=== PATIENT | male | born 1940 | race Caucasian/White ===

== ENCOUNTER 2017-04-08 15:10 | Inpatient (IN) ==
--- NOTE | 2017-04-08 15:51 | Emergency Department Note ---
Disposition Clinical Impression: Pneumonia, Sepsis, Renal failure, Atrial fibrillation, History of treatment for malignancy, Diabetes, Frail elderly, Abdominal hernia, Abdominal aortic aneurysm, Iliac aneurysm, Renal mass, Anemia, Abnormal EKG, Hypoxemia Disposition: Admitted As Inpatient Referrals: Avery Woods DO [Primary Care Provider] - Forms: ED Satisfaction Letter General Adult HPI - General Chief complaint: ED Shortness of Breath/Dyspnea Stated complaint: ADELINE,"pneumonia" Time Seen by Provider: 04/08/17 15:41 Source: patient, family Limitations: no limitations - History of Present Illness HPI Narrative: 76-year-old male reports emergency department complaining of cough and shortness of breath. He has been ill for a few days. He has a history of malignancy as well as previous PE, cardiac bypass, COPD/non-oxygen dependent. He went to his primary care physician's office and they sent him here for further evaluation. The patient has been generally weak. There is no history of fall. No history of slurred speech or difficulty moving the arms or legs independently. There is no history of coughing up blood or bleeding of any sort. The patient reportedly takes Coumadin. The patient denies any chest pain. There is no history of back pain or urinary problems. He lives with his who came in with him. Pain Scale: 8 - Related Data Home Medications Medication Instructions Recorded Confirmed Aspirin 325 mg PO DAILY 07/07/15 04/08/17 Furosemide [Lasix] 40 mg PO DAILY 07/07/15 04/08/17 Omeprazole [PriLOSEC] 20 mg PO DAILY 07/07/15 04/08/17 Potassium Chloride [Kdur] 10 meq PO BID 07/07/15 04/08/17 Sennosides/Docusate Sodium 2 tab PO BID 07/07/15 04/08/17 [Latonya-Colace Tablet] Tiotropium [place] [Spiriva] 18 mcg IH DAILY 07/07/15 04/08/17 Warfarin [Coumadin] 5 mg PO Q48H 07/07/15 04/08/17 Levothyroxine [Synthroid] 150 mcg PO DAILY 07/10/15 04/08/17 Metoprolol [Lopressor] 25 mg PO BID 07/10/15 04/08/17 Insulin Glargine,Hum.rec.anlog 30 unit SQ QAM 12/06/16 04/08/17 [Lantus Solostar] Megestrol Acetate [Megace] 200 mg PO BID 04/08/17 04/08/17 Morphine Sulfate SR (12 HR) [MS 30 mg PO Q8H 04/08/17 04/08/17 Contin] Warfarin [Coumadin] 2.5 mg PO Q48H 04/08/17 04/08/17 Previous Rx's Medication Instructions Recorded Citalopram [CeleXA] 20 mg PO DAILY #30 tablet 12/13/15 Lubiprostone [Amitiza] 24 mcg PO BID #60 capsule 12/13/15 Metoclopramide [Reglan] 10 mg PO QIDAC #120 tablet 12/06/16 Fluticasone/Salmeterol [Advair 1 each IH BID #1 blst.w.dev 03/10/17 250-50 Diskus] Oxycodone HCl/Acetaminophen 1 - 2 each PO Q4H PRN #360 tablet 03/10/17 [Percocet 10-325 mg Tablet] Allergies Allergy/AdvReac Type Severity Reaction Status Date / Time cephalexin [From Keflex] Allergy Mild unknown Verified 07/10/15 09:08 levofloxacin [From Levaquin] Allergy Mild unknown Verified 07/10/15 09:08 All systems ED: reviewed and negative except as stated. Past Medical History - Past Medical History Medical history: Reports: atrial fibrillation, cancer, COPD, coronary artery disease, diabetes, malignancy, other Surgical history: Reports: cancer surgery (Total thyroidectomy), coronary bypass (CABG) (With the mobile sternum secondary to complications postoperatively) Psychiatric history: Reports: anxiety, depression - Social History Smoking Status: Current every day smoker Smokeless Tobacco Status: No Alcohol use: Reports: none Drug use: Reports: none Physical Exam - General Limitations: no limitations General appearance: alert, in no apparent distress - Head Head exam: atraumatic, normocephalic, normal inspection - Eye Eye exam: Present: normal appearance, PERRL, EOMI - ENT ENT exam: normal exam, normal oropharynx, mucous membranes moist, TM's normal bilaterally, normal external ear exam - Neck Neck exam: Present: normal inspection, full ROM, trachea midline. Absent: tenderness - Chest Chest inspection: Present: symmetric chest wall rise. Absent: tenderness - Respiratory Respiratory exam: Present: prolonged expiratory phase, other (Course breath sounds bilaterally). Absent: normal lung sounds bilaterally, respiratory distress, accessory muscle use - Cardiovascular Cardiovascular exam: Present: regular rate, tachycardia - Abdominal Exam Abdominal exam: Present: soft, normal bowel sounds, hernia (Hernia noted and there are the umbilical area tender to palpation not completely reducible.). Absent: distention, guarding, rebound, rigidity Abdominal tenderness: Present: epigastrium, moderate - Extremities Exam Extremities exam: Present: normal inspection, full ROM, normal capillary refill. Absent: tenderness, pedal edema, joint swelling, calf tenderness - Expanded Lower Extremity Exam Lower leg exam: Absent: Homans' sign Neurovascular/Tendon exam: Present: normal capillary refill. Absent: motor deficit, sensory deficit, tendon deficit, extremity cold to touch, pallor - Back Exam Back exam: Present: normal inspection, full ROM. Absent: tenderness, CVA tenderness (R), CVA tenderness (L), vertebral tenderness - Neurological Exam Neurological exam: Present: alert, oriented X3, CN II-XII intact. Absent: motor sensory deficit - Psychiatric Psychiatric exam: Present: normal affect, normal mood - Skin Skin exam: Present: warm, dry, intact, normal color. Absent: rash, cyanosis, diaphoresis, erythema, pallor, mottled Course Vital Signs Temperature 97.6 F 04/08/17 15:29 Pulse Rate 110 04/08/17 15:29 Respiratory Rate 22 04/08/17 15:29 Blood Pressure 106/63 04/08/17 15:29 O2 Sat by Pulse Oximetry 88 04/08/17 15:29 Temperature 97.6 F 04/08/17 15:29 Pulse Rate 110 04/08/17 15:29 Respiratory Rate 16 04/08/17 16:39 Blood Pressure 106/63 04/08/17 15:29 O2 Sat by Pulse Oximetry 91 04/08/17 16:39 Oxygen Delivery Oxygen Delivery Room Air Medical Decision Making - [facility] Narrative Medical decision making narrative: The patient is elderly, he has pneumonitis, as well as significant hypoxemia, his oxygen saturations were 86% on room air. He does not usually require oxygen. IV access was established antibiotics were ordered. Blood cultures were sent. Based on his age, multiple comorbidities including malignancy and COPD, tachycardia and pneumonitis, he likely meets sepsis criteria. The patient is currently stable pending admission. I discussed the case with the hospitalist on-call who has accepted the patient to their care. *A discussion was had regarding the patient's allergies to medications, cephalexin and Levaquin have reportedly a yeast infection the penile area. He has no true allergy to Levaquin or cephalexin. An initial dose of Levaquin was ordered. Solu-Medrol and fluids were also given. Oxygen was supplied. - Lab Data Lab results reviewed: Yes I reviewed the patient's lab results. Result diagrams: 04/08/17 15:57 04/08/17 15:57 Lab Results 04/08/17 04/08/17 04/08/17 Range/Units 15:57 15:57 15:57 WBC 11.0 (4.3-11.1) K/mcL RBC 3.95 L (4.19-5.50) M/mcL Hgb 12.5 L (12.9-16.9) g/dL Hct 37.8 (37.5-50.1) % MCV 95.7 (83.0-100.0) fL MCH 31.6 (28.0-33.3) pg MCHC 33.1 (31.6-35.5) g/dL RDW 14.6 H (11.5-14.5) % Plt Count 408 H (140-400) K/mcL MPV 8.8 L (9.4-12.4) fL Seg Neutrophils % 68.0 % Band Neutrophils % 20.0 H (0-4) % Lymphocytes % 6.0 % Monocytes % 6.0 % Neutrophils # 9.7 H (1.6-8.9) K/mcL Lymphocytes # 0.7 (0.6-4.6) K/mcL Monocytes # 0.7 (0.0-1.3) K/mcL Toxic Granulation Present A (Not Present) Platelet Estimate Slight increase H (Normal) Immature Plt Fraction 2.1 (1.1-6.1) % APTT 64.9 H (26.0-36.0) Seconds Sodium 138 (136-145) mEq/L Potassium 3.7 (3.5-4.5) mEq/L Chloride 106 (98-109) mEq/L Carbon Dioxide 22 (19-29) mEq/L BUN 34 H (8-26) mg/dL Creatinine 1.50 H (0.72-1.25) mg/dL Est GFR ( Amer) 55 L (> 60) Est GFR (Non-Af Amer) 45 L (> 60) BUN/Creatinine Ratio 23 (6-26) Glucose 182 H (70-99) mg/dL Calculated Osmolality 298 (280-300) Lactic Acid (0.5-2.2) mmol/L Calcium 9.3 (8.6-10.8) mg/dL Total Bilirubin 0.7 (0.2-1.2) mg/dL Direct Bilirubin 0.5 (0.0-0.5) mg/dL Indirect Bilirubin 0.2 (0.0-1.2) mg/dL AST 9 (5-34) Units/L ALT 6 (0-55) Units/L Alkaline Phosphatase 47 (38-126) Units/L Troponin I (0-0.03) ng/mL C-Reactive Protein (Less than 5) mg/L B-Natriuretic Peptide (0-100) pg/mL Serum Total Protein 6.8 (6.0-8.3) g/dL Albumin 2.7 L (3.5-5.0) g/dL Globulin 4.1 H (2.4-3.5) g/dL Albumin/Globulin Ratio 0.7 L (1.1-2.2) Lipase 8 (8-78) Units/L 04/08/17 04/08/17 04/08/17 Range/Units 15:57 15:57 15:57 WBC (4.3-11.1) K/mcL RBC (4.19-5.50) M/mcL Hgb (12.9-16.9) g/dL Hct (37.5-50.1) % MCV (83.0-100.0) fL MCH (28.0-33.3) pg MCHC (31.6-35.5) g/dL RDW (11.5-14.5) % Plt Count (140-400) K/mcL MPV (9.4-12.4) fL Seg Neutrophils % % Band Neutrophils % (0-4) % Lymphocytes % % Monocytes % % Neutrophils # (1.6-8.9) K/mcL Lymphocytes # (0.6-4.6) K/mcL Monocytes # (0.0-1.3) K/mcL Toxic Granulation (Not Present) Platelet Estimate (Normal) Immature Plt Fraction (1.1-6.1) % APTT (26.0-36.0) Seconds Sodium (136-145) mEq/L Potassium (3.5-4.5) mEq/L Chloride (98-109) mEq/L Carbon Dioxide (19-29) mEq/L BUN (8-26) mg/dL Creatinine (0.72-1.25) mg/dL Est GFR ( Amer) (> 60) Est GFR (Non-Af Amer) (> 60) BUN/Creatinine Ratio (6-26) Glucose (70-99) mg/dL Calculated Osmolality (280-300) Lactic Acid 1.8 (0.5-2.2) mmol/L Calcium (8.6-10.8) mg/dL Total Bilirubin (0.2-1.2) mg/dL Direct Bilirubin (0.0-0.5) mg/dL Indirect Bilirubin (0.0-1.2) mg/dL AST (5-34) Units/L ALT (0-55) Units/L Alkaline Phosphatase (38-126) Units/L Troponin I 0.01 (0-0.03) ng/mL C-Reactive Protein (Less than 5) mg/L B-Natriuretic Peptide 111 H (0-100) pg/mL Serum Total Protein (6.0-8.3) g/dL Albumin (3.5-5.0) g/dL Globulin (2.4-3.5) g/dL Albumin/Globulin Ratio (1.1-2.2) Lipase (8-78) Units/L 04/08/17 Range/Units 15:57 WBC (4.3-11.1) K/mcL RBC (4.19-5.50) M/mcL Hgb (12.9-16.9) g/dL Hct (37.5-50.1) % MCV (83.0-100.0) fL MCH (28.0-33.3) pg MCHC (31.6-35.5) g/dL RDW (11.5-14.5) % Plt Count (140-400) K/mcL MPV (9.4-12.4) fL Seg Neutrophils % % Band Neutrophils % (0-4) % Lymphocytes % % Monocytes % % Neutrophils # (1.6-8.9) K/mcL Lymphocytes # (0.6-4.6) K/mcL Monocytes # (0.0-1.3) K/mcL Toxic Granulation (Not Present) Platelet Estimate (Normal) Immature Plt Fraction (1.1-6.1) % APTT (26.0-36.0) Seconds Sodium (136-145) mEq/L Potassium (3.5-4.5) mEq/L Chloride (98-109) mEq/L Carbon Dioxide (19-29) mEq/L BUN (8-26) mg/dL Creatinine (0.72-1.25) mg/dL Est GFR ( Amer) (> 60) Est GFR (Non-Af Amer) (> 60) BUN/Creatinine Ratio (6-26) Glucose (70-99) mg/dL Calculated Osmolality (280-300) Lactic Acid (0.5-2.2) mmol/L Calcium (8.6-10.8) mg/dL Total Bilirubin (0.2-1.2) mg/dL Direct Bilirubin (0.0-0.5) mg/dL Indirect Bilirubin (0.0-1.2) mg/dL AST (5-34) Units/L ALT (0-55) Units/L Alkaline Phosphatase (38-126) Units/L Troponin I (0-0.03) ng/mL C-Reactive Protein 174 H (Less than 5) mg/L B-Natriuretic Peptide (0-100) pg/mL Serum Total Protein (6.0-8.3) g/dL Albumin (3.5-5.0) g/dL Globulin (2.4-3.5) g/dL Albumin/Globulin Ratio (1.1-2.2) Lipase (8-78) Units/L - Radiology Data Radiology results reviewed: Yes I reviewed the patient's radiology results.
[2017-04-08] MEDS ORDERED: 0.9 % Sodium Chloride 1,000 ML IVC ONE ×3 (15:53→17:05)
[2017-04-08] MEDS ORDERED: Ipratropium/Albuterol Neb 3 ML IH ONE (16:13)
[2017-04-08] MEDS ORDERED: methylPREDNISolone 125 MG/2 ML VIAL IVP ONE (16:13)
[2017-04-08 16:15] LABS: Hematocrit 37.8 % (37.5-50.1); Hemoglobin 12.5 g/dL (12.9-16.9); Immature Platelets 2.1 % (1.1-6.1); Mean Corpuscular HGB Conc 33.1 g/dL (31.6-35.5); Mean Corpuscular Hemoglobin 31.6 pg (28.0-33.3); Mean Corpuscular Volume 95.7 fL (83.0-100.0); Mean Platelet Volume 8.8 fL (9.4-12.4); Platelet Count 408 K/mcL (140-400); Red Blood Count 3.95 M/mcL (4.19-5.50); Red Cell Distribution Width 14.6 % (11.5-14.5)
[2017-04-08 16:25] LABS: Activated Partial Thrombo Time 64.9 Seconds (26.0-36.0)
[2017-04-08 16:30] LABS: Albumin 2.7 g/dL (3.5-5.0); Albumin/Globulin Ratio 0.7 (1.1-2.2); Bilirubin,Direct 0.5 mg/dL (0.0-0.5); Bilirubin,Indirect 0.2 mg/dL (0.0-1.2); Bilirubin,Total 0.7 mg/dL (0.2-1.2); Calcium 9.3 mg/dL (8.6-10.8); Globulin 4.1 g/dL (2.4-3.5); Potassium 3.7 mEq/L (3.5-4.5); Total Protein 6.8 g/dL (6.0-8.3)
[2017-04-08 16:43] LABS: Lymphocytes # 0.7 K/mcL (0.6-4.6); Monocytes # 0.7 K/mcL (0.0-1.3); Neutrophils # 9.7 K/mcL (1.6-8.9); Toxic Granulation Present (Not Present)
[2017-04-08] MEDS ORDERED: Levofloxacin 750 MG/150 ML 750 MG/150 ML BAG IVPB ONE (19:01)
[2017-04-08 19:15] LABS: INR 18.5
[2017-04-08] MEDS ORDERED: *HR* Phytonadione 5 MG TABLET PO ONE (19:44)
[2017-04-08] MEDS ORDERED: Ondansetron 4 MG/2 ML VIAL IVP PRN (20:17)
[2017-04-08] MEDS ORDERED: Naloxone 0.4 MG/ML INJ IVP PRN (20:17)
[2017-04-08] MEDS ORDERED: *HR* Dextrose 50 % in Water (Syg) 50 ML SYRINGE IVP PRN (20:23)
[2017-04-08] MEDS ORDERED: D5% in Water 1,000 ML IVC PRN (20:23)
[2017-04-08] MEDS ORDERED: Dextrose Gel 15 GM PO PRN ×2 (20:23)
[2017-04-08] MEDS ORDERED: Fluconazole 100 MG TABLET PO ONE (20:26)
--- NOTE | 2017-04-08 20:30 | Internal Med History&Physical ---
<Koffi Parry - Last Filed: 04/08/17 20:59> Date of Encounter: 04/08/17 Time of Encounter: 20:28 Assessment and Plan (1) Acute respiratory failure Current visit: Yes Status: Acute Patient does not require oxygen at home however his oxygen saturation was 86% on presentation. Patient came up to 91% on 2 L. Likely related to his underlying pneumonia. We will continue with oxygen therapy. We will hold off on an ABG at this time given the patient's supratherapeutic INR. Patient expresses wishes to remain a full code. Qualifiers: Respiratory failure complication: hypoxia Qualified Code(s): J96.01 - Acute respiratory failure with hypoxia (2) Pneumonia Current visit: Yes Status: Acute Concern for aspiration. Patient and significant other states that he does have episodes of choking when eating and drinking. Patient also has significant healthcare exposure with history of cancer and radiation therapy. We will treat with Bactrim antibiotics including vancomycin, Levaquin, Zosyn. Zosyn will cover for possible aspiration. Blood cultures are been obtained, sputum cultures pending. Of note patient has a stated Levaquin allergy however he states that his reaction is that we will get a yeast infection in his genital area when taking Levaquin and he has no other significant reaction. Patient was given Levaquin in the emergency department without adverse reaction. Discussed patient that Levaquin was indicated for his treatment and he understands that he is taking it. Qualifiers: Pneumonia type: due to unspecified organism Laterality: right Lung location: lower lobe of lung Qualified Code(s): J18.1 - Lobar pneumonia, unspecified organism (3) Supratherapeutic INR Current visit: Yes Status: Acute Patient's INR on presentation his 18.5. Repeat pending. Patient does not have any active bleeding at this time. He did state that he noticed flecks of blood in his sputum this morning and had a nosebleed that resolved spontaneously. At the time I examined him do not have any blood in the sputum and had no further active bleeding. We will give 5 mg of by mouth vitamin K, place the patient on strict bed rest and continue to monitor his INR. Coumadin will be held. If the patient has any signs of bleeding we will initiate FFP. (4) Acute renal failure Current visit: Yes Status: Acute Creatinine 1.5 on presentation, patient has normal kidney function otherwise. Likely due to dehydration in the setting of infection. Patient has been given adequate fluid hydration. Patient continues to have good urine output. We will monitor creatinine and urine output. Qualifiers: Acute renal failure type: unspecified Qualified Code(s): N17.9 - Acute kidney failure, unspecified (5) Atrial fibrillation Current visit: Yes Status: Acute Rate is under good control this time. Patient is on anticoagulation with supratherapeutic INR as discussed above. We will hold Coumadin. Continue rate controlling medications. Qualifiers: Atrial fibrillation type: unspecified Qualified Code(s): I48.91 - Unspecified atrial fibrillation (6) COPD (chronic obstructive pulmonary disease) Current visit: Yes Status: Acute Non-oxygen dependent at home. Patient is requiring oxygen as discussed above. Patient does not appear to be in acute exacerbation. There is no wheezing on exam or by history. Patient did receive Solu-Medrol 125 mg one time in the emergency department, we will hold off on any further steroids at this time. We will continue with breathing treatments. Patient continues to smoke 1 pack per day. Qualifiers: COPD type: unspecified COPD Qualified Code(s): J44.9 - Chronic obstructive pulmonary disease, unspecified (7) Diabetes Current visit: Yes Status: Acute Blood sugar slightly elevated on presentation. Wants to low-dose sliding scale and adjust as necessary. Patient is nothing by mouth until evaluated by speech. 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 Patient and significant other states that he does have issues with aspiration. This could be the cause of his pneumonia. We will make the patient nothing by mouth until he can be evaluated by speech therapy in the morning. (9) Thyroid carcinoma Current visit: No Status: Resolved History of. Patient had a total thyroidectomy approximately 3 years ago and received postsurgical radiation. It is not undergoing treatment currently. We will continue Synthroid. (10) DVT prophylaxis Current visit: Yes Status: Acute Not indicated at this time due to supratheraputic INR Internal Medicine - H&P: HPI Chief complaint: Cough Admitted From: Home Plans for Post Hospital Care: Home History of present illness: Mr. Nicholson is a 76 year old male with history of thyroid and laryngeal cancer who presents with cough and chest congestion. Patient states that he has had these symptoms for approximately 10 days he has been gradually getting worse. He complains of shortness of breath, increased cough with thick yellow-green sputum production. He states as well as his significant other states that over the last couple days he seems to be more lethargic and confused. He normally handles his medications well however has had difficulty managing his own medications in the last several days. He also reports nausea and vomiting and loose stools. He complains of epigastric abdominal pain. He states he has had fevers and chills for more than a year but recently he has had episodes where his felt extremely warm. He reports today he noticed flecks of blood in his sputum and this morning he had a short nosebleed that resolved spontaneously. Otherwise he denies any other active bleeding including emily hemoptysis, hematemesis, hematochezia, melena. Past Med Surg Social Fam HX - Past Medical History Medical history: atrial fibrillation, cancer, COPD, coronary artery disease, diabetes, malignancy, other Psychiatric history: anxiety, depression - Past Surgical History Surgical History: cancer surgery (Total thyroidectomy), coronary bypass (CABG) ( With the mobile sternum secondary to complications postoperatively) - Social History Smoking Status: Current every day smoker Smokeless Tobacco Status: No Alcohol use: none Drug use: none - Family History Mother Living Status: Hx Family Cardiac Disorders: Yes Internal Medicine - H&P: Meds Aspirin 325 mg PO DAILY 07/07/15 [History] Furosemide [Lasix] 40 mg PO DAILY 07/07/15 [History] Omeprazole [PriLOSEC] 20 mg PO DAILY 07/07/15 [History] Potassium Chloride [Kdur] 10 meq PO BID 07/07/15 [History] Sennosides/Docusate Sodium [Latonya-Colace Tablet] 2 tab PO BID 07/07/15 [History] Tiotropium [place] [Spiriva] 18 mcg IH DAILY 07/07/15 [History] Warfarin [Coumadin] 5 mg PO Q48H 07/07/15 [History] Levothyroxine [Synthroid] 150 mcg PO DAILY 07/10/15 [History] Metoprolol [Lopressor] 25 mg PO BID 07/10/15 [History] Citalopram [CeleXA] 20 mg PO DAILY #30 tablet 12/13/15 [Rx] Lubiprostone [Amitiza] 24 mcg PO BID #60 capsule 12/13/15 [Rx] Insulin Glargine,Hum.rec.anlog [Lantus Solostar] 30 unit SQ QAM 12/06/16 [ History] Metoclopramide [Reglan] 10 mg PO QIDAC #120 tablet 12/06/16 [Rx] Fluticasone/Salmeterol [Advair 250-50 Diskus] 1 each IH BID #1 blst.w.dev [Rx] Oxycodone HCl/Acetaminophen [Percocet 10-325 mg Tablet] 1 - 2 each PO Q4H PRN # 360 tablet 03/10/17 [Rx] Megestrol Acetate [Megace] 200 mg PO BID 04/08/17 [History] Morphine Sulfate SR (12 HR) [MS Contin] 30 mg PO Q8H 04/08/17 [History] Warfarin [Coumadin] 2.5 mg PO Q48H 04/08/17 [History] Allergies cephalexin [From Keflex] Allergy (Mild, Verified 07/10/15 09:08) unknown SWELLING OF GENITAL AREA WITH BLEEDING levofloxacin [From Levaquin] Allergy (Mild, Verified 07/10/15 09:08) unknown SWELLING OF GENITAL AREA WITH BLEEDING All Systems PM: A 10-system review of systems was performed and is negative for pertinent findings except as documented above in the HPI. - Constitutional Constitutional: fever(s), lethargy, no chills - EENT Eyes: no change in vision Nose, mouth and throat: nasal congestion, sinus pressure, no epistaxis, no sore throat, no throat swelling, no tongue swelling - Cardiovascular Cardiovascular ROS IM: dyspnea, dyspnea on exertion, no chest pain, no edema, no irregular heart rhythm, no lightheadedness, no palpitations, no syncope - Respiratory Respiratory: cough, dyspnea, hemoptysis (flecks of blood), chest congestion, excessive phlegm production, change in phlegm color, no wheezing - Gastrointestinal Gastrointestinal: abdominal pain, loose stools, nausea, vomiting, no hematemesis , no hematochezia, no melena - Genitourinary Genitourinary ROS male: no dysuria, no hematuria - Musculoskeletal Musculoskeletal ROS IM: no numbness, no tingling - Neurological Neurological ROS: confusion, disequilibrium, dizziness, no frequent falls, no headache(s), no numbness, no weakness - Psychiatric Psychiatric: confusion, memory loss (recent) - Endocrine Endocrine IM: no polyuria - Allergic/Immunologic Allergic/Immunologic: no tongue swelling, no throat swelling - Constitutional Vitals: Temp Pulse Resp BP Pulse Ox 97.6 F 110 18 132/73 91 04/08/17 15:29 04/08/17 15:29 04/08/17 19:49 04/08/17 19:49 04/08/17 16:39 General appearance: Present: A&O X 3, no acute distress - Head Head exam: Present: atraumatic, normal inspection, normocephalic - Eye Eye exam: Present: EOMI, PERRL. Absent: scleral icterus - ENT ENT exam: Present: mucous membranes dry, normal oropharynx - Neck Neck exam general surgery: Present: full ROM - Respiratory Respiratory exam: Present: rhonchi (RLL). Absent: respiratory distress, wheezes , tachypnea - Cardiovascular Cardiovascular exam: Present: RRR, tachycardia. Absent: gallop, rubs, systolic murmur - GI/Abdominal GI/Abdominal exam: Present: normal bowel sounds, soft, tenderness (epigastric), no peritoneal signs. Absent: distended, firm - Extremities Exam Extremities exam: Present: warm. Absent: pedal edema, tenderness - Neurological Exam Neurological exam: Present: alert, oriented X3 (but somewhat lethargic), no focal deficits - Psychiatric Psychiatric exam: Present: normal affect, normal mood Internal Med - H&P Results - Labs CBC & Chem 7: 04/08/17 15:57 04/08/17 15:57 <Babar Talavera - Last Filed: 04/08/17 22:22> Date of Encounter: 04/08/17 - EENT Nose, mouth and throat: dysphagia, nasal congestion, sinus pressure - Cardiovascular Cardiovascular ROS IM: dyspnea, dyspnea on exertion - Respiratory Respiratory: cough, dyspnea, chest congestion, excessive phlegm production, change in phlegm color, no pain on inspiration - Gastrointestinal Gastrointestinal: nausea, vomiting, no diarrhea - Musculoskeletal Musculoskeletal ROS IM: no arthralgias, no back pain - Integumentary Integumentary IM: no rash, no jaundice - Hematologic/Lymphatic Hematologic/Lymphatic: easy bleeding, easy bruising - Constitutional Vitals: Temp Pulse Resp BP Pulse Ox 98.3 F 94 17 122/78 94 04/08/17 21:01 04/08/17 21:01 04/08/17 21:01 04/08/17 21:01 04/08/17 21:01 General appearance: Present: cooperative, A&O X 3, pleasant, answers questions appropriately Exam: Pt looks a little dry and coughing; otherwise NAD; A&Ox3; no confusion presently -- confirms - ENT Additional comments: no stridor - Neck Neck exam general surgery: Present: full ROM. Absent: lymphadenopathy, tenderness - Respiratory Respiratory exam: Present: decreased breath sounds (right base with crackles), rales (right base), rhonchi. Absent: accessory muscle use, chest wall tenderness - Cardiovascular Cardiovascular exam: Present: RRR. Absent: diastolic murmur, systolic murmur - GI/Abdominal GI/Abdominal exam: Present: soft. Absent: tenderness - Extremities Exam Extremities exam: Present: full ROM, warm. Absent: calf tenderness - Skin Skin exam: Present: dry, warm. Absent: rash Internal Med - H&P Results - Labs CBC & Chem 7: 04/08/17 15:57 04/08/17 15:57 - Diagnostic Studies Chest x-ray Status: image reviewed by me (RLL pneumonia) - Attending Attestation I discussed the SOBOBA, PMH, ROS, lab data, and exam findings with Dr. Parry. I then saw and examined patient independently as well. Pt is ill with pneumonia , but he is alert, appropriate, pleasant, cooperative, and in no distress presently. He confirms increased coughing with thick sputum production -- mostly during meals and with eating/swallowing. He states he's had difficulty eating and swallowing since his ENT surgery roughly 3 years ago. He's never had aspiration pneumonia before. I informed him and his that we will make him npo for now, consult speech for swallow evaluation, and modify diet per speech recommendations thereafter. I entertained the possibility of G-tube, and he is adamantly against any feeding tube. He agrees with our plan otherwise. I agree with holding his Coumadin, giving him Vitamin K, and following PT/INR levels. I also agree with antibiotic choices. I suspect his pneumonia is likely due to aspiration as noted in the history and ROS. Other than my comments noted above and noted exam findings, I agree with Dr. Parry' s assessment and plan.
[2017-04-08] MEDS ORDERED: Budesonide/Formoterol 80/4.5 MDI IH SCH (21:00)
[2017-04-08] MEDS ORDERED: Vancomycin (wt based) 1,000 MG VIAL IVPB SCH (21:00)
[2017-04-08] MEDS: *HR* Morphine Sulfate SR (12 HR) 30 MG TABLET.ER PO SCH (21:19)
[2017-04-08] MEDS: Sennosides/Docusate Sodium TABLET PO SCH (21:20)
[2017-04-08] MEDS: Megestrol Acetate 400 MG/10 ML UDC PO SCH (21:21)
[2017-04-08] MEDS: (Lubiprostone [Amitiza] 24 MCG) PO SCH (21:30)
[2017-04-08] MEDS ORDERED: Vancomycin 1,250 MG in D5% in Water 250 ML IVPB ONE (21:30)
[2017-04-08 21:31] LABS: INR 18.9; Prothrombin Time 223.8 Seconds (9.4-12.1)
[2017-04-08] MEDS: Insulin LISPRO 300 UNITS/3 ML VIAL SQ SCH (21:47)
[2017-04-08] MEDS: Ipratropium/Albuterol Neb 3 ML IH SCH (22:34)
[2017-04-08] MEDS: *HR* OxyCODONE/APAP 10/325 TABLET PO PRN (23:41)
[2017-04-08] MEDS: Piperacillin/Tazobactam 3.375 GM in D5% in Water (Mini-Bag+) 100 ML IVPB SCH (23:41)
[2017-04-09 00:18] LABS: Bilirubin,Urine Small (Negative); Blood,Urine Negative (Negative); Clarity,Urine Clear (Clear); Color,Urine Yellow (Yellow); Glucose,Urine (UA) Normal (Normal); Ketones,Urine Trace mg/dL (Negative); Leukocyte Esterase,Urine Negative (Negative); Nitrite,Urine Negative (Negative); PH,Urine 5.5 pH Units (5.0-8.0); Protein,Urine Trace mg/dL (Neg-Trace); Specific Gravity,Urine > 1.030 (1.010-1.025); Urobilinogen,Urine Normal (Normal)
[2017-04-09 00:22] LABS: Bacteria,Urine None Seen per hpf (None-Few); Hyaline Casts,Urine None Seen per lpf (None-Few); Squamous Epithelial Cell,Urine Moderate per lpf (None-Few); WBC,Urine 0-3 per hpf (0-3)
[2017-04-09] MEDS: *HR* Morphine Sulfate SR (12 HR) 30 MG TABLET.ER PO SCH ×3 (04:04→21:17)
[2017-04-09] MEDS: Ipratropium/Albuterol Neb 3 ML IH SCH ×6 (04:20→23:14)
[2017-04-09 04:45] LABS: Hematocrit 33.1 % (37.5-50.1); Mean Corpuscular HGB Conc 33.2 g/dL (31.6-35.5); Mean Corpuscular Hemoglobin 31.6 pg (28.0-33.3); Mean Corpuscular Volume 95.1 fL (83.0-100.0); Mean Platelet Volume 9.1 fL (9.4-12.4); Platelet Count 300 K/mcL (140-400); Red Blood Count 3.48 M/mcL (4.19-5.50); Red Cell Distribution Width 14.6 % (11.5-14.5)
[2017-04-09 05:26] LABS: BUN/Creatinine Ratio 30 (6-26); Blood Urea Nitrogen 26 mg/dL (8-26); Calcium 8.4 mg/dL (8.6-10.8); Carbon Dioxide 19 mEq/L (19-29); Chloride 110 mEq/L (98-109); Glucose 163 mg/dL (70-99); Magnesium 1.2 mg/dL (1.6-2.6); Osmolality,Calculated 296 (280-300); Potassium 4.1 mEq/L (3.5-4.5); Sodium 139 mEq/L (136-145); eGFR For African Americans > 60 (> 60); eGFR For Non-African Americans > 60 (> 60)
[2017-04-09 05:36] LABS: Lymphocytes # 0.3 K/mcL (0.6-4.6); Neutrophils # 6.4 K/mcL (1.6-8.9); Platelet Estimate Normal (Normal); Reactive Lymphocytes Present (Not Present)
[2017-04-09 05:37] LABS: Toxic Granulation Present (Not Present)
[2017-04-09 05:49] LABS: INR 13.2
[2017-04-09] MEDS ORDERED: Magnesium Sulfate 2 GM in D5% in Water 100 ML IVPB ONE ×2 (06:20→08:07)
[2017-04-09] MEDS ORDERED: Tiotropium 18 MCG inhalation IH SCH (09:00)
[2017-04-09] MEDS: Insulin LISPRO 300 UNITS/3 ML VIAL SQ SCH ×4 (09:13→21:17)
[2017-04-09] MEDS: Piperacillin/Tazobactam 3.375 GM in D5% in Water (Mini-Bag+) 100 ML IVPB SCH ×3 (09:13→23:38)
[2017-04-09] MEDS: Sennosides/Docusate Sodium TABLET PO SCH ×2 (09:23→21:17)
[2017-04-09] MEDS: Megestrol Acetate 400 MG/10 ML UDC PO SCH ×2 (09:23→21:16)
[2017-04-09] MEDS: Magnesium Oxide 400 MG TABLET PO SCH (09:23)
[2017-04-09] MEDS: (Lubiprostone [Amitiza] 24 MCG) PO SCH (09:24)
[2017-04-09] MEDS: Budesonide/Formoterol 80/4.5 MDI IH SCH ×2 (11:05→19:46)
--- NOTE | 2017-04-09 16:21 | Internal Med Progress Note ---
Date of Encounter: 04/09/17 Time of Encounter: 12:30 - Assessment and plan (1) Pneumonia Current Visit: Yes Status: Acute Assessment and plan: right basilar pneumonia, on broad spectrum antibiotics, will continue and follow cultures. PT evaluation. Qualifiers: Pneumonia type: due to unspecified organism Laterality: right Lung location: lower lobe of lung Qualified Code(s): J18.1 - Lobar pneumonia, unspecified organism (2) Supratherapeutic INR Current Visit: Yes Status: Acute Assessment and plan: no active bleeding, inr down trending, no criteria for FFP, will monitor inr tomorrow in am and give another dose of vitamin K if needed. - Subjective Interval history: 1st encounter with the patient, feels weak. complainig of cough and not feeling himself for a few weeks. lives with his . - Constitutional Vitals: Temp Pulse Resp BP Pulse Ox 98.2 F 76 18 104/67 99 04/09/17 15:48 04/09/17 15:48 04/09/17 15:48 04/09/17 15:48 04/09/17 15:48 General appearance: Present: cooperative, disheveled, A&O X 3, pleasant, answers questions appropriately - Head Head exam: Present: atraumatic, normocephalic - Eye Eye exam: Present: PERRL, conjuntiva pink, sclera anicteric Pupils: Present: PERRL - Neck Neck exam general surgery: Present: supple, trachea midline. Absent: lymphadenopathy - Respiratory Respiratory exam: Present: rhonchi. Absent: accessory muscle use, rales, wheezes - Cardiovascular Cardiovascular exam: Present: RRR, +S1, +S2. Absent: diastolic murmur, gallop, rubs, systolic murmur - GI/Abdominal GI/Abdominal exam: Present: normal bowel sounds, soft, no peritoneal signs. Absent: distended, tenderness - Extremities Exam Extremities exam: Present: warm, radial pulses palpable and symetrical. Absent : calf tenderness, cyanotic, pedal edema - Neurological Exam Neurological exam: Present: CN II-XII intact, oriented X3, no focal deficits. Absent: pronater drift, facial droop, speech deficit - Skin Skin exam: Present: dry, intact Internal Medicine: Result - Labs CBC & Chem 7: 04/09/17 04:19 04/09/17 04:19 Labs: Short CBC 04/09/17 Range/Units 04:19 WBC 6.7 (4.3-11.1) K/mcL Hgb 11.0 L D (12.9-16.9) g/dL Hct 33.1 L (37.5-50.1) % Plt Count 300 (140-400) K/mcL Neutrophils # 6.4 (1.6-8.9) K/mcL BMP 04/09/17 04:19 Sodium 139 Potassium 4.1 Chloride 110 H Carbon Dioxide 19 BUN 26 Creatinine 0.86 Glucose 163 H Calcium 8.4 L Urine 04/09/17 Range/Units 00:00 Urine Color Yellow (Yellow) Urine Clarity Clear (Clear) Urine pH 5.5 (5.0-8.0) pH Units Ur Specific [place] > 1.030 H (1.010-1.025) Urine Protein Trace (Neg-Trace) mg/dL Urine Glucose (UA) Normal (Normal) mg/dL - ABG Interpretation ABG results: PT/INR, D-dimer PT 154.0 Seconds (9.4-12.1) H* 04/09/17 04:19 - Impressions Impressions Videofluoroscopic Swallow 04/09/17 09:13 IMPRESSION: Deep penetration with thin liquids. The patient is at high risk for aspiration. Flash penetration with nectar thick and honey thick consistencies. Please see separate speech pathology report for full discussion of findings and recommendations. D/ / Spike Robbins MD / Spike Robbins MD Interpreting Provider: Spike Robbins MD - VTE Reasons for not Prescribing Prophylaxis: Not indicated-Anticoagulated or INR therapeutic Consult Discharge Plan - Plan Referrals: Avery Woods, [Primary Care Provider] -
[2017-04-09] MEDS ORDERED: Vancomycin 1,250 MG in D5% in Water 250 ML IVPB SCH (21:00)
[2017-04-09] MEDS: *HR* OxyCODONE/APAP 10/325 TABLET PO PRN (23:35)
[2017-04-10] MEDS: Ipratropium/Albuterol Neb 3 ML IH SCH ×6 (03:40→23:50)
[2017-04-10] MEDS: *HR* Morphine Sulfate SR (12 HR) 30 MG TABLET.ER PO SCH ×3 (04:38→21:42)
[2017-04-10] MEDS: *HR* OxyCODONE/APAP 10/325 TABLET PO PRN (04:39)
[2017-04-10 05:43] LABS: Basophils % 0.2 %; Eosinophils % 0.1 %; Hematocrit 32.3 % (37.5-50.1); Hemoglobin 10.7 g/dL (12.9-16.9); Immature Granulocytes % 1.9 % (0-4); Lymphocytes # 0.6 K/mcL (0.6-4.6); Lymphocytes % 6.2 %; Mean Corpuscular HGB Conc 33.1 g/dL (31.6-35.5); Mean Corpuscular Hemoglobin 31.5 pg (28.0-33.3); Mean Platelet Volume 9.1 fL (9.4-12.4); Monocytes # 0.7 K/mcL (0.0-1.3); Monocytes % 7.2 %; Neutrophils # 8.2 K/mcL (1.6-8.9); Platelet Count 334 K/mcL (140-400); Red Cell Distribution Width 14.6 % (11.5-14.5); Segmented Neutrophils % 84.4 %
[2017-04-10 05:44] LABS: INR 3.9
[2017-04-10 05:47] LABS: Prothrombin Time 43.5 Seconds (9.4-12.1)
[2017-04-10 05:58] LABS: BUN/Creatinine Ratio 28 (6-26); Blood Urea Nitrogen 24 mg/dL (8-26); Calcium 8.9 mg/dL (8.6-10.8); Carbon Dioxide 23 mEq/L (19-29); Chloride 107 mEq/L (98-109); Glucose 143 mg/dL (70-99); Magnesium 2.1 mg/dL (1.6-2.6); Osmolality,Calculated 293 (280-300); Potassium 3.9 mEq/L (3.5-4.5); Sodium 138 mEq/L (136-145); eGFR For African Americans > 60 (> 60); eGFR For Non-African Americans > 60 (> 60)
[2017-04-10 06:14] LABS: Platelet Estimate Normal (Normal)
[2017-04-10 06:15] LABS: Reactive Lymphocytes Present (Not Present); Toxic Granulation Present (Not Present)
[2017-04-10] MEDS: Budesonide/Formoterol 80/4.5 MDI IH SCH ×2 (07:47→20:09)
[2017-04-10] MEDS: Insulin LISPRO 300 UNITS/3 ML VIAL SQ SCH ×4 (08:05→21:52)
[2017-04-10] MEDS: Megestrol Acetate 400 MG/10 ML UDC PO SCH ×2 (08:41→21:41)
[2017-04-10] MEDS: Sennosides/Docusate Sodium TABLET PO SCH ×2 (08:42→21:42)
[2017-04-10] MEDS: Magnesium Oxide 400 MG TABLET PO SCH (08:42)
[2017-04-10] MEDS: Piperacillin/Tazobactam 3.375 GM in D5% in Water (Mini-Bag+) 100 ML IVPB SCH ×2 (08:43→16:24)
[2017-04-10] MEDS ORDERED: AMITIZA 24 MCG PO SCH (09:00)
[2017-04-10] MEDS ORDERED: Vancomycin 1,250 MG in D5% in Water 250 ML IVPB SCH (11:30)
--- NOTE | 2017-04-10 15:08 | Internal Med Progress Note ---
Date of Encounter: 04/10/17 Time of Encounter: 15:07 - Assessment and plan (1) Pneumonia Current Visit: Yes Status: Acute Assessment and plan: right basilar pneumonia, on broad spectrum antibiotics, will continue and follow cultures. PT evaluation noed. discussed with patient possible d/c tomorrow if stable. will need home o2. Qualifiers: Pneumonia type: due to unspecified organism Laterality: right Lung location: lower lobe of lung Qualified Code(s): J18.1 - Lobar pneumonia, unspecified organism (2) Supratherapeutic INR Current Visit: Yes Status: Acute - Subjective Interval history: feels weak but beter than yesterday, his at bedside. complainig of cough and not feeling himself for a few weeks. lives with his . - Constitutional Vitals: Temp Pulse Resp BP Pulse Ox 98.4 F 84 16 102/61 93 04/10/17 12:17 04/10/17 12:17 04/10/17 12:17 04/10/17 12:17 04/10/17 14:02 General appearance: Present: disheveled, A&O X 3, pleasant, answers questions appropriately - Head Head exam: Present: atraumatic, normocephalic - Eye Eye exam: Present: PERRL, conjuntiva pink, sclera anicteric Pupils: Present: PERRL - Neck Neck exam general surgery: Present: supple, trachea midline. Absent: lymphadenopathy - Respiratory Respiratory exam: Present: decreased breath sounds. Absent: accessory muscle use, rales, rhonchi, wheezes - Cardiovascular Cardiovascular exam: Present: RRR, +S1, +S2. Absent: diastolic murmur, gallop, rubs, systolic murmur - GI/Abdominal GI/Abdominal exam: Present: normal bowel sounds, soft, no peritoneal signs. Absent: distended, tenderness - Extremities Exam Extremities exam: Present: warm, radial pulses palpable and symetrical. Absent : calf tenderness, cyanotic, pedal edema - Neurological Exam Neurological exam: Present: CN II-XII intact, oriented X3, no focal deficits. Absent: pronater drift, facial droop, speech deficit - Skin Skin exam: Present: dry, intact Internal Medicine: Result - Labs CBC & Chem 7: 04/10/17 04:30 04/10/17 04:30 Labs: Short CBC 04/10/17 Range/Units 04:30 WBC 9.7 (4.3-11.1) K/mcL Hgb 10.7 L (12.9-16.9) g/dL Hct 32.3 L (37.5-50.1) % Plt Count 334 (140-400) K/mcL Neutrophils # 8.2 (1.6-8.9) K/mcL BMP 04/10/17 04:30 Sodium 138 Potassium 3.9 Chloride 107 Carbon Dioxide 23 BUN 24 Creatinine 0.85 Glucose 143 H Calcium 8.9 - ABG Interpretation ABG results: PT/INR, D-dimer PT 43.5 Seconds (9.4-12.1) H* D 04/10/17 04:30 - Impressions Impressions Videofluoroscopic Swallow 04/09/17 09:13 IMPRESSION: Deep penetration with thin liquids. The patient is at high risk for aspiration. Flash penetration with nectar thick and honey thick consistencies. Please see separate speech pathology report for full discussion of findings and recommendations. D/ / Spike Robbins MD / Spike Robbins MD Interpreting Provider: Spike Robbins MD - VTE Reasons for not Prescribing Prophylaxis: Not indicated-Anticoagulated or INR therapeutic Consult Discharge Plan - Plan Referrals: Avery Woods DO [Primary Care Provider] - 04/18/17 1:25 pm (Web requested 04/09/17)
--- NOTE | 2017-04-10 15:21 | Electrocardiograph Report ---
[address] [address] Test Date: 2017-04-08 Pat Name: Weston Nicholson Department: 103 Room: 2A37 Gender: M Correction Officer: : 1940 Requested By: Reji Heart Order Number: [id number] Reading MD: Magnus Alvarez Measurements Intervals [place] Rate: 110 P: 33 [place]: 234 QRS: 24 QRSD: 82 T: 123 QT: 337 QTc: 402 Interpretive Statements SINUS TACHYCARDIA WITH FIRST DEGREE AV BLOCK WITH OCCASIONAL VENTRICULAR PREMATURE COMPLEXES ST DEVIATION AND MODERATE T-WAVE ABNORMALITY, CONSIDER ANTEROLATERAL ISCHEMIA Electronically Signed On 04-10-2017 15:19:34 EDT by Magnus Alvarez
[2017-04-10] MEDS ORDERED: Vancomycin 1,500 MG in D5% in Water 250 ML IVPB SCH (21:00)
[2017-04-10] MEDS: AMITIZA 24 MCG PO SCH (21:50)
[2017-04-11] MEDS: Piperacillin/Tazobactam 3.375 GM in D5% in Water (Mini-Bag+) 100 ML IVPB SCH ×2 (00:27→08:35)
[2017-04-11] MEDS: Ipratropium/Albuterol Neb 3 ML IH SCH ×3 (04:41→11:40)
[2017-04-11 04:52] LABS: Hematocrit 34.6 % (37.5-50.1); Hemoglobin 11.2 g/dL (12.9-16.9); Mean Corpuscular HGB Conc 32.4 g/dL (31.6-35.5); Mean Corpuscular Hemoglobin 30.9 pg (28.0-33.3); Mean Corpuscular Volume 95.6 fL (83.0-100.0); Mean Platelet Volume 8.4 fL (9.4-12.4); Platelet Count 349 K/mcL (140-400); Red Blood Count 3.62 M/mcL (4.19-5.50); Red Cell Distribution Width 14.7 % (11.5-14.5)
[2017-04-11 05:01] LABS: INR 3.8; Prothrombin Time 42.6 Seconds (9.4-12.1)
[2017-04-11 05:13] LABS: BUN/Creatinine Ratio 22 (6-26); Blood Urea Nitrogen 17 mg/dL (8-26); Calcium 8.6 mg/dL (8.6-10.8); Carbon Dioxide 25 mEq/L (19-29); Chloride 108 mEq/L (98-109); Glucose 88 mg/dL (70-99); Osmolality,Calculated 291 (280-300); Potassium 4.1 mEq/L (3.5-4.5); Sodium 140 mEq/L (136-145); eGFR For African Americans > 60 (> 60); eGFR For Non-African Americans > 60 (> 60)
[2017-04-11] MEDS: *HR* Morphine Sulfate SR (12 HR) 30 MG TABLET.ER PO SCH (05:30)
[2017-04-11 05:38] LABS: Eosinophils # 0.4 K/mcL (0.0-0.6); Neutrophils # 7.5 K/mcL (1.6-8.9); Platelet Estimate Normal (Normal); Reactive Lymphocytes Present (Not Present)
[2017-04-11 07:33] VITALS: BP 122/71
[2017-04-11] MEDS: Insulin LISPRO 300 UNITS/3 ML VIAL SQ SCH ×2 (08:30→12:12)
[2017-04-11] MEDS: Budesonide/Formoterol 80/4.5 MDI IH SCH (08:35)
[2017-04-11] MEDS: Sennosides/Docusate Sodium TABLET PO SCH (08:38)
[2017-04-11] MEDS: Magnesium Oxide 400 MG TABLET PO SCH (08:38)
[2017-04-11] MEDS: Megestrol Acetate 400 MG/10 ML UDC PO SCH (08:39)
[2017-04-11] MEDS: AMITIZA 24 MCG PO SCH (08:39)
[2017-04-11] MEDS: *HR* OxyCODONE/APAP 10/325 TABLET PO PRN (10:09)
--- NOTE | 2017-04-11 11:32 | Discharge Summary ---
Date of Encounter: 04/11/17 Time of Encounter: 11:30 - Discharge Diagnosis (1) Pneumonia Priority: Primary Status: Acute Qualifiers: Pneumonia type: due to unspecified organism Laterality: right Lung location: lower lobe of lung Qualified Code(s): J18.1 - Lobar pneumonia, unspecified organism (2) Supratherapeutic INR Priority: Secondary Status: Acute - Discharge Medications Prescriptions: Amoxicillin/Clavulanate [Augmentin] 875 mg PO BIDWM 5 Days Doxycycline 100 mg PO BID 5 Days Home Medications: Aspirin 325 mg PO DAILY 07/07/15 [History] Furosemide [Lasix] 40 mg PO DAILY 07/07/15 [History] Omeprazole [PriLOSEC] 20 mg PO DAILY 07/07/15 [History] Potassium Chloride 10 meq PO BID 07/07/15 [History] Sennosides/Docusate Sodium [Latonya-Colace Tablet] 2 tab PO BID 07/07/15 [History] Tiotropium [place] [Spiriva] 18 mcg IH DAILY 07/07/15 [History] Levothyroxine [Synthroid] 150 mcg PO DAILY 07/10/15 [History] Metoprolol [Lopressor] 25 mg PO BID 07/10/15 [History] Citalopram [CeleXA] 20 mg PO DAILY #30 tablet 12/13/15 [Rx] Lubiprostone [Amitiza] 24 mcg PO BID #60 capsule 12/13/15 [Rx] Insulin Glargine,Hum.rec.anlog [Lantus Solostar] 30 unit SQ QAM 12/06/16 [ History] Metoclopramide [Reglan] 10 mg PO QIDAC #120 tablet 12/06/16 [Rx] Fluticasone/Salmeterol [Advair 250-50 Diskus] 1 each IH BID #1 blst.w.dev [Rx] Oxycodone HCl/Acetaminophen [Percocet 10-325 mg Tablet] 1 - 2 each PO Q4H PRN # 360 tablet 03/10/17 [Rx] Megestrol Acetate [Megace] 200 mg PO BID 04/08/17 [History] Morphine Sulfate SR (12 HR) [MS Contin] 30 mg PO Q8H 04/08/17 [History] Amoxicillin/Clavulanate [Augmentin] 875 mg PO BIDWM 5 Days 04/11/17 [Rx] Doxycycline 100 mg PO BID 5 Days 04/11/17 [Rx] Allergies/Adverse Reactions: Allergies cephalexin [From Keflex] Allergy (Mild, Verified 07/10/15 09:08) unknown SWELLING OF GENITAL AREA WITH BLEEDING levofloxacin [From Levaquin] Adverse Reaction (Mild, Verified 04/09/17 08:12) unknown Yeast Infection Date of admission: 04/08/17 22:23 Primary care physician: Avery Garcia Consults: 04/08/17 23:13 Consult to Nutrition [CONS] Routine Comment: Consulting Provider: NUTRITION Reason for Dietary Consult: MST Score 04/09/17 00:26 Consult to Shot Hole Shooter [CONS] Routine Reason for SW Consult: POSSIBLE NEEDS ON DISCHARGE 04/09/17 02:19 Consult to Wound Care [CONS] Routine Reason for Consult: VERY DRY AND FLAKY SKIN BLE Call Completed: No 04/09/17 10:39 Consult to Physical Therapy [CONS] Routine Comment: Evaluate, develop and implement POC Reason for Consult: Physical deconditioning. Discharging clinician: Kaleb Ruvalcaba Anticipated date of discharge: 04/11/17 - Patient Status Disposition: Home Health Service Condition: Fair Functional capacity at discharge: independent ambulation Overall status at discharge: patient is progressing back to baseline - Discharge Instructions Follow Up With: Avery Garcia DO [Primary Care Provider] - 04/18/17 1:25 pm (Web requested 04/09/17) - Diet and Activity Activity: as per physical therapy Diet: advance to your usual diet Interval History: Mr. Nicholson is a 76 year old male with history of thyroid and laryngeal cancer who presents with cough and chest congestion. Patient states that he has had these symptoms for approximately 10 days he has been gradually getting worse. He complains of shortness of breath, increased cough with thick yellow-green sputum production. He states as well as his significant other states that over the last couple days he seems to be more lethargic and confused. He normally handles his medications well however has had difficulty managing his own medications in the last several days. He also reports nausea and vomiting and loose stools. He complains of epigastric abdominal pain. He states he has had fevers and chills for more than a year but recently he has had episodes where his felt extremely warm. He reports today he noticed flecks of blood in his sputum and this morning he had a short nosebleed that resolved spontaneously. Otherwise he denies any other active bleeding including emily hemoptysis, hematemesis, hematochezia, melena. Hospital course: Mr. Nicholson is a 76 year old male feels better, walking, on oxygen via nasal cannula, no fever no leukocytosis since amdission. right basilar pneumonia, on broad spectrum antibiotics, since admission on vanc and zosyn, no allergic reaction noted, negative cultures so far. PT evaluation noed, needs home health. in light of ct findings i nathalia recommended a follow up imaging in - to check for resolution of pna, d/w patient and his . patient candelaria follow up with his pcp dr garcia. Elevated inr upon admission , above 18, esponded well to vitamin k, no active bleeding noted, so no ffp given, today inr 3.8, hold coumadin for now and recheck inr on friday, management of AC as per pcp. discussed with patient d/c today with po augmentin and doxy, will need home o2. - Time Spent with Patient Total time spent providing and/or coordinating discharge services: - Constitutional Vitals: Temp Pulse Resp BP Pulse Ox 97.8 F 73 16 122/71 95 04/11/17 07:31 04/11/17 07:31 04/11/17 08:36 04/11/17 07:31 04/11/17 08:41 General appearance: Present: disheveled, A&O X 3, pleasant, answers questions appropriately - Head Head exam: Present: atraumatic, normocephalic - Eye Eye exam: Present: PERRL, conjuntiva pink, sclera anicteric Pupils: Present: PERRL - Neck Neck exam general surgery: Present: supple, trachea midline. Absent: lymphadenopathy - Respiratory Respiratory exam: Present: CTAB. Absent: accessory muscle use, rales, rhonchi, wheezes - Cardiovascular Cardiovascular exam: Present: RRR, +S1, +S2. Absent: diastolic murmur, gallop, rubs, systolic murmur - GI/Abdominal GI/Abdominal exam: Present: normal bowel sounds, soft, no peritoneal signs. Absent: distended, tenderness - Extremities Exam Extremities exam: Present: warm, radial pulses palpable and symetrical. Absent : calf tenderness, cyanotic, pedal edema - Neurological Exam Neurological exam: Present: CN II-XII intact, oriented X3, no focal deficits. Absent: pronater drift, facial droop, speech deficit - Skin Skin exam: Present: dry, intact - VTE Reasons for not Prescribing Prophylaxis: Not indicated-Anticoagulated or INR therapeutic
--- NOTE | 2017-04-11 11:38 | Physician Discharge Referral ---
Home Health/Hosp Referral Info Transfer to: Home Health - Diagnosis (1) Pneumonia Priority: Primary Status: Acute (2) Supratherapeutic INR Priority: Secondary Status: Acute - Respiratory Orders Oxygen / L per min (3) Smoking Cessation: Smoking cessation has been advised. For more information, call the [place] Tobacco Quit Line at 4-999-CBEP-NOW. - Diet/Nutrition Diet/Nutrition Orders: Regular - Activity Activity Orders: Ambulate - Services Needed Following services are medically necessary services: Nursing, Home Health Aide, Physical Therapy - Transfer Medications Prescriptions: Amoxicillin/Clavulanate [Augmentin] 875 mg PO BIDWM 5 Days Doxycycline 100 mg PO BID 5 Days Home Medications: Aspirin 325 mg PO DAILY 07/07/15 [History] Furosemide [Lasix] 40 mg PO DAILY 07/07/15 [History] Omeprazole [PriLOSEC] 20 mg PO DAILY 07/07/15 [History] Potassium Chloride 10 meq PO BID 07/07/15 [History] Sennosides/Docusate Sodium [Latonya-Colace Tablet] 2 tab PO BID 07/07/15 [History] Tiotropium [place] [Spiriva] 18 mcg IH DAILY 07/07/15 [History] Levothyroxine [Synthroid] 150 mcg PO DAILY 07/10/15 [History] Metoprolol [Lopressor] 25 mg PO BID 07/10/15 [History] Citalopram [CeleXA] 20 mg PO DAILY #30 tablet 12/13/15 [Rx] Lubiprostone [Amitiza] 24 mcg PO BID #60 capsule 12/13/15 [Rx] Insulin Glargine,Hum.rec.anlog [Lantus Solostar] 30 unit SQ QAM 12/06/16 [ History] Metoclopramide [Reglan] 10 mg PO QIDAC #120 tablet 12/06/16 [Rx] Fluticasone/Salmeterol [Advair 250-50 Diskus] 1 each IH BID #1 blst.w.dev [Rx] Oxycodone HCl/Acetaminophen [Percocet 10-325 mg Tablet] 1 - 2 each PO Q4H PRN # 360 tablet 03/10/17 [Rx] Megestrol Acetate [Megace] 200 mg PO BID 04/08/17 [History] Morphine Sulfate SR (12 HR) [MS Contin] 30 mg PO Q8H 04/08/17 [History] Amoxicillin/Clavulanate [Augmentin] 875 mg PO BIDWM 5 Days 04/11/17 [Rx] Doxycycline 100 mg PO BID 5 Days 04/11/17 [Rx] Allergies/Adverse Reactions: Allergies cephalexin [From Keflex] Allergy (Mild, Verified 07/10/15 09:08) unknown SWELLING OF GENITAL AREA WITH BLEEDING levofloxacin [From Levaquin] Adverse Reaction (Mild, Verified 04/09/17 08:12) unknown Yeast Infection Certification: Further, I certify that my clinical findings support that this patient is homebound (i.e. absences from home require considerable and taxing effort and are for medical reasons or latter-day services or infrequently or short duration when for other reasons) because: Homebound Reason: Leaving home requires considerable and taxing effort due to condition, Severity of cardiac or pulmonary status limits activity tolerance Attestation: My signature below is to certify that this patient is under my care and that I, or nurse practitioner, or a physician's business support assistant working with me, has a face-to -face encounter with this patient.
[2017-04-11] MEDS ORDERED: Aminoglycoside Consult 1 EACH MC ONE (13:24)
[2017-04-11] MEDS ORDERED: Doxycycline 100 MG CAPSULE PO SCH (21:00)
== END 2017-04-11 13:25 | disposition home health service (06) | DRG 190 ==
LOC: EMEROO 15:10 → 2ANU 15:10
PROVIDERS: ADMIT Pediatrics; ATTEND Internal Medicine

== ENCOUNTER 2017-05-09 10:42 | Observation (INO) ==
[2017-05-09 11:45] LABS: Basophils # 0.1 K/mcL (0.0-0.2); Basophils % 0.8 %; Eosinophils # 0.3 K/mcL (0.0-0.6); Hematocrit 38.2 % (37.5-50.1); Hemoglobin 12.3 g/dL (12.9-16.9); Immature Granulocytes % 0.8 % (0-4); Lymphocytes % 12.8 %; Mean Corpuscular HGB Conc 32.2 g/dL (31.6-35.5); Mean Corpuscular Hemoglobin 30.8 pg (28.0-33.3); Mean Corpuscular Volume 95.7 fL (83.0-100.0); Mean Platelet Volume 8.4 fL (9.4-12.4); Monocytes # 0.6 K/mcL (0.0-1.3); Monocytes % 7.6 %; Neutrophils # 5.6 K/mcL (1.6-8.9); Platelet Count 308 K/mcL (140-400); Red Blood Count 3.99 M/mcL (4.19-5.50); Red Cell Distribution Width 14.9 % (11.5-14.5)
[2017-05-09 11:56] LABS: Albumin 2.7 g/dL (3.5-5.0); Albumin/Globulin Ratio 0.7 (1.1-2.2); Alkaline Phosphatase 58 Units/L (38-126); Aspartate Amino Transferase 10 Units/L (5-34); BUN/Creatinine Ratio 14 (6-26); Bilirubin,Total 0.3 mg/dL (0.2-1.2); Blood Urea Nitrogen 14 mg/dL (8-26); Calcium 8.9 mg/dL (8.6-10.8); Carbon Dioxide 22 mEq/L (19-29); Chloride 105 mEq/L (98-109); Globulin 3.9 g/dL (2.4-3.5); Glucose 67 mg/dL (70-99); Osmolality,Calculated 283 (280-300); Sodium 137 mEq/L (136-145); Total Protein 6.6 g/dL (6.0-8.3); eGFR For African Americans > 60 (> 60); eGFR For Non-African Americans > 60 (> 60)
--- NOTE | 2017-05-09 11:57 | Emergency Department Note ---
Disposition Clinical Impression: Supratherapeutic INR, Generalized weakness Disposition: Admitted As Inpatient Condition: Fair Time of Disposition: 13:00 General Adult HPI - General Chief complaint: ED Recheck/Abnormal Lab/Rx Stated complaint: Elevated INR Time Seen by Provider: 05/09/17 10:49 Source: patient, family Limitations: age Nursing Notes Reviewed: Yes Vital Signs Reviewed: Yes - History of Present Illness HPI Narrative: Patient is a 76-year-old male who presents to [facility] ED with a chief complaint of elevated INR. States he was called by his primary care's office and told to come to the emergency department for vitamin K. He was told his INR was over 10. Patient has had a history of having supratherapeutic INRs. He was admitted last month from April 08 to April 11 for pneumonia and also super therapeutic INR at that time. Patient states he saw his doctor a week ago and was told his INR was high. He then states that they told him to double his Coumadin dose to 2 pills one day and half a pill the next day (10mg, then 2.5mg). He then had his INR checked yesterday which was greater than 10. Patient denies any active bleeding. No recent vomiting or coughing up blood, no dark tarry or bright red blood stools. Patient does state he has continued to feel very weak after his pneumonia. He continues to cough up thick yellow sputum. Also states he has no appetite. He has had significant weight loss over the last 2 years of greater than 100 pounds. 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 Patient denies any recent fevers, chills, nausea or vomiting. He does feel some left-sided lower chest pain. Onset (ago): Just MATERIAL MOVERS Pain Scale: 0 Improves with: nothing Worsens with: nothing Associated symptoms: Reports: chest pain, cough, loss of appetite, weakness Treatments Prior to Arrival: none - Related Data Home Medications Medication Instructions Recorded Confirmed Aspirin 325 mg PO DAILY 07/07/15 05/09/17 Furosemide [Lasix] 40 mg PO DAILY 07/07/15 05/09/17 Omeprazole [PriLOSEC] 20 mg PO DAILY 07/07/15 05/09/17 Potassium Chloride 10 meq PO BID 07/07/15 05/09/17 Sennosides/Docusate Sodium 2 tab PO BID 07/07/15 05/09/17 [Latonya-Colace Tablet] Tiotropium [place] [Spiriva] 18 mcg IH DAILY 07/07/15 05/09/17 Levothyroxine [Synthroid] 150 mcg PO DAILY 07/10/15 05/09/17 Metoprolol [Lopressor] 25 mg PO BID 07/10/15 05/09/17 Insulin Glargine,Hum.rec.anlog 10 unit SQ QAM 12/06/16 05/09/17 [Lantus Solostar] Megestrol Acetate [Megace] 200 mg PO BID 04/08/17 05/09/17 Morphine Sulfate SR (12 HR) [MS 30 mg PO Q8H 04/08/17 05/09/17 Contin] Warfarin [Coumadin] 2.5 - 5 mg PO AD 05/09/17 05/09/17 Previous Rx's Medication Instructions Recorded Citalopram [CeleXA] 20 mg PO DAILY #30 tablet 12/13/15 Lubiprostone [Amitiza] 24 mcg PO BID #60 capsule 12/13/15 Metoclopramide [Reglan] 10 mg PO QIDAC #120 tablet 12/06/16 Fluticasone/Salmeterol [Advair 1 each IH BID #1 blst.w.dev 03/10/17 250-50 Diskus] Oxycodone HCl/Acetaminophen 1 - 2 each PO Q4H PRN #360 tablet 04/11/17 [Percocet 10-325 mg Tablet] Allergies Allergy/AdvReac Type Severity Reaction Status Date / Time cephalexin [From Keflex] Allergy Mild unknown Verified 07/10/15 09:08 levofloxacin [From Levaquin] AdvReac Mild unknown Verified 04/09/17 08:12 All systems ED: reviewed and negative except as stated. Past Medical History - Past Medical History Attestation: Yes The following information was validated with the patient. Source: patient Medical history: Reports: atrial fibrillation, cancer, COPD, coronary artery disease, diabetes, malignancy, thyroid disease, other Surgical history: Reports: cancer surgery, coronary bypass (CABG) Psychiatric history: Reports: anxiety, depression - Social History Smoking Status: Current every day smoker Smokeless Tobacco Status: No Alcohol use: Reports: none Drug use: Reports: none Physical Exam - General Limitations: age General appearance: alert, in no apparent distress - Head Head exam: atraumatic, normocephalic, normal inspection - Eye Eye exam: Present: normal appearance, PERRL, EOMI - ENT ENT exam: normal exam, normal oropharynx, mucous membranes moist - Neck Neck exam: Present: normal inspection, full ROM, trachea midline - Chest Chest inspection: Present: normal inspection, symmetric chest wall rise - Respiratory Respiratory exam: Present: normal lung sounds bilaterally - Cardiovascular Cardiovascular exam: Present: regular rate, normal rhythm, normal heart sounds - Abdominal Exam Abdominal exam: Present: soft, Non-Tender. Absent: tenderness, distention, guarding, rebound, rigidity - Extremities Exam Extremities exam: Present: normal inspection, full ROM. Absent: tenderness, pedal edema - Back Exam Back exam: Present: normal inspection, full ROM. Absent: tenderness - Neurological Exam Neurological exam: Present: alert - Psychiatric Psychiatric exam: Present: normal affect, normal mood - Skin Skin exam: Present: warm, dry, intact, normal color Course Course Narrative: Patient seen and examined. Patient called in for elevated INR of greater than 10. We will repeat labs. When looking into the outpatient record, it looks like patient's INR had been 4.0 last week and he had been told to make his Coumadin regimen 2.5/2.5/5 g. Patient seemed to miss understand this and ended up doing 10 mg/2.5mg. He has also had increasing weakness and persistent cough ever since he was diagnosed with pneumonia last month. We will do a cardiopulmonary workup. - Reevaluation(s) Reevaluation #1: Lab work shows critical elevated INR of 18. 5 mg of oral vitamin K given. Will admit patient for further monitoring of his INR levels as well as his generalized weakness and failure to thrive. Chest x-ray shows atelectasis versus persistent pneumonia. Lab work otherwise unremarkable without signs of acute infection. We will hold off on antibiotics at this time. The patient is a smoker with chronic COPD, this cough may be more chronic. Time: 13:00 Vital Signs Temperature 98.5 F 05/09/17 10:43 Pulse Rate 79 05/09/17 10:43 Respiratory Rate 20 05/09/17 10:43 Blood Pressure 90/60 05/09/17 10:43 O2 Sat by Pulse Oximetry 91 05/09/17 10:43 Temperature 98.2 F 05/10/17 19:36 Pulse Rate 86 05/10/17 19:36 Respiratory Rate 18 05/10/17 19:36 Blood Pressure 98/62 05/10/17 19:36 O2 Sat by Pulse Oximetry 91 05/10/17 19:36 Oxygen Delivery Oxygen Delivery Room Air Medical Decision Making - Medical Records Medical records reviewed: Yes I reviewed the patient's medical records. - Lab Data Lab results reviewed: Yes I reviewed the patient's lab results. Result diagrams: 05/10/17 03:19 05/10/17 03:19 Lab Results 05/09/17 05/09/17 05/09/17 Range/Units 11:36 11:36 11:36 WBC 7.5 (4.3-11.1) K/mcL RBC 3.99 L (4.19-5.50) M/mcL Hgb 12.3 L (12.9-16.9) g/dL Hct 38.2 (37.5-50.1) % MCV 95.7 (83.0-100.0) fL MCH 30.8 (28.0-33.3) pg MCHC 32.2 (31.6-35.5) g/dL RDW 14.9 H (11.5-14.5) % Plt Count 308 (140-400) K/mcL MPV 8.4 L (9.4-12.4) fL Immature Gran % 0.8 (0-4) % Seg Neutrophils % 74.0 % Lymphocytes % 12.8 % Monocytes % 7.6 % Eosinophils % 4.0 % Basophils % 0.8 % Neutrophils # 5.6 (1.6-8.9) K/mcL Lymphocytes # 1.0 (0.6-4.6) K/mcL Monocytes # 0.6 (0.0-1.3) K/mcL Eosinophils # 0.3 (0.0-0.6) K/mcL Basophils # 0.1 (0.0-0.2) K/mcL PT 215.8 H* (9.4-12.1) Seconds INR 18.3 H* Sodium 137 (136-145) mEq/L Potassium 4.0 (3.5-4.5) mEq/L Chloride 105 (98-109) mEq/L Carbon Dioxide 22 (19-29) mEq/L BUN 14 (8-26) mg/dL Creatinine 1.02 (0.72-1.25) mg/dL Est GFR ( Amer) > 60 (> 60) Est GFR (Non-Af Amer) > 60 (> 60) BUN/Creatinine Ratio 14 (6-26) Glucose 67 L (70-99) mg/dL Est Mean Plasma Glucose mg/dl Hemoglobin A1c ( - 5.6) % Calculated Osmolality 283 (280-300) Calcium 8.9 (8.6-10.8) mg/dL Total Bilirubin 0.3 (0.2-1.2) mg/dL AST 10 (5-34) Units/L ALT < 6 (0-55) Units/L Alkaline Phosphatase 58 (38-126) Units/L Troponin I (0-0.03) ng/mL Serum Total Protein 6.6 (6.0-8.3) g/dL Albumin 2.7 L (3.5-5.0) g/dL Globulin 3.9 H (2.4-3.5) g/dL Albumin/Globulin Ratio 0.7 L (1.1-2.2) 05/09/17 05/09/17 Range/Units 11:36 11:36 WBC (4.3-11.1) K/mcL RBC (4.19-5.50) M/mcL Hgb (12.9-16.9) g/dL Hct (37.5-50.1) % MCV (83.0-100.0) fL MCH (28.0-33.3) pg MCHC (31.6-35.5) g/dL RDW (11.5-14.5) % Plt Count (140-400) K/mcL MPV (9.4-12.4) fL Immature Gran % (0-4) % Seg Neutrophils % % Lymphocytes % % Monocytes % % Eosinophils % % Basophils % % Neutrophils # (1.6-8.9) K/mcL Lymphocytes # (0.6-4.6) K/mcL Monocytes # (0.0-1.3) K/mcL Eosinophils # (0.0-0.6) K/mcL Basophils # (0.0-0.2) K/mcL PT (9.4-12.1) Seconds INR Sodium (136-145) mEq/L Potassium (3.5-4.5) mEq/L Chloride (98-109) mEq/L Carbon Dioxide (19-29) mEq/L BUN (8-26) mg/dL Creatinine (0.72-1.25) mg/dL Est GFR ( Amer) (> 60) Est GFR (Non-Af Amer) (> 60) BUN/Creatinine Ratio (6-26) Glucose (70-99) mg/dL Est Mean Plasma Glucose 100 mg/dl Hemoglobin A1c 5.1 ( - 5.6) % Calculated Osmolality (280-300) Calcium (8.6-10.8) mg/dL Total Bilirubin (0.2-1.2) mg/dL AST (5-34) Units/L ALT (0-55) Units/L Alkaline Phosphatase (38-126) Units/L Troponin I 0.00 (0-0.03) ng/mL Serum Total Protein (6.0-8.3) g/dL Albumin (3.5-5.0) g/dL Globulin (2.4-3.5) g/dL Albumin/Globulin Ratio (1.1-2.2) - Radiology Data Radiology results reviewed: Yes I reviewed the patient's radiology results. Chest X-Ray 05/09/17 11:20 IMPRESSION: 1. Bibasilar airspace opacities, right greater than left. Given the appearance, this is favored to represent atelectasis ; however, pneumonia can have a similar appearance in the appropriate clinical setting. D/ / Jamal Ryan MD / Jamal Ryan MD Interpreting Provider: Jamal Ryan MD - EKG Data EKG #1 EKG attestation: Yes I reviewed and interpreted this EKG. EKG results narrative: EKG done at 1246 shows atrial pacemaker paced rhythm. Rate [address] elevation or depression. Normal axis. Attestation Statement - Attestation Attestation: I, Magnus Franks, examined this patient and my medical decision-making was reviewed with the MANAGER SAL[employer] TRAINING/PA/Advanced Practice Nurse/Resident Physician. I agree with the documented findings, disposition and treatment plan as described except to the extent set forth below. 76-year-old male presents for concerns of elevated INR. Patient apparently did not understand his primary care physician when he called regarding the INR level. He ended up taking extra Coumadin. Patient denies recent trauma, denies chest pain, shortness of breath, nausea, vomiting, hematochezia, melena, hematemesis. Patient's INR was significantly elevated on reevaluation emergency department he was given vitamin K will be admitted to hospital for further care and evaluation.
[2017-05-09 11:58] LABS: Alanine Aminotransferase < 6 Units/L (0-55)
[2017-05-09 12:05] LABS: INR 18.3; Prothrombin Time 215.8 Seconds (9.4-12.1)
[2017-05-09] MEDS ORDERED: *HR* Phytonadione 5 MG TABLET PO ONE (12:06)
[2017-05-09] MEDS ORDERED: Naloxone 0.4 MG/ML INJ IVP PRN (13:08)
[2017-05-09] MEDS ORDERED: Acetaminophen 325 MG TABLET PO PRN (13:13)
[2017-05-09] MEDS ORDERED: D5% in Water 1,000 ML IVC PRN (13:21)
[2017-05-09] MEDS ORDERED: *HR* Dextrose 50 % in Water (Syg) 50 ML SYRINGE IVP PRN (13:21)
[2017-05-09] MEDS ORDERED: Dextrose Gel 15 GM PO PRN ×2 (13:21)
--- NOTE | 2017-05-09 13:47 | Internal Med History&Physical ---
<JamesKeenanCynthia J - Last Filed: 05/09/17 14:24> Date of Encounter: 05/09/17 Time of Encounter: 13:44 Assessment and Plan (1) Supratherapeutic INR Current visit: Yes Status: Acute On Coumadin for A. fib; regimen increased 1 week prior to presentation. INR 18. No obvious bleeding no recent falls, neurologically intact. Had recent admission with similar elevation in INR. Discussed alternative anticoagulation with patient and he reports adverse reaction with premaxilla (developed lower extremity wounds from Paxil per patient). He declines Xarelto. Vitamin K given in the ED. Continue holding Coumadin. Monitor repeat INR, neuro checks, and up with assistance only. (2) Atrial fibrillation Current visit: No Status: Acute Per history. Rate controlled. Continue home beta bijal, holding Coumadin with supratherapeutic INR. EKG pending Qualifiers: Atrial fibrillation type: unspecified Qualified Code(s): I48.91 - Unspecified atrial fibrillation (3) CAD (coronary artery disease) of artery bypass graft Current visit: Yes Status: Acute History of CABG. Asymptomatic, denies chest pain. Continue home BP, hold ASA ( resume when INR between 2-3). EKG pending Qualifiers: [place] vs. transplanted heart: [place] heart Associated angina: without angina Qualified Code(s): I25.810 - Atherosclerosis of coronary artery bypass graft(s) without angina pectoris (4) Essential hypertension Current visit: Yes Status: Acute per hx. BP controlled. Cont home BP medications. Monitor BP and titrate PRN (5) COPD (chronic obstructive pulmonary disease) Current visit: No Status: Acute per hx. Current smoker; cessation advised but not likely. No evidence of exacerbation. Cont home inhalers Qualifiers: COPD type: unspecified COPD Qualified Code(s): J44.9 - Chronic obstructive pulmonary disease, unspecified (6) Diabetes Current visit: No Status: Acute per hx. control unknown. Blood glucose 67 on arrival alert and oriented and taking by mouth in the ED. Continue home long-acting, monitor blood sugars and titrate when necessary. 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 Follows with Dr. Hackett. Can follow up outpatient as previously planned. (8) DVT prophylaxis Current visit: Yes Status: Acute Supratherapeutic INR Internal Medicine - H&P: HPI Chief complaint: Told to come to hospital because of high INR Admitted From: Home History of present illness: Mr. Nicholson is a 76 year old male with past medical history thyroid/laryngeal cancer, A. fib on Coumadin hypertension diabetes and CAD who presented to [facility] on 05/09/2017 after labs drawn with PCP showed an INR of 18. He was placed in observation status for continued monitoring. Information obtained from chart review and patient report. Per patient he was called by his primary care doctor last week and was advised to increase his dose of Coumadin. He has been taking the increased dose for the past week, had INR drawn yesterday and was called this morning and told to go to the emergency room because it was 18. No active bleeding on exam he does have some spontaneous bruising on hands. Denies following. No melena or bright red blood per rectum no hemoptysis no hematuria. No chest pain shortness breath no abdominal pain and nausea vomiting or diarrhea Past Med Surg Social Fam HX - Past Medical History Medical history: atrial fibrillation, cancer, COPD, coronary artery disease, diabetes, malignancy, thyroid disease, other Psychiatric history: anxiety, depression - Past Surgical History Surgical History: cancer surgery, coronary bypass (CABG) - Social History Smoking Status: Current every day smoker Smokeless Tobacco Status: No Alcohol use: none Drug use: none - Family History Mother Living Status: Hx Family Cardiac Disorders: Yes Internal Medicine - H&P: Meds Aspirin 325 mg PO DAILY 07/07/15 [History] Furosemide [Lasix] 40 mg PO DAILY 07/07/15 [History] Omeprazole [PriLOSEC] 20 mg PO DAILY 07/07/15 [History] Potassium Chloride 10 meq PO BID 07/07/15 [History] Sennosides/Docusate Sodium [Latonya-Colace Tablet] 2 tab PO BID 07/07/15 [History] Tiotropium [place] [Spiriva] 18 mcg IH DAILY 07/07/15 [History] Levothyroxine [Synthroid] 150 mcg PO DAILY 07/10/15 [History] Metoprolol [Lopressor] 25 mg PO BID 07/10/15 [History] Citalopram [CeleXA] 20 mg PO DAILY #30 tablet 12/13/15 [Rx] Lubiprostone [Amitiza] 24 mcg PO BID #60 capsule 12/13/15 [Rx] Insulin Glargine,Hum.rec.anlog [Lantus Solostar] 10 unit SQ QAM 12/06/16 [ History] Metoclopramide [Reglan] 10 mg PO QIDAC #120 tablet 12/06/16 [Rx] Fluticasone/Salmeterol [Advair 250-50 Diskus] 1 each IH BID #1 blst.w.dev [Rx] Megestrol Acetate [Megace] 200 mg PO BID 04/08/17 [History] Morphine Sulfate SR (12 HR) [MS Contin] 30 mg PO Q8H 04/08/17 [History] Oxycodone HCl/Acetaminophen [Percocet 10-325 mg Tablet] 1 - 2 each PO Q4H PRN # 360 tablet 04/11/17 [Rx] Warfarin [Coumadin] 2.5 - 5 mg PO AD 05/09/17 [History] Allergies cephalexin [From Keflex] Allergy (Mild, Verified 07/10/15 09:08) unknown SWELLING OF GENITAL AREA WITH BLEEDING levofloxacin [From Levaquin] Adverse Reaction (Mild, Verified 04/09/17 08:12) unknown Yeast Infection All Systems PM: A 10-system review of systems was performed and is negative for pertinent findings except as documented above in the HPI. - Constitutional Constitutional: no chills, no fever(s), no night sweats - EENT Eyes: no change in vision, no discharge, no pain, no photophobia Ears: no ear discharge, no ear pain, no tinnitus Nose, mouth and throat: no dysphagia, no nasal discharge, no neck pain, no sore throat - Cardiovascular Cardiovascular ROS IM: no chest pain, no diaphoresis, no dyspnea, no lightheadedness, no palpitations, no syncope - Respiratory Respiratory: no cough, no dyspnea, no wheezing, no excessive phlegm production - Gastrointestinal Gastrointestinal: no abdominal pain, no diarrhea, no hematemesis, no hematochezia, no melena, no nausea, no vomiting - Musculoskeletal Musculoskeletal ROS IM: no numbness, no tingling - Integumentary Integumentary IM: no rash, no unusual bruising - Neurological Neurological ROS: no confusion, no convulsions, no focal weakness, no numbness, no tingling, no tremor(s) - Hematologic/Lymphatic Hematologic/Lymphatic: easy bleeding, no easy bruising - Constitutional Vitals: Temp Pulse Resp BP Pulse Ox 98.5 F 62 17 116/69 96 05/09/17 10:43 05/09/17 13:18 05/09/17 13:27 05/09/17 13:27 05/09/17 13:18 General appearance: Present: A&O X 3, no acute distress - Head Head exam: Present: atraumatic, normocephalic - Eye Eye exam: Present: PERRL, conjuntiva pink, sclera anicteric Pupils: Present: PERRL - Neck Neck exam general surgery: Present: supple, trachea midline. Absent: lymphadenopathy - Respiratory Respiratory exam: Present: CTAB. Absent: accessory muscle use, rales, rhonchi, wheezes - Cardiovascular Cardiovascular exam: Present: RRR, +S1, +S2. Absent: diastolic murmur, gallop, rubs, systolic murmur - GI/Abdominal GI/Abdominal exam: Present: normal bowel sounds, soft, no peritoneal signs. Absent: distended, tenderness - Extremities Exam Extremities exam: Present: warm, radial pulses palpable and symetrical. Absent : calf tenderness, cyanotic, pedal edema - Neurological Exam Neurological exam: Present: CN II-XII intact, oriented X3, no focal deficits. Absent: pronater drift, facial droop, speech deficit - Skin Skin exam: Present: dry, intact, petechiae (hands ) Internal Med - H&P Results - Labs CBC & Chem 7: 05/09/17 11:36 05/09/17 11:36 Labs: Short CBC 05/09/17 Range/Units 11:36 WBC 7.5 (4.3-11.1) K/mcL Hgb 12.3 L (12.9-16.9) g/dL Hct 38.2 (37.5-50.1) % Plt Count 308 (140-400) K/mcL Neutrophils # 5.6 (1.6-8.9) K/mcL BMP 05/09/17 11:36 Sodium 137 Potassium 4.0 Chloride 105 Carbon Dioxide 22 BUN 14 Creatinine 1.02 Glucose 67 L Calcium 8.9 Cardiac Enzymes 05/09/17 Range/Units 11:36 Troponin I 0.00 (0-0.03) ng/mL Liver Function 05/09/17 Range/Units 11:36 Total Bilirubin 0.3 (0.2-1.2) mg/dL AST 10 (5-34) Units/L ALT < 6 (0-55) Units/L Alkaline Phosphatase 58 (38-126) Units/L Albumin 2.7 L (3.5-5.0) g/dL - Impressions ITS Impressions Chest X-Ray 05/09/17 11:20 IMPRESSION: 1. Bibasilar airspace opacities, right greater than left. Given the appearance, this is favored to represent atelectasis ; however, pneumonia can have a similar appearance in the appropriate clinical setting. D/ / Jamal Ryan MD / Jamal Ryan MD Interpreting Provider: Jamal Ryan MD <Darby Salazar E - Last Filed: 05/10/17 08:55> Date of Encounter: 05/10/17 Internal Medicine - H&P: HPI History of present illness: Mr. Nicholson is a 76 year old male All Systems PM: A 10-system review of systems was performed and is negative for pertinent findings except as documented above in the HPI. - Constitutional Vitals: Temp Pulse Resp BP Pulse Ox 98.8 F 67 19 125/77 95 05/10/17 07:48 05/10/17 07:48 05/10/17 07:48 05/10/17 07:48 05/10/17 07:48 Internal Med - H&P Results - Labs CBC & Chem 7: 05/10/17 03:19 05/10/17 03:19 Labs: Short CBC 05/10/17 Range/Units 03:19 WBC 6.2 (4.3-11.1) K/mcL Hgb 12.1 L (12.9-16.9) g/dL Hct 37.1 L (37.5-50.1) % Plt Count 321 (140-400) K/mcL Neutrophils # 4.5 (1.6-8.9) K/mcL BMP 05/10/17 03:19 Sodium 138 Potassium 4.0 Chloride 106 Carbon Dioxide 23 BUN 15 Creatinine 1.05 Glucose 79 Calcium 8.6 Urine 05/10/17 Range/Units 02:45 Urine Color Yellow (Yellow) Urine Clarity Clear (Clear) Urine pH 5.0 (5.0-8.0) pH Units Ur Specific [place] 1.016 (1.010-1.025) Urine Protein Negative (Neg-Trace) mg/dL Urine Glucose (UA) Normal (Normal) mg/dL - Attending Attestation This is a late entry for a patient I examined and reviewed laboratory, imaging and all diagnostic data on 05/09/17. My medical decision-making was reviewed with Cynthia Ramirez - ELIZA. I agree with the documented findings, disposition and treatment plan as described above. History and exam by me shows: pt on coumadin for a fib. elevated INR at 18. no bleeding. neuro exam is unremarkable. no recent injury. received vitamin K 5 mg PO. neuro-checks. close monitor of INR.
[2017-05-09] MEDS ORDERED: *HR* OxyCODONE/APAP 10/325 TABLET PO PRN (14:12)
[2017-05-09] MEDS ORDERED: *HR* Morphine Sulfate SR (12 HR) 30 MG TABLET.ER PO SCH (14:15)
[2017-05-09 15:17] LABS: Hemoglobin A1C 5.1 %
[2017-05-09] MEDS: Ipratropium/Albuterol Neb 3 ML IH SCH ×2 (16:01→16:56)
[2017-05-09] MEDS ORDERED: *HR* OxyCODONE/APAP 10/325 TABLET PO ONE (16:14)
[2017-05-09] MEDS: Pantoprazole 40 MG VIAL IVP SCH (16:49)
[2017-05-09] MEDS: Insulin LISPRO 300 UNITS/3 ML VIAL SQ SCH ×2 (16:50→21:07)
[2017-05-09 16:56] LABS: INR 17.3; Prothrombin Time 204.5 Seconds (9.4-12.1)
[2017-05-09] MEDS: *HR* Morphine Sulfate SR (12 HR) 30 MG TABLET.ER PO SCH (18:17)
[2017-05-09] MEDS: Megestrol Acetate 400 MG/10 ML UDC PO SCH (19:20)
[2017-05-09] MEDS: Sennosides/Docusate Sodium TABLET PO SCH (19:21)
[2017-05-09] MEDS ORDERED: (Lubiprostone [Amitiza] 24 MCG) PO SCH (21:00)
[2017-05-10 03:23] LABS: Bilirubin,Urine Negative (Negative); Blood,Urine Negative (Negative); Clarity,Urine Clear (Clear); Color,Urine Yellow (Yellow); Glucose,Urine (UA) Normal (Normal); Ketones,Urine Negative (Negative); Leukocyte Esterase,Urine Trace (Negative); Nitrite,Urine Negative (Negative); Protein,Urine Negative (Neg-Trace); Specific Gravity,Urine 1.016 (1.010-1.025); Urobilinogen,Urine Normal (Normal)
[2017-05-10] MEDS: *HR* OxyCODONE/APAP 10/325 TABLET PO PRN ×5 (03:23→21:07)
[2017-05-10 03:42] LABS: Calcium Oxalate Crystals,Urine Present; Hyaline Casts,Urine Few per lpf (None-Few); RBC,Urine 0-3 per hpf (0-3)
[2017-05-10 03:43] LABS: Bacteria,Urine Few per hpf (None-Few); Mucus,Urine Few (Few); Squamous Epithelial Cell,Urine Few per lpf (None-Few)
[2017-05-10 04:01] LABS: Basophils % 0.6 %; Eosinophils # 0.3 K/mcL (0.0-0.6); Eosinophils % 4.6 %; Hematocrit 37.1 % (37.5-50.1); Hemoglobin 12.1 g/dL (12.9-16.9); Lymphocytes # 0.9 K/mcL (0.6-4.6); Lymphocytes % 14.7 %; Mean Corpuscular HGB Conc 32.6 g/dL (31.6-35.5); Mean Corpuscular Hemoglobin 30.6 pg (28.0-33.3); Mean Corpuscular Volume 93.7 fL (83.0-100.0); Mean Platelet Volume 8.6 fL (9.4-12.4); Monocytes # 0.5 K/mcL (0.0-1.3); Monocytes % 7.4 %; Neutrophils # 4.5 K/mcL (1.6-8.9); Platelet Count 321 K/mcL (140-400); Red Blood Count 3.96 M/mcL (4.19-5.50); Red Cell Distribution Width 14.8 % (11.5-14.5); Segmented Neutrophils % 71.7 %
[2017-05-10] MEDS: Ipratropium/Albuterol Neb 3 ML IH SCH ×3 (04:08→18:09)
[2017-05-10 04:12] LABS: Prothrombin Time 122.9 Seconds (9.4-12.1)
[2017-05-10 04:13] LABS: BUN/Creatinine Ratio 14 (6-26); Blood Urea Nitrogen 15 mg/dL (8-26); Calcium 8.6 mg/dL (8.6-10.8); Carbon Dioxide 23 mEq/L (19-29); Chloride 106 mEq/L (98-109); Glucose 79 mg/dL (70-99); INR 10.6; Magnesium 1.6 mg/dL (1.6-2.6); Osmolality,Calculated 286 (280-300); Phosphorous 3.4 mg/dL (2.3-4.7); Sodium 138 mEq/L (136-145); eGFR For African Americans > 60 (> 60); eGFR For Non-African Americans > 60 (> 60)
[2017-05-10] MEDS ORDERED: *HR* Phytonadione 5 MG TABLET PO ONE (04:21)
[2017-05-10] MEDS: *HR* Morphine Sulfate SR (12 HR) 30 MG TABLET.ER PO SCH ×2 (05:43→17:49)
[2017-05-10] MEDS: Budesonide/Formoterol 80/4.5 MDI IH SCH ×2 (06:30→18:47)
[2017-05-10] MEDS: Furosemide 40 MG TABLET PO SCH (08:04)
[2017-05-10] MEDS: Insulin LISPRO 300 UNITS/3 ML VIAL SQ SCH ×4 (08:04→21:24)
[2017-05-10] MEDS: Sennosides/Docusate Sodium TABLET PO SCH ×2 (08:05→21:06)
[2017-05-10] MEDS: Megestrol Acetate 400 MG/10 ML UDC PO SCH ×2 (08:05→21:07)
[2017-05-10] MEDS: Pantoprazole 40 MG VIAL IVP SCH (08:06)
[2017-05-10] MEDS ORDERED: Tiotropium 18 MCG inhalation IH SCH (09:00)
[2017-05-10] MEDS ORDERED: Insulin DETEMIR 100 UNIT/ML X5UNITS SQ SCH (09:00)
--- NOTE | 2017-05-10 12:10 | Internal Med Progress Note ---
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 coumadin was held and he was dc to f/u with PCP. he was later called and asked to take 2.5/2.5/5 mg which he might have misunderstood and took high dose. Discussed alternative anticoagulation with patient and he reports adverse reaction with pradaxa(developed lower extremity wounds ). He declines Xarelto. Vitamin K given in the ED. Continue holding Coumadin. Monitor repeat INR, neuro checks, and up with assistance only. (5) CAD (coronary artery disease) of artery bypass graft Current Visit: Yes Status: Acute Qualifiers: [place] vs. transplanted heart: [place] heart Associated angina: without angina Qualified Code(s): I25.810 - Atherosclerosis of coronary artery bypass graft(s) without angina pectoris (6) Essential hypertension Current Visit: Yes Status: Acute - Subjective Interval history: patientseen at the bedside,admitted for supratherapeutic INR, status post1 dose of vitamin K yesterday. Denies any signs of bleeding,has mild cough which the says is chronic. - Constitutional Vitals: Temp Pulse Resp BP Pulse Ox 98.5 F 75 19 119/75 94 05/10/17 11:33 05/10/17 11:33 05/10/17 11:33 05/10/17 11:33 05/10/17 11:33 General appearance: Present: A&O X 3, no acute distress Exam: - Head Head exam: Present: atraumatic, normocephalic - Eye Eye exam: Present: PERRL, conjuntiva pink, sclera anicteric Pupils: Present: PERRL - Neck Neck exam general surgery: Present: supple, trachea midline. Absent: lymphadenopathy - Respiratory Respiratory exam: Present: CTAB. Absent: accessory muscle use, rales, rhonchi, wheezes - Cardiovascular Cardiovascular exam: Present: RRR, +S1, +S2. Absent: diastolic murmur, gallop, rubs, systolic murmur - GI/Abdominal GI/Abdominal exam: Present: normal bowel sounds, soft, no peritoneal signs. Absent: distended, tenderness - Extremities Exam Extremities exam: Present: warm, radial pulses palpable and symetrical. Absent : calf tenderness, cyanotic, pedal edema - Neurological Exam Neurological exam: Present: CN II-XII intact, oriented X3, no focal deficits. Absent: pronater drift, facial droop, speech deficit - Skin Skin exam: Present: dry, intact, petechiae (hands ) Internal Medicine: Result - Labs CBC & Chem 7: 05/10/17 03:19 05/10/17 03:19 Labs: Short CBC 05/10/17 Range/Units 03:19 WBC 6.2 (4.3-11.1) K/mcL Hgb 12.1 L (12.9-16.9) g/dL Hct 37.1 L (37.5-50.1) % Plt Count 321 (140-400) K/mcL Neutrophils # 4.5 (1.6-8.9) K/mcL BMP 05/10/17 03:19 Sodium 138 Potassium 4.0 Chloride 106 Carbon Dioxide 23 BUN 15 Creatinine 1.05 Glucose 79 Calcium 8.6 Urine 05/10/17 Range/Units 02:45 Urine Color Yellow (Yellow) Urine Clarity Clear (Clear) Urine pH 5.0 (5.0-8.0) pH Units Ur Specific [place] 1.016 (1.010-1.025) Urine Protein Negative (Neg-Trace) mg/dL Urine Glucose (UA) Normal (Normal) mg/dL - ABG Interpretation ABG results: PT/INR, D-dimer PT 122.9 Seconds (9.4-12.1) H* 05/10/17 03:19 Consult Discharge Plan - Plan Referrals: Avery Woods DO [Primary Care Provider] -
[2017-05-10 13:18] LABS: INR 8.5; Prothrombin Time 98.1 Seconds (9.4-12.1)
[2017-05-10] MEDS ORDERED: Budesonide/Formoterol 80/4.5 MDI IH SCH (22:00)
[2017-05-11] MEDS: Ipratropium/Albuterol Neb 3 ML IH SCH (04:22)
[2017-05-11] MEDS: *HR* OxyCODONE/APAP 10/325 TABLET PO PRN ×2 (04:35→08:29)
[2017-05-11] MEDS: *HR* Morphine Sulfate SR (12 HR) 30 MG TABLET.ER PO SCH (05:32)
[2017-05-11 07:17] VITALS: BP 119/81
[2017-05-11] MEDS: Insulin LISPRO 300 UNITS/3 ML VIAL SQ SCH (07:33)
[2017-05-11] MEDS: Sennosides/Docusate Sodium TABLET PO SCH (08:30)
[2017-05-11] MEDS: Furosemide 40 MG TABLET PO SCH (08:30)
[2017-05-11] MEDS: Megestrol Acetate 400 MG/10 ML UDC PO SCH (08:33)
[2017-05-11] MEDS: Pantoprazole 40 MG VIAL IVP SCH (08:33)
[2017-05-11 09:17] LABS: INR 4.7; Prothrombin Time 52.9 Seconds (9.4-12.1)
--- NOTE | 2017-05-11 09:36 | Electrocardiograph Report ---
[place] [id number] Test Date: 2017-05-09 Pat Name: Weston Nicholson Department: 105 Room: 3A21 Gender: M Mailing Clerk: : 1940 Requested By: Magnus Franks Order Number: [id number] Reading MD: Koffi Ruiz MD Measurements Intervals Leslie Rate: 60 P: -5 SC: 225 QRS: 12 QRSD: 91 T: 46 QT: 399 QTc: 400 Interpretive Statements SINUS RHYTHM WITH FIRST DEGREE AV BLOCK Electronically Signed On 05-11-2017 9:34:15 EDT by Koffi Ruiz MD
--- NOTE | 2017-05-11 09:51 | Discharge Summary ---
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 transplanted heart: [place] heart Associated angina: without angina Qualified Code(s): I25.810 - Atherosclerosis of coronary artery bypass graft(s) without angina pectoris (6) Essential hypertension Priority: Secondary Status: Acute - Discharge Medications Home Medications: Aspirin 325 mg PO DAILY 07/07/15 [History] Furosemide [Lasix] 40 mg PO DAILY 07/07/15 [History] Omeprazole [PriLOSEC] 20 mg PO DAILY 07/07/15 [History] Potassium Chloride 10 meq PO BID 07/07/15 [History] Sennosides/Docusate Sodium [Latonya-Colace Tablet] 2 tab PO BID 07/07/15 [History] Tiotropium [place] [Spiriva] 18 mcg IH DAILY 07/07/15 [History] Levothyroxine [Synthroid] 150 mcg PO DAILY 07/10/15 [History] Metoprolol [Lopressor] 25 mg PO BID 07/10/15 [History] Citalopram [CeleXA] 20 mg PO DAILY #30 tablet 12/13/15 [Rx] Lubiprostone [Amitiza] 24 mcg PO BID #60 capsule 12/13/15 [Rx] Insulin Glargine,Hum.rec.anlog [Lantus Solostar] 10 unit SQ QAM 12/06/16 [ History] Metoclopramide [Reglan] 10 mg PO QIDAC #120 tablet 12/06/16 [Rx] Fluticasone/Salmeterol [Advair 250-50 Diskus] 1 each IH BID #1 blst.w.dev [Rx] Megestrol Acetate [Megace] 200 mg PO BID 04/08/17 [History] Morphine Sulfate SR (12 HR) [MS Contin] 30 mg PO Q8H 04/08/17 [History] Oxycodone HCl/Acetaminophen [Percocet 10-325 mg Tablet] 1 - 2 each PO Q4H PRN # 360 tablet 04/11/17 [Rx] Allergies/Adverse Reactions: Allergies cephalexin [From Keflex] Allergy (Mild, Verified 07/10/15 09:08) unknown SWELLING OF GENITAL AREA WITH BLEEDING levofloxacin [From Levaquin] Adverse Reaction (Mild, Verified 04/09/17 08:12) unknown Yeast Infection Procedures/tests Complete & Pending: Procedures Performed prior 72 hours Category Date Time Status ECG 12 lead ECG [ECG] Stat Y 05/09/17 14:28 Stop Req Date of admission: 05/09/17 13:14 Primary care physician: Avery Woods Discharging clinician: Gabriel Sousa Anticipated date of discharge: 05/11/17 - Patient Status Disposition: Home, Self-Care Condition: Fair Overall status at discharge: patient is back to baseline - Discharge Instructions Follow Up With: Avery Woods DO [Primary Care Provider] - (Web request sent on 05/11/17.) - Diet and Activity Activity: resume usual activities as tolerated Diet: advance to your usual diet Interval History: Mr. Nicholson is a 76 year old male with past medical history thyroid/laryngeal cancer, A. fib on Coumadin hypertension diabetes and CAD who presented to [place] on 05/09/2017 after labs drawn with PCP showed an INR of 18. He was placed in observation status for continued monitoring. Information obtained from chart review and patient report. Per patient he was called by his primary care doctor last week and was advised to increase his dose of Coumadin. He has been taking the increased dose for the past week, had INR drawn yesterday and was called this morning and told to go to the emergency room because it was 18. No active bleeding on exam he does have some spontaneous bruising on hands. No melena or bright red blood per rectum no hemoptysis no hematuria. No chest pain shortness breath no abdominal pain and nausea vomiting or diarrhea. There might be some misunderstanidng with the dose of the coumadin that he was asked to take. HE got a dose of vitamin K we got his INR lowered to around 4, it was advised to the patient that he stay in the hospital to be restarted on coumadin as this is the second time he is coming back with supratherapeutic INR. hwever. he insists on being dc and reports that he will f/u at Dr. Woods office where his INR is monitored. he was asked to hold coumaidn fo r now adn get a repeat INR in 2 days . he understands and agrees with the plan patinet is being dc in stable condition Hospital course: Mr. Nicholson is a 76 year old male Time spent discussing smoking cessation with patient: more than 10 minutes - Time Spent with Patient Total time spent providing and/or coordinating discharge services: Greater than 30 minutes - Constitutional Vitals: Temp Pulse Resp BP Pulse Ox 98.2 F 79 19 119/81 94 05/11/17 07:16 05/11/17 07:16 05/11/17 07:16 05/11/17 07:16 05/11/17 07:16 General appearance: Present: A&O X 3, no acute distress Exam: - Head Head exam: Present: atraumatic, normocephalic - Eye Eye exam: Present: PERRL, conjuntiva pink, sclera anicteric Pupils: Present: PERRL - Neck Neck exam general surgery: Present: supple, trachea midline. Absent: lymphadenopathy - Respiratory Respiratory exam: Present: CTAB. Absent: accessory muscle use, rales, rhonchi, wheezes - Cardiovascular Cardiovascular exam: Present: RRR, +S1, +S2. Absent: diastolic murmur, gallop, rubs, systolic murmur - GI/Abdominal GI/Abdominal exam: Present: normal bowel sounds, soft, no peritoneal signs. Absent: distended, tenderness - Extremities Exam Extremities exam: Present: warm, radial pulses palpable and symetrical. Absent : calf tenderness, cyanotic, pedal edema - Neurological Exam Neurological exam: Present: CN II-XII intact, oriented X3, no focal deficits. Absent: pronater drift, facial droop, speech deficit - Skin Skin exam: Present: dry, intact, petechiae (hands )
== END 2017-05-11 10:40 | disposition home or self-care (01) ==
LOC: EMEROO 10:42 → 3ANU 10:42
PROVIDERS: ADMIT Internal Medicine; ATTEND Internal Medicine

== ENCOUNTER 2018-04-27 20:18 | Inpatient (IN) ==
[2018-04-27] MEDS ORDERED: 0.9 % Sodium Chloride 500 ML IVC ONE ×2 (20:36→23:08)
[2018-04-27] MEDS ORDERED: Ipratropium/Albuterol Neb 3 ML IH ONE (20:36)
[2018-04-27] MEDS ORDERED: methylPREDNISolone 125 MG/2 ML VIAL IVP ONE (20:36)
--- NOTE | 2018-04-27 20:39 | Emergency Department Note ---
Disposition Clinical Impression: COPD exacerbation, Acute kidney injury Dyspnea Qualifiers: Dyspnea type: unspecified Qualified Code(s): R06.00 - Dyspnea, unspecified Altered mental status Qualifiers: Altered mental status type: disorientation Qualified Code(s): R41.0 - Disorientation, unspecified Chest pain Qualifiers: Chest pain type: unspecified Qualified Code(s): R07.9 - Chest pain, unspecified Disposition: Admitted As Inpatient Condition: Good General Adult HPI - General Stated complaint: Jerrica Time Seen by Provider: 04/27/18 20:19 Source: patient, family Limitations: altered mental status Nursing Notes Reviewed: Yes Vital Signs Reviewed: Yes - History of Present Illness HPI Narrative: 77-year-old male with a past medical history of 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 He was recently found to have an enlarging pulmonary nodule and has not undergone biopsy or PET scan yet. He presents to the emergency department due to intermittent left-sided chest pain and shortness of breath. He states he felt like this before when he had his CABG in 2008. Family also reports he is intermittently confused. They report that he occasionally says things that do not make sense. He has been coughing and feels short of breath with exertion. No fever. Radiation: non-radiation Pain Severity: moderate Pain Scale: 7 Consistency: intermittent Improves with: nothing Worsens with: nothing Associated symptoms: Reports: denies other symptoms Treatments Prior to Arrival: none - Related Data Home Medications Medication Instructions Recorded Confirmed Aspirin 325 mg PO DAILY 07/07/15 04/27/18 Furosemide [Lasix] 40 mg PO DAILY 07/07/15 04/27/18 Omeprazole [PriLOSEC] 20 mg PO DAILY 07/07/15 04/27/18 Potassium Chloride 10 meq PO BID 07/07/15 04/27/18 Sennosides/Docusate Sodium 2 tab PO BID 07/07/15 04/27/18 [Latonya-Colace Tablet] Tiotropium Kenneth [Spiriva] 18 mcg IH DAILY 07/07/15 04/27/18 Levothyroxine [Synthroid] 150 mcg PO DAILY 07/10/15 04/27/18 Metoprolol [Lopressor] 25 mg PO BID 07/10/15 04/27/18 Insulin Glargine,Hum.rec.anlog 10 unit SQ QAM 12/06/16 04/27/18 [Lantus Solostar] Megestrol Acetate [Megace] 200 mg PO BID 04/08/17 04/27/18 Warfarin [Coumadin] 4 mg PO 1800 10/01/17 04/27/18 Albuterol Sulfate [Ventolin Hfa] 2 puff IH Q6H PRN 04/01/18 04/27/18 Previous Rx's Medication Instructions Recorded Citalopram [CeleXA] 20 mg PO DAILY #30 tablet 12/13/15 Lubiprostone [Amitiza] 24 mcg PO BID #60 capsule 12/13/15 Oxycodone HCl/Acetaminophen 1 - 2 each PO Q4H PRN #360 tablet 04/11/17 [Percocet 10-325 mg Tablet] Fluticasone/Salmeterol [Advair 1 each IH BID #1 blst.w.dev 04/17/18 250-50 Diskus] Allergies Allergy/AdvReac Type Severity Reaction Status Date / Time cephalexin [From Keflex] Allergy Mild unknown Verified 04/01/18 14:19 levofloxacin [From Levaquin] AdvReac Mild unknown Verified 04/01/18 14:19 All systems ED: reviewed and negative except as stated. Constitutional: Denies: fever ENT ED: Denies: throat pain Cardiovascular: Reports: chest pain Respiratory: Reports: cough, dyspnea Gastrointestinal: Denies: abdominal pain Musculoskeletal: Denies: back pain Integumentary: Reports: other (chronic stasis of LE bilaterally) Past Medical History - Past Medical History Medical history: Reports: atrial fibrillation, cancer, COPD, coronary artery disease, diabetes, malignancy, thyroid disease, other Surgical history: Reports: cancer surgery, coronary bypass (CABG) Psychiatric history: Reports: anxiety, depression - Social History Smoking Status: Current every day smoker Smokeless Tobacco Status: No Alcohol use: Reports: none Drug use: Reports: none Physical Exam - General Limitations: altered mental status General appearance: alert - Head Head exam: atraumatic - Eye Eye exam: Present: normal appearance, PERRL - ENT ENT exam: normal exam - Neck Neck exam: Present: normal inspection - Chest Chest inspection: Present: normal inspection - Respiratory Respiratory exam: Present: prolonged expiratory phase, other (wheezes bilaterally) - Cardiovascular Cardiovascular exam: Present: regular rate, irregular rhythm - Abdominal Exam Abdominal exam: Present: soft, Non-Tender - Extremities Exam Extremities exam: Present: other (venous stasis of LE bilaterally) - Neurological Exam Neurological exam: Present: alert, other (confusion to current events) - Skin Skin exam: Present: warm, dry Course Course Narrative: He did have an improvement in his aeration after the breathing treatments although he still does have some intermittent wheezing. He does have an oxygen requirement. He is supposed be on oxygen at home. EKG does not show any acute changes. Troponin is negative. He is mildly dehydrated with an elevated BUN and creatinine. His AMS may be due to polypharmacy. CT head negative for acute disease. ASA given due to chest pain. Will admit due to AMS, chest pain, COPD exacerbation, and SCOTT. Fluids given. Vital Signs Temperature 99.0 F 04/27/18 20:22 Pulse Rate 86 04/27/18 20:22 Respiratory Rate 15 04/27/18 20:22 Blood Pressure 109/67 04/27/18 20:22 O2 Sat by Pulse Oximetry 96 04/27/18 20:22 Temperature 98.2 F 04/28/18 03:53 Pulse Rate 96 04/28/18 03:53 Respiratory Rate 16 04/28/18 03:53 Blood Pressure 111/61 04/28/18 00:14 O2 Sat by Pulse Oximetry 91 04/28/18 03:53 Oxygen Delivery Oxygen Delivery Nasal Cannula Medical Decision Making - Medical Records Medical records reviewed: Yes I reviewed the patient's medical records. - Lab Data Lab results reviewed: Yes I reviewed the patient's lab results. Result diagrams: 04/27/18 21:06 04/27/18 21:06 Lab Results 04/27/18 04/27/18 04/27/18 Range/Units 21:06 21:06 21:06 WBC 4.6 (4.3-11.1) K/mcL RBC 3.73 L (4.19-5.50) M/mcL Hgb 11.1 L (12.9-16.9) g/dL Hct 35.0 L (37.5-50.1) % MCV 93.8 (83.0-100.0) fL MCH 29.8 (28.0-33.3) pg MCHC 31.7 (31.6-35.5) g/dL RDW 15.9 H (11.5-14.5) % Plt Count 231 (140-400) K/mcL MPV 8.9 L (9.4-12.4) fL Immature Gran % 0.9 (0-4) % Seg Neutrophils % 76.4 % Lymphocytes % 9.7 % Monocytes % 12.6 % Eosinophils % 0.0 % Basophils % 0.4 % Neutrophils # 3.5 (1.6-8.9) K/mcL Lymphocytes # 0.5 L (0.6-4.6) K/mcL Monocytes # 0.6 (0.0-1.3) K/mcL Eosinophils # 0.0 (0.0-0.6) K/mcL Basophils # 0.0 (0.0-0.2) K/mcL Reactive Lymphocytes Present A (Not Present) Platelet Estimate Normal (Normal) PT 41.6 H (9.4-12.1) Seconds INR 3.8 Sodium (136-145) mEq/L Potassium (3.5-5.1) mEq/L Chloride (98-107) mEq/L Carbon Dioxide (23-29) mEq/L BUN (8-23) mg/dL Creatinine (0.70-1.30) mg/dL Est GFR ( Amer) (> 60) Est GFR (Non-Af Amer) (> 60) BUN/Creatinine Ratio (6-26) Glucose (70-105) mg/dL Calculated Osmolality (280-300) Calcium (8.6-10.3) mg/dL Total Bilirubin (0.3-1.0) mg/dL Direct Bilirubin (0.0-0.2) mg/dL Indirect Bilirubin (0.0-1.2) mg/dL AST (13-39) Units/L ALT (7-52) Units/L Alkaline Phosphatase (34-104) Units/L Ammonia 28 (16-53) mcmol/L Troponin I (< 0.04) ng/mL Serum Total Protein (6.4-8.9) g/dL Albumin (3.5-5.7) g/dL Globulin (2.4-3.5) g/dL Albumin/Globulin Ratio (1.1-2.2) TSH (0.340-5.600) mcIU/mL Urine Color (Yellow) Urine Clarity (Clear) Urine pH (5.0-8.0) pH Units Ur Specific [place] (1.010-1.025) Urine Protein (Neg-Trace) mg/dL Urine Glucose (UA) (Normal) mg/dL Urine Ketones (Negative) mg/dL Urine Blood (Negative) Urine Nitrite (Negative) Urine Bilirubin (Negative) Urine Urobilinogen (Normal) mg/dL Ur Leukocyte Esterase (Negative) Urine Microscopic RBC (0-3) per hpf Urine Microscopic WBC (0-3) per hpf Ur Squamous Epith Cells (None-Few) per lpf Urine Bacteria (None-Few) per hpf Hyaline Casts (None-Few) per lpf Ur Culture Indicated? (NO) Urine Opiates Screen (Gsygnh=336) ng/mL Ur Barbiturates Screen (Gkwgax=894) ng/mL Ur Phencyclidine Scrn (Cutoff=25) ng/mL Ur Amphetamines Screen (Jnabzh=6931) ng/mL U Benzodiazepines Scrn (Vuxtzq=048) ng/mL Urine Cocaine Screen (Cutoff= 300) ng/mL U Marijuana (THC) Screen (Cutoff = 50) ng/mL Ethyl Alcohol (Less than 10) mg/dL 04/27/18 04/27/18 04/27/18 Range/Units 21:06 21:06 21:48 WBC (4.3-11.1) K/mcL RBC (4.19-5.50) M/mcL Hgb (12.9-16.9) g/dL Hct (37.5-50.1) % MCV (83.0-100.0) fL MCH (28.0-33.3) pg MCHC (31.6-35.5) g/dL RDW (11.5-14.5) % Plt Count (140-400) K/mcL MPV (9.4-12.4) fL Immature Gran % (0-4) % Seg Neutrophils % % Lymphocytes % % Monocytes % % Eosinophils % % Basophils % % Neutrophils # (1.6-8.9) K/mcL Lymphocytes # (0.6-4.6) K/mcL Monocytes # (0.0-1.3) K/mcL Eosinophils # (0.0-0.6) K/mcL Basophils # (0.0-0.2) K/mcL Reactive Lymphocytes (Not Present) Platelet Estimate (Normal) PT (9.4-12.1) Seconds INR Sodium 137 (136-145) mEq/L Potassium 4.8 (3.5-5.1) mEq/L Chloride 105 (98-107) mEq/L Carbon Dioxide 22 L (23-29) mEq/L BUN 46 H (8-23) mg/dL Creatinine 1.63 H (0.70-1.30) mg/dL Est GFR ( Amer) 50 L (> 60) Est GFR (Non-Af Amer) 41 L (> 60) BUN/Creatinine Ratio 28 H (6-26) Glucose 84 (70-105) mg/dL Calculated Osmolality 295 (280-300) Calcium 9.1 (8.6-10.3) mg/dL Total Bilirubin 0.6 (0.3-1.0) mg/dL Direct Bilirubin 0.3 H (0.0-0.2) mg/dL Indirect Bilirubin 0.3 (0.0-1.2) mg/dL AST 13 (13-39) Units/L ALT 5 L (7-52) Units/L Alkaline Phosphatase 43 (34-104) Units/L Ammonia (16-53) mcmol/L Troponin I 0.03 (< 0.04) ng/mL Serum Total Protein 6.5 (6.4-8.9) g/dL Albumin 3.1 L (3.5-5.7) g/dL Globulin 3.4 (2.4-3.5) g/dL Albumin/Globulin Ratio 0.9 L (1.1-2.2) TSH 0.761 (0.340-5.600) mcIU/mL Urine Color Dark Yellow (Yellow) Urine Clarity Clear (Clear) Urine pH 5.5 (5.0-8.0) pH Units Ur Specific [place] 1.030 H (1.010-1.025) Urine Protein Trace (Neg-Trace) mg/dL Urine Glucose (UA) Normal (Normal) mg/dL Urine Ketones Trace H (Negative) mg/dL Urine Blood Negative (Negative) Urine Nitrite Negative (Negative) Urine Bilirubin Small H (Negative) Urine Urobilinogen Normal (Normal) mg/dL Ur Leukocyte Esterase Negative (Negative) Urine Microscopic RBC 0-3 (0-3) per hpf Urine Microscopic WBC 3-5 H (0-3) per hpf Ur Squamous Epith Cells Many H (None-Few) per lpf Urine Bacteria None Seen (None-Few) per hpf Hyaline Casts Many H (None-Few) per lpf Ur Culture Indicated? NO (NO) Urine Opiates Screen (Lzqssp=095) ng/mL Ur Barbiturates Screen (Cqeivr=250) ng/mL Ur Phencyclidine Scrn (Cutoff=25) ng/mL Ur Amphetamines Screen (Khxlrs=8582) ng/mL U Benzodiazepines Scrn (Rmblde=668) ng/mL Urine Cocaine Screen (Cutoff= 300) ng/mL U Marijuana (THC) Screen (Cutoff = 50) ng/mL Ethyl Alcohol < 10 (Less than 10) mg/dL 04/27/18 Range/Units 21:48 WBC (4.3-11.1) K/mcL RBC (4.19-5.50) M/mcL Hgb (12.9-16.9) g/dL Hct (37.5-50.1) % MCV (83.0-100.0) fL MCH (28.0-33.3) pg MCHC (31.6-35.5) g/dL RDW (11.5-14.5) % Plt Count (140-400) K/mcL MPV (9.4-12.4) fL Immature Gran % (0-4) % Seg Neutrophils % % Lymphocytes % % Monocytes % % Eosinophils % % Basophils % % Neutrophils # (1.6-8.9) K/mcL Lymphocytes # (0.6-4.6) K/mcL Monocytes # (0.0-1.3) K/mcL Eosinophils # (0.0-0.6) K/mcL Basophils # (0.0-0.2) K/mcL Reactive Lymphocytes (Not Present) Platelet Estimate (Normal) PT (9.4-12.1) Seconds INR Sodium (136-145) mEq/L Potassium (3.5-5.1) mEq/L Chloride (98-107) mEq/L Carbon Dioxide (23-29) mEq/L BUN (8-23) mg/dL Creatinine (0.70-1.30) mg/dL Est GFR ( Amer) (> 60) Est GFR (Non-Af Amer) (> 60) BUN/Creatinine Ratio (6-26) Glucose (70-105) mg/dL Calculated Osmolality (280-300) Calcium (8.6-10.3) mg/dL Total Bilirubin (0.3-1.0) mg/dL Direct Bilirubin (0.0-0.2) mg/dL Indirect Bilirubin (0.0-1.2) mg/dL AST (13-39) Units/L ALT (7-52) Units/L Alkaline Phosphatase (34-104) Units/L Ammonia (16-53) mcmol/L Troponin I (< 0.04) ng/mL Serum Total Protein (6.4-8.9) g/dL Albumin (3.5-5.7) g/dL Globulin (2.4-3.5) g/dL Albumin/Globulin Ratio (1.1-2.2) TSH (0.340-5.600) mcIU/mL Urine Color (Yellow) Urine Clarity (Clear) Urine pH (5.0-8.0) pH Units Ur Specific [place] (1.010-1.025) Urine Protein (Neg-Trace) mg/dL Urine Glucose (UA) (Normal) mg/dL Urine Ketones (Negative) mg/dL Urine Blood (Negative) Urine Nitrite (Negative) Urine Bilirubin (Negative) Urine Urobilinogen (Normal) mg/dL Ur Leukocyte Esterase (Negative) Urine Microscopic RBC (0-3) per hpf Urine Microscopic WBC (0-3) per hpf Ur Squamous Epith Cells (None-Few) per lpf Urine Bacteria (None-Few) per hpf Hyaline Casts (None-Few) per lpf Ur Culture Indicated? (NO) Urine Opiates Screen Positive H (Azlgob=277) ng/mL Ur Barbiturates Screen Negative (Kwjqoh=797) ng/mL Ur Phencyclidine Scrn Negative (Cutoff=25) ng/mL Ur Amphetamines Screen Negative (Xaftvj=6546) ng/mL U Benzodiazepines Scrn Negative (Nwruvg=926) ng/mL Urine Cocaine Screen Negative (Cutoff= 300) ng/mL U Marijuana (THC) Screen Negative (Cutoff = 50) ng/mL Ethyl Alcohol (Less than 10) mg/dL - Radiology Data Radiology results reviewed: Yes I reviewed the patient's radiology results. - EKG Data EKG #1 EKG attestation: Yes I reviewed and interpreted this EKG. EKG shows normal: sinus rhythm Interpretation: other (NSR w/ frequent PVC. No ST deviation. Normal rate.) Attestation Statement - Attestation Attestation: I examined this patient and my medical decision-making was reviewed with the Resident Physician. I agree with the documented findings, disposition and treatment plan as described except to the extent set forth below. Altered mental status, chest pain. We will give aspirin, admitted to the hospital for further management of chest pain in the setting of mild altered mental status.
[2018-04-27 21:17] LABS: Basophils % 0.4 %; Hemoglobin 11.1 g/dL (12.9-16.9); Immature Granulocytes % 0.9 % (0-4); Lymphocytes # 0.5 K/mcL (0.6-4.6); Lymphocytes % 9.7 %; Mean Corpuscular HGB Conc 31.7 g/dL (31.6-35.5); Mean Corpuscular Hemoglobin 29.8 pg (28.0-33.3); Mean Corpuscular Volume 93.8 fL (83.0-100.0); Mean Platelet Volume 8.9 fL (9.4-12.4); Monocytes # 0.6 K/mcL (0.0-1.3); Monocytes % 12.6 %; Neutrophils # 3.5 K/mcL (1.6-8.9); Platelet Count 231 K/mcL (140-400); Red Blood Count 3.73 M/mcL (4.19-5.50); Red Cell Distribution Width 15.9 % (11.5-14.5); Segmented Neutrophils % 76.4 %
[2018-04-27 21:22] LABS: INR 3.8; Prothrombin Time 41.6 Seconds (9.4-12.1)
[2018-04-27 21:36] LABS: Platelet Estimate Normal (Normal); Reactive Lymphocytes Present (Not Present)
[2018-04-27 21:39] LABS: Troponin I 0.03 ng/mL (< 0.04)
[2018-04-27 21:40] LABS: Alanine Aminotransferase 5 Units/L (7-52); Albumin 3.1 g/dL (3.5-5.7); Albumin/Globulin Ratio 0.9 (1.1-2.2); Alkaline Phosphatase 43 Units/L (34-104); Aspartate Amino Transferase 13 Units/L (13-39); BUN/Creatinine Ratio 28 (6-26); Bilirubin,Direct 0.3 mg/dL (0.0-0.2); Bilirubin,Indirect 0.3 mg/dL (0.0-1.2); Bilirubin,Total 0.6 mg/dL (0.3-1.0); Blood Urea Nitrogen 46 mg/dL (8-23); Calcium 9.1 mg/dL (8.6-10.3); Carbon Dioxide 22 mEq/L (23-29); Chloride 105 mEq/L (98-107); Ethanol < 10 mg/dL (Less than 10); Globulin 3.4 g/dL (2.4-3.5); Glucose 84 mg/dL (70-105); Osmolality,Calculated 295 (280-300); Potassium 4.8 mEq/L (3.5-5.1); Sodium 137 mEq/L (136-145); Total Protein 6.5 g/dL (6.4-8.9); eGFR For African Americans 50 (> 60); eGFR For Non-African Americans 41 (> 60)
[2018-04-27 21:57] LABS: Bilirubin,Urine Small (Negative); Blood,Urine Negative (Negative); Clarity,Urine Clear (Clear); Color,Urine Dark Yellow (Yellow); Glucose,Urine (UA) Normal (Normal); Ketones,Urine Trace mg/dL (Negative); Leukocyte Esterase,Urine Negative (Negative); Nitrite,Urine Negative (Negative); PH,Urine 5.5 pH Units (5.0-8.0); Protein,Urine Trace mg/dL (Neg-Trace); Urobilinogen,Urine Normal (Normal)
[2018-04-27 21:58] LABS: Bacteria,Urine None Seen per hpf (None-Few); Squamous Epithelial Cell,Urine Many per lpf (None-Few)
[2018-04-27 22:10] LABS: Hyaline Casts,Urine Many per lpf (None-Few)
[2018-04-27 22:12] LABS: RBC,Urine 0-3 per hpf (0-3)
[2018-04-27 22:17] LABS: Amphetamine Screen,Urine Negative ng/mL (Cutoff=1000); Barbiturate Screen,Urine Negative ng/mL (Cutoff=200); Benzodiazepines Screen,Urine Negative ng/mL (Cutoff=200); Cannabinoid Screen,Urine Negative ng/mL (Cutoff = 50); Cocaine Screen,Urine Negative ng/mL (Cutoff= 300); Opiate Screen,Urine Positive ng/mL (Cutoff=300); Phencyclidine Screen,Urine Negative ng/mL (Cutoff=25)
[2018-04-27] MEDS ORDERED: Aspirin 325 MG TABLET PO ONE (23:15)
[2018-04-27] MEDS ORDERED: *HR* OxyCODONE/APAP 5/325 TABLET PO ONE (23:41)
[2018-04-28] MEDS ORDERED: Acetaminophen 325 MG TABLET PO PRN (00:53)
[2018-04-28] MEDS ORDERED: Naloxone 0.4 MG/ML INJ IVP PRN (00:53)
[2018-04-28] MEDS ORDERED: Ipratropium/Albuterol Neb 3 ML IH PRN (01:04)
[2018-04-28] MEDS ORDERED: *HR* Dextrose 50 % in Water (Syg) 50 ML SYRINGE IVP PRN (01:05)
[2018-04-28] MEDS ORDERED: D5% in Water 1,000 ML IVC PRN (01:05)
[2018-04-28] MEDS ORDERED: Dextrose Gel 15 GM/37.5 ML TUBE PO PRN ×2 (01:05)
--- NOTE | 2018-04-28 01:20 | Internal Med History&Physical ---
Date of Encounter: 04/28/18 Time of Encounter: 00:30 Internal Medicine - H&P: HPI Chief complaint: Confusion Admitted From: Home Plans for Post Hospital Care: Home History of present illness: Mr. Nicholson is a 77 year old male presented to ER for confusion gradually getting worse. Past medical history is significant for COPD, diabetes, CHF, CAD S/P CABG, thyroid cancer S/P thyroidectomy, supraglottis carcinoma S/P radiation, lung nodule suspected lung cancer, A. fib on Coumadin and S/P PPM. Patient is mild confused, history is partially from family member patient's and son. Patient complaint intermittent chest pain and increased confusion in last 3 weeks, gradually getting worse. Patient has shortness of breath. Patient previously cannot walk with walker or cane but cannot walk now. Patient has chronic cough with yellowish and greenish sputum. Patient described the chest pain as pain in the whole chest everywhere. Patient has chronic pain and on high-dose opioid pain medication. Patient and family denies fever, diarrhea, or nausea vomiting. In the emergency room, patient was given Solu-Medrol and DuoNeb treatment, his shortness of breath has improved. Patient was admitted as COPD exacerbation, SCOTT, chest pain, and altered mental status. I have discussed CODE STATUS with the patient's POA, i.e. his , she clearly told me she wants everything to be done to save pt's life, full code is placed. Past Med Surg Social Fam HX - Past Medical History Medical history: atrial fibrillation, cancer, COPD, coronary artery disease, diabetes, malignancy, thyroid disease, other Psychiatric history: anxiety, depression - Past Surgical History Surgical History: cancer surgery, coronary bypass (CABG) - Social History Smoking Status: Current every day smoker Packs per day: 1 Smokeless Tobacco Status: No Alcohol use: none Drug use: none - Family History Mother Living Status: Hx Family Cardiac Disorders: Yes Internal Medicine - H&P: Meds Aspirin 325 mg PO DAILY 07/07/15 [History] Furosemide [Lasix] 40 mg PO DAILY 07/07/15 [History] Omeprazole [PriLOSEC] 20 mg PO DAILY 07/07/15 [History] Potassium Chloride 10 meq PO BID 07/07/15 [History] Sennosides/Docusate Sodium [Latonya-Colace Tablet] 2 tab PO BID 07/07/15 [History] Tiotropium [place] [Spiriva] 18 mcg IH DAILY 07/07/15 [History] Levothyroxine [Synthroid] 150 mcg PO DAILY 07/10/15 [History] Metoprolol [Lopressor] 25 mg PO BID 07/10/15 [History] Citalopram [CeleXA] 20 mg PO DAILY #30 tablet 12/13/15 [Rx] Lubiprostone [Amitiza] 24 mcg PO BID #60 capsule 12/13/15 [Rx] Insulin Glargine,Hum.rec.anlog [Lantus Solostar] 10 unit SQ QAM 12/06/16 [ History] Megestrol Acetate [Megace] 200 mg PO BID 04/08/17 [History] Oxycodone HCl/Acetaminophen [Percocet 10-325 mg Tablet] 1 - 2 each PO Q4H PRN # 360 tablet 04/11/17 [Rx] Warfarin [Coumadin] 4 mg PO 1800 10/01/17 [History] Albuterol Sulfate [Ventolin Hfa] 2 puff IH Q6H PRN 04/01/18 [History] Fluticasone/Salmeterol [Advair 250-50 Diskus] 1 each IH BID #1 blst.w.dev [Rx] 3 Allergy/AdvReac Type Severity Reaction Status Date / Time cephalexin [From Keflex] Allergy Mild unknown Verified 04/01/18 14:19 levofloxacin [From Levaquin] AdvReac Mild unknown Verified 04/01/18 14:19 All Systems PM: A 10-system review of systems was performed and is negative for pertinent findings except as documented above in the HPI. - Constitutional Vitals: Temp Pulse Resp BP Pulse Ox 99 F 94 16 111/61 96 04/28/18 00:14 04/28/18 00:14 04/28/18 00:14 04/28/18 00:14 04/28/18 00:53 General appearance: Present: mild distress, answers questions appropriately - Head Head exam: Present: atraumatic, normocephalic - Eye Eye exam: Present: PERRL, conjuntiva pink, sclera anicteric Pupils: Present: PERRL - Neck Neck exam general surgery: Present: supple, trachea midline. Absent: lymphadenopathy - Respiratory Respiratory exam: Present: CTAB, wheezes (Scattered wheezes bilaterally). Absent: accessory muscle use, rales, rhonchi - Cardiovascular Cardiovascular exam: Present: irregular rhythm, +S1, +S2. Absent: diastolic murmur, gallop, rubs, systolic murmur - GI/Abdominal GI/Abdominal exam: Present: normal bowel sounds, soft, no peritoneal signs. Absent: distended, tenderness - Extremities Exam Extremities exam: Present: warm, radial pulses palpable and symmetrical. Absent : calf tenderness, cyanotic, pedal edema Additional comments: Chronic wound on both feet - Neurological Exam Neurological exam: Present: altered, CN II-XII intact, no focal deficits. Absent: pronater drift, facial droop, speech deficit - Skin Skin exam: Present: dry, intact Internal Med - H&P Results - Labs CBC & Chem 7: 04/27/18 21:06 04/27/18 21:06 - Assessment and plan (1) Altered mental status Current Visit: Yes Status: Acute Assessment and plan: CT head negative. Most likely metabolic or due to opioid use or general deconditioning. Closely monitor patient, treat his COPD exacerbation and continue the supportive treatment. Qualifiers: Altered mental status type: disorientation Qualified Code(s): R41.0 - Disorientation, unspecified (2) COPD exacerbation Current Visit: Yes Status: Acute Assessment and plan: Patient has increased shortness of breath with wheezing. History of COPD. Consider COPD exacerbation. - Place patient on antibiotic, steroid, and bronchodilator. - Continue oxygen supportive treatment (3) Chest pain Current Visit: Yes Status: Acute Assessment and plan: Patient complaint generalized the chest pain, on and off in last 3 weeks. Etiology is undetermined. Suspect caused by COPD or possible lung cancer. However, patient has a history of CAD, need to rule out ACS. - Continue cardiac monitoring - Track 3 sets of troponin - Echocardiogram in a.m. Qualifiers: Chest pain type: unspecified Qualified Code(s): R07.9 - Chest pain, unspecified (4) Acute renal failure Current Visit: No Status: Acute Assessment and plan: Patient has mild elevated creatinine from baseline, 1.63 today. 2 L IV fluid has been given in ER. Will keep a low rate IV fluid (concern for CHF) and the follow-up renal function. Avoid nephrotoxic medications. Qualifiers: Acute renal failure type: unspecified Qualified Code(s): N17.9 - Acute kidney failure, unspecified (5) Carcinoma of supraglottis Current Visit: No Status: Resolved Assessment and plan: S/P radiation therapy. Continue outpatient follow-up. (6) Thyroid carcinoma Current Visit: No Status: Resolved Assessment and plan: S/P thyroidectomy. Continue home medication Synthroid (7) Venous ulcer of left leg Current Visit: No Status: Resolved Assessment and plan: We will consult wound care for management (8) Stage II pressure ulcer of left heel Current Visit: No Status: Acute Assessment and plan: We will consult wound care (9) Atrial fibrillation Current Visit: No Status: Acute Assessment and plan: Heart rate is well controlled. Continue home medication for rate control. Continue Coumadin for anticoagulation. INR is supratherapeutic now, we will hold Coumadin now, pharmacy to dose per INR level. 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 Will decrease aspirin dose to 81 mg daily considering patient is using Coumadin. Qualifiers: [place] vs. transplanted heart: [place] heart Associated angina: without angina Qualified Code(s): I25.810 - Atherosclerosis of coronary artery bypass graft(s) without angina pectoris (13) Essential hypertension Current Visit: No Status: Acute Assessment and plan: Continue home medications, closely follow-up BP - Time Spent With Patient Total time spent is greater than 50% in coordination of care (as documented) at patient's floor/unit and/or counseling patient:
[2018-04-28] MEDS: 0.9 % Sodium Chloride 1,000 ML IVC SCH ×2 (01:42→21:01)
[2018-04-28] MEDS: Ipratropium/Albuterol Neb 3 ML IH SCH ×4 (03:44→22:50)
[2018-04-28] MEDS: Doxycycline 100 MG in 0.9 % Sodium Chloride Mini Bag 100 ML IVPB SCH ×2 (06:35→16:40)
[2018-04-28] MEDS: Insulin LISPRO 300 UNITS/3 ML VIAL SQ SCH ×4 (08:25→21:01)
[2018-04-28] MEDS: Sennosides/Docusate Sodium TABLET PO SCH ×2 (09:08→21:03)
[2018-04-28] MEDS: Aspirin Enteric Coated 81 MG Tablet PO SCH (09:08)
[2018-04-28] MEDS: predniSONE 20 MG TABLET PO SCH (09:08)
[2018-04-28] MEDS: Furosemide 40 MG TABLET PO SCH (09:08)
[2018-04-28] MEDS: Megestrol Acetate 400 MG/10 ML UDC PO SCH ×2 (09:08→21:04)
[2018-04-28] MEDS: (Lubiprostone [Amitiza] 24 MCG) PO SCH ×2 (09:09→21:03)
[2018-04-28] MEDS: Budesonide/Formoterol 80/4.5 MDI IH SCH ×2 (09:37→22:50)
[2018-04-28 12:51] LABS: Hematocrit 32.2 % (37.5-50.1); Hemoglobin 10.3 g/dL (12.9-16.9); Mean Corpuscular Hemoglobin 29.9 pg (28.0-33.3); Mean Corpuscular Volume 93.6 fL (83.0-100.0); Mean Platelet Volume 9.1 fL (9.4-12.4); Platelet Count 204 K/mcL (140-400); Red Blood Count 3.44 M/mcL (4.19-5.50); Red Cell Distribution Width 15.9 % (11.5-14.5)
[2018-04-28 12:56] LABS: INR 4.2
[2018-04-28 13:00] LABS: Prothrombin Time 46.2 Seconds (9.4-12.1)
[2018-04-28 13:12] LABS: BUN/Creatinine Ratio 33 (6-26); Blood Urea Nitrogen 38 mg/dL (8-23); Calcium 8.6 mg/dL (8.6-10.3); Carbon Dioxide 22 mEq/L (23-29); Chloride 108 mEq/L (98-107); Glucose 140 mg/dL (70-105); Magnesium 2.1 mg/dL (1.6-2.6); Osmolality,Calculated 299 (280-300); Potassium 4.7 mEq/L (3.5-5.1); Sodium 139 mEq/L (136-145); eGFR For African Americans > 60 (> 60); eGFR For Non-African Americans > 60 (> 60)
[2018-04-28 13:36] LABS: Lymphocytes # 0.1 K/mcL (0.6-4.6); Monocytes # 0.2 K/mcL (0.0-1.3); Neutrophils # 3.8 K/mcL (1.6-8.9)
[2018-04-28 13:37] LABS: Platelet Estimate Normal (Normal)
--- NOTE | 2018-04-28 15:49 | Internal Med Progress Note ---
Date of Encounter: 04/28/18 Time of Encounter: 16:19 - Assessment and plan (1) Chest pain Current Visit: Yes Status: Acute Assessment and plan: reportedly with generalized chest pain on and off in last 3 weeks. Etiology is undetermined. Suspect caused by COPD or possible lung cancer. However, patient has a history of CAD, need to rule out ACS. Troponin 2 negative. EKG without acute ST changes. TTE pending Qualifiers: Chest pain type: unspecified Qualified Code(s): R07.9 - Chest pain, unspecified (2) Altered mental status Current Visit: Yes Status: Acute Assessment and plan: with increasing per chart review. Suspect he has a component of underlying dementia; no patient at bedside for collateral. Head CT nonacute. Hold on further diagnostic testing at this time. Neurologically intact. Supportive care. 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 Continue outpatient follow-up. (4) Thyroid carcinoma Current Visit: No Status: Resolved Assessment and plan: S/P thyroidectomy. Continue home medication Synthroid (5) Venous ulcer of left leg Current Visit: No Status: Resolved Assessment and plan: wound care consulted (6) Stage II pressure ulcer of left heel Current Visit: No Status: Acute Assessment and plan: present on admission. Consult wound care (7) Atrial fibrillation Current Visit: No Status: Acute Assessment and plan: per hx. Rate controlled. Holding Coumadin with supratherapeutic INR. No active bleeding. Pharmacy managing Coumadin. Qualifiers: Atrial fibrillation type: unspecified Qualified Code(s): I48.91 - Unspecified atrial fibrillation (8) Diabetes Current Visit: No Status: Acute Assessment and plan: Place patient on sliding scale insulin coverage Qualifiers: Diabetes mellitus type: type 2 Diabetes mellitus [facility] insulin use: with [facility] use Diabetes mellitus complication status: with unspecified complications Qualified Code(s): E11.8 - Type 2 diabetes mellitus with unspecified complications; Z79.4 - [facility] (current) use of insulin (9) Acute renal failure Current Visit: No Status: Acute Assessment and plan: Cr 1.63; mildly elevated. Received IV fluids in the ER. Repeat renal function normalized. Avoid nephrotoxic medications. Qualifiers: Acute renal failure type: unspecified Qualified Code(s): N17.9 - Acute kidney failure, unspecified (10) CAD (coronary artery disease) of artery bypass graft Current Visit: No Status: Acute Assessment and plan: Continue home medication aspirin and beta bijal. Will decrease aspirin dose to 81 mg daily considering patient is using Coumadin. Qualifiers: [place] vs. transplanted heart: [place] heart Associated angina: without angina Qualified Code(s): I25.810 - Atherosclerosis of coronary artery bypass graft(s) without angina pectoris (11) Essential hypertension Current Visit: No Status: Acute Assessment and plan: per hx. BP controlled. Cont home BP medications. Monitor BP and titrate PRN (12) COPD exacerbation Current Visit: Yes Status: Acute Assessment and plan: increased shortness of breath with wheezing. History of COPD. Consider COPD exacerbation. Cont doxycycline, steroid, and bronchodilator. Continue oxygen supportive treatment (13) DVT prophylaxis Current Visit: No Status: Acute Assessment and plan: Coumadin - Time Spent With Patient Total time spent is greater than 50% in coordination of care (as documented) at patient's floor/unit and/or counseling patient: - Constitutional Vitals: Temp Pulse Resp BP Pulse Ox 98.9 F 85 17 120/79 96 04/28/18 11:58 04/28/18 11:58 04/28/18 15:09 04/28/18 11:58 04/28/18 15:09 General appearance: Present: A&O X 2, no acute distress, answers questions appropriately - Head Head exam: Present: atraumatic, normocephalic - Eye Eye exam: Present: PERRL, conjuntiva pink, sclera anicteric Pupils: Present: PERRL - Neck Neck exam general surgery: Present: supple, trachea midline. Absent: lymphadenopathy - Respiratory Respiratory exam: Present: CTAB. Absent: accessory muscle use, rales, rhonchi, wheezes - Cardiovascular Cardiovascular exam: Present: RRR, +S1, +S2. Absent: diastolic murmur, gallop, rubs, systolic murmur - GI/Abdominal GI/Abdominal exam: Present: normal bowel sounds, soft, no peritoneal signs. Absent: distended, tenderness - Extremities Exam Extremities exam: Present: pedal edema, warm, radial pulses palpable and symmetrical. Absent: calf tenderness, cyanotic Additional comments: Lower extremity edema and chronic stasis ulcers with dressings clean dry and intact. - Neurological Exam Neurological exam: Present: CN II-XII intact, oriented X3, no focal deficits. Absent: pronater drift, facial droop, speech deficit - Skin Skin exam: Present: dry, intact Internal Medicine: Result - Labs CBC & Chem 7: 04/28/18 12:25 04/28/18 12:25 Labs: Short CBC 04/28/18 Range/Units 12:25 WBC 4.0 L (4.3-11.1) K/mcL Hgb 10.3 L (12.9-16.9) g/dL Hct 32.2 L (37.5-50.1) % Plt Count 204 (140-400) K/mcL Neutrophils # 3.8 (1.6-8.9) K/mcL BMP 04/28/18 12:25 Sodium 139 Potassium 4.7 Chloride 108 H Carbon Dioxide 22 L BUN 38 H Creatinine 1.15 Glucose 140 H Calcium 8.6 Cardiac Enzymes 04/28/18 Range/Units 12:25 Troponin I < 0.03 (< 0.04) ng/mL - ABG Interpretation ABG results: PT/INR, D-dimer PT 46.2 Seconds (9.4-12.1) H* 04/28/18 12:25 Consult Discharge Plan - Plan Referrals: Avery Woods DO [Primary Care Provider] -
[2018-04-28] MEDS: *HR* OxyCODONE/APAP 10/325 TABLET PO PRN ×2 (16:40→21:09)
[2018-04-28] MEDS ORDERED: Warfarin perPT PO PRN (18:00)
[2018-04-29] MEDS ORDERED: *HR* OxyCODONE ER (12 HR) 20 MG TABLET PO ONE (02:07)
[2018-04-29] MEDS: *HR* OxyCODONE/APAP 10/325 TABLET PO PRN ×4 (02:26→23:45)
[2018-04-29] MEDS: Ipratropium/Albuterol Neb 3 ML IH SCH ×4 (04:23→22:04)
[2018-04-29] MEDS: Doxycycline 100 MG in 0.9 % Sodium Chloride Mini Bag 100 ML IVPB SCH ×2 (06:14→19:09)
[2018-04-29 07:20] LABS: Hematocrit 33.3 % (37.5-50.1); Hemoglobin 10.4 g/dL (12.9-16.9); Mean Corpuscular HGB Conc 31.2 g/dL (31.6-35.5); Mean Corpuscular Hemoglobin 28.8 pg (28.0-33.3); Mean Corpuscular Volume 92.2 fL (83.0-100.0); Mean Platelet Volume 9.3 fL (9.4-12.4); Platelet Count 226 K/mcL (140-400); Red Blood Count 3.61 M/mcL (4.19-5.50); Red Cell Distribution Width 15.9 % (11.5-14.5)
[2018-04-29 07:23] LABS: INR 3.4; Prothrombin Time 37.7 Seconds (9.4-12.1)
[2018-04-29 07:42] LABS: BUN/Creatinine Ratio 31 (6-26); Blood Urea Nitrogen 27 mg/dL (8-23); Calcium 8.8 mg/dL (8.6-10.3); Carbon Dioxide 24 mEq/L (23-29); Chloride 110 mEq/L (98-107); Glucose 118 mg/dL (70-105); Osmolality,Calculated 298 (280-300); Potassium 4.3 mEq/L (3.5-5.1); Sodium 141 mEq/L (136-145); eGFR For African Americans > 60 (> 60); eGFR For Non-African Americans > 60 (> 60)
[2018-04-29] MEDS: Insulin LISPRO 300 UNITS/3 ML VIAL SQ SCH ×4 (07:49→21:00)
--- NOTE | 2018-04-29 08:15 | Electrocardiograph Report ---
[address] [address] Test Date: 2018-04-27 Pat Name: Weston Nicholson Department: 103 Room: 3B Gender: M Resin Coater: LRS : 1940 Requested By: Mathieu Choudhury Order Number: [id number] Reading MD: Mateo Hough Measurements Intervals [place] Rate: 82 P: 56 WI: 189 QRS: 4 QRSD: 87 T: 22 QT: 376 QTc: 414 Interpretive Statements SINUS RHYTHM WITH VENTRICULAR PREMATURE COMPLEXES BASELINE ARTIFACT Electronically Signed On 04-29-2018 8:14:16 EDT by Mateo Hough
[2018-04-29] MEDS: (Lubiprostone [Amitiza] 24 MCG) PO SCH ×2 (08:52→21:00)
[2018-04-29] MEDS: Sennosides/Docusate Sodium TABLET PO SCH ×3 (08:52→21:01)
[2018-04-29] MEDS: Megestrol Acetate 400 MG/10 ML UDC PO SCH ×2 (08:52→21:02)
[2018-04-29] MEDS: Aspirin Enteric Coated 81 MG Tablet PO SCH ×2 (08:52→09:22)
[2018-04-29] MEDS: Furosemide 40 MG TABLET PO SCH ×2 (08:52→09:22)
[2018-04-29] MEDS: predniSONE 20 MG TABLET PO SCH ×2 (08:52→09:22)
[2018-04-29] MEDS: Budesonide/Formoterol 80/4.5 MDI IH SCH ×2 (10:35→22:04)
[2018-04-29] MEDS: Miconazole 2% ointment 114 GM TUBE TP SCH (12:01)
--- NOTE | 2018-04-29 15:54 | Internal Med Progress Note ---
Date of Encounter: 04/29/18 Time of Encounter: 15:49 - Assessment and plan (1) COPD exacerbation Current Visit: Yes Status: Acute Assessment and plan: increased shortness of breath with wheezing. History of COPD. Cont doxycycline , steroid, and bronchodilator. Continue oxygen supportive treatment (2) Chest pain Current Visit: Yes Status: Acute Assessment and plan: reportedly with generalized chest pain on and off in last 3 weeks. Troponin 2 negative. EKG without acute ST changes. TTE with EF 60%, wall motion abnormality difficult to assess as this was a technically challenging study. Patient now denies chest pain. ACS rule out. Suspect chest pain secondary to COPD exacerbation. Continue treating COPD has noted above. Qualifiers: Chest pain type: unspecified Qualified Code(s): R07.9 - Chest pain, unspecified (3) Altered mental status Current Visit: Yes Status: Acute Assessment and plan: with increasing per chart review. Suspect he has a component of underlying dementia. Head CT nonacute. 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 Ammonia level, ABG pending. Mentation appears to have returned to baseline on 04/29 exam. Qualifiers: Altered mental status type: disorientation Qualified Code(s): R41.0 - Disorientation, unspecified (4) Carcinoma of supraglottis Current Visit: No Status: Resolved Assessment and plan: S/P radiation therapy. Continue outpatient follow-up. (5) Thyroid carcinoma Current Visit: No Status: Resolved Assessment and plan: S/P thyroidectomy. Continue home medication Synthroid (6) Venous ulcer of left leg Current Visit: No Status: Resolved Assessment and plan: per hx with chronic wounds. Continue local wound care. (7) Stage II pressure ulcer of left heel Current Visit: No Status: Acute Assessment and plan: present on admission. Consult wound care (8) Atrial fibrillation Current Visit: No Status: Acute Assessment and plan: per hx. Rate controlled. Holding Coumadin with supratherapeutic INR. No active bleeding. Pharmacy managing Coumadin. Qualifiers: Atrial fibrillation type: unspecified Qualified Code(s): I48.91 - Unspecified atrial fibrillation (9) Diabetes Current Visit: No Status: Acute Assessment and plan: Place patient on sliding scale insulin coverage Qualifiers: Diabetes mellitus type: type 2 Diabetes mellitus [facility] use: with [facility] use Diabetes mellitus complication status: with unspecified complications Qualified Code(s): E11.8 - Type 2 diabetes mellitus with unspecified complications; Z79.4 - [facility] (current[facility] use of insulin (10) Acute renal failure Current Visit: No Status: Acute Assessment and plan: Cr 1.63; mildly elevated. Received IV fluids in the ER. Repeat renal function normalized. Avoid nephrotoxic medications. Qualifiers: Acute renal failure type: unspecified Qualified Code(s): N17.9 - Acute kidney failure, unspecified (11) CAD (coronary artery disease) of artery bypass graft Current Visit: No Status: Acute Assessment and plan: Continue home medication aspirin and beta bijal. Will decrease aspirin dose to 81 mg daily considering patient is using Coumadin. Qualifiers: [place] vs. transplanted heart: [place] heart Associated angina: without angina Qualified Code(s): I25.810 - Atherosclerosis of coronary artery bypass graft(s) without angina pectoris (12) Essential hypertension Current Visit: No Status: Acute Assessment and plan: per hx. BP controlled. Cont home BP medications. Monitor BP and titrate PRN (13) DVT prophylaxis Current Visit: No Status: Acute Assessment and plan: Coumadin - Time Spent With Patient Total time spent is greater than 50% in coordination of care (as documented) at patient's floor/unit and/or counseling patient: - Subjective Interval history: Seen and examined at bedside; he is upset and angry and wants to go home. States that he is leaving when his is getting here. Seen patient again later in afternoon with at bedside and patient is agreeable to go to SNF per PT/OT recommendations. He is complaining of chronic lower leg pain and requesting increase in pain medication. No chest pain or shortness of breath. - Constitutional Vitals: Temp Pulse Resp BP Pulse Ox 98.4 F 99 19 123/73 92 04/29/18 11:55 04/29/18 11:55 04/29/18 11:55 04/29/18 11:55 04/29/18 11:55 General appearance: Present: A&O X 3, no acute distress, answers questions appropriately - Head Head exam: Present: atraumatic, normocephalic - Eye Eye exam: Present: PERRL, conjuntiva pink, sclera anicteric Pupils: Present: PERRL - Neck Neck exam general surgery: Present: supple, trachea midline. Absent: lymphadenopathy - Respiratory Respiratory exam: Present: rhonchi, wheezes. Absent: accessory muscle use, rales - Cardiovascular Cardiovascular exam: Present: RRR, +S1, +S2. Absent: diastolic murmur, gallop, rubs, systolic murmur - GI/Abdominal GI/Abdominal exam: Present: normal bowel sounds, soft, no peritoneal signs. Absent: distended, tenderness - Extremities Exam Extremities exam: Present: pedal edema, warm, radial pulses palpable and symmetrical. Absent: calf tenderness, cyanotic Additional comments: bilateral lower extremity legs vdry and scaly. Skin is wrinkled with hemosiderin staining D/T chronic venous stasis. Mild edema. - Neurological Exam Neurological exam: Present: CN II-XII intact, oriented X3, no focal deficits. Absent: pronater drift, facial droop, speech deficit - Skin Skin exam: Present: dry, intact Internal Medicine: Result - Labs CBC & Chem 7: 04/29/18 06:30 04/29/18 06:30 Labs: Short CBC 04/29/18 Range/Units 06:30 WBC 5.0 (4.3-11.1) K/mcL Hgb 10.4 L (12.9-16.9) g/dL Hct 33.3 L (37.5-50.1) % Plt Count 226 (140-400) K/mcL BMP 04/29/18 06:30 Sodium 141 Potassium 4.3 Chloride 110 H Carbon Dioxide 24 BUN 27 H Creatinine 0.86 Glucose 118 H Calcium 8.8 - ABG Interpretation ABG results: PT/INR, D-dimer PT 37.7 Seconds (9.4-12.1) H 04/29/18 06:30 - Impressions Impressions Echocardiogram 04/28/18 01:03 Impressions: Technically challenging due to suboptimal echocardiographic windows. LVEF 60%. Indeterminate diastolic function. RV is not well visualized. Not all valves were well visualized or evaluated with Doppler. Unable to estimate RVSP. Findings: Study Quality * Technically challenging due to suboptimal echocardiographic windows. ECG Findings * Normal sinus rhythm. Left Ventricle * LVEF 60%. * Indeterminate diastolic function. * Normal LV chamber size and wall thickness. Right Ventricle * RV is not well visualized. Left Atrium * Left atrium is not well visualized. Right Atrium * Moderately dilated right atrium. Aortic Valve * No aortic regurgitation. * Aortic valve not well visualized. * Doppler not optimally obtained. Mitral Valve * Normal mitral valve structure. * No mitral stenosis. * Mild mitral regurgitation. Pulmonic Valve * Pulmonic valve is not well visualized. * Suboptimal Doppler interrogation. Pulmonary Artery * Pulmonary artery not well visualized. Aorta * Not well visualized. Tricuspid Valve * Tricuspid valve not well visualized. * Estimated RA pressure is 8 mmHg. * TR signal not well obtained. Pericardium * There is no pericardial effusion present. Interatrial Septum * No evidence of PFO by color Doppler. IVC * The IVC is not dilated. * < 50% respiratory change. Consult Discharge Plan - Plan Referrals: Avery Woods DO [Primary Care Provider] -
[2018-04-29] MEDS: 0.9 % Sodium Chloride 1,000 ML IVC SCH (16:17)
[2018-04-29 16:38] LABS: ABG Base Excess 1 mEq/L (-2 to 3); ABG HCO3 25 mEq/L (21-27); ABG Oxygen Saturation 92 % (95-98); ABG PCO2 36 mmHg (35-45); ABG PH 7.44 pH Units (7.32-7.45); ABG PO2 60 mmHg (85-104); ABG TCO2 26 mEq/L (20-26)
[2018-04-30] MEDS: Ipratropium/Albuterol Neb 3 ML IH SCH ×4 (04:07→21:37)
[2018-04-30] MEDS: Doxycycline 100 MG in 0.9 % Sodium Chloride Mini Bag 100 ML IVPB SCH ×2 (05:38→17:14)
[2018-04-30] MEDS: *HR* OxyCODONE/APAP 10/325 TABLET PO PRN ×3 (05:50→22:23)
[2018-04-30 06:29] LABS: Prothrombin Time 32.6 Seconds (9.4-12.1)
[2018-04-30 06:37] LABS: Hematocrit 33.3 % (37.5-50.1); Hemoglobin 10.7 g/dL (12.9-16.9); Mean Corpuscular HGB Conc 32.1 g/dL (31.6-35.5); Mean Corpuscular Hemoglobin 29.5 pg (28.0-33.3); Mean Corpuscular Volume 91.7 fL (83.0-100.0); Platelet Count 239 K/mcL (140-400); Red Blood Count 3.63 M/mcL (4.19-5.50); Red Cell Distribution Width 15.9 % (11.5-14.5)
[2018-04-30 06:45] LABS: BUN/Creatinine Ratio 24 (6-26); Blood Urea Nitrogen 16 mg/dL (8-23); Calcium 8.4 mg/dL (8.6-10.3); Carbon Dioxide 24 mEq/L (23-29); Chloride 109 mEq/L (98-107); Glucose 84 mg/dL (70-105); Osmolality,Calculated 286 (280-300); Potassium 3.9 mEq/L (3.5-5.1); Sodium 138 mEq/L (136-145); eGFR For African Americans > 60 (> 60); eGFR For Non-African Americans > 60 (> 60)
[2018-04-30] MEDS: 0.9 % Sodium Chloride 1,000 ML IVC SCH (07:49)
[2018-04-30] MEDS: Insulin LISPRO 300 UNITS/3 ML VIAL SQ SCH ×4 (09:52→20:58)
[2018-04-30] MEDS: predniSONE 20 MG TABLET PO SCH (09:56)
[2018-04-30] MEDS: Sennosides/Docusate Sodium TABLET PO SCH ×2 (09:56→21:03)
[2018-04-30] MEDS: Megestrol Acetate 400 MG/10 ML UDC PO SCH ×2 (09:56→21:03)
[2018-04-30] MEDS: Furosemide 40 MG TABLET PO SCH (09:57)
[2018-04-30] MEDS: Aspirin Enteric Coated 81 MG Tablet PO SCH (09:57)
[2018-04-30] MEDS: (Lubiprostone [Amitiza] 24 MCG) PO SCH ×2 (09:57→20:58)
[2018-04-30] MEDS: Tiotropium 18 MCG inhalation IH SCH (11:36)
[2018-04-30] MEDS: Budesonide/Formoterol 80/4.5 MDI IH SCH ×2 (11:37→21:36)
--- NOTE | 2018-04-30 13:15 | Internal Med Progress Note ---
Date of Encounter: 04/30/18 Time of Encounter: 13:13 - Assessment and plan (1) COPD exacerbation Current Visit: Yes Status: Acute Assessment and plan: increased shortness of breath with wheezing. History of COPD. Cont doxycycline , steroid, and bronchodilator. Continue oxygen supportive treatment (2) Chest pain Current Visit: Yes Status: Acute Assessment and plan: reportedly with generalized chest pain on and off in last 3 weeks. Troponin 2 negative. EKG without acute ST changes. TTE with EF 60%, wall motion abnormality difficult to assess as this was a technically challenging study. Patient now denies chest pain. ACS rule out. Suspect chest pain secondary to COPD exacerbation. Continue treating COPD has noted above. Qualifiers: Chest pain type: unspecified Qualified Code(s): R07.9 - Chest pain, unspecified (3) Altered mental status Current Visit: Yes Status: Acute Assessment and plan: with increasing per chart review. Suspect he has a component of underlying dementia. Head CT nonacute. 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 Ammonia level, ABG pending. Mentation appears to have returned to baseline on 04/29 exam. Qualifiers: Altered mental status type: disorientation Qualified Code(s): R41.0 - Disorientation, unspecified (4) Carcinoma of supraglottis Current Visit: No Status: Resolved Assessment and plan: S/P radiation therapy. Continue outpatient follow-up. (5) Thyroid carcinoma Current Visit: No Status: Resolved Assessment and plan: S/P thyroidectomy. Continue home medication Synthroid (6) Venous ulcer of left leg Current Visit: No Status: Resolved Assessment and plan: per hx with chronic wounds. Continue local wound care. (7) Stage II pressure ulcer of left heel Current Visit: No Status: Acute Assessment and plan: present on admission. Consult wound care (8) Atrial fibrillation Current Visit: No Status: Acute Assessment and plan: per hx. Rate controlled. Holding Coumadin with supratherapeutic INR. No active bleeding. Pharmacy managing Coumadin. INR 3.0 on 04/30 Qualifiers: Atrial fibrillation type: unspecified Qualified Code(s): I48.91 - Unspecified atrial fibrillation (9) Diabetes Current Visit: No Status: Acute Assessment and plan: Place patient on sliding scale insulin coverage Qualifiers: Diabetes mellitus type: type 2 Diabetes mellitus [facility] insulin use: with [facility] use Diabetes mellitus complication status: with unspecified complications Qualified Code(s): E11.8 - Type 2 diabetes mellitus with unspecified complications; Z79.4 - [facility] (current) use of insulin (10) Acute renal failure Current Visit: No Status: Acute Assessment and plan: Cr 1.63; mildly elevated. Received IV fluids in the ER. Repeat renal function normalized. Avoid nephrotoxic medications. Qualifiers: Acute renal failure type: unspecified Qualified Code(s): N17.9 - Acute kidney failure, unspecified (11) CAD (coronary artery disease) of artery bypass graft Current Visit: No Status: Acute Assessment and plan: Continue home medication aspirin and beta bijal. Will decrease aspirin dose to 81 mg daily considering patient is using Coumadin. Qualifiers: [place] vs. transplanted heart: [place] heart Associated angina: without angina Qualified Code(s): I25.810 - Atherosclerosis of coronary artery bypass graft(s) without angina pectoris (12) Essential hypertension Current Visit: No Status: Acute Assessment and plan: per hx. BP controlled. Cont home BP medications. Monitor BP and titrate PRN (13) DVT prophylaxis Current Visit: No Status: Acute Assessment and plan: Coumadin - Time Spent With Patient Total time spent is greater than 50% in coordination of care (as documented) at patient's floor/unit and/or counseling patient: - Subjective Interval history: Seen and examined at bedside; lying in bed, appears comfortable. Says he slept better last night. Pain is better controlled. at bedside and updated as well. Awaiting precertification for SNF placement - Constitutional Vitals: Temp Pulse Resp BP Pulse Ox 98.7 F 74 19 119/79 97 04/30/18 11:43 04/30/18 11:43 04/30/18 11:43 04/30/18 11:43 04/30/18 11:43 General appearance: Present: A&O X 3, no acute distress, answers questions appropriately - Head Head exam: Present: atraumatic, normocephalic - Eye Eye exam: Present: PERRL, conjuntiva pink, sclera anicteric Pupils: Present: PERRL - Neck Neck exam general surgery: Present: supple, trachea midline. Absent: lymphadenopathy - Respiratory Respiratory exam: Present: CTAB, rhonchi, wheezes. Absent: accessory muscle use , rales - Cardiovascular Cardiovascular exam: Present: RRR, +S1, +S2. Absent: diastolic murmur, gallop, rubs, systolic murmur - GI/Abdominal GI/Abdominal exam: Present: normal bowel sounds, soft, no peritoneal signs. Absent: distended, tenderness - Extremities Exam Extremities exam: Present: pedal edema (Mild, nonpitting bilateral lower extremity edema. Bilateral legs wrapped from feet to knees.), warm, radial pulses palpable and symmetrical. Absent: calf tenderness, cyanotic - Neurological Exam Neurological exam: Present: CN II-XII intact, oriented X3, no focal deficits. Absent: pronater drift, facial droop, speech deficit - Skin Skin exam: Present: dry, intact Internal Medicine: Result - Labs CBC & Chem 7: 04/30/18 06:08 04/30/18 06:08 Labs: Short CBC 04/30/18 Range/Units 06:08 WBC 5.2 (4.3-11.1) K/mcL Hgb 10.7 L (12.9-16.9) g/dL Hct 33.3 L (37.5-50.1) % Plt Count 239 (140-400) K/mcL BMP 04/30/18 06:08 Sodium 138 Potassium 3.9 Chloride 109 H Carbon Dioxide 24 BUN 16 Creatinine 0.66 L Glucose 84 Calcium 8.4 L - ABG Interpretation ABG results: ABG ABG pH 7.44 pH Units (7.32-7.45) 04/29/18 16:28 ABG pCO2 36 mmHg (35-45) 04/29/18 16:28 ABG pO2 60 mmHg (85-104) L 04/29/18 16:28 ABG O2 Saturation 92 % (95-98) L 04/29/18 16:28 PT/INR, D-dimer PT 32.6 Seconds (9.4-12.1) H 04/30/18 06:08 Consult Discharge Plan - Plan Referrals: Avery Woods DO [Primary Care Provider] -
[2018-04-30] MEDS: Miconazole 2% ointment 114 GM TUBE TP SCH (16:32)
[2018-04-30] MEDS ORDERED: *HR* Warfarin 2 MG TABLET PO ONE (18:00)
[2018-05-01] MEDS: Ipratropium/Albuterol Neb 3 ML IH SCH ×3 (04:00→15:46)
[2018-05-01] MEDS: *HR* OxyCODONE/APAP 10/325 TABLET PO PRN ×2 (05:51→11:52)
[2018-05-01] MEDS: Doxycycline 100 MG in 0.9 % Sodium Chloride Mini Bag 100 ML IVPB SCH (05:51)
[2018-05-01 06:32] LABS: Hematocrit 32.6 % (37.5-50.1); Hemoglobin 10.5 g/dL (12.9-16.9); Mean Corpuscular HGB Conc 32.2 g/dL (31.6-35.5); Mean Corpuscular Hemoglobin 29.5 pg (28.0-33.3); Mean Corpuscular Volume 91.6 fL (83.0-100.0); Mean Platelet Volume 9.3 fL (9.4-12.4); Platelet Count 236 K/mcL (140-400); Red Blood Count 3.56 M/mcL (4.19-5.50); Red Cell Distribution Width 15.6 % (11.5-14.5)
[2018-05-01 06:40] LABS: INR 2.8; Prothrombin Time 30.6 Seconds (9.4-12.1)
[2018-05-01 06:48] LABS: BUN/Creatinine Ratio 20 (6-26); Blood Urea Nitrogen 16 mg/dL (8-23); Carbon Dioxide 25 mEq/L (23-29); Chloride 107 mEq/L (98-107); Glucose 89 mg/dL (70-105); Osmolality,Calculated 289 (280-300); Potassium 3.8 mEq/L (3.5-5.1); Sodium 139 mEq/L (136-145); eGFR For African Americans > 60 (> 60); eGFR For Non-African Americans > 60 (> 60)
[2018-05-01] MEDS: Insulin LISPRO 300 UNITS/3 ML VIAL SQ SCH ×2 (09:12→11:55)
[2018-05-01] MEDS: predniSONE 20 MG TABLET PO SCH (09:26)
[2018-05-01] MEDS: Megestrol Acetate 400 MG/10 ML UDC PO SCH (09:26)
[2018-05-01] MEDS: Aspirin Enteric Coated 81 MG Tablet PO SCH (09:26)
[2018-05-01] MEDS: Sennosides/Docusate Sodium TABLET PO SCH (09:26)
[2018-05-01] MEDS: Furosemide 40 MG TABLET PO SCH (09:26)
[2018-05-01] MEDS: Miconazole 2% ointment 114 GM TUBE TP SCH (09:27)
[2018-05-01] MEDS: (Lubiprostone [Amitiza] 24 MCG) PO SCH (09:29)
[2018-05-01] MEDS: Budesonide/Formoterol 80/4.5 MDI IH SCH (10:26)
[2018-05-01] MEDS: Tiotropium 18 MCG inhalation IH SCH (10:26)
[2018-05-01 15:58] VITALS: BP 116/71
--- NOTE | 2018-05-01 16:14 | Discharge Summary ---
Orders not resulted at time of discharge: Pending orders 04/30/18 13:24 Occult Blood,Stool [BF] Routine 05/02/18 04:00 BMP [Basic Metabolic Panel] AM 0400 Complete Blood Count w/o Diff [HEME] AM 0400 PT/INR [Prothrombin Time INR] [COAG] AM 0400 05/03/18 04:00 BMP [Basic Metabolic Panel] AM 0400 Complete Blood Count w/o Diff [HEME] AM 0400 PT/INR [Prothrombin Time INR] [COAG] AM 0400 05/04/18 04:00 PT/INR [Prothrombin Time INR] [COAG] AM 0400 05/05/18 04:00 PT/INR [Prothrombin Time INR] [COAG] AM 0400 Date of Encounter: 05/01/18 Time of Encounter: 16:06 - Discharge Diagnosis (1) COPD exacerbation Priority: Primary Status: Acute Assessment and Plan: increased shortness of breath with wheezing. History of COPD. Cont doxycycline , steroid, and bronchodilator. (2) Chest pain Priority: Primary Status: Acute Assessment and Plan: reportedly with generalized chest pain on and off in last 3 weeks. Troponin 2 negative. EKG without acute ST changes. TTE with EF 60%, wall motion abnormality difficult to assess as this was a technically challenging study. Patient now denies chest pain. ACS rule out. Suspect chest pain secondary to COPD exacerbation. Continue treating COPD has noted above. Qualifiers: Chest pain type: unspecified Qualified Code(s): R07.9 - Chest pain, unspecified (3) Altered mental status Priority: Primary Status: Acute Assessment and Plan: with increasing per chart review. Suspect he has a component of underlying dementia. Head CT nonacute. 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 Ammonia level, ABG pending. Mentation appears to have returned to baseline as of 04/29/18 Qualifiers: Altered mental status type: disorientation Qualified Code(s): R41.0 - Disorientation, unspecified (4) Carcinoma of supraglottis Priority: Secondary Status: Resolved Assessment and Plan: S/P radiation therapy. Continue outpatient follow-up. (5) Thyroid carcinoma Priority: Secondary Status: Resolved Assessment and Plan: S/P thyroidectomy. Continue home medication Synthroid (6) Venous ulcer of left leg Priority: Secondary Status: Chronic Assessment and Plan: per hx with chronic wounds. Continue local wound care. (7) Stage II pressure ulcer of left heel Priority: Secondary Status: Chronic Assessment and Plan: present on admission. Cont local wound care (8) Atrial fibrillation Priority: Secondary Status: Chronic Assessment and Plan: per hx. Rate controlled. Cont BB, coumadin Qualifiers: Atrial fibrillation type: unspecified Qualified Code(s): I48.91 - Unspecified atrial fibrillation (9) Diabetes Priority: Secondary Status: Chronic Assessment and Plan: per hx. 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 Received IV fluids in the ER. Repeat renal function normalized. Avoid nephrotoxic medications. Qualifiers: Acute renal failure type: unspecified Qualified Code(s): N17.9 - Acute kidney failure, unspecified (11) CAD (coronary artery disease) of artery bypass graft Priority: Secondary Status: Acute Assessment and Plan: Continue home medication aspirin and beta bijal. Will decrease aspirin dose to 81 mg daily considering patient is using Coumadin. Qualifiers: [place] vs. transplanted heart: [place] heart Associated angina: without angina Qualified Code(s): I25.810 - Atherosclerosis of coronary artery bypass graft(s) without angina pectoris (12) Essential hypertension Priority: Secondary Status: Acute Assessment and Plan: per hx. BP controlled. Cont home BP medications. Hospital course: Please see assessment and plan for Hospital course Discharge discussed with: patient (Seen and cemented at bedside. Sitting up in chair. Says he feels better overall and would like to discharge when ready. at bedside and says she sees a significant improvement in patient's mentation and physical condition.) - Time Spent with Patient Total time spent providing and/or coordinating discharge services: - Discharge Medications Prescriptions: Doxycycline 100 mg PO ONCE 4 Days #8 capsule Oxycodone HCl/Acetaminophen [Percocet 10-325 mg Tablet] 1 - 2 each PO Q4H PRN 2 Days #28 tablet PRN Reason: Pain Home Medications: Omeprazole [PriLOSEC] 20 mg PO DAILY 07/07/15 [History] Potassium Chloride 10 meq PO BID 07/07/15 [History] Metoprolol [Lopressor] 25 mg PO BID 07/10/15 [History] Citalopram [CeleXA] 20 mg PO DAILY #30 tablet 12/13/15 [Rx] Lubiprostone [Amitiza] 24 mcg PO BID #60 capsule 12/13/15 [Rx] Insulin Glargine,Hum.rec.anlog [Lantus Solostar] 10 unit SQ QAM 12/06/16 [ History] Megestrol Acetate [Megace] 200 mg PO BID 04/08/17 [History] Warfarin [Coumadin] 4 mg PO DAILY 10/01/17 [History] Albuterol Sulfate [Ventolin Hfa] 2 puff IH Q6H PRN 04/01/18 [History] Fluticasone/Salmeterol [Advair 250-50 Diskus] 1 each IH BID #1 blst.w.dev [Rx] Furosemide [Lasix] 40 mg PO DAILY 04/28/18 [History] Levothyroxine [Synthroid] 150 mcg PO DAILY 04/28/18 [History] Tiotropium [Spiriva] 1 puff IH DAILY 04/28/18 [History] Aspirin Enteric Coated [Aspirin EC] 81 mg PO DAILY tablet. 05/01/18 [Rx] Doxycycline 100 mg PO ONCE 4 Days #8 capsule 05/01/18 [Rx] Oxycodone HCl/Acetaminophen [Percocet 10-325 mg Tablet] 1 - 2 each PO Q4H PRN 2 Days #28 tablet 05/01/18 [Rx] predniSONE [PredniSONE] 40 mg PO DAILY 3 Days tablet 05/01/18 [Rx] Allergies/Adverse Reactions: 3 Allergy/AdvReac Type Severity Reaction Status Date / Time cephalexin [From Keflex] Allergy Mild unknown Verified 04/28/18 11:24 levofloxacin [From Levaquin] AdvReac Mild unknown Verified 04/28/18 11:24 Date of admission: 04/28/18 00:54 Primary care physician: Avery Woods Consults: 04/28/18 01:24 Consult to Wound Care [CONS] Routine Reason for Consult: Chronic wound on feet Call Completed: No 04/28/18 08:35 Consult to Occupational Therapy [CONS] Routine Comment: Evaluate, develop and implement POC Reason for Consult: patient has esophageal cancer. Patient is a little confused. Unsure if he has home services. Patient is very week and requires two people for assisstance to bedside commode. Does patient have active BEDREST order?: No Is patient medically & hemodynamically stable?: Yes Consult to Physical Therapy [CONS] Routine Comment: Evaluate, develop and implement POC Reason for Consult: patient has esophageal cancer. Patient is a little confused. Unsure if he has home services. Patient is very week and requires two people for assisstance to bedside commode. Does patient have active BEDREST order?: No Is patient medically & hemodynamically stable?: Yes Consult to Skein Yarn Drier [CONS] Routine Reason for SW Consult: patient has esophageal cancer. unsure if he has home services at this time. May need help with assisstance. Discharging clinician: Cynthia Ramirez Anticipated date of discharge: 05/01/18 - Constitutional Vitals: Temp Pulse Resp BP Pulse Ox 96.8 F L 79 18 116/71 98 05/01/18 15:57 05/01/18 15:57 05/01/18 15:57 05/01/18 15:57 05/01/18 15:57 General appearance: Present: A&O X 3, no acute distress, answers questions appropriately - Head Head exam: Present: atraumatic, normocephalic - Eye Eye exam: Present: PERRL, conjuntiva pink, sclera anicteric Pupils: Present: PERRL - Neck Neck exam general surgery: Present: supple, trachea midline. Absent: lymphadenopathy - Respiratory Respiratory exam: Present: CTAB, rhonchi, wheezes (Scattered rhonchi and wheezes improved from yesterday's exam). Absent: accessory muscle use, rales - Cardiovascular Cardiovascular exam: Present: RRR, +S1, +S2. Absent: diastolic murmur, gallop, rubs, systolic murmur - GI/Abdominal GI/Abdominal exam: Present: normal bowel sounds, soft, no peritoneal signs. Absent: distended, tenderness - Extremities Exam Extremities exam: Present: pedal edema (Bilateral lower extremities with dressings in place. Clean dry and intact.), warm, radial pulses palpable and symmetrical. Absent: calf tenderness, cyanotic - Neurological Exam Neurological exam: Present: CN II-XII intact, oriented X3, no focal deficits. Absent: pronater drift, facial droop, speech deficit - Skin Skin exam: Present: dry, intact - Patient Status Disposition: Transfer SNF Condition: Fair Functional capacity at discharge: wheelchair bound Overall status at discharge: patient is progressing back to baseline - Discharge Instructions Follow Up With: Avery Woods DO [Primary Care Provider] - Forms: ED Satisfaction Letter - Diet and Activity Activity: as per physical therapy Diet: diabetic diet, low fat, low cholesterol
--- NOTE | 2018-05-01 16:23 | Physician Discharge Referral ---
ExtendedCare Referral Info Transfer To: SNF Provider in Charge: Cynthia Ramirez CNP Provider in Charge after Transfer: PCP Institutional Level of Care: Skilled - Diagnosis (1) COPD exacerbation Status: Acute (2) Chest pain Status: Acute (3) Altered mental status Status: Acute (4) Carcinoma of supraglottis Status: Resolved (5) Thyroid carcinoma Status: Resolved (6) Venous ulcer of left leg Status: Chronic (7) Stage II pressure ulcer of left heel Status: Chronic (8) Atrial fibrillation Status: Chronic (9) Diabetes Status: Chronic (10) Acute renal failure Status: Resolved (11) CAD (coronary artery disease) of artery bypass graft Status: Acute (12) Essential hypertension Status: Acute - Transfer Medications Prescriptions: Doxycycline 100 mg PO ONCE 4 Days #8 capsule Oxycodone HCl/Acetaminophen [Percocet 10-325 mg Tablet] 1 - 2 each PO Q4H PRN 2 Days #28 tablet PRN Reason: Pain Home Medications: Omeprazole [PriLOSEC] 20 mg PO DAILY 07/07/15 [History] Potassium Chloride 10 meq PO BID 07/07/15 [History] Metoprolol [Lopressor] 25 mg PO BID 07/10/15 [History] Citalopram [CeleXA] 20 mg PO DAILY #30 tablet 12/13/15 [Rx] Lubiprostone [Amitiza] 24 mcg PO BID #60 capsule 12/13/15 [Rx] Insulin Glargine,Hum.rec.anlog [Lantus Solostar] 10 unit SQ QAM 12/06/16 [ History] Megestrol Acetate [Megace] 200 mg PO BID 04/08/17 [History] Warfarin [Coumadin] 4 mg PO DAILY 10/01/17 [History] Albuterol Sulfate [Ventolin Hfa] 2 puff IH Q6H PRN 04/01/18 [History] Fluticasone/Salmeterol [Advair 250-50 Diskus] 1 each IH BID #1 blst.w.dev [Rx] Furosemide [Lasix] 40 mg PO DAILY 04/28/18 [History] Levothyroxine [Synthroid] 150 mcg PO DAILY 04/28/18 [History] Tiotropium [Spiriva] 1 puff IH DAILY 04/28/18 [History] Aspirin Enteric Coated [Aspirin EC] 81 mg PO DAILY tablet. 05/01/18 [Rx] Doxycycline 100 mg PO ONCE 4 Days #8 capsule 05/01/18 [Rx] Oxycodone HCl/Acetaminophen [Percocet 10-325 mg Tablet] 1 - 2 each PO Q4H PRN 2 Days #28 tablet 05/01/18 [Rx] predniSONE [PredniSONE] 40 mg PO DAILY 3 Days tablet 05/01/18 [Rx] Allergies/Adverse Reactions: 3 Allergy/AdvReac Type Severity Reaction Status Date / Time cephalexin [From Keflex] Allergy Mild unknown Verified 04/28/18 11:24 levofloxacin [From Levaquin] AdvReac Mild unknown Verified 04/28/18 11:24 - Respiratory Orders Oxygen / L per min (2 liters per minute to maintain oxygen saturation 90% or greater) Smoking Cessation: Smoking cessation has been advised. For more information, call the [place] Tobacco Quit Line at 3-741-CCFU-NOW. - Advance Directives Code Status: Full Code - Mobility Orders Chair, Ambulate - Rehabiliation Orders Rehab Potential: Fair Rehab Orders: Evaluation for Physical Therapy, Evaluation for Occupational Therapy - Treatments List/Other: Wound care consult per policy for eval and treatment of bilateral lower extremity wounds and coccyx wound - Diet Orders No Concentrated Sweets, Cardiac CERTIFICATION: I certify that the transfer of the above named patient to an Extended Care Facility is necessary for the continuing treatment of the diagnosis listed. The above information is true and accurate reflection of patient's current condition. Confidential - Redisclosure prohibited without a patient's written consent.
[2018-05-01] MEDS ORDERED: *HR* Warfarin 2 MG TABLET PO ONE (18:00)
== END 2018-05-01 16:20 | DRG 191 ==
LOC: 3BNU 20:18 → EMEROO 20:18 → 3BNU 04-28 00:05
PROVIDERS: ADMIT Internal Medicine; ATTEND Internal Medicine

== ENCOUNTER 2018-05-27 19:25 | Observation (INO) ==
--- NOTE | 2018-05-27 19:39 | Emergency Department Note ---
Disposition Clinical Impression: COPD exacerbation Leg ulcer Qualifiers: Laterality: left Non-pressure ulcer stage: unspecified non-pressure ulcer stage Qualified Code(s): L97.929 - Non-pressure chronic ulcer of unspecified part of left lower leg with unspecified severity Disposition: Admitted As Inpatient Referrals: Avery Woods DO [Primary Care Provider] - Time of Disposition: 21:35 General Adult HPI - General Stated complaint: Leg swelling Time Seen by Provider: 05/27/18 19:28 Source: patient, family, EMS Mode of arrival: EMS Limitations: no limitations Nursing Notes Reviewed: Yes Vital Signs Reviewed: Yes - History of Present Illness HPI Narrative: 77-year-old with history of lung cancer who was diagnosed with pneumonia earlier this month. Family states he has been having difficulty with ambulation and is gotten progressively worse since. Patient family member states that he was told he has about 6 months to live due to the cancer. Pt Subjective Complaint: Dyspnea leg swelling Associated symptoms: Reports: shortness of breath, other (Peripheral edema) - Related Data Home Medications Medication Instructions Recorded Confirmed Omeprazole [PriLOSEC] 20 mg PO DAILY 07/07/15 05/27/18 Potassium Chloride 10 meq PO BID 07/07/15 05/27/18 Metoprolol [Lopressor] 25 mg PO BID 07/10/15 05/27/18 Insulin Glargine,Hum.rec.anlog 10 unit SQ QAM 12/06/16 05/27/18 [Lantus Solostar] Megestrol Acetate [Megace] 200 mg PO BID 04/08/17 05/27/18 Warfarin [Coumadin] 4 mg PO DAILY 10/01/17 05/27/18 Albuterol Sulfate [Ventolin Hfa] 2 puff IH Q6H PRN 04/01/18 05/27/18 Furosemide [Lasix] 40 mg PO DAILY 04/28/18 05/27/18 Levothyroxine [Synthroid] 150 mcg PO DAILY 04/28/18 05/27/18 Tiotropium [Spiriva] 1 puff IH DAILY 04/28/18 05/27/18 Fluticasone/Salmeterol [Advair 1 puff IH BID 05/27/18 05/27/18 250-50 Diskus] Previous Rx's Medication Instructions Recorded Citalopram [CeleXA] 20 mg PO DAILY #30 tablet 12/13/15 Lubiprostone [Amitiza] 24 mcg PO BID #60 capsule 12/13/15 Aspirin Enteric Coated [Aspirin EC] 81 mg PO DAILY tablet. 05/01/18 Oxycodone HCl/Acetaminophen 1 - 2 each PO Q4H PRN 2 Days #28 05/01/18 [Percocet 10-325 mg Tablet] tablet Silver Sulfadiazine [Silvadene] 1 appl TP DAILY #1 tub 05/11/18 Allergies Allergy/AdvReac Type Severity Reaction Status Date / Time cephalexin [From Keflex] Allergy Mild unknown Verified 05/27/18 21:38 levofloxacin [From Levaquin] AdvReac Mild unknown Verified 05/27/18 21:38 clindamycin [From Cleocin] AdvReac See Verified 05/27/18 21:38 Comments All systems ED: reviewed and negative except as stated. Constitutional: Denies: fever, chills, weakness, weight change Eyes: Denies: eye pain, eye discharge, vision change ENT ED: Denies: ear pain, throat pain, dental pain, hearing loss, epistaxis, congestion, dysphagia Cardiovascular: Reports: edema. Denies: chest pain, palpitations, dyspnea on exertion, syncope Respiratory: Reports: dyspnea. Denies: cough, wheezes, hemoptysis, stridor Gastrointestinal: Denies: abdominal pain, nausea, vomiting, diarrhea, constipation, hematemesis, melena, hematochezia Genitourinary: Denies: urgency, dysuria, frequency, hematuria Musculoskeletal: Denies: back pain, neck pain, arthralgia, myalgia Integumentary: Denies: rash, abrasion, lesions Neurological: Denies: headache, weakness, numbness, paresthesias, confusion, abnormal gait, vertigo Psychiatric: Denies: anxiety, depression, suicidal thoughts, homicidal thoughts , auditory hallucinations, visual hallucinations Endocrine: Denies: fatigue Hematological/Lymphatic: Denies: easy bleeding, easy bruising Allergic/Immunologic: Denies: facial swelling, urticaria Past Medical History - Past Medical History Medical history: Reports: atrial fibrillation, cancer, COPD, coronary artery disease, diabetes, malignancy, thyroid disease, other Surgical history: Reports: cancer surgery, coronary bypass (CABG) Psychiatric history: Reports: anxiety, depression - Social History Smoking Status: Current every day smoker Smokeless Tobacco Status: No Alcohol use: Reports: none Drug use: Reports: none Physical Exam - General Limitations: no limitations General appearance: alert, in no apparent distress - Head Head exam: atraumatic, normocephalic, normal inspection - Eye Eye exam: Present: normal appearance, PERRL, EOMI - ENT ENT exam: normal exam, normal oropharynx, mucous membranes moist - Neck Neck exam: Present: normal inspection, full ROM, trachea midline - Chest Chest inspection: Present: normal inspection, symmetric chest wall rise - Respiratory Respiratory exam: Present: prolonged expiratory phase, other (Diminished breath sounds) - Abdominal Exam Abdominal exam: Present: soft, Non-Tender. Absent: tenderness, distention, guarding, rebound, rigidity - Expanded Lower Extremity Exam Lower leg exam: Present: swelling Gait: not tested/not observed - Back Exam Back exam: Present: normal inspection, full ROM. Absent: tenderness - Neurological Exam Neurological exam: Present: alert, oriented X3 - Psychiatric Psychiatric exam: Present: normal affect, normal mood - Skin Skin exam: Present: warm, dry, intact, normal color Course - Reevaluation(s) Reevaluation #1: 77-year-old with increasing shortness of breath. Also has a large ulceration on his leg. There is drainage from the leg. Warm to touch. We will go ahead and treat him with Zosyn he cannot take penicillin although he is allergic to Keflex. Also has exacerbation of COPD. Time: 21:34 - Consultations Consultation #1: Discussed with , admit. Time: 21:48 Vital Signs Temperature 99.6 F 05/27/18 19:33 Pulse Rate 77 05/27/18 19:33 Respiratory Rate 24 05/27/18 19:33 Blood Pressure 125/81 05/27/18 19:33 O2 Sat by Pulse Oximetry 94 05/27/18 19:33 Temperature 99.6 F 05/27/18 19:33 Pulse Rate 77 05/27/18 19:33 Respiratory Rate 16 05/27/18 21:38 Blood Pressure 125/81 05/27/18 19:33 O2 Sat by Pulse Oximetry 97 05/27/18 21:38 Oxygen Delivery Oxygen Delivery Nasal Cannula Medical Decision Making - Lab Data Result diagrams: 05/27/18 20:14 05/27/18 20:14 Lab Results 05/27/18 05/27/18 05/27/18 Range/Units 20:14 20:14 20:14 WBC 8.9 (4.3-11.1) K/mcL RBC 4.08 L (4.19-5.50) M/mcL Hgb 11.9 L (12.9-16.9) g/dL Hct 38.4 (37.5-50.1) % MCV 94.1 (83.0-100.0) fL MCH 29.2 (28.0-33.3) pg MCHC 31.0 L (31.6-35.5) g/dL RDW 18.3 H (11.5-14.5) % Plt Count 343 (140-400) K/mcL MPV 8.3 L (9.4-12.4) fL Immature Gran % 0.7 (0-4) % Seg Neutrophils % 72.2 % Lymphocytes % 12.7 % Monocytes % 9.1 % Eosinophils % 4.6 % Basophils % 0.7 % Neutrophils # 6.4 (1.6-8.9) K/mcL Lymphocytes # 1.1 (0.6-4.6) K/mcL Monocytes # 0.8 (0.0-1.3) K/mcL Eosinophils # 0.4 (0.0-0.6) K/mcL Basophils # 0.1 (0.0-0.2) K/mcL ESR 71 H (0-10) mm/hr Sodium (136-145) mEq/L Potassium (3.5-5.1) mEq/L Chloride (98-107) mEq/L Carbon Dioxide (23-29) mEq/L BUN (8-23) mg/dL Creatinine (0.70-1.30) mg/dL Est GFR ( Amer) (> 60) Est GFR (Non-Af Amer) (> 60) BUN/Creatinine Ratio (6-26) Glucose (70-105) mg/dL Calculated Osmolality (280-300) Lactic Acid (0.5-2.2) mmol/L Calcium (8.6-10.3) mg/dL Total Bilirubin (0.3-1.0) mg/dL Direct Bilirubin (0.0-0.2) mg/dL Indirect Bilirubin (0.0-1.2) mg/dL AST (13-39) Units/L ALT (7-52) Units/L Alkaline Phosphatase (34-104) Units/L Troponin I (< 0.04) ng/mL B-Natriuretic Peptide (Less than 100) pg/mL Serum Total Protein (6.4-8.9) g/dL Albumin (3.5-5.7) g/dL Globulin (2.4-3.5) g/dL Albumin/Globulin Ratio (1.1-2.2) Urine Color Yellow (Yellow) Urine Clarity Clear (Clear) Urine pH 6.0 (5.0-8.0) pH Units Ur Specific [place] 1.021 (1.010-1.025) Urine Protein Negative (Neg-Trace) mg/dL Urine Glucose (UA) Normal (Normal) mg/dL Urine Ketones Negative (Negative) mg/dL Urine Blood Moderate H (Negative) Urine Nitrite Negative (Negative) Urine Bilirubin Negative (Negative) Urine Urobilinogen Normal (Normal) mg/dL Ur Leukocyte Esterase Negative (Negative) Urine Microscopic RBC 30-50 H (0-3) per hpf Urine Microscopic WBC 0-3 (0-3) per hpf Ur Squamous Epith Cells Many H (None-Few) per lpf Urine Bacteria None Seen (None-Few) per hpf Hyaline Casts None Seen (None-Few) per lpf Ur Culture Indicated? NO (NO) 05/27/18 05/27/18 05/27/18 Range/Units 20:14 20:14 20:14 WBC (4.3-11.1) K/mcL RBC (4.19-5.50) M/mcL Hgb (12.9-16.9) g/dL Hct (37.5-50.1) % MCV (83.0-100.0) fL MCH (28.0-33.3) pg MCHC (31.6-35.5) g/dL RDW (11.5-14.5) % Plt Count (140-400) K/mcL MPV (9.4-12.4) fL Immature Gran % (0-4) % Seg Neutrophils % % Lymphocytes % % Monocytes % % Eosinophils % % Basophils % % Neutrophils # (1.6-8.9) K/mcL Lymphocytes # (0.6-4.6) K/mcL Monocytes # (0.0-1.3) K/mcL Eosinophils # (0.0-0.6) K/mcL Basophils # (0.0-0.2) K/mcL ESR (0-10) mm/hr Sodium 138 (136-145) mEq/L Potassium 4.1 (3.5-5.1) mEq/L Chloride 108 H (98-107) mEq/L Carbon Dioxide 26 (23-29) mEq/L BUN 15 (8-23) mg/dL Creatinine 1.02 (0.70-1.30) mg/dL Est GFR ( Amer) > 60 (> 60) Est GFR (Non-Af Amer) > 60 (> 60) BUN/Creatinine Ratio 15 (6-26) Glucose 93 (70-105) mg/dL Calculated Osmolality 287 (280-300) Lactic Acid 0.8 (0.5-2.2) mmol/L Calcium 8.9 (8.6-10.3) mg/dL Total Bilirubin 0.4 (0.3-1.0) mg/dL Direct Bilirubin 0.2 (0.0-0.2) mg/dL Indirect Bilirubin 0.2 (0.0-1.2) mg/dL AST 9 L (13-39) Units/L ALT 5 L (7-52) Units/L Alkaline Phosphatase 63 (34-104) Units/L Troponin I < 0.03 (< 0.04) ng/mL B-Natriuretic Peptide 195 H (Less than 100) pg/mL Serum Total Protein 6.5 (6.4-8.9) g/dL Albumin 3.3 L (3.5-5.7) g/dL Globulin 3.2 (2.4-3.5) g/dL Albumin/Globulin Ratio 1.0 L (1.1-2.2) Urine Color (Yellow) Urine Clarity (Clear) Urine pH (5.0-8.0) pH Units Ur Specific [place] (1.010-1.025) Urine Protein (Neg-Trace) mg/dL Urine Glucose (UA) (Normal) mg/dL Urine Ketones (Negative) mg/dL Urine Blood (Negative) Urine Nitrite (Negative) Urine Bilirubin (Negative) Urine Urobilinogen (Normal) mg/dL Ur Leukocyte Esterase (Negative) Urine Microscopic RBC (0-3) per hpf Urine Microscopic WBC (0-3) per hpf Ur Squamous Epith Cells (None-Few) per lpf Urine Bacteria (None-Few) per hpf Hyaline Casts (None-Few) per lpf Ur Culture Indicated? (NO) - EKG Data EKG #1 EKG attestation: Yes I reviewed and interpreted this EKG. EKG shows normal: sinus rhythm Rate: normal Rhythm: NSR Heart block present: 1st Degree Interpretation: no acute changes
[2018-05-27 20:28] LABS: Basophils # 0.1 K/mcL (0.0-0.2); Basophils % 0.7 %; Eosinophils # 0.4 K/mcL (0.0-0.6); Eosinophils % 4.6 %; Hematocrit 38.4 % (37.5-50.1); Hemoglobin 11.9 g/dL (12.9-16.9); Immature Granulocytes % 0.7 % (0-4); Lymphocytes # 1.1 K/mcL (0.6-4.6); Lymphocytes % 12.7 %; Mean Corpuscular Hemoglobin 29.2 pg (28.0-33.3); Mean Corpuscular Volume 94.1 fL (83.0-100.0); Mean Platelet Volume 8.3 fL (9.4-12.4); Monocytes # 0.8 K/mcL (0.0-1.3); Monocytes % 9.1 %; Neutrophils # 6.4 K/mcL (1.6-8.9); Platelet Count 343 K/mcL (140-400); Red Blood Count 4.08 M/mcL (4.19-5.50); Red Cell Distribution Width 18.3 % (11.5-14.5); Segmented Neutrophils % 72.2 %
[2018-05-27 20:30] LABS: Bilirubin,Urine Negative (Negative); Blood,Urine Moderate (Negative); Clarity,Urine Clear (Clear); Color,Urine Yellow (Yellow); Glucose,Urine (UA) Normal (Normal); Ketones,Urine Negative (Negative); Leukocyte Esterase,Urine Negative (Negative); Nitrite,Urine Negative (Negative); Protein,Urine Negative (Neg-Trace); Specific Gravity,Urine 1.021 (1.010-1.025); Urobilinogen,Urine Normal (Normal)
[2018-05-27 20:31] LABS: Bacteria,Urine None Seen per hpf (None-Few); Hyaline Casts,Urine None Seen per lpf (None-Few); RBC,Urine 30-50 per hpf (0-3); Squamous Epithelial Cell,Urine Many per lpf (None-Few); WBC,Urine 0-3 per hpf (0-3)
[2018-05-27 20:49] LABS: Alanine Aminotransferase 5 Units/L (7-52); Albumin 3.3 g/dL (3.5-5.7); Alkaline Phosphatase 63 Units/L (34-104); Aspartate Amino Transferase 9 Units/L (13-39); BUN/Creatinine Ratio 15 (6-26); Bilirubin,Direct 0.2 mg/dL (0.0-0.2); Bilirubin,Indirect 0.2 mg/dL (0.0-1.2); Bilirubin,Total 0.4 mg/dL (0.3-1.0); Blood Urea Nitrogen 15 mg/dL (8-23); Calcium 8.9 mg/dL (8.6-10.3); Carbon Dioxide 26 mEq/L (23-29); Chloride 108 mEq/L (98-107); Globulin 3.2 g/dL (2.4-3.5); Glucose 93 mg/dL (70-105); Osmolality,Calculated 287 (280-300); Potassium 4.1 mEq/L (3.5-5.1); Sodium 138 mEq/L (136-145); Total Protein 6.5 g/dL (6.4-8.9); Troponin I < 0.03 ng/mL (< 0.04); eGFR For African Americans > 60 (> 60); eGFR For Non-African Americans > 60 (> 60)
[2018-05-27] MEDS ORDERED: methylPREDNISolone 125 MG/2 ML VIAL IVP ONE (21:31)
[2018-05-27] MEDS ORDERED: Ipratropium/Albuterol Neb 3 ML IH ONE (21:31)
[2018-05-27] MEDS ORDERED: Piperacillin/Tazobactam 3.375 GM in 0.9 % Sodium Chloride Mini Bag 100 ML IVPB ONE (21:34)
[2018-05-28] MEDS: *HR* OxyCODONE/APAP 10/325 TABLET PO PRN ×3 (01:39→20:43)
[2018-05-28] MEDS ORDERED: Naloxone 0.4 MG/ML INJ IVP PRN (02:24)
[2018-05-28] MEDS ORDERED: D5% in Water 1,000 ML IVC PRN (02:28)
[2018-05-28] MEDS ORDERED: Dextrose Gel 15 GM/37.5 ML TUBE PO PRN ×2 (02:28)
[2018-05-28] MEDS ORDERED: *HR* Dextrose 50 % in Water (Syg) 50 ML SYRINGE IVP PRN (02:28)
--- NOTE | 2018-05-28 03:28 | Internal Med History&Physical ---
Date of Encounter: 05/28/18 Time of Encounter: 00:20 Internal Medicine - H&P: HPI Admitted From: Home Plans for Post Hospital Care: Home History of present illness: Mr. Nicholson is a 77 year old male Patient presented to the ER after failing outpatient treatment of a wound on his left leg. He had been refusing wound care, and his oncologist was treating it with clindamycin antibiotics and silvadene cream. The wound has continued to worsen, his has been managing it at home with dressing changes. He states that it all started last March, initially as a blister then one day it ruptured and since that time an ulcer has been present. It has been seeping clear fluid. Patient is not particularly physically active, his states that he usually just sits at his table, which contributes to the poor circulation in his legs. He is also more short of breath lately, and has had a hard time clearing mucus form his lungs. He denies fever, nausea, vomiting, chest pain, abdominal pain, but has diarrhea or constipation on and off. He has also had occasional nose bleeds which don't last long but occur from time to time. 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 In the ER his ESR was elevated to 71, vital signs were within normal limits on his home 2L of oxygen via nasal cannula. Troponins are negative x1. He is to be admitted for treatment of his worsening leg ulceration and management of his COPD exacerbation. Past Med Surg Social Fam HX - Past Medical History Medical history: atrial fibrillation, cancer, COPD, coronary artery disease, diabetes, malignancy, thyroid disease, other Additional medical history: lung cancer Psychiatric history: anxiety, depression - Past Surgical History Surgical History: cancer surgery, coronary bypass (CABG) Additional surgical history: Sternal revision, exploratory laparotomy and herniorrhaphy, thyroidectomy - Social History Smoking Status: Current every day smoker Smokeless Tobacco Status: No Alcohol use: none Drug use: none - Family History Mother Living Status: Hx Family Cardiac Disorders: Yes Internal Medicine - H&P: Meds Omeprazole [PriLOSEC] 20 mg PO DAILY 07/07/15 [History] Potassium Chloride 10 meq PO BID 07/07/15 [History] Metoprolol [Lopressor] 25 mg PO BID 07/10/15 [History] Citalopram [CeleXA] 20 mg PO DAILY #30 tablet 12/13/15 [Rx] Lubiprostone [Amitiza] 24 mcg PO BID #60 capsule 12/13/15 [Rx] Insulin Glargine,Hum.rec.anlog [Lantus Solostar] 10 unit SQ QAM 12/06/16 [ History] Megestrol Acetate [Megace] 200 mg PO BID 04/08/17 [History] Warfarin [Coumadin] 4 mg PO DAILY 10/01/17 [History] Albuterol Sulfate [Ventolin Hfa] 2 puff IH Q6H PRN 04/01/18 [History] Furosemide [Lasix] 40 mg PO DAILY 04/28/18 [History] Levothyroxine [Synthroid] 150 mcg PO DAILY 04/28/18 [History] Tiotropium [Spiriva] 1 puff IH DAILY 04/28/18 [History] Aspirin Enteric Coated [Aspirin EC] 81 mg PO DAILY tablet. 05/01/18 [Rx] Oxycodone HCl/Acetaminophen [Percocet 10-325 mg Tablet] 1 - 2 each PO Q4H PRN 2 Days #28 tablet 05/01/18 [Rx] Silver Sulfadiazine [Silvadene] 1 appl TP DAILY #1 tub 05/11/18 [Rx] Fluticasone/Salmeterol [Advair 250-50 Diskus] 1 puff IH BID 05/27/18 [History] 3 Allergy/AdvReac Type Severity Reaction Status Date / Time cephalexin [From Keflex] Allergy Mild unknown Verified 05/27/18 21:38 levofloxacin [From Levaquin] AdvReac Mild unknown Verified 05/27/18 21:38 clindamycin [From Cleocin] AdvReac See Verified 05/27/18 21:38 Comments All Systems PM: A 10-system review of systems was performed and is negative for pertinent findings except as documented above in the HPI. - Constitutional Vitals: Temp Pulse Resp BP Pulse Ox 98.3 F 93 16 98/59 93 05/28/18 02:46 05/28/18 02:46 05/28/18 02:46 05/28/18 02:46 05/28/18 02:46 General appearance: Present: mild distress, A&O X 3, pleasant - Eye Eye exam: Present: EOMI, normal appearance - Respiratory Respiratory exam: Present: decreased breath sounds, wheezes. Absent: chest wall tenderness, respiratory distress - Cardiovascular Cardiovascular exam: Present: RRR. Absent: diastolic murmur, systolic murmur - GI/Abdominal GI/Abdominal exam: Absent: guarding, mass, tenderness - Extremities Exam Extremities exam: Present: radial pulses palpable and symmetrical Additional comments: large left leg ulceration of the lee, 8x10cm in size. Green purulence on wound. Surrounding erythema. Multiple bruises and legs and arms. - Neurological Exam Neurological exam: Present: no focal deficits. Absent: motor sensory deficit, facial droop, speech deficit - Skin Skin exam: Present: dry Additional comments: As above, large 8x10cm ulcer on the left lee. Multiple bruises and abrasions to arms and legs Internal Med - H&P Results - Labs CBC & Chem 7: 05/28/18 04:50 05/28/18 04:50 - Assessment and plan (1) Leg ulcer Current Visit: Yes Status: Acute Assessment and plan: Large ulcer of the left lee, has had for the last few weeks. Failed outpatient treatment with clindamycin and silvadene cream. Patient is very anti-wound care , stating that his does good enough and does not want to see anyone. I discussed this with him, and he stated that he may work with them while in the hospital. Started zosyn in ER, continue. Follow up blood cultures. Wound care to see patient, patient may or may not cooperate with their evaluation. Appreciate them trying to see the patient. Qualifiers: Laterality: left Non-pressure ulcer stage: unspecified non-pressure ulcer stage Qualified Code(s): L97.929 - Non-pressure chronic ulcer of unspecified part of left lower leg with unspecified severity (2) Cellulitis and abscess of left leg Current Visit: Yes Status: Acute Assessment and plan: As above, treating with zosyn Blood cultures pending. (3) COPD exacerbation Current Visit: Yes Status: Acute Assessment and plan: Patient is on 2L at home nearly all the time. he has multiple breathing treatments that he uses including spiriva, advair and albuterol. Start duonebs now, give albuterol in between treatments while patient is awake. Due to infection in his left leg, we will hold prednisone for now. Mucinex to help clear secretions Start azithromycin (4) History of treatment for malignancy Current Visit: No Status: Acute Assessment and plan: Patient has been treated for papillary carcinoma of the thyroid with thyroidectomy, supraglottic cancer status post radiotherapy. He is currently seeing an oncologist for Right lung cancer. Continue current management. (5) Atrial fibrillation Current Visit: No Status: Chronic Assessment and plan: Patient on coumadin, and metoprolol well controlled. Continue current management. Qualifiers: Atrial fibrillation type: chronic Qualified Code(s): I48.2 - Chronic atrial fibrillation (6) Diabetes Current Visit: No Status: Chronic Assessment and plan: Patient on insulin lantus at home, 12 units at night. Continue basal insulin with low dose insulin with meals. Check sugars ACHS. Qualifiers: Diabetes mellitus type: type 2 Diabetes mellitus custodial insulin use: with custodial use Diabetes mellitus complication status: with unspecified complications Qualified Code(s): E11.8 - Type 2 diabetes mellitus with unspecified complications; Z79.4 - assisted (current) use of insulin (7) Elevated erythrocyte sedimentation rate Current Visit: Yes Status: Acute Assessment and plan: Likely related to patient's current ulceration and infection, as well as his lung cancer. Continue to monitor Treat ulcer infection as above. (8) DVT prophylaxis Current Visit: No Status: Acute Assessment and plan: Continue warfarin Pharmacy to dose. - Time Spent With Patient Total time spent is greater than 50% in coordination of care (as documented) at patient's floor/unit and/or counseling patient: Greater than 35 minutes
[2018-05-28] MEDS: Ipratropium/Albuterol Neb 3 ML IH SCH ×6 (04:15→23:13)
[2018-05-28 05:08] LABS: Hematocrit 33.5 % (37.5-50.1); Hemoglobin 10.8 g/dL (12.9-16.9); Mean Corpuscular HGB Conc 32.2 g/dL (31.6-35.5); Mean Corpuscular Hemoglobin 29.9 pg (28.0-33.3); Mean Corpuscular Volume 92.8 fL (83.0-100.0); Mean Platelet Volume 8.6 fL (9.4-12.4); Platelet Count 307 K/mcL (140-400); Red Blood Count 3.61 M/mcL (4.19-5.50); Red Cell Distribution Width 17.8 % (11.5-14.5)
[2018-05-28 05:28] LABS: BUN/Creatinine Ratio 14 (6-26); Blood Urea Nitrogen 13 mg/dL (8-23); Calcium 8.3 mg/dL (8.6-10.3); Carbon Dioxide 24 mEq/L (23-29); Chloride 108 mEq/L (98-107); Glucose 148 mg/dL (70-105); Osmolality,Calculated 287 (280-300); Potassium 4.2 mEq/L (3.5-5.1); Sodium 137 mEq/L (136-145); eGFR For African Americans > 60 (> 60); eGFR For Non-African Americans > 60 (> 60)
[2018-05-28] MEDS ORDERED: Azithromycin 500 MG in D5% in Water 250 ML IVPB SCH (06:00)
[2018-05-28] MEDS ORDERED: Albuterol 2.5 MG/3 ML NEBULIZER IH SCH ×2 (06:00→10:00)
[2018-05-28] MEDS ORDERED: Albuterol 2.5 MG/3 ML NEBULIZER IH PRN (07:50)
[2018-05-28] MEDS ORDERED: Piperacillin/Tazobactam 3.375 GM in 0.9 % Sodium Chloride Mini Bag 100 ML IVPB SCH (08:00)
[2018-05-28] MEDS: Insulin LISPRO 300 UNITS/3 ML VIAL SQ SCH ×3 (08:09→16:49)
--- NOTE | 2018-05-28 08:43 | Internal Med Progress Note ---
Date of Encounter: 05/28/18 Time of Encounter: 08:41 - Assessment and plan (1) Leg ulcer Current Visit: Yes Status: Acute Assessment and plan: Hx chronic leg wounds d/t PVD and chronic cellulitis. does not follow with wound clinic. Failed outpatient treatment with Clindamycin, and Silvadene treatment. IV Zosyn, and Azithromycin. bilateral lower extremity warm , tenderness, has MRSA risk factiors with recent hospitalizations. Broadened ATB coverage to Vancomycin IV for now, wound consult, ID consult for ATB recommendations. Qualifiers: Laterality: left Non-pressure ulcer stage: unspecified non-pressure ulcer stage Qualified Code(s): L97.929 - Non-pressure chronic ulcer of unspecified part of left lower leg with unspecified severity (2) Cellulitis and abscess of left leg Current Visit: Yes Status: Acute Assessment and plan: plan as noted above (3) Altered mental status Current Visit: Yes Status: Acute Assessment and plan: Has know history of chronic dementia, confusion waxing and waning Head CT non- acute, Known for medications and medical non-compliance . Suspect possible delirium d/t unfamiliar surroundings . Nursing staff discussed with . states patient becomes confused with unfamiliar surroundings. Will consult for palliative care and establishment of goals. Supportive care for now Qualifiers: Altered mental status type: disorientation Qualified Code(s): R41.0 - Disorientation, unspecified (4) Atrial fibrillation Current Visit: No Status: Chronic Assessment and plan: Per hx. rate controlled. Continue home BB, holding Coumadin with super therapeutic INR Qualifiers: Atrial fibrillation type: chronic Qualified Code(s): I48.2 - Chronic atrial fibrillation (5) COPD (chronic obstructive pulmonary disease) Current Visit: No Status: Acute Assessment and plan: Per hx COPD with chronic respiratory failured, and right lung mass . Suspect mild exabation with wheezes, cough, and rales. CXR, evidence of COPD with chronic interstitial changes. No acute pulmonary findings. On Vacomycin as noted above, Continue steroids Qualifiers: COPD type: unspecified COPD Qualified Code(s): J44.9 - Chronic obstructive pulmonary disease, unspecified (6) History of treatment for malignancy Current Visit: Yes Status: Acute Assessment and plan: Patient has been treated for papillary carcinoma of the thyroid with thyroidectomy, supraglottic cancer status post radiotherapy. Was seen by oncology 04/19/18, and CT of neck shows no evidence of neck concurrance However PET Scan showed new right lung cancer. Hospice and pallative care was recommended at that time, however, patient and declined. Appears to be overall decompensation, declining. With multiple comorbidity will consult palliative care. (7) Diabetes Current Visit: No Status: Chronic Assessment and plan: Per hx.Blood sugars controlled. Continue home long acting insulin. SSI. Monitor blood sugars and titrate prn Qualifiers: Diabetes mellitus type: type 2 Diabetes mellitus termite helper insulin use: with half-way use Diabetes mellitus complication status: with unspecified complications Qualified Code(s): E11.8 - Type 2 diabetes mellitus with unspecified complications; Z79.4 - intermediate project manager (current) use of insulin (8) Elevated erythrocyte sedimentation rate Current Visit: Yes Status: Acute Assessment and plan: Sed rate 71. In setting of acute COPD exacerbation, and cellulitis, (9) Bleeding of penis Current Visit: Yes Status: Acute Assessment and plan: Secondary to Supra therapeutic INR, HGB stable, (10) DVT prophylaxis Current Visit: No Status: Acute Assessment and plan: Supra therapeutic INR, Coumadin on hold, pharmacy dosing. - Time Spent With Patient Total time spent is greater than 50% in coordination of care (as documented) at patient's floor/unit and/or counseling patient: - Subjective Interval history: On encounter with this patient today this is a new patient to this provider he is mildly confused with s/s of delirium and history of chronic dementia. States that he wants to go home today nursing staff has reported that has refused his medications, and lab draw this morning. Patient is noted and does not appear to be in any acute distress he denies any pain at this time. Continue with observation. - Constitutional Vitals: Temp Pulse Resp BP Pulse Ox 98.6 F 97 18 120/79 93 05/28/18 07:18 05/28/18 07:18 05/28/18 07:46 05/28/18 07:18 05/28/18 07:59 General appearance: Present: mild distress, A&O X 3, pleasant - Head Head exam: Present: normocephalic - Respiratory Respiratory exam: Present: accessory muscle use, decreased breath sounds, rales , wheezes - Expanded Respiratory Exam Location: rales: Left, Right, Lower (bases, remains on oxygen @2LPM), wheezes: Left, Right, Upper, Lower - Cardiovascular Cardiovascular exam: Present: RRR - GI/Abdominal GI/Abdominal exam: Present: hernia (large umbilical hernia non-reducable ) - exam: Present: urethral discharge (phimosis of the foreskin of penis small amount of blood noted coming from the urethra unable to retract the foreskin) - Extremities Exam Extremities exam: Present: pedal edema, tenderness - Expanded Lower Extremities Exam Lower Leg exam: Present: erythema (5 cm x 3 cm wide stasis ulceration with yellow drainage, surrounding erythema, and statis dermatitis lower 2/3rds of left lower extremity, tibia plane, with smaller ulceration 2 cm x 2cm lateral lower left extremity, with drainage, tenderness with palp and weight of covers ) , tenderness (Diminished pedal pulses with 2+ swelling of the lower extremities , skin is scaly with brown discoloration and dermatitis of the lower two thirds , there is a large superficial decubitus ulcer of the left lower lateral extremity with drainage of a yellow discharge tenderness is noted lower extremity shows the stasis dermatitis with decreased pedal pulses 2+ pitting edema, there is a 1 cm open lesion on the dorsum of the right foot that is actively bleeding at this time dressings are in place covered with the vaseline gauze and kerlex on all open wounds ) - Neurological Exam Neurological exam: Present: altered (Presents with signs and symptoms of dementia and possible delirium due to new environmental status is requesting to go home and threatens to "walk out") - Expanded Neurological Exam Neurological exam expanded: Present: memory loss-recent event Sensory exam: lower extremity light touch: Normal - Psychiatric Psychiatric exam: Present: agitated, anxious - Skin Skin exam: Present: dry Internal Medicine: Result - Labs CBC & Chem 7: 05/28/18 04:50 05/28/18 04:50 Labs: Short CBC 05/28/18 Range/Units 04:50 WBC 7.8 (4.3-11.1) K/mcL Hgb 10.8 L (12.9-16.9) g/dL Hct 33.5 L (37.5-50.1) % Plt Count 307 (140-400) K/mcL BMP 05/28/18 04:50 Sodium 137 Potassium 4.2 Chloride 108 H Carbon Dioxide 24 BUN 13 Creatinine 0.95 Glucose 148 H Calcium 8.3 L Consult Discharge Plan - Plan Referrals: Avery Woods, [Primary Care Provider] -
[2018-05-28] MEDS: Megestrol Acetate 400 MG/10 ML UDC PO SCH ×2 (10:25→20:39)
[2018-05-28] MEDS: Furosemide 40 MG TABLET PO SCH (10:26)
[2018-05-28] MEDS: Aspirin Enteric Coated 81 MG Tablet PO SCH (10:26)
[2018-05-28] MEDS: Lubiprostone [Amitiza] 24 MCG PO SCH ×2 (10:27→20:40)
[2018-05-28 10:46] LABS: Prothrombin Time 50.6 Seconds (9.4-12.1)
[2018-05-28 10:47] LABS: INR 4.5
[2018-05-28] MEDS: predniSONE 20 MG TABLET PO SCH (12:12)
--- NOTE | 2018-05-28 13:22 | Palliative - Consult Note ---
Date of Encounter: 05/28/18 Time of Encounter: 13:05 - Assessment and Plan (1) Cellulitis and abscess of left leg Current Visit: Yes Status: Acute Assessment and plan: Patient not oriented, denies any problems with his legs WHEN he came in for. Family is present. White count is not elevated, and there is no fever however per the admitting history and physical there is erythema in the area around these ulcers. These are chronic in nature however they are probably now acute on chronic. Treatment is ongoing per the hospitalist team. (2) Goals of care, counseling/discussion Current Visit: Yes Status: Acute Assessment and plan: patient is unable to real, there is no family present in the there have been long discussions with patient and his (who is his medical power of estate attorney and paperwork is on the chart) patient wishes to be a full code at this time with regard to goals of care the patient is to return home, I am I am unable to reach his to discuss things further however this has been the stated goal in the past I presume it to still be the case until I can get a hold of her. I have tried to reach Jostin at [phone] each time I have gotten a answering machine but I will continue to attempt. Came with the nurse practitioner taking care of the patient is sounds like Mrs. Nicholson may very well be still at work and may not come in until late in the afternoon. We will attempt to continue to have a discussion if possible. (3) COPD (chronic obstructive pulmonary disease) Current Visit: No Status: Acute Assessment and plan: Patient is stable at this time not having any trouble breathing Qualifiers: COPD type: unspecified COPD Qualified Code(s): J44.9 - Chronic obstructive pulmonary disease, unspecified (4) Generalized weakness Current Visit: No Status: Acute Assessment and plan: Patient's generalized weakness is probably combination of factors including cancer that he has as well as previous history of cancer as well as his diabetes and the chronic infections. He did note the patient has recently been at [facility] I am not clear on if he completed his treatment or signed out of there. An open to [facility] care in the past but it does not appear that he is actually been with them. I checked with [facility] and they have not been involved in his care up to this time. If and when I am able to get hold of family I will offer. Also discussed further with social work. Palliative-CN HPI - Data of Consult Patient: new to practice Requesting Physician: Alli Lopez Primary Care Provider: Avery Woods - Consult Narrative Palliative Care/Comfort Measures: Palliative care History of present illness: Mr. Nicholson is a 77 year old male With a history of diabetic ulcerations particularly on his left leg but actually on both legs, as well as a history of lung cancer and thyroid cancer. Patient has had hospice recommended to him by the radiation oncologist. As also been recommended to the patient multiple times that he have additional care for his legs particularly through the wound clinic which she has adamantly refused in the past. He does now presented with worsening leg ulceration well as daily exacerbation of COPD. Patient is unable to really give me any history due to her delirium that is superimposed upon chronic dementia. He normally uses 2 on 2 L of oxygen at home I am unable to really get from him how well he is able to get around the house. Although he came in for swelling and pain in his legs he denies any of that at this time. No family is available. I tried to contact them via phone and again on no family was available to discuss with me. The patient was easily awakened from sleep does not appear to be in any serious distress at this time. CC: Alli Lopez Leg swelling and ulcers. Past Med Surg Social Fam HX - Past Medical History Medical history: atrial fibrillation, cancer, COPD, coronary artery disease, diabetes, malignancy, thyroid disease, other Additional medical history: lung cancer Psychiatric history: anxiety, depression - Past Surgical History Surgical History: cancer surgery, coronary bypass (CABG) Additional surgical history: Sternal revision, exploratory laparotomy and herniorrhaphy, thyroidectomy - Social History Smoking Status: Current every day smoker Smokeless Tobacco Status: No Alcohol use: none Drug use: none - Family History Mother Living Status: Hx Family Cardiac Disorders: Yes Medications and Allergies Omeprazole [PriLOSEC] 20 mg PO DAILY 07/07/15 [History] Potassium Chloride 10 meq PO BID 07/07/15 [History] Metoprolol [Lopressor] 25 mg PO BID 07/10/15 [History] Citalopram [CeleXA] 20 mg PO DAILY #30 tablet 12/13/15 [Rx] Lubiprostone [Amitiza] 24 mcg PO BID #60 capsule 12/13/15 [Rx] Insulin Glargine,Hum.rec.anlog [Lantus Solostar] 10 unit SQ QAM 12/06/16 [ History] Megestrol Acetate [Megace] 200 mg PO BID 04/08/17 [History] Warfarin [Coumadin] 4 mg PO DAILY 10/01/17 [History] Albuterol Sulfate [Ventolin Hfa] 2 puff IH Q6H PRN 04/01/18 [History] Furosemide [Lasix] 40 mg PO DAILY 04/28/18 [History] Levothyroxine [Synthroid] 150 mcg PO DAILY 04/28/18 [History] Tiotropium [Spiriva] 1 puff IH DAILY 04/28/18 [History] Aspirin Enteric Coated [Aspirin EC] 81 mg PO DAILY tablet. 05/01/18 [Rx] Oxycodone HCl/Acetaminophen [Percocet 10-325 mg Tablet] 1 - 2 each PO Q4H PRN 2 Days #28 tablet 05/01/18 [Rx] Silver Sulfadiazine [Silvadene] 1 appl TP DAILY #1 tub 05/11/18 [Rx] Fluticasone/Salmeterol [Advair 250-50 Diskus] 1 puff IH BID 05/27/18 [History] 3 Allergy/AdvReac Type Severity Reaction Status Date / Time cephalexin [From Keflex] Allergy Mild unknown Verified 05/27/18 21:38 levofloxacin [From Levaquin] AdvReac Mild unknown Verified 05/27/18 21:38 clindamycin [From Cleocin] AdvReac See Verified 05/27/18 21:38 Comments ROS unobtainable: due to mental status Palliative Care-Exam - Constitutional Vitals: Temp Pulse Resp BP Pulse Ox 98 F 105 17 98/62 97 05/28/18 11:13 05/28/18 11:13 05/28/18 11:13 05/28/18 11:13 05/28/18 11:13 General appearance: Present: no acute distress - Head Head Exam: Present: atraumatic, normal inspection - Eye Eye exam: Present: normal appearance - Respiratory Respiratory exam: Present: decreased breath sounds - Cardiovascular Cardiovascular exam: Present: RRR (at this time) - GI/Abdominal Exam GI/Abdominal exam: Present: normal bowel sounds, soft. Absent: tenderness - Extremities Exam Extremities exam: Present: pedal edema, tenderness. Absent: normal inspection ( Patient's legs are dressed, there is a report of large left leg ulceration 8 x 10 cm with multiple bruises and surrounding erythema. Did not personally witness this.) - Neurological Exam Neurological exam: Present: alert. Absent: oriented X3 (To self only at this time) - Psychiatric Psychiatric exam: Absent: agitated, anxious - Skin Skin exam: Present: dry, warm Internal Medicine - CN: Reslt - Labs CBC & Chem 7: 05/28/18 04:50 05/28/18 04:50 Labs: Short CBC 05/28/18 Range/Units 04:50 WBC 7.8 (4.3-11.1) K/mcL Hgb 10.8 L (12.9-16.9) g/dL Hct 33.5 L (37.5-50.1) % Plt Count 307 (140-400) K/mcL BMP 05/28/18 04:50 Sodium 137 Potassium 4.2 Chloride 108 H Carbon Dioxide 24 BUN 13 Creatinine 0.95 Glucose 148 H Calcium 8.3 L - ABG Interpretation ABG results: PT/INR, D-dimer PT 50.6 Seconds (9.4-12.1) H* 05/28/18 09:55 Consult Discharge Plan - Plan Referrals: Avery Woods DO [Primary Care Provider] - Palliative Quality Palliative Quality: Screen for Code Status: Yes, Screen for Goals of Care: Yes, Screen for Pain: Yes, If Pain Regimen Started, Initiate Bowel Regimen: NA, Screen for Nausea/Vomitting: Yes Code Status: 05/28/18 02:24 Resuscitation Status: Active [RES] Routine Comment: Resuscitation Status: Full Code
[2018-05-28] MEDS: Silver Sulfadiazine 50 GM TUBE TP SCH (16:15)
--- NOTE | 2018-05-28 16:39 | Electrocardiograph Report ---
[place] [id number] Test Date: 2018-05-27 Pat Name: Weston Nicholson Department: 104 Room: 3B32 Gender: M Community Representative: MATA : 1940 Requested By: Austin Amado Order Number: [id number] Reading MD: Heather Good Measurements Intervals [place] Rate: 78 P: 48 ND: 240 QRS: 14 QRSD: 90 T: 64 QT: 381 QTc: 414 Interpretive Statements SINUS RHYTHM WITH FIRST DEGREE AV BLOCK Electronically Signed On 05-28-2018 16:37:25 EDT by Heather Good
[2018-05-28] MEDS ORDERED: Warfarin perPT PO PRN (18:00)
[2018-05-28 20:46] LABS: Magnesium 1.8 mg/dL (1.6-2.6)
[2018-05-28] MEDS ORDERED: Insulin DETEMIR 100 UNIT/ML X5UNITS SQ SCH (21:00)
[2018-05-29] MEDS: *HR* OxyCODONE/APAP 10/325 TABLET PO PRN ×3 (00:48→17:16)
[2018-05-29] MEDS: Ipratropium/Albuterol Neb 3 ML IH SCH ×4 (04:41→15:18)
[2018-05-29 05:43] LABS: Basophils % 0.1 %; Hemoglobin 10.5 g/dL (12.9-16.9); Immature Granulocytes % 0.8 % (0-4); Lymphocytes # 0.8 K/mcL (0.6-4.6); Lymphocytes % 7.3 %; Mean Corpuscular HGB Conc 31.8 g/dL (31.6-35.5); Mean Corpuscular Volume 94.3 fL (83.0-100.0); Mean Platelet Volume 8.8 fL (9.4-12.4); Monocytes # 0.7 K/mcL (0.0-1.3); Monocytes % 6.6 %; Neutrophils # 8.7 K/mcL (1.6-8.9); Platelet Count 343 K/mcL (140-400); Red Cell Distribution Width 18.3 % (11.5-14.5); Segmented Neutrophils % 85.2 %
[2018-05-29 05:46] LABS: INR 2.9; Prothrombin Time 33.1 Seconds (9.4-12.1)
[2018-05-29 05:58] LABS: Alanine Aminotransferase 4 Units/L (7-52); Albumin 2.9 g/dL (3.5-5.7); Alkaline Phosphatase 45 Units/L (34-104); Aspartate Amino Transferase 7 Units/L (13-39); BUN/Creatinine Ratio 16 (6-26); Bilirubin,Total 0.5 mg/dL (0.3-1.0); Blood Urea Nitrogen 16 mg/dL (8-23); Calcium 8.6 mg/dL (8.6-10.3); Carbon Dioxide 25 mEq/L (23-29); Chloride 105 mEq/L (98-107); Glucose 100 mg/dL (70-105); Osmolality,Calculated 285 (280-300); Potassium 4.3 mEq/L (3.5-5.1); Sodium 137 mEq/L (136-145); Total Protein 5.9 g/dL (6.4-8.9); eGFR For African Americans > 60 (> 60); eGFR For Non-African Americans > 60 (> 60)
--- NOTE | 2018-05-29 07:30 | Palliative Progress Note ---
Date of Encounter: 05/29/18 Time of Encounter: 07:05 - Assessment and plan (1) Cellulitis and abscess of left leg Current Visit: Yes Status: Acute Assessment and plan: No fever, patient reports improved discomfort, ultrasound for DVT and SVT negative no white count yet this morning, blood cultures are still pending but negative thus far. (2) Goals of care, counseling/discussion Current Visit: Yes Status: Acute Assessment and plan: The patient is awake and alert this morning able to participate in a discussion with me wishes to remain full code, goals of care are to return home he is okay with home healthcare he does not wish anything further than that at this time. Is not present I will attempt to reach his later this morning. Of note these are the same goals that have been in place previous. There will be no palliative coverage this weekend palliative we will follow up on Friday if the patient is still here. (3) COPD (chronic obstructive pulmonary disease) Current Visit: No Status: Acute Assessment and plan: Patient is breathing per the patient at baseline plan per hospitalist team Qualifiers: COPD type: unspecified COPD Qualified Code(s): J44.9 - Chronic obstructive pulmonary disease, unspecified (4) Generalized weakness Current Visit: No Status: Acute Assessment and plan: He is feeling better and wishes to go home - Time Spent With Patient Total time spent is greater than 50% in coordination of care (as documented) at patient's floor/unit and/or counseling patient: - Subjective Interval history: The patient is awake and alert oriented, and asking about his tests from last night. Ultrasound results were negative for both SVT DVT. The patient is quite anxious to be discharged sometime today. He wishes to be home for the weekend with his grandchildren. He does not have any complaints of at this time and states he does feel much better feels he would do better at home. Please see the assessment and plan but overall the patient wishes to continue with the aggressive care in the weights being done currently he is ok with the idea of home health care, there is no family available at this time. - Constitutional Vitals: Abnormal lab results RBC 3.50 M/mcL (4.19-5.50) L 05/29/18 05:15 Hgb 10.5 g/dL (12.9-16.9) L 05/29/18 05:15 Hct 33.0 % (37.5-50.1) L 05/29/18 05:15 RDW 18.3 % (11.5-14.5) H 05/29/18 05:15 MPV 8.8 fL (9.4-12.4) L 05/29/18 05:15 ESR 71 mm/hr (0-10) H 05/27/18 20:14 PT 33.1 Seconds (9.4-12.1) H 05/29/18 05:15 POC Glucose 167 mg/dL (70-99) H 05/28/18 19:55 AST 7 Units/L (13-39) L 05/29/18 05:15 ALT 4 Units/L (7-52) L 05/29/18 05:15 B-Natriuretic Peptide 195 pg/mL (Less than 100) H 05/27/18 20:14 Serum Total Protein 5.9 g/dL (6.4-8.9) L 05/29/18 05:15 Albumin 2.9 g/dL (3.5-5.7) L 05/29/18 05:15 Albumin/Globulin Ratio 1.0 (1.1-2.2) L 05/29/18 05:15 Urine Blood Moderate (Negative) H 05/27/18 20:14 Urine Microscopic RBC 30-50 per hpf (0-3) H 05/27/18 20:14 Ur Squamous Epith Cells Many per lpf (None-Few) H 05/27/18 20:14 General appearance: Present: no acute distress - Respiratory Respiratory exam: Present: decreased breath sounds, rales (At bases) - Cardiovascular Cardiovascular exam: Present: RRR - GI/Abdominal GI/Abdominal exam: Present: normal bowel sounds, soft. Absent: tenderness - Extremities Exam Extremities exam: Present: pedal edema. Absent: normal inspection (Patient's legs are wrapped) - Neurological Exam Neurological exam: Present: oriented X3 (At this time, however this clearly waxes and wanes) - Psychiatric Psychiatric exam: Absent: agitated, anxious - Skin Skin exam: Present: dry, warm Palliative Quality Palliative Quality: Screen for Code Status: Yes, Screen for Goals of Care: Yes, Screen for Pain: Yes, If Pain Regimen Started, Initiate Bowel Regimen: NA, Screen for Nausea/Vomitting: Yes Code Status: 05/28/18 02:24 Resuscitation Status: Active [RES] Routine Comment: Resuscitation Status: Full Code - Labs CBC & Chem 7: 05/29/18 05:15 05/29/18 05:15 Labs: Laboratory Results - last 24 hr 05/28/18 05/28/18 05/28/18 07:25 09:55 11:22 WBC RBC Hgb Hct MCV MCH MCHC RDW Plt Count MPV Immature Gran % Seg Neutrophils % Lymphocytes % Monocytes % Eosinophils % Basophils % Neutrophils # Lymphocytes # Monocytes # Eosinophils # Basophils # PT 50.6 H* INR 4.5 H* Sodium Potassium Chloride Carbon Dioxide BUN Creatinine Est GFR ( Amer) Est GFR (Non-Af Amer) BUN/Creatinine Ratio Glucose POC Glucose 176 H 190 H Calculated Osmolality Calcium Magnesium Total Bilirubin AST ALT Alkaline Phosphatase Serum Total Protein Albumin Globulin Albumin/Globulin Ratio 05/28/18 05/28/18 05/28/18 16:36 19:55 20:16 WBC RBC Hgb Hct MCV MCH MCHC RDW Plt Count MPV Immature Gran % Seg Neutrophils % Lymphocytes % Monocytes % Eosinophils % Basophils % Neutrophils # Lymphocytes # Monocytes # Eosinophils # Basophils # PT INR Sodium Potassium 4.0 Chloride Carbon Dioxide BUN Creatinine Est GFR ( Amer) Est GFR (Non-Af Amer) BUN/Creatinine Ratio Glucose POC Glucose 139 H 167 H Calculated Osmolality Calcium Magnesium 1.8 Total Bilirubin AST ALT Alkaline Phosphatase Serum Total Protein Albumin Globulin Albumin/Globulin Ratio 05/29/18 05/29/18 05/29/18 05:15 05:15 05:15 WBC 10.2 RBC 3.50 L Hgb 10.5 L Hct 33.0 L MCV 94.3 MCH 30.0 MCHC 31.8 RDW 18.3 H Plt Count 343 MPV 8.8 L Immature Gran % 0.8 Seg Neutrophils % 85.2 Lymphocytes % 7.3 Monocytes % 6.6 Eosinophils % 0.0 Basophils % 0.1 Neutrophils # 8.7 Lymphocytes # 0.8 Monocytes # 0.7 Eosinophils # 0.0 Basophils # 0.0 PT 33.1 H INR 2.9 Sodium 137 Potassium 4.3 Chloride 105 Carbon Dioxide 25 BUN 16 Creatinine 0.98 Est GFR ( Amer) > 60 Est GFR (Non-Af Amer) > 60 BUN/Creatinine Ratio 16 Glucose 100 POC Glucose Calculated Osmolality 285 Calcium 8.6 Magnesium Total Bilirubin 0.5 AST 7 L ALT 4 L Alkaline Phosphatase 45 Serum Total Protein 5.9 L Albumin 2.9 L Globulin 3.0 Albumin/Globulin Ratio 1.0 L - ABG Interpretation ABG results: PT/INR, D-dimer PT 33.1 Seconds (9.4-12.1) H 05/29/18 05:15 Consult Discharge Plan - Plan Referrals: Avery Woods DO [Primary Care Provider] -
[2018-05-29 09:31] VITALS: BP 130/86
[2018-05-29] MEDS: Insulin LISPRO 300 UNITS/3 ML VIAL SQ SCH ×3 (09:43→17:12)
[2018-05-29] MEDS: Megestrol Acetate 400 MG/10 ML UDC PO SCH (10:39)
[2018-05-29] MEDS: Silver Sulfadiazine 50 GM TUBE TP SCH (10:40)
[2018-05-29] MEDS: Lubiprostone [Amitiza] 24 MCG PO SCH (10:40)
[2018-05-29] MEDS: Furosemide 40 MG TABLET PO SCH (10:40)
[2018-05-29] MEDS: predniSONE 20 MG TABLET PO SCH (10:40)
[2018-05-29] MEDS: Aspirin Enteric Coated 81 MG Tablet PO SCH (10:40)
--- NOTE | 2018-05-29 12:49 | Physician Discharge Referral ---
Home Health/Hosp Referral Info Transfer to: Home Health Provider in Charge Post Discharge: PCP - Diagnosis (1) Thyroid carcinoma Priority: Secondary Status: Chronic (2) Diabetic foot ulcer Priority: Primary Status: Acute (3) Venous ulcer of left leg Priority: Primary Status: Acute (4) Abdominal aortic aneurysm Priority: Secondary Status: Chronic (5) Supratherapeutic INR Priority: Primary Status: Acute (6) Essential hypertension Priority: Secondary Status: Chronic - Respiratory Orders Smoking Cessation: Smoking cessation has been advised. For more information, call the [place] Tobacco Quit Line at 0-297-RPFV-NOW. - Diet/Nutrition Diet/Nutrition Orders: Cardiac - Activity Activity Orders: Up ad claudio - Services Needed Following services are medically necessary services: Home Health Aide - Transfer Medications Home Medications: Omeprazole [PriLOSEC] 20 mg PO DAILY 07/07/15 [History] Potassium Chloride 10 meq PO BID 07/07/15 [History] Metoprolol [Lopressor] 25 mg PO BID 07/10/15 [History] Citalopram [CeleXA] 20 mg PO DAILY #30 tablet 12/13/15 [Rx] Lubiprostone [Amitiza] 24 mcg PO BID #60 capsule 12/13/15 [Rx] Insulin Glargine,Hum.rec.anlog [Lantus Solostar] 10 unit SQ QAM 12/06/16 [ History] Megestrol Acetate [Megace] 200 mg PO BID 04/08/17 [History] Warfarin [Coumadin] 4 mg PO DAILY 10/01/17 [History] Albuterol Sulfate [Ventolin Hfa] 2 puff IH Q6H PRN 04/01/18 [History] Furosemide [Lasix] 40 mg PO DAILY 04/28/18 [History] Levothyroxine [Synthroid] 150 mcg PO DAILY 04/28/18 [History] Tiotropium [Spiriva] 1 puff IH DAILY 04/28/18 [History] Aspirin Enteric Coated [Aspirin EC] 81 mg PO DAILY tablet. 05/01/18 [Rx] Oxycodone HCl/Acetaminophen [Percocet 10-325 mg Tablet] 1 - 2 each PO Q4H PRN 2 Days #28 tablet 05/01/18 [Rx] Silver Sulfadiazine [Silvadene] 1 appl TP DAILY #1 tub 05/11/18 [Rx] Fluticasone/Salmeterol [Advair 250-50 Diskus] 1 puff IH BID 05/27/18 [History] Allergies/Adverse Reactions: 3 Allergy/AdvReac Type Severity Reaction Status Date / Time cephalexin [From Keflex] Allergy Mild unknown Verified 05/27/18 21:38 levofloxacin [From Levaquin] AdvReac Mild unknown Verified 05/27/18 21:38 clindamycin [From Cleocin] AdvReac See Verified 05/27/18 21:38 Comments Certification: Further, I certify that my clinical findings support that this patient is homebound (i.e. absences from home require considerable and taxing effort and are for medical reasons or caodaism services or infrequently or short duration when for other reasons) because: Homebound Reason: Patient requires assistance of a person or device to safely leave home, Leaving home requires considerable and taxing effort due to condition Attestation: My signature below is to certify that this patient is under my care and that I, or nurse practitioner, or a physician's logging assistant working with me, has a face-to -face encounter with this patient.
--- NOTE | 2018-05-29 12:55 | Discharge Summary ---
- NOTES TO OUTPATIENT PROVIDER Notes to Outpatient Provider: f/u with PCP within a week,. f/u with wound care center as instructed. f/u with coumadin clinic as instructed. f/u with oncology within a month. Orders not resulted at time of discharge: Pending orders 05/30/18 04:00 INR/PT [Prothrombin Time INR] [COAG] AM 0400 05/31/18 04:00 INR/PT [Prothrombin Time INR] [COAG] AM 0400 Date of Encounter: 05/29/18 Time of Encounter: 12:53 - Discharge Diagnosis (1) Thyroid carcinoma Priority: Secondary Status: Chronic (2) Diabetic foot ulcer Priority: Secondary Status: Chronic Qualifiers: Diabetic foot ulcer location: unspecified part of foot Diabetes mellitus type: type 2 Non-pressure ulcer stage: unspecified non-pressure ulcer stage Qualified Code(s): E11.621 - Type 2 diabetes mellitus with foot ulcer; L97.509 - Non-pressure chronic ulcer of other part of unspecified foot with unspecified severity (3) Venous ulcer of left leg Priority: Primary Status: Acute Assessment and Plan: Patient was instructed to follow up with wound care center, he may also need to follow up with vascular surgery to further evaluate the severity of PVD. He was instructed to continue oral antibiotics for a total course of 7 days. (4) Abdominal aortic aneurysm Priority: Secondary Status: Chronic Qualifiers: Presence of rupture: without rupture Qualified Code(s): I71.4 - Abdominal aortic aneurysm, without rupture (5) Supratherapeutic INR Priority: Primary Status: Acute Assessment and Plan: Patient INR was above 4 upon arrival, because the patient can be take antibiotics, his home Coumadin dose will be adjusted, patient also was instructed to follow-up with Coumadin clinic to check INR. (6) Essential hypertension Priority: Secondary Status: Chronic Hospital course: Mr. Nicholson is a 77 year old male with history of diabetes, thyroid cancer status post the surgery, chronic leg ulcers and diabetic ulcers presented to the ER after failing outpatient treatment of a wound on his left leg. He had been refusing wound care, and his oncologist was treating it with clindamycin antibiotics and silvadene cream. The wound has continued to worsen, his has been managing it at home with dressing changes. His wound looks red and warm, patient was started on IV vancomycin. Wound care was consulted. His respiratory status was improved after breathing treatment. On the second day of hospitalization, patient insisted going home, he stated his and daughter will take care of the wound had he said he will follow up with the wound care center. After discussed with the family, we will discharge patient home with home health care. He was instructed to follow-up with PCP, Wound Care Ctr., Coumadin clinic, and oncology as scheduled. Time spent discussing smoking cessation with patient: more than 10 minutes - Time Spent with Patient Total time spent providing and/or coordinating discharge services: Greater than 30 minutes - Discharge Medications Prescriptions: Amoxicillin/Clavulanate [Augmentin] 875 mg PO BIDWM #14 tablet Warfarin [Coumadin] 2.5 mg PO 1800 #30 tablet Home Medications: Omeprazole [PriLOSEC] 20 mg PO DAILY 07/07/15 [History] Potassium Chloride 10 meq PO BID 07/07/15 [History] Metoprolol [Lopressor] 25 mg PO BID 07/10/15 [History] Citalopram [CeleXA] 20 mg PO DAILY #30 tablet 12/13/15 [Rx] Lubiprostone [Amitiza] 24 mcg PO BID #60 capsule 12/13/15 [Rx] Insulin Glargine,Hum.rec.anlog [Lantus Solostar] 10 unit SQ QAM 12/06/16 [ History] Megestrol Acetate [Megace] 200 mg PO BID 04/08/17 [History] Albuterol Sulfate [Ventolin Hfa] 2 puff IH Q6H PRN 04/01/18 [History] Furosemide [Lasix] 40 mg PO DAILY 04/28/18 [History] Levothyroxine [Synthroid] 150 mcg PO DAILY 04/28/18 [History] Tiotropium [Spiriva] 1 puff IH DAILY 04/28/18 [History] Aspirin Enteric Coated [Aspirin EC] 81 mg PO DAILY tablet. 05/01/18 [Rx] Oxycodone HCl/Acetaminophen [Percocet 10-325 mg Tablet] 1 - 2 each PO Q4H PRN 2 Days #28 tablet 05/01/18 [Rx] Silver Sulfadiazine [Silvadene] 1 appl TP DAILY #1 tub 05/11/18 [Rx] Fluticasone/Salmeterol [Advair 250-50 Diskus] 1 puff IH BID 05/27/18 [History] Amoxicillin/Clavulanate [Augmentin] 875 mg PO BIDWM #14 tablet 05/29/18 [Rx] Warfarin [Coumadin] 2.5 mg PO 1800 #30 tablet 05/29/18 [Rx] Allergies/Adverse Reactions: 3 Allergy/AdvReac Type Severity Reaction Status Date / Time cephalexin [From Keflex] Allergy Mild unknown Verified 05/27/18 21:38 levofloxacin [From Levaquin] AdvReac Mild unknown Verified 05/27/18 21:38 clindamycin [From Cleocin] AdvReac See Verified 05/27/18 21:38 Comments Date of admission: 05/27/18 22:03 Primary care physician: Avery Woods Consults: 05/27/18 23:12 Consult to Secretary Bookkeeper [CONS] Routine Reason for SW Consult: possible need for home health, works during the day 05/28/18 02:33 Consult to Nurse Navigator [CONS] Routine Comment: 05/28/18 03:28 Consult to Wound Care [CONS] Routine Reason for Consult: patient has large ulceration of the left lee, 8x10cm in size. Has refused wound care in the past, his currently manages it for him. History of diabetes. Call Completed: No 05/28/18 11:18 Consult to Palliative Care [CONS] Routine Comment: Consulting Provider: Palliative Care Nathalie Reason for Consult: Lung cancer with history of type 2 diabtes, leg ulceration, PVD , demintia, declinign conditions. Goals of care discussion Call Completed: Yes 05/28/18 15:29 Consult to Physical Therapy [CONS] Routine Comment: Evaluate, develop and implement POC Reason for Consult: General decline in overall condition and decreased mobility Does patient have active BEDREST order?: No Is patient medically & hemodynamically stable?: Yes OT [Consult to Occupational Therapy] [CONS] Routine Comment: Evaluate, develop and implement POC Reason for Consult: General decline in overall condition and decreased mobility Does patient have active BEDREST order?: No Is patient medically & hemodynamically stable?: Yes Patient assessed for mobility or mobilized this visit?: Yes Anticipated date of discharge: 05/29/18 - Constitutional Vitals: Temp Pulse Resp BP Pulse Ox 99.3 F 108 16 130/86 94 05/29/18 11:48 05/29/18 11:48 05/29/18 11:48 05/29/18 09:30 05/29/18 11:48 General appearance: Present: mild distress, A&O X 3, pleasant - Patient Status Disposition: Home Health Service Condition: Fair Functional capacity at discharge: uses cane/walker Overall status at discharge: patient is back to baseline - Discharge Instructions Follow Up With: Avery Woods DO [Primary Care Provider] - Forms: ED Satisfaction Letter - Diet and Activity Activity: increase activity as tolerated Diet: diabetic diet
[2018-05-29] MEDS ORDERED: Aminoglycoside Consult 1 EACH MC ONE (17:37)
[2018-05-29] MEDS ORDERED: *HR* Warfarin 3 MG TABLET PO ONE (18:00)
[2018-05-29] MEDS ORDERED: *HR* Warfarin 3 MG TABLET PO SCH (18:00)
[2018-05-29] MEDS ORDERED: Linezolid 600 MG TABLET PO SCH (21:00)
--- NOTE | 2018-05-30 11:16 | Electrocardiograph Report ---
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
== END 2018-05-29 17:38 | disposition home health service (06) ==
LOC: 3BNU 19:25 → EMEROO 19:25 → 3BNU 22:40
PROVIDERS: ADMIT Family Medicine; ATTEND Internal Medicine

== ENCOUNTER 2018-06-18 14:18 | Inpatient (IN) ==
--- NOTE | 2018-06-18 14:43 | Emergency Department Note ---
Disposition Clinical Impression: Acute kidney injury Sepsis Qualifiers: Sepsis type: sepsis due to unspecified organism Qualified Code(s): A41.9 - Sepsis, unspecified organism Aspiration pneumonia Qualifiers: Aspiration pneumonia type: unspecified Laterality: right Lung location: lower lobe of lung Qualified Code(s): J69.0 - Pneumonitis due to inhalation of food and vomit Fracture of femoral neck, right Qualifiers: Encounter type: initial encounter Fracture type: closed Qualified Code(s): S72.001A - Fracture of unspecified part of neck of right femur, initial encounter for closed fracture Disposition: Admitted As Inpatient Condition: Critical General Adult HPI - General Chief complaint: ED Fall Stated complaint: Fall/Weakness/Pain all over Time Seen by Provider: 06/18/18 14:21 Source: EMS Mode of arrival: wheelchair Limitations: no limitations, other Nursing Notes Reviewed: Yes Vital Signs Reviewed: Yes - History of Present Illness HPI Narrative: Patient is a 77-year-old man who presents with fall at his home prior to arrival. Patient was brought in via EMS. History was obtained primarily from EMS, as the patient does not recall the events and is poor historian. EMS states the patient was found in his home on the floor by his daughter who came into the home and found her father on the ground, when EMS arrived he was sitting on the floor and alert, and slightly confused, which is per his daughter his baseline. EMS states that the patient told them that he was walking through his hallway when he went to turn right and fell, with loss of consciousness, "someone knocked me down ", however there was no evidence of forced entry for alternative person in the house. He later noted that he is syncopal episodes in the past and believes that he might have fallen due to syncope. In route patient was put on oxygen 2 L, due to his sats dropping around 85%, when placed on oxygen his sats came back at 98%. He is not on oxygen at home. Upon evaluation, patient states that he has pain chronically all over, however states that when he fell he believes he fell on his right side does have a abrasion on his right elbow, with increased pain to his right shoulder, right elbow, right wrist, his right hip, and right knee, denies hitting his head. He does not recall chest pain or palpitations prior to the event. Patient also complains of abdominal pain that has increased in severity since the fall, he does have a hernia which is unchanged. Denies any focal weakness, numbness, tingling. 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 He is currently in hospice care and was supposed to have hospice visit him today however due to the fall he was not seen by his hospice nurse. - Related Data Home Medications Medication Instructions Recorded Confirmed Omeprazole [PriLOSEC] 20 mg PO DAILY 07/07/15 06/18/18 Potassium Chloride 10 meq PO BID 07/07/15 06/18/18 Metoprolol [Lopressor] 25 mg PO BID 07/10/15 06/18/18 Insulin Glargine,Hum.rec.anlog 10 unit SQ QPM 12/06/16 06/18/18 [Lantus Solostar] Megestrol Acetate [Megace] 200 mg PO BID 04/08/17 06/18/18 Albuterol Sulfate [Ventolin Hfa] 2 puff IH Q6H PRN 04/01/18 06/18/18 Furosemide [Lasix] 40 mg PO DAILY 04/28/18 06/18/18 Levothyroxine [Synthroid] 150 mcg PO DAILY 04/28/18 06/18/18 Tiotropium [Spiriva] 1 puff IH DAILY 04/28/18 06/18/18 Fluticasone/Salmeterol [Advair 1 puff IH BID 05/27/18 06/18/18 250-50 Diskus] Warfarin [Coumadin] 4 mg PO DAILY 06/18/18 06/18/18 Previous Rx's Medication Instructions Recorded Citalopram [CeleXA] 20 mg PO DAILY #30 tablet 12/13/15 Lubiprostone [Amitiza] 24 mcg PO BID #60 capsule 12/13/15 Aspirin Enteric Coated [Aspirin EC] 81 mg PO DAILY tablet. 05/01/18 Oxycodone HCl/Acetaminophen 1 - 2 each PO Q4H PRN 2 Days #28 05/01/18 [Percocet 10-325 mg Tablet] tablet Silver Sulfadiazine [Silvadene] 1 appl TP DAILY #1 tub 05/11/18 Allergies Allergy/AdvReac Type Severity Reaction Status Date / Time cephalexin [From Keflex] Allergy Mild unknown Verified 05/27/18 21:38 levofloxacin [From Levaquin] AdvReac Mild unknown Verified 05/27/18 21:38 clindamycin [From Cleocin] AdvReac See Verified 05/27/18 21:38 Comments All systems ED: reviewed and negative except as stated. Review of Systems: As Per HPI Constitutional: Reports: as per HPI, weakness. Denies: fever, chills Eyes: Reports: as per HPI Cardiovascular: Reports: as per HPI, chest pain, dyspnea on exertion, edema, syncope. Denies: palpitations Respiratory: Reports: cough, dyspnea Gastrointestinal: Reports: abdominal pain. Denies: nausea, vomiting Musculoskeletal: Reports: back pain, arthralgia, myalgia. Denies: neck pain Integumentary: Reports: abrasion. Denies: rash, lesions Neurological: Reports: weakness, confusion. Denies: headache, numbness, paresthesias Past Medical History - Past Medical History Medical history: Reports: atrial fibrillation, cancer, COPD, coronary artery disease, diabetes, malignancy, thyroid disease, other Surgical history: Reports: cancer surgery, coronary bypass (CABG) Psychiatric history: Reports: anxiety, depression - Social History Smoking Status: Current every day smoker Smokeless Tobacco Status: No Alcohol use: Reports: none Drug use: Reports: none Physical Exam - General Limitations: other (Chronic slight confusion otherwise responsive, alert and answering questions appropriately) General appearance: alert, in no apparent distress - Head Head exam: atraumatic, normocephalic - Eye Eye exam: Present: normal appearance, PERRL, EOMI - ENT ENT exam: normal exam - Neck Neck exam: Present: normal inspection. Absent: tenderness - Chest Chest inspection: Present: normal inspection, symmetric chest wall rise. Absent : tenderness - Respiratory Respiratory exam: Absent: respiratory distress - Cardiovascular Cardiovascular exam: Present: regular rate, normal rhythm - Abdominal Exam Abdominal exam: Present: tenderness, guarding, normal bowel sounds, other ( Midline hernia, that is able to be slightly reduced, that is tender to palpation ). Absent: rebound - Expanded Upper Extremity Exam Shoulder exam: Present: tenderness. Absent: swelling, abrasion Arm exam: Present: tenderness. Absent: swelling, abrasion Elbow exam: Present: tenderness, abrasion (To the posterior elbow) Forearm/Wrist exam: Present: tenderness. Absent: abrasion Hand exam: Present: tenderness. Absent: abrasion Neuromotor exam: Normal: wrist extension, thumb opposition Vascular exam: Normal: capillary refill, radial pulse, ulnar pulse - Expanded Lower Extremity Exam Hip/Pelvis exam: Present: tenderness (Two-view right hip with palpation and movement), internal rotation, shortening. Absent: abrasion, deformity Upper leg exam: Present: tenderness. Absent: abrasion, deformity Knee exam: Present: tenderness. Absent: abrasion, deformity Lower leg exam: Present: tenderness, swelling (Chronic), other (Lower legs are wrapped bilaterally with seepage from retention of fluid). Absent: abrasion Ankle exam: Present: tenderness, swelling. Absent: abrasion Neurovascular/Tendon exam: Absent: pulse deficit, motor deficit, sensory deficit - Back Exam Back exam: Present: normal inspection, vertebral tenderness (To the lumbar spine , no tenderness to the cervical or thoracic spine). Absent: paraspinal tenderness - Neurological Exam Neurological exam: Present: alert, CN II-XII intact. Absent: motor sensory deficit - Psychiatric Psychiatric exam: Present: normal affect, normal mood - Skin Skin exam: Present: dry (Cold peripheral hands and feet) Course Course Narrative: We will order an extensive trauma workup at this point in time with CT of the head, neck, chest, abdomen and pelvis with x-rays to the right shoulder, right elbow, right hand, right hip, right knee for evaluation of fracture or dislocation due to pain. Also ordered extensive laboratory work including CBC, CMP, troponin, CPK, along with EKG, UA, chest x-ray. - Consultations Consultation #1: Spoke with orthopedics at 1644, and they have agreed to see patient in a patient service for right femoral neck fracture, have requested a CT of the right hip for further evaluation of displacement versus non-displacement. Time: 16:44 Vital Signs Temperature 98.7 F 06/18/18 14:20 Pulse Rate 64 06/18/18 14:20 Respiratory Rate 18 06/18/18 14:20 Blood Pressure 120/98 06/18/18 14:20 O2 Sat by Pulse Oximetry 95 06/18/18 14:20 Temperature 98.2 F 06/18/18 18:02 Pulse Rate 99 06/18/18 18:02 Respiratory Rate 16 06/18/18 18:02 Blood Pressure 111/74 06/18/18 18:02 O2 Sat by Pulse Oximetry 94 06/18/18 18:02 Oxygen Delivery Oxygen Delivery Room Air Medical Decision Making - MDM Narrative Medical decision making narrative: 77-year-old male presenting with a fall to the EM department just prior to arrival, possible syncopal episode. Emergency department workup showed elevated white blood cell count at 14.9, most likely due to the right lower lobe aspiration pneumonia. CT of the chest revealed aortic aneurysm ranging from 2.9 cm to 4.1 cm from thoracic to abdominal aorta, without dissection, with right base aspiration pneumonia, and along with right rib 7 nondisplaced fracture, CT abdomen revealed no acute processes, with mildly complex 3.1 cm cyst to the right kidney, CT lumbar and cervical showed chronic changes without acute process, fracture or compression. CT noncontrast of the head revealed no acute intracranial process, no acute bleed. The patient's creatinine is elevated 1.72 with GFR decreased at 39 which is changed from baseline, suggestive of SCOTT. XR of the right hip revealed nondisplaced/impacted femoral neck fracture. X-ray of the right wrist, right shoulder, right knee and right elbow were negative for acute fracture. Patient meets sepsis criteria with elevated heart rate at 93, elevated white blood count, will order blood cultures and lactic acid at this point in time. Patient is recommended to be admitted for aspiration pneumonia, sepsis, SCOTT, right femoral head fracture. Discussed the patient with the hospitalist, Rito at 1712, also discussed how palliative care consult is recommended as inpatient. Recommended starting Zosyn at this time. - Medical Records Medical records reviewed: Yes I reviewed the patient's medical records. - Lab Data Lab results reviewed: Yes I reviewed the patient's lab results. Result diagrams: 06/18/18 14:37 06/18/18 14:37 Lab Results 06/18/18 06/18/18 06/18/18 Range/Units 14:37 14:37 14:37 WBC 14.9 H (4.3-11.1) K/mcL RBC 3.94 L (4.19-5.50) M/mcL Hgb 11.7 L (12.9-16.9) g/dL Hct 36.9 L (37.5-50.1) % MCV 93.7 (83.0-100.0) fL MCH 29.7 (28.0-33.3) pg MCHC 31.7 (31.6-35.5) g/dL RDW 18.0 H (11.5-14.5) % Plt Count 409 H (140-400) K/mcL MPV 9.2 L (9.4-12.4) fL Immature Gran % 1.3 (0-4) % Seg Neutrophils % 88.0 % Lymphocytes % 4.0 % Monocytes % 6.1 % Eosinophils % 0.3 % Basophils % 0.3 % Neutrophils # 13.1 H (1.6-8.9) K/mcL Lymphocytes # 0.6 (0.6-4.6) K/mcL Monocytes # 0.9 (0.0-1.3) K/mcL Eosinophils # 0.1 (0.0-0.6) K/mcL Basophils # 0.0 (0.0-0.2) K/mcL PT 37.2 H (9.4-12.1) Seconds INR 3.3 APTT 40.9 H (26.0-36.0) Seconds Sodium 132 L (136-145) mEq/L Potassium 5.1 (3.5-5.1) mEq/L Chloride 102 (98-107) mEq/L Carbon Dioxide 23 (23-29) mEq/L BUN 49 H (8-23) mg/dL Creatinine 1.72 H (0.70-1.30) mg/dL Est GFR ( Amer) 47 L (> 60) Est GFR (Non-Af Amer) 39 L (> 60) BUN/Creatinine Ratio 28 H (6-26) Glucose 118 H (70-105) mg/dL Calculated Osmolality 288 (280-300) Lactic Acid (0.5-2.2) mmol/L Calcium 9.2 (8.6-10.3) mg/dL Total Bilirubin 0.6 (0.3-1.0) mg/dL AST 17 (13-39) Units/L ALT 13 (7-52) Units/L Alkaline Phosphatase 57 (34-104) Units/L Creatine Kinase 63 (30-223) Units/L Troponin I < 0.03 (< 0.04) ng/mL Serum Total Protein 7.0 (6.4-8.9) g/dL Albumin 3.2 L (3.5-5.7) g/dL Globulin 3.8 H (2.4-3.5) g/dL Albumin/Globulin Ratio 0.8 L (1.1-2.2) 06/18/18 Range/Units 16:38 WBC (4.3-11.1) K/mcL RBC (4.19-5.50) M/mcL Hgb (12.9-16.9) g/dL Hct (37.5-50.1) % MCV (83.0-100.0) fL MCH (28.0-33.3) pg MCHC (31.6-35.5) g/dL RDW (11.5-14.5) % Plt Count (140-400) K/mcL MPV (9.4-12.4) fL Immature Gran % (0-4) % Seg Neutrophils % % Lymphocytes % % Monocytes % % Eosinophils % % Basophils % % Neutrophils # (1.6-8.9) K/mcL Lymphocytes # (0.6-4.6) K/mcL Monocytes # (0.0-1.3) K/mcL Eosinophils # (0.0-0.6) K/mcL Basophils # (0.0-0.2) K/mcL PT (9.4-12.1) Seconds INR APTT (26.0-36.0) Seconds Sodium (136-145) mEq/L Potassium (3.5-5.1) mEq/L Chloride (98-107) mEq/L Carbon Dioxide (23-29) mEq/L BUN (8-23) mg/dL Creatinine (0.70-1.30) mg/dL Est GFR ( Amer) (> 60) Est GFR (Non-Af Amer) (> 60) BUN/Creatinine Ratio (6-26) Glucose (70-105) mg/dL Calculated Osmolality (280-300) Lactic Acid 1.6 (0.5-2.2) mmol/L Calcium (8.6-10.3) mg/dL Total Bilirubin (0.3-1.0) mg/dL AST (13-39) Units/L ALT (7-52) Units/L Alkaline Phosphatase (34-104) Units/L Creatine Kinase (30-223) Units/L Troponin I (< 0.04) ng/mL Serum Total Protein (6.4-8.9) g/dL Albumin (3.5-5.7) g/dL Globulin (2.4-3.5) g/dL Albumin/Globulin Ratio (1.1-2.2) - Radiology Data Radiology results reviewed: Yes I reviewed the patient's radiology results. Cervical Spine CT 06/18/18 14:46 IMPRESSION: No acute abnormality of the cervical spine. Moderate multilevel degenerate changes. D/ / Alexandr Smart MD / Alexandr Smart MD Interpreting Provider: Alexandr Smart MD Chest X-Ray 06/18/18 14:46 IMPRESSION: Nondisplaced acute right 7th rib fracture seen on comparison CT is nearly inconspicuous on this exam. Emphysema with COPD. D/ / Wally Flores / Wally Flores Interpreting Provider: Wally Flores Elbow X-Ray 06/18/18 14:46 IMPRESSION: Bony demineralization. No definite acute fracture or subluxation. D/ / Wally Santizo MD / Wally Santizo MD Interpreting Provider: Wally Santizo MD Head CT 06/18/18 14:46 IMPRESSION: No acute intracranial abnormality. D/ / Eder Benavides MD / Eder Benavides MD Interpreting Provider: Eder Benavides MD Hip X-Ray 06/18/18 14:46 IMPRESSION: Findings highly suspicious for nondisplaced/impacted fracture of the right femoral neck. Correlate for point tenderness and consider MRI for further evaluation. D/ / Alxeandr Smart MD / Alexandr Smart MD Interpreting Provider: Alexandr Smart MD Knee X-Ray 06/18/18 14:46 IMPRESSION: No acute abnormalities. Mild degenerative changes to the patellofemoral compartment knee. 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 Diffuse bone demineralization. D/ / Joshua Stallings MD / Joshua Stallings MD Interpreting Provider: Joshua Stallings MD Lumbar Spine CT 06/18/18 14:46 IMPRESSION: No acute fracture. Grade 1 retrolisthesis L1 on L2. 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 Diffuse degenerative and degenerative disc changes. Distal abdominal aortic aneurysm with maximum diameter of 3.2 cm. 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 RECOMMENDATIONS: Managing Abdominal Aortic Aneurysms 3.0-3.4 cm: Every 3 years. *For abdominal aortas with maximum diameter of 2.6-2.9 cm meeting criteria for AAA (>50% of proximal normal segment). Reference: J Vasc Surg. 2008;50(4 Suppl):S2-49 D/ / 06/18/2018 15:51:04 Francisca Justice MD / lloyd Interpreting Provider: Francisca Justice MD Wrist X-Ray 06/18/18 14:46 IMPRESSION: Diffuse bony demineralization. No definite evidence of acute fracture subluxation. However if there is persistent pain our concern for radiographically occult fracture, follow-up radiograph in 7-14 days is recommended. D/ / Wally Santizo MD / Wally Santizo MD Interpreting Provider: Wally Santizo MD Chest CT 06/18/18 14:51 IMPRESSION: Acute nondisplaced right 7th rib fracture. No underlying pleural effusion or pneumothorax. Interval increase in size of right lower lobe subpleural nodule. Recommend further imaging with PET-CT versus direct tissue sampling. Features of chronic recurrent aspiration, including extensive tracheobronchial secretions with airway inflammation, basilar predominant small airway mucoid impaction and scattered basilar tree-in-bud nodularity. Basilar tree-in-bud nodularity has decreased compared the prior exam. Advanced emphysema. Stable mild dilatation of the ascending thoracic aorta. D/ / Wally Flores / Wally Flores Interpreting Provider: Wally Flores Abdomen/Pelvis CT 06/18/18 14:52 IMPRESSION: No acute traumatic abnormality is identified. 4.1 cm AAA. Recommend vascular consultation if that has not already been performed, along with annual follow-up. Reference: J Vasc Surg 2009 Aug;50(4 Suppl):S2-49. Reticulonodular opacities at the right lung base, which have decreased when compared to previous exam. This could represent residual pneumonia. In that location, correlate with any clinical evidence of aspiration. Re- demonstration of a 2.2 cm exophytic mildly complex right renal cyst. Again, consider further evaluation with nonemergent renal ultrasound. D/ / Ajit Holland MD / Ajit Holland MD Interpreting Provider: Ajit Holland MD Shoulder X-Ray 06/18/18 15:06 IMPRESSION: 1. No acute osseous abnormality involving the right shoulder. D/ / Aren Tejeda MD / Aren Tejeda MD Interpreting Provider: Aren Tejeda MD - EKG Data EKG #1 EKG attestation: Yes I reviewed and interpreted this EKG. EKG results narrative: EKG performed 06/18/2018 at 1427 with ventricular rate at 102, DE interval unobtainable due to artifact, QRS duration at 85, QT at 336, QTC at 395, regular rhythm, normal axis, nonspecific T wave changes difficult to appreciate due to artifact, PVC noted, no ST elevation. S.B.A.R. - S.B.A.R. Situation: Demographics, MOA Background: Presenting Complaint, Relevant PMH, Meds, & Allergies Assessment: Vital Signs, Course and respsone to treatment, Exam Concerns, Patient/Family Expectation, Pertinant Lab Results Recommendation: Recommendation based on pending studies, treatments, or consults Sherron Report Given to: Dr. Syeda Siu Repor Time: 17:15 (accepted)
[2018-06-18] MEDS ORDERED: *HR* FentaNYL (PF) 100 MCG/2 ML VIAL IVP ONE ×2 (14:51→15:57)
[2018-06-18 15:01] LABS: Basophils % 0.3 %; Eosinophils # 0.1 K/mcL (0.0-0.6); Eosinophils % 0.3 %; Hematocrit 36.9 % (37.5-50.1); Hemoglobin 11.7 g/dL (12.9-16.9); Immature Granulocytes % 1.3 % (0-4); Lymphocytes # 0.6 K/mcL (0.6-4.6); Mean Corpuscular HGB Conc 31.7 g/dL (31.6-35.5); Mean Corpuscular Hemoglobin 29.7 pg (28.0-33.3); Mean Corpuscular Volume 93.7 fL (83.0-100.0); Mean Platelet Volume 9.2 fL (9.4-12.4); Monocytes # 0.9 K/mcL (0.0-1.3); Monocytes % 6.1 %; Neutrophils # 13.1 K/mcL (1.6-8.9); Platelet Count 409 K/mcL (140-400); Red Blood Count 3.94 M/mcL (4.19-5.50)
[2018-06-18 15:11] LABS: Alanine Aminotransferase 13 Units/L (7-52); Albumin 3.2 g/dL (3.5-5.7); Albumin/Globulin Ratio 0.8 (1.1-2.2); Alkaline Phosphatase 57 Units/L (34-104); Aspartate Amino Transferase 17 Units/L (13-39); BUN/Creatinine Ratio 28 (6-26); Bilirubin,Total 0.6 mg/dL (0.3-1.0); Blood Urea Nitrogen 49 mg/dL (8-23); Calcium 9.2 mg/dL (8.6-10.3); Carbon Dioxide 23 mEq/L (23-29); Chloride 102 mEq/L (98-107); Creatine Kinase 63 Units/L (30-223); Globulin 3.8 g/dL (2.4-3.5); Glucose 118 mg/dL (70-105); Osmolality,Calculated 288 (280-300); Potassium 5.1 mEq/L (3.5-5.1); Sodium 132 mEq/L (136-145); eGFR For Non-African Americans 39 (> 60)
[2018-06-18 15:14] LABS: INR 3.3; Prothrombin Time 37.2 Seconds (9.4-12.1)
[2018-06-18 15:16] LABS: Activated Partial Thrombo Time 40.9 Seconds (26.0-36.0)
[2018-06-18 15:19] LABS: Troponin I < 0.03 ng/mL (< 0.04)
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
[2018-06-18] MEDS ORDERED: Naloxone 0.4 MG/ML INJ IVP PRN (18:19)
[2018-06-18] MEDS ORDERED: *HR* OxyCODONE/APAP 10/325 TABLET PO PRN (18:26)
[2018-06-18] MEDS ORDERED: 0.9 % Sodium Chloride 1,000 ML IVC SCH ×2 (18:30→21:00)
[2018-06-18] MEDS ORDERED: *HR* OxyCODONE/APAP 10/325 TABLET PO ONE (19:00)
--- NOTE | 2018-06-18 19:26 | Orthopedic Consult Note ---
Date of Encounter: 06/18/18 Time of Encounter: 19:22 Assessment and Plan (1) Fracture of femoral neck, right Current Visit: Yes Status: Acute I did discuss the diagnosis in detail with the patient as well as Jostin, the power of senior attorney. The patient does have a subcapital impacted right femoral neck fracture. Ordinarily these are treated with percutaneous screw fixation to stabilize the right hip, provide pain control, and to help facilitate nursing care. Jostin, the patient's power of senior attorney did have concerns with the patient surviving the operation and only wantsto proceed if there is a reasonable chance that he will survive the operation itself. I do feel that he will likely be high risk however I feel consultation with anesthesia will assist in making the decision. I will touch base with anesthesia tomorrow morning to further discuss this issue and to more accurately assess the patient' s risk of surgery. Should the patient and power of senior attorney decided to proceed with surgery he will be at risk of injury to veins, arteries, nerves, tendons, ligaments, and bone as well as the risk of malunion, nonunion, hardware failure , avascular necrosis, and the need for prosthetic replacement. Qualifiers: Qualified Code(s): S72.001A - Fracture of unspecified part of neck of right femur, initial encounter for closed fracture History of Present Illness HPI: Mr. Nicholson is a 77 year old male who is currently admitted to the hospitalist. He was to begin hospice today apparently for lung cancer per the power of senior attorney, however per the chart he has thyroid cancer. Nevertheless he had a fall earlier today and sustained a right impacted femoral neck fracture. He is multiply medically comorbid. The patient complains of isolated pain to the right hip and groin. It is worse with any movements and sharp and achy. It is better with rest. No numbness, tingling, or any other associated signs or symptoms. No other modifying factors. Of note he is receiving chronic lower extremity wound care from his shins down for ulcerations and chronic weeping. Past Med Surg Social Fam HX - Past Medical History Medical history: atrial fibrillation, cancer, COPD, coronary artery disease, diabetes, malignancy, thyroid disease, other Additional medical history: lung cancer Psychiatric history: anxiety, depression - Past Surgical History Surgical History: cancer surgery, coronary bypass (CABG) Additional surgical history: Sternal revision, exploratory laparotomy and herniorrhaphy, thyroidectomy - Social History Smoking Status: Current every day smoker Smokeless Tobacco Status: No Alcohol use: none Drug use: none - Family History Mother Living Status: Hx Family Cardiac Disorders: Yes Medications and Allergies Omeprazole [PriLOSEC] 20 mg PO DAILY 07/07/15 [History] Potassium Chloride 10 meq PO BID 07/07/15 [History] Metoprolol [Lopressor] 25 mg PO BID 07/10/15 [History] Citalopram [CeleXA] 20 mg PO DAILY #30 tablet 12/13/15 [Rx] Lubiprostone [Amitiza] 24 mcg PO BID #60 capsule 12/13/15 [Rx] Insulin Glargine,Hum.rec.anlog [Lantus Solostar] 10 unit SQ QPM 12/06/16 [ History] Megestrol Acetate [Megace] 200 mg PO BID 04/08/17 [History] Albuterol Sulfate [Ventolin Hfa] 2 puff IH Q6H PRN 04/01/18 [History] Furosemide [Lasix] 40 mg PO DAILY 04/28/18 [History] Levothyroxine [Synthroid] 150 mcg PO DAILY 04/28/18 [History] Tiotropium [Spiriva] 1 puff IH DAILY 04/28/18 [History] Aspirin Enteric Coated [Aspirin EC] 81 mg PO DAILY tablet. 05/01/18 [Rx] Oxycodone HCl/Acetaminophen [Percocet 10-325 mg Tablet] 1 - 2 each PO Q4H PRN 2 Days #28 tablet 05/01/18 [Rx] Silver Sulfadiazine [Silvadene] 1 appl TP DAILY #1 tub 05/11/18 [Rx] Fluticasone/Salmeterol [Advair 250-50 Diskus] 1 puff IH BID 05/27/18 [History] Warfarin [Coumadin] 4 mg PO DAILY 06/18/18 [History] 3 Allergy/AdvReac Type Severity Reaction Status Date / Time cephalexin [From Keflex] Allergy Mild unknown Verified 05/27/18 21:38 levofloxacin [From Levaquin] AdvReac Mild unknown Verified 05/27/18 21:38 clindamycin [From Cleocin] AdvReac See Verified 05/27/18 21:38 Comments All Systems Reviewed: Constitutional and musculoskeletal systems were reviewed and are negative unless otherwise stated in history of present illness. Physical Exam - Constitutional Vitals: Temp Pulse Resp BP Pulse Ox 98.2 F 99 16 111/74 94 06/18/18 18:02 06/18/18 18:02 06/18/18 18:02 06/18/18 18:02 06/18/18 18:02 Constitutional -Vitals reviewed -The patient is well developed and well nourished. -Mood is pleasant. -The patient is well groomed. Psychiatric -The patient is fully alert and oriented x 3. Respiratory: -Respiratory effort normal Abdomen: -Soft abdomen -Non tender -Non distended: Left upper extremity: -No deformities. The overlying skin is intact. No obvious signs of acute trauma. -No tenderness to palpation throughout. -No significant pain with passive motion of the shoulder, elbow, wrist, and fingers within the limits of the bed. -Able to make an "OK" sign, cross the index and long fingers, and extend the thumb. -Sensation grossly intact to light touch throughout the median, radial, and ulnar distributions. -Radial pulse is present; Fingers have good capillary refill. Right upper extremity: -No deformities. Superficial 4 cm abrasion to the right lateral elbow. -Mild tenderness to palpation over the lateral elbow. -No significant pain with passive motion of the shoulder, elbow, wrist, and fingers within the limits of the bed. -Able to make an "OK" sign, cross the index and long fingers, and extend the thumb. -Sensation grossly intact to light touch throughout the median, radial, and ulnar distributions. -Radial pulse is present; Fingers have good capillary refill. Left lower extremity: -No deformities. Significant weeping of chronic ulcerations to the foot and lee areas. No obvious signs of acute trauma. -No tenderness to palpation throughout. -No pain with passive motion of the hip, knee, ankle, and toes within the limits of the bed. -No pain with axial loading of the thigh. -Able to dorsiflex and plantarflex the ankle and toes. -Sensation is grossly intact to light touch throughout the sural, saphenous, superficial peroneal, and deep peroneal distributions. -Toes have sluggish capillary refill. Right lower extremity: -No deformities. Significant weeping of chronic ulcerations to the foot and lee areas. No obvious signs of acute trauma. -Tenderness in the right groin and significant groin pain with any movement of the right hip. -No pain with passive motion of the ankle, and toes within the limits of the bed. -Able to dorsiflex and plantarflex the ankle and toes. -Sensation is grossly intact to light touch throughout the sural, saphenous, superficial peroneal, and deep peroneal distributions. -Toes have sluggish capillary refill. I did review the x-ray of the right hip as well as the CT scan which does show an impacted femoral neck fracture on the right. Otherwise orthopedic x-rays were negative for fracture. Results - Labs Result Diagrams: 06/18/18 14:37 06/18/18 14:37 Labs: Abnormal lab results WBC 14.9 K/mcL (4.3-11.1) H 06/18/18 14:37 RBC 3.94 M/mcL (4.19-5.50) L 06/18/18 14:37 Hgb 11.7 g/dL (12.9-16.9) L 06/18/18 14:37 Hct 36.9 % (37.5-50.1) L 06/18/18 14:37 RDW 18.0 % (11.5-14.5) H 06/18/18 14:37 Plt Count 409 K/mcL (140-400) H 06/18/18 14:37 MPV 9.2 fL (9.4-12.4) L 06/18/18 14:37 Neutrophils # 13.1 K/mcL (1.6-8.9) H 06/18/18 14:37 PT 37.2 Seconds (9.4-12.1) H 06/18/18 14:37 APTT 40.9 Seconds (26.0-36.0) H 06/18/18 14:37 Sodium 132 mEq/L (136-145) L 06/18/18 14:37 BUN 49 mg/dL (8-23) H 06/18/18 14:37 Creatinine 1.72 mg/dL (0.70-1.30) H 06/18/18 14:37 Est GFR ( Amer) 47 (> 60) L 06/18/18 14:37 Est GFR (Non-Af Amer) 39 (> 60) L 06/18/18 14:37 BUN/Creatinine Ratio 28 (6-26) H 06/18/18 14:37 Glucose 118 mg/dL (70-105) H 06/18/18 14:37 Albumin 3.2 g/dL (3.5-5.7) L 06/18/18 14:37 Globulin 3.8 g/dL (2.4-3.5) H 06/18/18 14:37 Albumin/Globulin Ratio 0.8 (1.1-2.2) L 06/18/18 14:37 All other labs normal. Consult Discharge Plan - Plan Referrals: Avery Woods DO [Primary Care Provider] -
--- NOTE | 2018-06-18 20:47 | Internal Med History&Physical ---
Date of Encounter: 06/19/18 Time of Encounter: 20:30 Internal Medicine - H&P: HPI Chief complaint: Fell and had a femoral neck fracture and rib fracture History of present illness: Mr. Nicholson is a 77 year old male with pmh of throat cancer on hospice, atrial fibrillation, COPD, diabetes presenting with complaints of fall. Patient says he went outside and came back to the living room and fell. Says he was on the ground for about 6 hours. He was found by his daughter who called EMS and brought him to the hospital. He was noted to have low oxygne sats in the mid 80s en route to the hospital and he was placed on 2L nasal cannula. patient says he fell on his right side and has an elbow abrasion. In the ER, CXR showed a non displaced acute right 7th rib fracture and hip CT also showed mildly impacted rigth femoral neck fracture. Chest CT also showed features of chronic recurrent aspiration. patient admits to coughing , denies any fevers or chills or any other acute symptoms Past Med Surg Social Fam HX - Past Medical History Medical history: atrial fibrillation, cancer, COPD, coronary artery disease, diabetes, malignancy, thyroid disease, other Additional medical history: lung cancer Psychiatric history: anxiety, depression - Past Surgical History Surgical History: cancer surgery, coronary bypass (CABG) Additional surgical history: Sternal revision, exploratory laparotomy and herniorrhaphy, thyroidectomy - Social History Smoking Status: Current every day smoker Smokeless Tobacco Status: No Alcohol use: none Drug use: none - Family History Mother Living Status: Hx Family Cardiac Disorders: Yes Internal Medicine - H&P: Meds Omeprazole [PriLOSEC] 20 mg PO DAILY 07/07/15 [History] Potassium Chloride 10 meq PO BID 07/07/15 [History] Metoprolol [Lopressor] 25 mg PO BID 07/10/15 [History] Citalopram [CeleXA] 20 mg PO DAILY #30 tablet 12/13/15 [Rx] Lubiprostone [Amitiza] 24 mcg PO BID #60 capsule 12/13/15 [Rx] Insulin Glargine,Hum.rec.anlog [Lantus Solostar] 10 unit SQ QPM 12/06/16 [ History] Megestrol Acetate [Megace] 200 mg PO BID 04/08/17 [History] Albuterol Sulfate [Ventolin Hfa] 2 puff IH Q6H PRN 04/01/18 [History] Furosemide [Lasix] 40 mg PO DAILY 04/28/18 [History] Levothyroxine [Synthroid] 150 mcg PO DAILY 04/28/18 [History] Tiotropium [Spiriva] 1 puff IH DAILY 04/28/18 [History] Aspirin Enteric Coated [Aspirin EC] 81 mg PO DAILY tablet. 05/01/18 [Rx] Oxycodone HCl/Acetaminophen [Percocet 10-325 mg Tablet] 1 - 2 each PO Q4H PRN 2 Days #28 tablet 05/01/18 [Rx] Silver Sulfadiazine [Silvadene] 1 appl TP DAILY #1 tub 05/11/18 [Rx] Fluticasone/Salmeterol [Advair 250-50 Diskus] 1 puff IH BID 05/27/18 [History] Warfarin [Coumadin] 4 mg PO DAILY 06/18/18 [History] 3 Allergy/AdvReac Type Severity Reaction Status Date / Time cephalexin [From Keflex] Allergy Mild unknown Verified 05/27/18 21:38 levofloxacin [From Levaquin] AdvReac Mild unknown Verified 05/27/18 21:38 clindamycin [From Cleocin] AdvReac See Verified 05/27/18 21:38 Comments All Systems PM: A 10-system review of systems was performed and is negative for pertinent findings except as documented above in the HPI. - Constitutional Constitutional: no chills, no fever(s), no night sweats - EENT Eyes: no change in vision, no discharge, no pain, no photophobia Ears: no ear discharge, no ear pain, no tinnitus Nose, mouth and throat: no dysphagia, no nasal discharge, no neck pain, no sore throat - Cardiovascular Cardiovascular ROS IM: no chest pain, no diaphoresis, no dyspnea, no lightheadedness, no palpitations, no syncope - Respiratory Respiratory: no cough, no dyspnea, no wheezing, no excessive phlegm production - Gastrointestinal Gastrointestinal: no abdominal pain, no diarrhea, no hematemesis, no hematochezia, no melena, no nausea, no vomiting - Musculoskeletal Musculoskeletal ROS IM: back pain, no numbness, no tingling Additional comments: generalized soreness - Integumentary Integumentary IM: no rash, no unusual bruising - Neurological Neurological ROS: no confusion, no convulsions, no focal weakness, no numbness, no tingling, no tremor(s) - Hematologic/Lymphatic Hematologic/Lymphatic: no easy bruising - Constitutional Vitals: Temp Pulse Resp BP Pulse Ox 98.2 F 99 16 111/74 94 06/18/18 18:02 06/18/18 18:02 06/18/18 18:02 06/18/18 18:02 06/18/18 18:02 General appearance: Present: cachectic - Head Head exam: Present: atraumatic, normocephalic - Cardiovascular Cardiovascular exam: Present: RRR, +S1, +S2. Absent: diastolic murmur, gallop, rubs, systolic murmur - Extremities Exam Extremities exam: Present: warm, radial pulses palpable and symmetrical. Absent : calf tenderness, cyanotic, pedal edema - Neurological Exam Neurological exam: Present: CN II-XII intact, oriented X3, no focal deficits. Absent: pronater drift, facial droop, speech deficit Internal Med - H&P Results - Labs CBC & Chem 7: 06/19/18 01:26 06/19/18 01:26 - Assessment and plan (1) Acute respiratory failure with hypoxia Current Visit: Yes Status: Acute Assessment and plan: likely 2/2 to aspiration pneumonia, continue abx (2) Aspiration pneumonia Current Visit: Yes Status: Acute Assessment and plan: Start on aztreonam and metronidazole as patient is allergic to levaquin and ceohalexin. Obtain blood cultures Qualifiers: Aspiration pneumonia type: unspecified Laterality: right Lung location: lower lobe of lung Qualified Code(s): J69.0 - Pneumonitis due to inhalation of food and vomit (3) Sepsis Current Visit: Yes Status: Suspected Assessment and plan: Likely 2/2 to pneumonia. On aztreonam and flagyl Qualifiers: Sepsis type: sepsis due to unspecified organism Qualified Code(s): A41.9 - Sepsis, unspecified organism (4) Fracture of femoral neck, right Current Visit: Yes Status: Acute Assessment and plan: Orthopedic surgery consulted. NPO from midnight Qualifiers: Encounter type: initial encounter Fracture type: closed Qualified Code(s) : S72.001A - Fracture of unspecified part of neck of right femur, initial encounter for closed fracture (5) Rib fracture Current Visit: Yes Status: Acute Assessment and plan: s/p fall.PAin control as needed.Orthopedic surgery following Qualifiers: Qualified Code(s): S22.39XA - Fracture of one rib, unspecified side, initial encounter for closed fracture (6) Acute kidney injury Current Visit: Yes Status: Acute Assessment and plan: [place] likely 2/2 to dehydration. Will hydrate gently. Hold lasix (7) Diabetes mellitus Current Visit: Yes Status: Acute Assessment and plan: Continue insulin. Monitor fingersticks Qualifiers: Qualified Code(s): E11.9 - Type 2 diabetes mellitus without complications (8) Atrial fibrillation Current Visit: Yes Status: Acute Assessment and plan: Hold coumadin tonight 2/2 to INR of 3.3 and being on flagyl Qualifiers: Qualified Code(s): I48.91 - Unspecified atrial fibrillation (9) DVT prophylaxis Current Visit: Yes Status: Acute Assessment and plan: on coumadin - Time Spent With Patient Total time spent is greater than 50% in coordination of care (as documented) at patient's floor/unit and/or counseling patient:
[2018-06-18] MEDS ORDERED: Megestrol Acetate 400 MG/10 ML UDC PO SCH (21:00)
[2018-06-18] MEDS ORDERED: (Lubiprostone [Amitiza] 24 MCG) PO SCH (21:00)
[2018-06-19] MEDS ORDERED: MetroNIDAZOLE 500 MG/100 ML 500 MG/100 ML BAG IVPB SCH
[2018-06-19] MEDS ORDERED: *HR* OxyCODONE/APAP 10/325 TABLET ONE ×2 (01:02→06:06)
[2018-06-19] MEDS ORDERED: *HR* Warfarin 4 MG TABLET PO SCH (09:00)
[2018-06-19] MEDS ORDERED: Furosemide 40 MG TABLET PO SCH (09:00)
[2018-06-19] MEDS ORDERED: Silver Sulfadiazine 50 GM TUBE TP SCH (09:00)
[2018-06-19] MEDS ORDERED: Aspirin Enteric Coated 81 MG Tablet PO SCH (09:00)
[2018-06-19] MEDS ORDERED: Tiotropium 18 MCG inhalation IH SCH (09:00)
[2018-06-19 10:27] LABS: Basophils % 0.3 %; Eosinophils % 0.3 %; Hematocrit 36.4 % (37.5-50.1); Hemoglobin 11.2 g/dL (12.9-16.9); Immature Granulocytes % 1.7 % (0-4); Immature Platelets 1.8 % (1.1-6.1); Lymphocytes # 0.5 K/mcL (0.6-4.6); Lymphocytes % 4.5 %; Mean Corpuscular HGB Conc 30.8 g/dL (31.6-35.5); Mean Corpuscular Hemoglobin 29.7 pg (28.0-33.3); Mean Corpuscular Volume 96.6 fL (83.0-100.0); Mean Platelet Volume 9.1 fL (9.4-12.4); Monocytes % 8.5 %; Neutrophils # 9.8 K/mcL (1.6-8.9); Platelet Count 435 K/mcL (140-400); Red Blood Count 3.77 M/mcL (4.19-5.50); Red Cell Distribution Width 18.1 % (11.5-14.5); Segmented Neutrophils % 84.7 %
[2018-06-19 10:54] LABS: Calcium 8.9 mg/dL (8.6-10.3); Magnesium 2.2 mg/dL (1.6-2.6); Phosphorous 3.9 mg/dL (2.7-4.5); Potassium 4.7 mEq/L (3.5-5.1)
--- NOTE | 2018-06-19 11:22 | Internal Med Progress Note ---
Date of Encounter: 06/19/18 Time of Encounter: 09:00 - Assessment and plan (1) Fracture of femoral neck, right Current Visit: Yes Status: Acute Assessment and plan: Fracture of L. femoral neck. Plan for surgery today by Orthopedic surgery. Patient is high risk surgical patient given history of thyroid cancer, epiglottis lesion s/p radiation, COPD, active smoking, CAD s/p CABG in 2008, newly diagnosed lung cancer, Afib and advanced age. Discussed at extensive length with family at bedside and anesthesia. Understands that there is high risk of cardiac and or pulmonary complications from surgery, may need prolong intubation. Given the time line of the previous CABG, would prefer to have patient undergo more extensive evaluation but difficult to do give patient's comorbidity and newly diagnosed lung cancer. Family understands all the risks and agree to proceed with surgery. Would prefer local or other form of anesthesia over general, however patient is on warfarin and INR yesterday was 3.3, pending today's bloodwork. Discussed with family and anesthesia at length at bedside. Qualifiers: Encounter type: initial encounter Fracture type: closed Qualified Code(s) : S72.001A - Fracture of unspecified part of neck of right femur, initial encounter for closed fracture (2) Sepsis Current Visit: Yes Status: Suspected Assessment and plan: Likely 2/2 to pneumonia. On aztreonam and flagyl Qualifiers: Sepsis type: sepsis due to unspecified organism Qualified Code(s): A41.9 - Sepsis, unspecified organism (3) Acute kidney injury Current Visit: Yes Status: Acute Assessment and plan: [place] likely 2/2 to dehydration. Will hydrate gently. Hold lasix (4) Aspiration pneumonia Current Visit: Yes Status: Acute Assessment and plan: On aztreonam and metronidazole as patient is allergic to levaquin and cephalexin. f/u blood cultures Qualifiers: Aspiration pneumonia type: unspecified Laterality: right Lung location: lower lobe of lung Qualified Code(s): J69.0 - Pneumonitis due to inhalation of food and vomit (5) Rib fracture Current Visit: Yes Status: Acute Assessment and plan: s/p fall.Pain control as needed. Orthopedic surgery following Qualifiers: Qualified Code(s): S22.39XA - Fracture of one rib, unspecified side, initial encounter for closed fracture (6) Diabetes mellitus Current Visit: Yes Status: Acute Assessment and plan: Continue insulin. Monitor fingersticks Qualifiers: Qualified Code(s): E11.9 - Type 2 diabetes mellitus without complications (7) Atrial fibrillation Current Visit: Yes Status: Acute Assessment and plan: Hold warfarin for now. last INR 3.3 f/u today's INR. Resume once therapeutic. Warfarin per pharmacy's management. Qualifiers: Qualified Code(s): I48.91 - Unspecified atrial fibrillation (8) CAD (coronary artery disease) of artery bypass graft Current Visit: No Status: Acute Assessment and plan: CAD s/p CABG in 2008. c/w home medications Qualifiers: [place] vs. transplanted heart: [place] heart Associated angina: without angina Qualified Code(s): I25.810 - Atherosclerosis of coronary artery bypass graft(s) without angina pectoris (9) COPD (chronic obstructive pulmonary disease) Current Visit: No Status: Acute Assessment and plan: Not noted to be in exacerbation. Duonebs and oxygen supplements as needed. Qualifiers: COPD type: unspecified COPD Qualified Code(s): J44.9 - Chronic obstructive pulmonary disease, unspecified (10) Lung cancer Current Visit: Yes Status: Acute Assessment and plan: Recently diagnosed lung cancer, follows up outpatient. In process of looking into palliative care/hospice. have not officially signed. Qualifiers: Laterality: unspecified laterality Qualified Code(s): C34.90 - Malignant neoplasm of unspecified part of unspecified bronchus or lung - Time Spent With Patient Total time spent is greater than 50% in coordination of care (as documented) at patient's floor/unit and/or counseling patient: - Subjective Interval history: Patient responsive but lethargic and moans in attempts to answer questions - Constitutional Vitals: Temp Pulse Resp BP Pulse Ox 98.4 F 58 16 112/67 94 06/18/18 23:12 06/18/18 23:12 06/18/18 23:12 06/18/18 23:12 06/18/18 23:12 General: Responsive but lethargic, mumbles in response. Elderly and frail. Skin: b/l LE chronic skin lesions/discoloration. HEENT: EOMI, pupils equal, round and reactive. Cardiovascular: Regular rate. No murmurs appreciated. Lungs:Normal breath sounds, no wheezes or crackles. Abdomen:Soft, non-tender, no rigidity. Extremities:No obvious deformity Neurological: lethargic, unable to perform full neurological exam. General appearance: Present: cachectic Internal Medicine: Result - Labs CBC & Chem 7: 06/19/18 01:26 06/19/18 01:26 Labs: Short CBC 06/19/18 Range/Units 01:26 WBC 11.5 H (4.3-11.1) K/mcL Hgb 11.2 L (12.9-16.9) g/dL Hct 36.4 L (37.5-50.1) % Plt Count 435 H (140-400) K/mcL Neutrophils # 9.8 H (1.6-8.9) K/mcL BMP 06/19/18 01:26 Sodium 135 L Potassium 4.7 Chloride 103 Carbon Dioxide 22 L BUN 51 H Creatinine 1.71 H Glucose 86 Calcium 8.9 - ABG Interpretation ABG results: PT/INR, D-dimer PT 37.2 Seconds (9.4-12.1) H 06/18/18 14:37 Consult Discharge Plan - Plan Referrals: Avery Woods DO [Primary Care Provider] -
--- NOTE | 2018-06-19 11:48 | Anesthesia Evaluation PreOp ---
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 Any Significant HX Other Medical History: Renal (SCOTT), Thyroid (thyroid cancer s/p thyroidectomy 2013), Other (epiglottis cancer s/p XRT 2013, diabetic leg ulcers nonhealing) Anesthesia History: No Prior Anesthetic Complications, Past Anesthesia ( thyroidectomy, CABG, ex lap) Alcohol Use: none Drug use: none Medications and Allergies Omeprazole [PriLOSEC] 20 mg PO DAILY 07/07/15 [History] Potassium Chloride 10 meq PO BID 07/07/15 [History] Metoprolol [Lopressor] 25 mg PO BID 07/10/15 [History] Citalopram [CeleXA] 20 mg PO DAILY #30 tablet 12/13/15 [Rx] Lubiprostone [Amitiza] 24 mcg PO BID #60 capsule 12/13/15 [Rx] Insulin Glargine,Hum.rec.anlog [Lantus Solostar] 10 unit SQ QPM 12/06/16 [ History] Megestrol Acetate [Megace] 200 mg PO BID 04/08/17 [History] Albuterol Sulfate [Ventolin Hfa] 2 puff IH Q6H PRN 04/01/18 [History] Furosemide [Lasix] 40 mg PO DAILY 04/28/18 [History] Levothyroxine [Synthroid] 150 mcg PO DAILY 04/28/18 [History] Tiotropium [Spiriva] 1 puff IH DAILY 04/28/18 [History] Aspirin Enteric Coated [Aspirin EC] 81 mg PO DAILY tablet. 05/01/18 [Rx] Oxycodone HCl/Acetaminophen [Percocet 10-325 mg Tablet] 1 - 2 each PO Q4H PRN 2 Days #28 tablet 05/01/18 [Rx] Silver Sulfadiazine [Silvadene] 1 appl TP DAILY #1 tub 05/11/18 [Rx] Fluticasone/Salmeterol [Advair 250-50 Diskus] 1 puff IH BID 05/27/18 [History] Warfarin [Coumadin] 4 mg PO DAILY 06/18/18 [History] 3 Allergy/AdvReac Type Severity Reaction Status Date / Time cephalexin [From Keflex] Allergy Mild unknown Verified 05/27/18 21:38 levofloxacin [From Levaquin] AdvReac Mild unknown Verified 05/27/18 21:38 clindamycin [From Cleocin] AdvReac See Verified 05/27/18 21:38 Comments - Meds/Allergy Pre-op Review Medications Reviewed: Yes Allergies Reviewed: Yes Beta Blockers on Current Med List: Yes If Beta Blockers taken, Date/Time (Last Dose taken): today approx. 1100 Anesthesia Results - Labs 06/19/18 01:26 06/19/18 01:26 Laboratory Tests 06/18/18 14:37 PT 37.2 H INR 3.3 APTT 40.9 H - Imaging EKG: report reviewed (SINUS RHYTHM WITH FIRST DEGREE AV BLOCK WITH OCCASIONAL VENTRICULAR PREMATURE COMPLEXES MINIMAL ST DEPRESSION) Anesthesia Exam Selected Entries 06/18/18 23:12 Temperature 98.4 F Pulse Rate 58 Respiratory Rate 16 Blood Pressure 112/67 O2 Sat by Pulse Oximetry 94 Oxygen Delivery Method Room Air Weight: 77kg NPO (# of Hours): 8 - HEENT Pupil (Motor): EOMI Mallampati: III Teeth: Missing, Poor dentition Oral Opening: Greater than 3 - WIRE WEAVER HELPER LOC: Oriented WIRE WEAVER HELPER Motor: Normal RUE, Normal LUE, Normal RLE, Normal LLE, Normal Face WIRE WEAVER HELPER Sensory: Normal: RUE, LUE, RLE, LLE, Face - Cardiac Rhythm: Regular Murmur: None - Pulmonary Breath Sounds: bilateral Rhonchi Respiratory Effort: Symmetrical Anesthesia Assess/Plan ASA Score: 4 Modified Jorge Scale for Level of Consciousness: Cooperative, oriented, and tranquil Anesthetic Plan: Regional Monitoring Plan: Standard Monitors Recovery Plan: PACU (long idiscussion with (POA) regarding high risk of anesthesia. Spinal would be first choice due to respiratory status and XRT to neck. Currently INR elevated, will order FFP and recheck PTT after. Need to correct INR to less than 1.5. agrees to proceed)
--- NOTE | 2018-06-19 11:55 | Electrocardiograph Report ---
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
[2018-06-19] MEDS ORDERED: 0.9 % Sodium Chloride 250 ML ONE (14:42)
[2018-06-19] MEDS: Budesonide/Formoterol 80/4.5 MDI IH SCH ×2 (15:36→22:14)
[2018-06-19] MEDS ORDERED: Lidocaine -MPF 4% 5 ML AMPUL ONE ×2 (16:23→17:23)
[2018-06-19] MEDS ORDERED: Dexamethasone 4 MG/ML VIAL ONE ×3 (16:31→18:31)
[2018-06-19] MEDS ORDERED: Lidocaine -MPF 2% 2 ML VIAL ONE (16:31)
[2018-06-19] MEDS ORDERED: *HR* PHENYLEPHRINE 1,000 MCG/10 ML SYRINGE IVP ONE ×2 (16:31→17:44)
[2018-06-19] MEDS ORDERED: Ondansetron 4 MG/2 ML VIAL ONE ×2 (16:31→19:00)
[2018-06-19] MEDS ORDERED: *HR* FentaNYL (PF) 100 MCG/2 ML VIAL ONE (16:31)
[2018-06-19] MEDS ORDERED: *HR* Propofol 200 MG/20 ML VIAL IVP ONE (16:31)
[2018-06-19] MEDS ORDERED: *HR* Midazolam HCl 2 MG/2 ML VIAL ONE (16:31)
[2018-06-19] MEDS ORDERED: Acetaminophen IV 1,000 MG/100 ML INFUS..BTL ONE (16:39)
[2018-06-19 16:45] LABS: INR 2.7; Prothrombin Time 30.4 Seconds (9.4-12.1)
[2018-06-19] MEDS ORDERED: KETAMINE HCL 50 MG/ML SYRINGE IV ONE (17:08)
[2018-06-19] MEDS ORDERED: Lidocaine -MPF 1% 5 ML AMPUL ONE (17:25)
[2018-06-19] MEDS ORDERED: Insulin DETEMIR 100 UNIT/ML X5UNITS SQ SCH (18:00)
[2018-06-19] MEDS ORDERED: Vancomycin 1,000 MG VIAL ONE ×2 (18:16→18:17)
[2018-06-19 18:18] LABS: INR 3.7; Prothrombin Time 41.9 Seconds (9.4-12.1)
[2018-06-19 18:24] LABS: Basophils % 0.4 %; Eosinophils # 0.1 K/mcL (0.0-0.6); Eosinophils % 0.5 %; Hematocrit 36.2 % (37.5-50.1); Hemoglobin 11.5 g/dL (12.9-16.9); Immature Granulocytes % 1.1 % (0-4); Immature Platelets 1.3 % (1.1-6.1); Lymphocytes # 0.6 K/mcL (0.6-4.6); Lymphocytes % 5.2 %; Mean Corpuscular HGB Conc 31.8 g/dL (31.6-35.5); Mean Corpuscular Hemoglobin 30.4 pg (28.0-33.3); Mean Corpuscular Volume 95.8 fL (83.0-100.0); Mean Platelet Volume 9.1 fL (9.4-12.4); Monocytes # 0.9 K/mcL (0.0-1.3); Monocytes % 8.3 %; Neutrophils # 9.4 K/mcL (1.6-8.9); Platelet Count 392 K/mcL (140-400); Red Blood Count 3.78 M/mcL (4.19-5.50); Red Cell Distribution Width 17.9 % (11.5-14.5); Segmented Neutrophils % 84.5 %
[2018-06-19] MEDS ORDERED: Piperacillin/Tazobactam 3.375 GM in 0.9 % Sodium Chloride Mini Bag 100 ML IVPB SCH ×2 (18:25)
[2018-06-19 18:26] LABS: Calcium 8.6 mg/dL (8.6-10.3)
[2018-06-19] MEDS ORDERED: Aztreonam 1,000 MG in Water for inj. (sterile) 20 ML 10 ML IVP SCH (18:29)
[2018-06-19] MEDS ORDERED: Ondansetron 4 MG/2 ML VIAL IVP PRN (18:59)
[2018-06-19] MEDS: *HR* Morphine 2 MG/ML SYRINGE IVP PRN ×2 (19:01→19:11)
--- NOTE | 2018-06-19 19:03 | Orthopedic Operative Note ---
Date of procedure: 06/19/18 Procedure: OPERATIVE REPORT DATE OF PROCEDURE: 06/19/2018 SURGEON: Sha Raya MD CHICKEN FANCIER(S): There are no assistants PREOPERATIVE DIAGNOSIS: Right subcapital femoral neck fracture POSTOPERATIVE DIAGNOSIS: Same PROCEDURE: Percutaneous screw fixation of the right femoral neck ANESTHESIA: General anesthesia PREOPERATIVE ANTIBIOTICS: Vancomycin, 1250 milligrams ESTIMATED BLOOD LOSS: 15 milliliters IMPLANTS: Synthes 7.3 mm partially threaded cancellus screws PREOPERATIVE NOTE AND INDICATIONS: This patient is a 77-year-old male who is terminally ill due to cancer of the lung. He did have a right femoral neck fracture after a fall. Treatment options were discussed with the power of energy attorney and in order to provide pain control he wished to proceed with the above procedure. The surgical plan was discussed with the patient and power of energy attorney. The risks, benefits, alternatives, and potential complications of this procedure were discussed with the patient including injury to veins, arteries, nerves, tendons, ligaments, and bone. Also discussed were the risks of infection, bleeding, pain, blood clots, the possible need for a blood transfusion, the possible need for further procedures, heart attack, stroke, and . Additional risks include persistent symptoms despite surgery as well as nonunion , malunion, avascular necrosis, and hardware protrusion. All of this was explained in simple terms, and the patient verbalized understanding and wished to proceed. Consent was given to proceed with surgery. PROCEDURE: The patient was seen in the preoperative holding area where the identify and the consent were confirmed. The right hip was marked. Final questions were answered. The patient was brought back to the operating room. A huddle was performed with the patient and all vital surgical team members confirming patient identity, the correct procedure, and the correct operative site. General anesthesia was administered. The patient was placed on the fracture table and the extremities were placed in the boots without traction. The right thigh was prepped and draped in the usual sterile fashion. A surgical time out was performed immediately preceding the incision with all personnel in the operating room to confirm patient identity, the correct operative site and extremity, correct radiographic studies, availability of appropriate surgical equipment, and agreement on the planned procedure. The C-arm was brought in and a small stab incision was made and the guidewire drilled into the femoral head. This was measured, overdrilled, and the definitive screw placed. It was placed in the inferior position. Similarly a second stab incision was made and a guidewire drilled into the femoral head. This was measured, overdrilled, and the definitive screw placed. It was placed in the superior position. Both screws had good purchase. X-rays confirmed good position. The wounds were copiously irrigated and the incisions closed each with a single 3-0 Vicryl stitch followed by tova. He was taken off the traction table and placed on his regular bed in good condition. The instrument, sponge, and needle counts were correct after wound closure. POST OPERATIVE PLAN: Weight Bearing: Weightbearing as tolerated to the bilateral lower extremities. DVT Prophylaxis: He will go back on his Coumadin Activity: Avoid aggressive activities Wound Care: Daily dressing changes on postoperative day 2. Pain Control: Per the hospitalist Perioperative antibiotic prophylaxis: 24 hours coverage of vancomycin given his allergies. Social work for discharge planning Follow Up: 2 weeks Was there an catering administrative assistant present: No Estimated blood loss (cc): 1
--- NOTE | 2018-06-19 19:36 | Anesthesia Evaluation Post Op ---
Date of Encounter: 06/19/18 Time of Encounter: 19:34 - Vital Signs Vital Signs: Vital Signs/O2 Sat, Most Current Temp Pulse Resp BP Pulse Ox 97.8 F 82 18 103/68 99 06/19/18 19:17 06/19/18 19:17 06/19/18 19:17 06/19/18 19:17 06/19/18 19:17 - Lungs Lungs: Rhonchi - Airway Airway: Non-obstructed - Cardiovascular Regular Rate - Mental Status Mental Status: Asleep with brisk response to light stimulation - Nausea Vomiting Nausea Vomiting: Not Present - Hydration Hydration: NPO, Has not voided - Discharge PostOp Status: Transfer Patient to floor (patient reports pain is better than prior to surgery)
[2018-06-19] MEDS ORDERED: Vancomycin 1,000 MG VIAL IVPB ONE (20:36)
[2018-06-19] MEDS ORDERED: Naloxone 0.4 MG/ML INJ IVP PRN (20:36)
[2018-06-19] MEDS: Megestrol Acetate 400 MG/10 ML UDC PO SCH (22:00)
[2018-06-19] MEDS: 0.9 % Sodium Chloride 1,000 ML IVC SCH (22:01)
[2018-06-19] MEDS: Lubiprostone [Amitiza] 24 MCG PO SCH (22:01)
[2018-06-19] MEDS: Aztreonam 1,000 MG in Water for inj. (sterile) 20 ML 10 ML IVP SCH (23:20)
[2018-06-19] MEDS: MetroNIDAZOLE 500 MG/100 ML 500 MG/100 ML BAG IVPB SCH (23:21)
[2018-06-20 01:57] LABS: Basophils % 0.1 %; Hematocrit 30.2 % (37.5-50.1); Immature Granulocytes % 0.7 % (0-4); Lymphocytes # 0.3 K/mcL (0.6-4.6); Lymphocytes % 2.9 %; Mean Corpuscular HGB Conc 31.8 g/dL (31.6-35.5); Mean Corpuscular Hemoglobin 29.7 pg (28.0-33.3); Mean Corpuscular Volume 93.5 fL (83.0-100.0); Monocytes # 0.1 K/mcL (0.0-1.3); Monocytes % 1.5 %; Neutrophils # 8.6 K/mcL (1.6-8.9); Platelet Count 326 K/mcL (140-400); Red Blood Count 3.23 M/mcL (4.19-5.50); Red Cell Distribution Width 17.9 % (11.5-14.5); Segmented Neutrophils % 94.8 %
[2018-06-20 02:00] LABS: Hemoglobin 9.6 g/dL (12.9-16.9)
[2018-06-20 02:16] LABS: Alanine Aminotransferase 10 Units/L (7-52); Albumin 2.6 g/dL (3.5-5.7); Albumin/Globulin Ratio 0.9 (1.1-2.2); Alkaline Phosphatase 48 Units/L (34-104); Aspartate Amino Transferase 10 Units/L (13-39); BUN/Creatinine Ratio 34 (6-26); Bilirubin,Total 0.4 mg/dL (0.3-1.0); Blood Urea Nitrogen 38 mg/dL (8-23); Calcium 8.3 mg/dL (8.6-10.3); Carbon Dioxide 20 mEq/L (23-29); Chloride 107 mEq/L (98-107); Glucose 95 mg/dL (70-105); Osmolality,Calculated 293 (280-300); Potassium 4.6 mEq/L (3.5-5.1); Sodium 137 mEq/L (136-145); Total Protein 5.6 g/dL (6.4-8.9); Vancomycin,Random 10 mcg/mL; eGFR For Non-African Americans > 60 (> 60)
[2018-06-20 04:16] LABS: Bilirubin,Urine Small (Negative); Blood,Urine Trace (Negative); Clarity,Urine Clear (Clear); Color,Urine Yellow (Yellow); Glucose,Urine (UA) Normal (Normal); Ketones,Urine 15 mg/dL (Negative); Leukocyte Esterase,Urine Small (Negative); Nitrite,Urine Negative (Negative); PH,Urine 5.5 pH Units (5.0-8.0); Protein,Urine Trace mg/dL (Neg-Trace); Specific Gravity,Urine 1.028 (1.010-1.025); Urobilinogen,Urine Normal (Normal)
[2018-06-20 04:18] LABS: Bacteria,Urine None Seen per hpf (None-Few); Hyaline Casts,Urine Few per lpf (None-Few); Squamous Epithelial Cell,Urine Moderate per lpf (None-Few)
[2018-06-20 04:29] LABS: Yeast,Urine Few per hpf (None Seen)
[2018-06-20 05:37] LABS: INR 2.6; Prothrombin Time 29.1 Seconds (9.4-12.1)
[2018-06-20] MEDS: Silver Sulfadiazine 50 GM TUBE TP SCH (07:56)
[2018-06-20] MEDS: MetroNIDAZOLE 500 MG/100 ML 500 MG/100 ML BAG IVPB SCH ×3 (08:05→23:59)
[2018-06-20] MEDS: Lubiprostone [Amitiza] 24 MCG PO SCH ×2 (08:06→20:24)
[2018-06-20] MEDS: Aztreonam 1,000 MG in Water for inj. (sterile) 20 ML 10 ML IVP SCH ×3 (08:06→23:59)
[2018-06-20] MEDS: Megestrol Acetate 400 MG/10 ML UDC PO SCH ×2 (08:08→20:02)
[2018-06-20] MEDS: Aspirin Enteric Coated 81 MG Tablet PO SCH (08:08)
[2018-06-20] MEDS: *HR* OxyCODONE/APAP 10/325 TABLET PO PRN ×3 (08:09→21:54)
[2018-06-20] MEDS: Budesonide/Formoterol 80/4.5 MDI IH SCH ×2 (08:16→21:03)
[2018-06-20] MEDS: Tiotropium 18 MCG inhalation IH SCH (08:16)
[2018-06-20] MEDS ORDERED: 0.9 % Sodium Chloride 500 ML IVC ONE (16:06)
--- NOTE | 2018-06-20 17:01 | Internal Med Progress Note ---
Date of Encounter: 06/20/18 Time of Encounter: 09:25 - Assessment and plan (1) Fracture of femoral neck, right Current Visit: Yes Status: Acute Assessment and plan: L. femoral neck fracture s/p repair by orthopedic surgery Deconditioned and frail, will require significant PT and OT. Pain control. Discharge planning Qualifiers: Encounter type: initial encounter Fracture type: closed Qualified Code(s) : S72.001A - Fracture of unspecified part of neck of right femur, initial encounter for closed fracture (2) Sepsis Current Visit: Yes Status: Suspected Assessment and plan: Suspected sepsis 2/2 to pneumonia. Has been afebrile. Possible that leukocytosis may be an inflammatory response. On aztreonam and flagyl. Consider discontinuing if patient is doing well clinically. Blood culture negative to date. Qualifiers: Sepsis type: sepsis due to unspecified organism Qualified Code(s): A41.9 - Sepsis, unspecified organism (3) Acute kidney injury Current Visit: Yes Status: Acute Assessment and plan: SCOTT improving on IVF (4) Aspiration pneumonia Current Visit: Yes Status: Suspected Assessment and plan: Suspected PNA as patient presented with leukocytosis. However has been afebrile. Blood cultures negative to date. On aztreonam and metronidazole as patient is allergic to levaquin and cephalexin. Qualifiers: Aspiration pneumonia type: unspecified Laterality: right Lung location: lower lobe of lung Qualified Code(s): J69.0 - Pneumonitis due to inhalation of food and vomit (5) Rib fracture Current Visit: Yes Status: Acute Assessment and plan: s/p fall.Pain control as needed. Orthopedic surgery following Qualifiers: Qualified Code(s): S22.39XA - Fracture of one rib, unspecified side, initial encounter for closed fracture (6) Diabetes mellitus Current Visit: Yes Status: Acute Assessment and plan: Continue insulin. Monitor fingersticks Qualifiers: Qualified Code(s): E11.9 - Type 2 diabetes mellitus without complications (7) Atrial fibrillation Current Visit: Yes Status: Acute Assessment and plan: Resume Warfarin. last INR 2.6 Warfarin per pharmacy's management. Qualifiers: Qualified Code(s): I48.91 - Unspecified atrial fibrillation (8) CAD (coronary artery disease) of artery bypass graft Current Visit: No Status: Acute Assessment and plan: CAD s/p CABG in 2008. c/w home medications Qualifiers: [place] vs. transplanted heart: [place] heart Associated angina: without angina Qualified Code(s): I25.810 - Atherosclerosis of coronary artery bypass graft(s) without angina pectoris (9) COPD (chronic obstructive pulmonary disease) Current Visit: No Status: Acute Assessment and plan: Not noted to be in exacerbation. Duonebs and oxygen supplements as needed. Qualifiers: COPD type: unspecified COPD Qualified Code(s): J44.9 - Chronic obstructive pulmonary disease, unspecified (10) Lung cancer Current Visit: Yes Status: Acute Assessment and plan: Recently diagnosed lung cancer, follows up outpatient. In process of looking into palliative care/hospice. have not officially signed. Qualifiers: Laterality: unspecified laterality Qualified Code(s): C34.90 - Malignant neoplasm of unspecified part of unspecified bronchus or lung - Time Spent With Patient Total time spent is greater than 50% in coordination of care (as documented) at patient's floor/unit and/or counseling patient: - Subjective Interval history: Patient is weak but much more responsive than yesterday and had no complaints - Constitutional Vitals: Temp Pulse Resp BP Pulse Ox 98.9 F 78 16 81/48 92 06/20/18 15:46 06/20/18 15:46 06/20/18 15:46 06/20/18 15:46 06/20/18 15:46 General: Alert, responsive. Elderly, frail. Skin: b/l LE chronic skin lesions/discoloration. HEENT: EOMI, pupils equal, round and reactive. Cardiovascular: Regular rate. No murmurs appreciated. Lungs:Normal breath sounds, no wheezes or crackles. Abdomen:Soft, non-tender, no rigidity. Extremities:No obvious deformity Neurological: Alert, generalized weakness General appearance: Present: cachectic Internal Medicine: Result - Labs CBC & Chem 7: 06/20/18 01:21 06/20/18 01:21 Labs: Short CBC 06/19/18 06/20/18 Range/Units 10:24 01:21 WBC 11.1 9.1 (4.3-11.1) K/mcL Hgb 11.5 L 9.6 L D (12.9-16.9) g/dL Hct 36.2 L 30.2 L (37.5-50.1) % Plt Count 392 326 (140-400) K/mcL Neutrophils # 9.4 H 8.6 (1.6-8.9) K/mcL BMP 06/19/18 06/20/18 10:24 01:21 Sodium 132 L 137 Potassium 5.0 4.6 Chloride 105 107 Carbon Dioxide 14 L 20 L BUN 49 H 38 H Creatinine 1.65 H 1.12 Glucose 82 95 Calcium 8.6 8.3 L Liver Function 06/20/18 Range/Units 01:21 Total Bilirubin 0.4 (0.3-1.0) mg/dL AST 10 L (13-39) Units/L ALT 10 (7-52) Units/L Alkaline Phosphatase 48 (34-104) Units/L Albumin 2.6 L (3.5-5.7) g/dL Urine 06/20/18 Range/Units 04:00 Urine Color Yellow (Yellow) Urine Clarity Clear (Clear) Urine pH 5.5 (5.0-8.0) pH Units Ur Specific [place] 1.028 H (1.010-1.025) Urine Protein Trace (Neg-Trace) mg/dL Urine Glucose (UA) Normal (Normal) mg/dL - ABG Interpretation ABG results: PT/INR, D-dimer PT 29.1 Seconds (9.4-12.1) H 06/20/18 05:16 - Impressions Impressions Fluoroscopy 06/19/18 17:58 IMPRESSION: Intraprocedural fluoroscopic spot images as above. See separate procedure report for more information. D/ / Yong Gomez MD / Yong Gomez MD Interpreting Provider: Yong Gomez MD Hip X-Ray 06/19/18 17:58 IMPRESSION: Intraprocedural fluoroscopic spot images as above. See separate procedure report for more information. D/ / Yong Gomez MD / Yong Gomez MD Interpreting Provider: Yong Gomez MD Consult Discharge Plan - Plan Referrals: Avery Woods, [Primary Care Provider] -
[2018-06-20] MEDS: *HR* Warfarin 2 MG TABLET PO SCH (18:17)
[2018-06-20] MEDS: Insulin DETEMIR 100 UNIT/ML X5UNITS SQ SCH (20:03)
[2018-06-20] MEDS: 0.9 % Sodium Chloride 1,000 ML IVC SCH (20:09)
[2018-06-21 02:10] LABS: Basophils % 0.1 %; Eosinophils % 0.1 %; Hemoglobin 10.2 g/dL (12.9-16.9); Immature Granulocytes % 0.9 % (0-4); Lymphocytes # 0.6 K/mcL (0.6-4.6); Lymphocytes % 6.5 %; Mean Corpuscular HGB Conc 31.9 g/dL (31.6-35.5); Mean Corpuscular Hemoglobin 30.4 pg (28.0-33.3); Mean Corpuscular Volume 95.5 fL (83.0-100.0); Monocytes # 0.8 K/mcL (0.0-1.3); Monocytes % 8.9 %; Neutrophils # 7.8 K/mcL (1.6-8.9); Platelet Count 349 K/mcL (140-400); Red Blood Count 3.35 M/mcL (4.19-5.50); Segmented Neutrophils % 83.5 %
[2018-06-21 02:19] LABS: INR 2.5; Prothrombin Time 28.4 Seconds (9.4-12.1)
[2018-06-21 02:27] LABS: Calcium 8.1 mg/dL (8.6-10.3); Potassium 4.5 mEq/L (3.5-5.1)
--- NOTE | 2018-06-21 04:33 | Orthopedics Progress Note ---
Date of Encounter: 06/21/18 Time of Encounter: 04:32 Subjective Principal diagnosis: Status post percutaneous pinning of hip Interval history: The patient is without complaints. Afebrile vital signs are stable. Dressing is clean dry and intact. Neurovascularly intact with regard to bilateral lower extremities. Fires all upper and lower extremity motor groups. Negative straight leg raise. Assessment :stable. Plan mobilize ,continue analgesics, discharge planning. Objective Vital signs: Vital Signs Temp Pulse Resp BP Pulse Ox 06/21/18 03:04 97.6 F 64 12 90/55 99 06/21/18 00:39 97.6 F 72 12 94/63 100 06/20/18 21:06 16 88 06/20/18 18:59 97.9 F 82 116 92/57 99 06/20/18 15:46 98.9 F 78 16 81/48 92 06/20/18 11:37 98.8 F 79 18 106/66 92 06/20/18 08:17 18 94 06/20/18 07:51 97.7 F 76 18 116/69 91 06/20/18 04:58 98.8 F 69 16 106/66 95 Intake and Output 06/20/18 06/20/18 06/21/18 15:59 23:59 07:59 Intake Total 110 / 110 1610 / 1610 Output Total 200 / 200 250 / 250 Balance 110 / 110 1410 / 1410 -240 / -240 Intake: IV Fluids 110 / 110 1610 / 1610 0.9 % Sodium Chloride 1,000 ML 1000 / 1000 @ 50 mls/hr IVC .Q20H ERIC Rx#: [id number] 0.9 % Sodium Chloride 500 ML @ 500 / 500 999 mls/hr IVC .Q31M ONE Rx#: [id number] Azactam 1,000 MG In Water for inj. (sterile) 10 ML @ 300 mls/ hr IVP Q8HR ERIC Rx#:[id number] Flagyl Premix 500 MG/100 ML 500 100 / 100 100 / 100 mg In 100 ml @ 100 mls/hr IVPB Q8HR ERIC Rx#:[id number] Output: Catheter 200 / 200 250 / 250 Other: Blood Glucose* 159 - Labs CBC & BMP: 06/21/18 01:25 06/21/18 01:25 Labs: Abnormal lab results RBC 3.35 M/mcL (4.19-5.50) L 06/21/18 01:25 Hgb 10.2 g/dL (12.9-16.9) L 06/21/18 01:25 Hct 32.0 % (37.5-50.1) L 06/21/18 01:25 RDW 18.0 % (11.5-14.5) H 06/21/18 01:25 MPV 9.0 fL (9.4-12.4) L 06/21/18 01:25 PT 28.4 Seconds (9.4-12.1) H 06/21/18 01:25 APTT 40.9 Seconds (26.0-36.0) H 06/18/18 14:37 Sodium 130 mEq/L (136-145) L 06/21/18 01:25 Chloride 111 mEq/L (98-107) H 06/21/18 01:25 Carbon Dioxide 22 mEq/L (23-29) L 06/21/18 01:25 BUN 45 mg/dL (8-23) H 06/21/18 01:25 Creatinine 1.40 mg/dL (0.70-1.30) H 06/21/18 01:25 Est GFR (Non-Af Amer) 49 (> 60) L 06/21/18 01:25 BUN/Creatinine Ratio 32 (6-26) H 06/21/18 01:25 Glucose 121 mg/dL (70-105) H 06/21/18 01:25 POC Glucose 100 mg/dL (70-99) H 06/19/18 16:26 Calcium 8.1 mg/dL (8.6-10.3) L 06/21/18 01:25 AST 10 Units/L (13-39) L 06/20/18 01:21 Serum Total Protein 5.6 g/dL (6.4-8.9) L 06/20/18 01:21 Albumin 2.6 g/dL (3.5-5.7) L 06/20/18 01:21 Albumin/Globulin Ratio 0.9 (1.1-2.2) L 06/20/18 01:21 Ur Specific [place] 1.028 (1.010-1.025) H 06/20/18 04:00 Urine Ketones 15 mg/dL (Negative) H 06/20/18 04:00 Urine Blood Trace (Negative) H 06/20/18 04:00 Urine Bilirubin Small (Negative) H 06/20/18 04:00 Ur Leukocyte Esterase Small (Negative) H 06/20/18 04:00 Urine Microscopic RBC 5-15 per hpf (0-3) H 06/20/18 04:00 Urine Microscopic WBC 5-15 per hpf (0-3) H 06/20/18 04:00 Ur Squamous Epith Cells Moderate per lpf (None-Few) H 06/20/18 04:00 Urine Yeast Few per hpf (None Seen) H 06/20/18 04:00 Consult Discharge Plan - Plan Referrals: Avery Woods DO [Primary Care Provider] -
[2018-06-21] MEDS: MetroNIDAZOLE 500 MG/100 ML 500 MG/100 ML BAG IVPB SCH ×3 (07:47→23:14)
[2018-06-21] MEDS: Aztreonam 1,000 MG in Water for inj. (sterile) 20 ML 10 ML IVP SCH ×3 (07:47→23:15)
[2018-06-21] MEDS: Lubiprostone [Amitiza] 24 MCG PO SCH ×2 (07:57→20:41)
[2018-06-21] MEDS: Tiotropium 18 MCG inhalation IH SCH (08:10)
[2018-06-21] MEDS: Budesonide/Formoterol 80/4.5 MDI IH SCH ×2 (08:10→19:51)
[2018-06-21] MEDS ORDERED: 0.9 % Sodium Chloride 500 ML IVC ONE (08:38)
[2018-06-21] MEDS: Silver Sulfadiazine 50 GM TUBE TP SCH (09:32)
[2018-06-21] MEDS: *HR* OxyCODONE/APAP 10/325 TABLET PO PRN ×2 (09:32→15:53)
[2018-06-21] MEDS: Aspirin Enteric Coated 81 MG Tablet PO SCH (09:33)
[2018-06-21] MEDS: Megestrol Acetate 400 MG/10 ML UDC PO SCH ×2 (09:34→20:39)
[2018-06-21] MEDS: Insulin DETEMIR 100 UNIT/ML X5UNITS SQ SCH (18:22)
[2018-06-21] MEDS: *HR* Warfarin 2 MG TABLET PO SCH (18:38)
--- NOTE | 2018-06-21 18:44 | Internal Med Progress Note ---
Date of Encounter: 06/21/18 Time of Encounter: 09:45 - Assessment and plan (1) Fracture of femoral neck, right Current Visit: Yes Status: Acute Assessment and plan: L. femoral neck fracture s/p repair by orthopedic surgery Deconditioned and frail, will require significant PT and OT. Pain control. Discharge planning once BP controlled. Have been hypotensive. Qualifiers: Encounter type: initial encounter Fracture type: closed Qualified Code(s) : S72.001A - Fracture of unspecified part of neck of right femur, initial encounter for closed fracture (2) Sepsis Current Visit: Yes Status: Suspected Assessment and plan: Suspected sepsis 2/2 to pneumonia. Has been afebrile. Possible that leukocytosis may be an inflammatory response. On aztreonam and flagyl. Consider discontinuing if patient improves clinically. Blood culture negative to date. Will continue as patient BP is hovering around 90s systolic Qualifiers: Sepsis type: sepsis due to unspecified organism Qualified Code(s): A41.9 - Sepsis, unspecified organism (3) Acute kidney injury Current Visit: Yes Status: Acute Assessment and plan: SCOTT improving on IVF (4) Aspiration pneumonia Current Visit: Yes Status: Suspected Assessment and plan: Suspected PNA as patient presented with leukocytosis. However has been afebrile. Blood cultures negative to date. On aztreonam and metronidazole as patient is allergic to levaquin and cephalexin. Qualifiers: Aspiration pneumonia type: unspecified Laterality: right Lung location: lower lobe of lung Qualified Code(s): J69.0 - Pneumonitis due to inhalation of food and vomit (5) Rib fracture Current Visit: Yes Status: Acute Assessment and plan: s/p fall.Pain control as needed. Orthopedic surgery following Qualifiers: Qualified Code(s): S22.39XA - Fracture of one rib, unspecified side, initial encounter for closed fracture (6) Diabetes mellitus Current Visit: Yes Status: Acute Assessment and plan: Continue insulin. Monitor fingersticks Qualifiers: Qualified Code(s): E11.9 - Type 2 diabetes mellitus without complications (7) Atrial fibrillation Current Visit: Yes Status: Acute Assessment and plan: Resume Warfarin. last INR 2.6 Warfarin per pharmacy's management. Qualifiers: Qualified Code(s): I48.91 - Unspecified atrial fibrillation (8) CAD (coronary artery disease) of artery bypass graft Current Visit: No Status: Acute Assessment and plan: CAD s/p CABG in 2008. c/w home medications Qualifiers: [place] vs. transplanted heart: [place] heart Associated angina: without angina Qualified Code(s): I25.810 - Atherosclerosis of coronary artery bypass graft(s) without angina pectoris (9) COPD (chronic obstructive pulmonary disease) Current Visit: No Status: Acute Assessment and plan: Not noted to be in exacerbation. Duonebs and oxygen supplements as needed. Qualifiers: COPD type: unspecified COPD Qualified Code(s): J44.9 - Chronic obstructive pulmonary disease, unspecified (10) Lung cancer Current Visit: Yes Status: Acute Assessment and plan: Recently diagnosed lung cancer, follows up outpatient. In process of looking into palliative care/hospice. have not officially signed. Qualifiers: Laterality: unspecified laterality Qualified Code(s): C34.90 - Malignant neoplasm of unspecified part of unspecified bronchus or lung (11) Hypotension Current Visit: Yes Status: Acute Assessment and plan: BP in 90s with sometimes dip into high 80s systolic. Has been given small 500cc boluses to maintain pressure. Monitor closely. On broad spectrum Abx. Qualifiers: Hypotension type: unspecified hypotension type Qualified Code(s): I95.9 - Hypotension, unspecified (12) Hyponatremia Current Visit: Yes Status: Acute Assessment and plan: Possibly related to lung cancer, SIADH Obtain serum osmo. Urine Na, IVF support. - Time Spent With Patient Total time spent is greater than 50% in coordination of care (as documented) at patient's floor/unit and/or counseling patient: - Subjective Interval history: Patient is weak, mumbles but denies any complains. - Constitutional Vitals: Temp Pulse Resp BP Pulse Ox 98.6 F 84 18 89/56 93 06/21/18 17:54 06/21/18 17:54 06/21/18 17:54 06/21/18 17:54 06/21/18 10:46 General: Alert, responsive but lethargic. Elderly, frail. Skin: b/l LE chronic skin lesions/discoloration. HEENT: EOMI, pupils equal, round and reactive. Cardiovascular: Regular rate. No murmurs appreciated. Lungs:Normal breath sounds, no wheezes or crackles. Abdomen:Soft, non-tender, no rigidity. Extremities:No obvious deformity Neurological: Alert, generalized weakness General appearance: Present: cachectic, no acute distress - Head Head exam: Present: atraumatic, normocephalic - Eye Eye exam: Present: PERRL, conjuntiva pink, sclera anicteric Pupils: Present: PERRL - Neck Neck exam general surgery: Present: supple, trachea midline. Absent: lymphadenopathy - Respiratory Respiratory exam: Present: CTAB. Absent: accessory muscle use, rales, rhonchi, wheezes - Cardiovascular Cardiovascular exam: Present: RRR, +S1, +S2. Absent: diastolic murmur, gallop, rubs, systolic murmur - GI/Abdominal GI/Abdominal exam: Present: normal bowel sounds, soft, no peritoneal signs. Absent: distended, tenderness - Extremities Exam Extremities exam: Present: warm, radial pulses palpable and symmetrical. Absent : calf tenderness, cyanotic, pedal edema - Neurological Exam Neurological exam: Present: CN II-XII intact, oriented X3, no focal deficits. Absent: pronater drift, facial droop, speech deficit - Skin Skin exam: Present: dry, intact Internal Medicine: Result - Labs CBC & Chem 7: 06/21/18 01:25 06/21/18 01:25 Labs: Short CBC 06/21/18 Range/Units 01:25 WBC 9.3 (4.3-11.1) K/mcL Hgb 10.2 L (12.9-16.9) g/dL Hct 32.0 L (37.5-50.1) % Plt Count 349 (140-400) K/mcL Neutrophils # 7.8 (1.6-8.9) K/mcL BMP 06/21/18 01:25 Sodium 130 L Potassium 4.5 Chloride 111 H Carbon Dioxide 22 L BUN 45 H Creatinine 1.40 H Glucose 121 H Calcium 8.1 L - ABG Interpretation ABG results: PT/INR, D-dimer PT 28.4 Seconds (9.4-12.1) H 06/21/18 01:25 Consult Discharge Plan - Plan Referrals: Avery Woods DO [Primary Care Provider] -
[2018-06-21] MEDS: 0.9 % Sodium Chloride 1,000 ML IVC SCH (20:40)
[2018-06-21] MEDS: Acetaminophen 325 MG TABLET PO PRN (21:14)
[2018-06-21] MEDS ORDERED: traMADol 50 MG TABLET PO ONE (23:20)
[2018-06-22 05:29] LABS: Basophils % 0.3 %; Eosinophils # 0.1 K/mcL (0.0-0.6); Eosinophils % 1.6 %; Hematocrit 29.4 % (37.5-50.1); Hemoglobin 9.3 g/dL (12.9-16.9); Immature Granulocytes % 0.9 % (0-4); Lymphocytes # 0.8 K/mcL (0.6-4.6); Lymphocytes % 10.1 %; Mean Corpuscular HGB Conc 31.6 g/dL (31.6-35.5); Mean Corpuscular Hemoglobin 29.7 pg (28.0-33.3); Mean Corpuscular Volume 93.9 fL (83.0-100.0); Mean Platelet Volume 9.1 fL (9.4-12.4); Monocytes # 0.6 K/mcL (0.0-1.3); Neutrophils # 6.3 K/mcL (1.6-8.9); Platelet Count 338 K/mcL (140-400); Red Blood Count 3.13 M/mcL (4.19-5.50); Red Cell Distribution Width 18.1 % (11.5-14.5); Segmented Neutrophils % 79.1 %
[2018-06-22 05:55] LABS: BUN/Creatinine Ratio 30 (6-26); Blood Urea Nitrogen 27 mg/dL (8-23); Calcium 7.6 mg/dL (8.6-10.3); Carbon Dioxide 22 mEq/L (23-29); Chloride 112 mEq/L (98-107); Glucose 94 mg/dL (70-105); Osmolality,Calculated 287 (280-300); Potassium 3.9 mEq/L (3.5-5.1); Sodium 136 mEq/L (136-145); eGFR For Non-African Americans > 60 (> 60)
[2018-06-22] MEDS: Acetaminophen 325 MG TABLET PO PRN (06:02)
[2018-06-22] MEDS: Budesonide/Formoterol 80/4.5 MDI IH SCH ×2 (07:43→21:58)
[2018-06-22] MEDS: Tiotropium 18 MCG inhalation IH SCH (07:43)
[2018-06-22] MEDS: MetroNIDAZOLE 500 MG/100 ML 500 MG/100 ML BAG IVPB SCH ×2 (08:19→17:13)
[2018-06-22] MEDS: Aztreonam 1,000 MG in Water for inj. (sterile) 20 ML 10 ML IVP SCH ×2 (08:20→17:12)
[2018-06-22] MEDS: Megestrol Acetate 400 MG/10 ML UDC PO SCH ×2 (08:21→21:00)
[2018-06-22] MEDS: Aspirin Enteric Coated 81 MG Tablet PO SCH (08:21)
[2018-06-22] MEDS: Lubiprostone [Amitiza] 24 MCG PO SCH ×2 (08:21→20:51)
[2018-06-22] MEDS: Silver Sulfadiazine 50 GM TUBE TP SCH (08:21)
[2018-06-22] MEDS: traMADol 50 MG TABLET PO PRN ×2 (09:51→19:02)
--- NOTE | 2018-06-22 12:14 | Event Note ---
Date of Encounter: 06/22/18 Time of Encounter: 12:00 Spoke to /POA regarding code status and patient's persistent hypotension. Requested that patient's pain be controlled despite his low BP, is ok with BP being on the lower end but may give gentle boluses if needed. However, should the patient became very lethargic and more hypotensie despite IVF support, she does not want the patient to get a central line for pressors, be intubated or other aggressive measures including chest compressions. Wants to focus on comfort care and keeping patient's pain under control rather than agressive escalation of care. Nurse informed. Code status signed by .
[2018-06-22] MEDS: *HR* OxyCODONE/APAP 10/325 TABLET PO PRN ×3 (13:35→21:36)
--- NOTE | 2018-06-22 15:24 | Orthopedics Progress Note ---
Date of Encounter: 06/22/18 Time of Encounter: 14:00 - Assessment and Plan (1) Fracture of femoral neck, right Current Visit: Yes Status: Acute Qualifiers: Qualified Code(s): S72.001A - Fracture of unspecified part of neck of right femur, initial encounter for closed fracture Subjective Principal diagnosis: Status post percutaneous pinning of hip Interval history: S: Sitting up in bed. Pain controlled with the right hip. No new injuries or complaints. O: Afebrile on the vital signs are stable Right hip wounds are clean, dry, and intact The patient is neurovascularly intact distally A: Post percutaneous screw fixation of the right hip P: Therapy when able Weightbearing as tolerated on the right lower extremity Supportive care per the primary team Orthopedically stable for discharge Objective Vital signs: Vital Signs Temp Pulse Resp BP Pulse Ox 06/22/18 09:53 98.7 F 94 94/58 96 06/22/18 07:44 18 92 06/22/18 04:00 99.0 F 91 19 89/50 90 06/21/18 23:04 99.0 F 97 18 91/52 92 06/21/18 20:02 98.4 F 82 17 96/60 93 06/21/18 19:54 18 94 06/21/18 17:54 98.6 F 84 18 89/56 Intake and Output 06/21/18 06/22/18 06/22/18 23:59 07:59 15:59 Intake Total 110 / 110 100 / 100 Output Total 400 / 400 Balance 110 / 110 -300 / -300 Intake: IV Fluids 110 / 110 100 / 100 Azactam 1,000 MG In Water for inj. (sterile) 10 ML @ 300 mls/ hr IVP Q8HR ERIC Rx#:[id number] Flagyl Premix 500 MG/100 ML 500 100 / 100 100 / 100 mg In 100 ml @ 100 mls/hr IVPB Q8HR ERIC Rx#:[id number] Output: Urine 400 / 400 Other: Blood Glucose* 92 83 90 - Labs CBC & BMP: 06/22/18 04:54 06/22/18 04:54 Labs: Abnormal lab results RBC 3.13 M/mcL (4.19-5.50) L 06/22/18 04:54 Hgb 9.3 g/dL (12.9-16.9) L 06/22/18 04:54 Hct 29.4 % (37.5-50.1) L 06/22/18 04:54 RDW 18.1 % (11.5-14.5) H 06/22/18 04:54 MPV 9.1 fL (9.4-12.4) L 06/22/18 04:54 PT 28.4 Seconds (9.4-12.1) H 06/21/18 01:25 APTT 40.9 Seconds (26.0-36.0) H 06/18/18 14:37 Chloride 112 mEq/L (98-107) H 06/22/18 04:54 Carbon Dioxide 22 mEq/L (23-29) L 06/22/18 04:54 BUN 27 mg/dL (8-23) H 06/22/18 04:54 BUN/Creatinine Ratio 30 (6-26) H 06/22/18 04:54 Calcium 7.6 mg/dL (8.6-10.3) L 06/22/18 04:54 AST 10 Units/L (13-39) L 06/20/18 01:21 Serum Total Protein 5.6 g/dL (6.4-8.9) L 06/20/18 01:21 Albumin 2.6 g/dL (3.5-5.7) L 06/20/18 01:21 Albumin/Globulin Ratio 0.9 (1.1-2.2) L 06/20/18 01:21 Ur Specific [place] 1.028 (1.010-1.025) H 06/20/18 04:00 Urine Ketones 15 mg/dL (Negative) H 06/20/18 04:00 Urine Blood Trace (Negative) H 06/20/18 04:00 Urine Bilirubin Small (Negative) H 06/20/18 04:00 Ur Leukocyte Esterase Small (Negative) H 06/20/18 04:00 Urine Microscopic RBC 5-15 per hpf (0-3) H 06/20/18 04:00 Urine Microscopic WBC 5-15 per hpf (0-3) H 06/20/18 04:00 Ur Squamous Epith Cells Moderate per lpf (None-Few) H 06/20/18 04:00 Urine Yeast Few per hpf (None Seen) H 06/20/18 04:00 Consult Discharge Plan - Plan Additional Instructions: HALF-WAY DISCHARGE INSTRUCTIONS Dr. Raya PROCEDURE PERFORMED Reduction and fixation of right hip. Incision care -Daily dressing changes to the right hip with dry gauze and either paper tape or medipore tape. -Avoid soaking wound in water (no hot tubs, bathtubs, swimming pools). -May shower after 2 weeks from surgery date. Carefully wash incision with soap and water. Gently pat it dry. Don't rub the incision, or apply creams or lotions. Sit on a shower stool when showering to keep from falling. Weight bearing status -Weightbearing as tolerated to the bilateral lower extremities. Medications -Pain medication per the discharging medical doctor Other -Knee high PAMELA hose 23 hours per day -Consult physical and occupational therapy for mobilization. -Up to chair with assistance at least twice per day. -Follow up with your primary care physician to discuss testing for bone mineral density. Follow-up with Dr. Raya at the office 2 weeks from the surgery date for a post operative evaluation. Call the office at [phone] to schedule appointment. Referrals: Avery Woods DO [Primary Care Provider] -
--- NOTE | 2018-06-22 16:00 | Internal Med Progress Note ---
Date of Encounter: 06/22/18 Time of Encounter: 09:00 - Assessment and plan (1) Fracture of femoral neck, right Current Visit: Yes Status: Acute Assessment and plan: L. femoral neck fracture s/p repair by orthopedic surgery Deconditioned and frail, will require significant PT and OT. Pain control. Discharge planning once BP controlled. Have been hypotensive and been given small boluses. Discussed with /POA today regarding goals of care. Understands that aggressive pain control may cause patient to be more drowsy and BP to further drop. States that focus on comfort care is the goal. Can tolerate lower BP, can give small fluid boluses if needed. But do not want central venous line to be placed for pressor support, nor intubation/compression should he needs it. Qualifiers: Encounter type: initial encounter Fracture type: closed Qualified Code(s) : S72.001A - Fracture of unspecified part of neck of right femur, initial encounter for closed fracture (2) Sepsis Current Visit: Yes Status: Suspected Assessment and plan: Suspected sepsis 2/2 to pneumonia. Has been afebrile. Possible that leukocytosis may be an inflammatory response. On aztreonam and flagyl. Consider discontinuing if patient improves clinically. Blood culture negative to date. Will continue as patient BP is hovering around 90s systolic Qualifiers: Sepsis type: sepsis due to unspecified organism Qualified Code(s): A41.9 - Sepsis, unspecified organism (3) Acute kidney injury Current Visit: Yes Status: Acute Assessment and plan: SCOTT improving on IVF (4) Aspiration pneumonia Current Visit: Yes Status: Suspected Assessment and plan: Suspected PNA as patient presented with leukocytosis. However has been afebrile. Blood cultures negative to date. On aztreonam and metronidazole as patient is allergic to levaquin and cephalexin. Qualifiers: Aspiration pneumonia type: unspecified Laterality: right Lung location: lower lobe of lung Qualified Code(s): J69.0 - Pneumonitis due to inhalation of food and vomit (5) Rib fracture Current Visit: Yes Status: Acute Assessment and plan: s/p fall.Pain control as needed. Orthopedic surgery following Qualifiers: Qualified Code(s): S22.39XA - Fracture of one rib, unspecified side, initial encounter for closed fracture (6) Diabetes mellitus Current Visit: Yes Status: Acute Assessment and plan: Continue insulin. Monitor fingersticks Qualifiers: Qualified Code(s): E11.9 - Type 2 diabetes mellitus without complications (7) Atrial fibrillation Current Visit: Yes Status: Acute Assessment and plan: Resume Warfarin. last INR 2.6 Warfarin per pharmacy's management. Qualifiers: Qualified Code(s): I48.91 - Unspecified atrial fibrillation (8) CAD (coronary artery disease) of artery bypass graft Current Visit: No Status: Acute Assessment and plan: CAD s/p CABG in 2008. c/w home medications Qualifiers: [place] vs. transplanted heart: [place] heart Associated angina: without angina Qualified Code(s): I25.810 - Atherosclerosis of coronary artery bypass graft(s) without angina pectoris (9) COPD (chronic obstructive pulmonary disease) Current Visit: No Status: Acute Assessment and plan: Not noted to be in exacerbation. Duonebs and oxygen supplements as needed. Qualifiers: COPD type: unspecified COPD Qualified Code(s): J44.9 - Chronic obstructive pulmonary disease, unspecified (10) Lung cancer Current Visit: Yes Status: Acute Assessment and plan: Recently diagnosed lung cancer, follows up outpatient. In process of looking into palliative care/hospice. have not officially signed. Qualifiers: Laterality: unspecified laterality Qualified Code(s): C34.90 - Malignant neoplasm of unspecified part of unspecified bronchus or lung (11) Hypotension Current Visit: Yes Status: Acute Assessment and plan: BP in 90s with sometimes dip into high 80s systolic. Has been given small 500cc boluses to maintain pressure. Monitor closely. On broad spectrum Abx. Qualifiers: Hypotension type: unspecified hypotension type Qualified Code(s): I95.9 - Hypotension, unspecified (12) Hyponatremia Current Visit: Yes Status: Acute Assessment and plan: Possibly related to lung cancer, SIADH resolved on IVF. - Time Spent With Patient Total time spent is greater than 50% in coordination of care (as documented) at patient's floor/unit and/or counseling patient: - Subjective Interval history: Patient complains of pain over surgical site but denies other complaints - Constitutional Vitals: Temp Pulse Resp BP Pulse Ox 98.7 F 94 18 94/58 96 06/22/18 09:53 06/22/18 09:53 06/22/18 07:44 06/22/18 09:53 06/22/18 09:53 General: Alert and oriented. Moderate distress. Skin: b/l LE chronic skin lesions/discoloration. HEENT: EOMI, pupils equal, round and reactive. Cardiovascular: Regular rate. No murmurs appreciated. Lungs:Normal breath sounds, no wheezes or crackles. Abdomen:Soft, non-tender, no rigidity. Extremities:No obvious deformity Neurological: Alert, generalized weakness General appearance: Present: cachectic, no acute distress Internal Medicine: Result - Labs CBC & Chem 7: 06/22/18 04:54 06/22/18 04:54 Labs: Short CBC 06/22/18 Range/Units 04:54 WBC 7.9 (4.3-11.1) K/mcL Hgb 9.3 L (12.9-16.9) g/dL Hct 29.4 L (37.5-50.1) % Plt Count 338 (140-400) K/mcL Neutrophils # 6.3 (1.6-8.9) K/mcL BMP 06/22/18 04:54 Sodium 136 Potassium 3.9 Chloride 112 H Carbon Dioxide 22 L BUN 27 H Creatinine 0.90 Glucose 94 Calcium 7.6 L - ABG Interpretation ABG results: PT/INR, D-dimer PT 28.4 Seconds (9.4-12.1) H 06/21/18 01:25 Consult Discharge Plan - Plan Additional Instructions: LONG TERM DISCHARGE INSTRUCTIONS Dr. Raya PROCEDURE PERFORMED Reduction and fixation of right hip. Incision care -Daily dressing changes to the right hip with dry gauze and either paper tape or medipore tape. -Avoid soaking wound in water (no hot tubs, bathtubs, swimming pools). -May shower after 2 weeks from surgery date. Carefully wash incision with soap and water. Gently pat it dry. Don't rub the incision, or apply creams or lotions. Sit on a shower stool when showering to keep from falling. Weight bearing status -Weightbearing as tolerated to the bilateral lower extremities. Medications -Pain medication per the discharging medical doctor Other -Knee high PAMELA hose 23 hours per day -Consult physical and occupational therapy for mobilization. -Up to chair with assistance at least twice per day. -Follow up with your primary care physician to discuss testing for bone mineral density. Follow-up with Dr. Raya at the office 2 weeks from the surgery date for a post operative evaluation. Call the office at [phone] to schedule appointment. Referrals: Avery Woods DO [Primary Care Provider] -
[2018-06-22 17:02] LABS: Prothrombin Time 33.3 Seconds (9.4-12.1)
[2018-06-22] MEDS: *HR* Warfarin 2 MG TABLET PO SCH (17:13)
[2018-06-22] MEDS: Insulin DETEMIR 100 UNIT/ML X5UNITS SQ SCH (17:13)
[2018-06-22] MEDS: 0.9 % Sodium Chloride 1,000 ML IVC SCH (22:54)
[2018-06-23] MEDS: MetroNIDAZOLE 500 MG/100 ML 500 MG/100 ML BAG IVPB SCH ×3 (00:33→17:11)
[2018-06-23] MEDS: Aztreonam 1,000 MG in Water for inj. (sterile) 20 ML 10 ML IVP SCH ×3 (00:34→17:12)
[2018-06-23] MEDS: traMADol 50 MG TABLET PO PRN ×3 (00:55→22:48)
[2018-06-23 01:34] LABS: BUN/Creatinine Ratio 25 (6-26); Blood Urea Nitrogen 21 mg/dL (8-23); Calcium 7.7 mg/dL (8.6-10.3); Carbon Dioxide 18 mEq/L (23-29); Chloride 114 mEq/L (98-107); Glucose 43 mg/dL (70-105); Osmolality,Calculated 286 (280-300); Potassium 3.6 mEq/L (3.5-5.1); Sodium 138 mEq/L (136-145); eGFR For Non-African Americans > 60 (> 60)
[2018-06-23 01:40] LABS: Basophils % 0.3 %; Eosinophils # 0.2 K/mcL (0.0-0.6); Eosinophils % 1.6 %; Hematocrit 32.6 % (37.5-50.1); Hemoglobin 10.6 g/dL (12.9-16.9); Immature Granulocytes % 1.3 % (0-4); Lymphocytes # 1.3 K/mcL (0.6-4.6); Lymphocytes % 12.8 %; Mean Corpuscular HGB Conc 32.5 g/dL (31.6-35.5); Mean Corpuscular Hemoglobin 30.5 pg (28.0-33.3); Mean Corpuscular Volume 93.9 fL (83.0-100.0); Mean Platelet Volume 9.2 fL (9.4-12.4); Monocytes # 0.8 K/mcL (0.0-1.3); Monocytes % 7.7 %; Neutrophils # 7.8 K/mcL (1.6-8.9); Platelet Count 406 K/mcL (140-400); Red Blood Count 3.47 M/mcL (4.19-5.50); Red Cell Distribution Width 18.4 % (11.5-14.5); Segmented Neutrophils % 76.3 %
[2018-06-23 01:56] LABS: INR 3.3; Prothrombin Time 37.1 Seconds (9.4-12.1)
[2018-06-23] MEDS ORDERED: Dextrose Gel 15 GM/37.5 ML TUBE PO PRN ×2 (07:46)
[2018-06-23] MEDS ORDERED: *HR* Dextrose 50 % in Water (Syg) 50 ML SYRINGE IVP PRN (07:46)
[2018-06-23] MEDS ORDERED: D5% in Water 1,000 ML IVC PRN (07:46)
[2018-06-23] MEDS: Budesonide/Formoterol 80/4.5 MDI IH SCH ×2 (08:07→20:13)
[2018-06-23] MEDS: Tiotropium 18 MCG inhalation IH SCH (08:07)
[2018-06-23] MEDS: Megestrol Acetate 400 MG/10 ML UDC PO SCH ×2 (08:17→20:21)
[2018-06-23] MEDS: *HR* OxyCODONE/APAP 10/325 TABLET PO PRN ×4 (08:18→21:11)
[2018-06-23] MEDS: Aspirin Enteric Coated 81 MG Tablet PO SCH (08:18)
[2018-06-23] MEDS: Lubiprostone [Amitiza] 24 MCG PO SCH ×2 (08:30→21:59)
[2018-06-23] MEDS: Silver Sulfadiazine 50 GM TUBE TP SCH (08:31)
[2018-06-23] MEDS: Insulin DETEMIR 100 UNIT/ML X5UNITS SQ SCH (17:02)
--- NOTE | 2018-06-23 17:27 | Internal Med Progress Note ---
Date of Encounter: 06/23/18 Time of Encounter: 13:50 - Assessment and plan (1) Sepsis Current Visit: Yes Status: Ruled-out Assessment and plan: Suspected sepsis 2/2 to pneumonia. Has been afebrile. Possible that leukocytosis may be an inflammatory response. On aztreonam and flagyl. Consider discontinuing if patient improves clinically. Blood culture negative to date. Will continue as patient BP is hovering around 90s systolic Qualifiers: Sepsis type: sepsis due to unspecified organism Qualified Code(s): A41.9 - Sepsis, unspecified organism (2) COPD (chronic obstructive pulmonary disease) Current Visit: Yes Status: Chronic Assessment and plan: Not in acute exacerbation. Continue when necessary breathing treatments and supplemental oxygen as needed. Qualifiers: COPD type: unspecified COPD Qualified Code(s): J44.9 - Chronic obstructive pulmonary disease, unspecified (3) CAD (coronary artery disease) of artery bypass graft Current Visit: Yes Status: Chronic Qualifiers: [place] vs. transplanted heart: [place] heart Associated angina: without angina Qualified Code(s): I25.810 - Atherosclerosis of coronary artery bypass graft(s) without angina pectoris (4) Acute kidney injury Current Visit: Yes Status: Resolved (5) Aspiration pneumonia Current Visit: Yes Status: Suspected Assessment and plan: CT chest showed bibasilar infiltrates and airway secretions, likely aspiration. states patient has h/o- thyroid and laryngeal cancer s/p radiation; he has a hole at the site where meds and food get stuck if he's not careful; he does tolerates regular diet at home. continue empiric IV Aztreonam and Flagyl; blood cultures negative. Supplemental O2 and supportive care. Qualifiers: Aspiration pneumonia type: unspecified Laterality: right Lung location: lower lobe of lung Qualified Code(s): J69.0 - Pneumonitis due to inhalation of food and vomit (6) Fracture of femoral neck, right Current Visit: Yes Status: Acute Assessment and plan: CT hip shows Acute nondisplaced mildly impacted right femoral neck fracture. Orthopedics consulted, underwent Percutaneous screw fixation of the right femoral neck on 06/19/18. continue pain control with PRN Oxycodone and Tylenol; had issues with mild hypotension with pain meds, that responded to fluid boluses; DVT prophylaxis with Coumadin. PT/OT recommends ECF placement. social welfare research worker on board. Qualifiers: Encounter type: initial encounter Fracture type: closed Qualified Code(s) : S72.001A - Fracture of unspecified part of neck of right femur, initial encounter for closed fracture (7) Rib fracture Current Visit: Yes Status: Acute Assessment and plan: supportive care and pain control. IS. Qualifiers: Encounter type: subsequent encounter Rib fracture type: single rib Fracture type: closed Laterality: right Fracture healing: with routine healing Qualified Code(s): S22.31XD - Fracture of one rib, right side, subsequent encounter for fracture with routine healing (8) Diabetes mellitus Current Visit: Yes Status: Chronic Assessment and plan: noted to have hypoglycemia; hold long acting insulin. continue Accucheck monitoring with SSI, diabetic diet. 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 on anticoagulation with Coumadin. Qualifiers: Atrial fibrillation type: chronic Qualified Code(s): I48.2 - Chronic atrial fibrillation (10) Lung cancer Current Visit: Yes Status: Chronic Qualifiers: Laterality: unspecified laterality Lung location: unspecified part of lung Qualified Code(s): C34.90 - Malignant neoplasm of unspecified part of unspecified bronchus or lung (11) Hypotension Current Visit: Yes Status: Resolved Qualifiers: Hypotension type: unspecified hypotension type Qualified Code(s): I95.9 - Hypotension, unspecified (12) Hyponatremia Current Visit: Yes Status: Acute (13) Open wound, lower leg Current Visit: Yes Status: Chronic Assessment and plan: B/L dry skin with a few open sores, with yellowish exudative base; wound culture so far grows GNR; continue IV antibiotics as above and f/up final cultures. Local wound care. Qualifiers: Encounter type: subsequent encounter Laterality: unspecified laterality Qualified Code(s): S81.809D - Unspecified open wound, unspecified lower leg, subsequent encounter - Time Spent With Patient Total time spent is greater than 50% in coordination of care (as documented) at patient's floor/unit and/or counseling patient: - Subjective Interval history: Reports feeling somewhat better; continues to have right chest and hip pain, improving with pain meds; no dyspnea, palpitations, fever/chills; - Constitutional Vitals: Temp Pulse Resp BP Pulse Ox 99.2 F 93 20 103/69 91 06/23/18 15:54 06/23/18 15:54 06/23/18 15:54 06/23/18 15:54 06/23/18 15:54 General appearance: Present: cachectic, mild distress, A&O X 3, answers questions appropriately - Respiratory Respiratory exam: Present: decreased breath sounds (at right base), CTAB. Absent: accessory muscle use, rales, rhonchi, wheezes - Cardiovascular Cardiovascular exam: Present: RRR, +S1, +S2. Absent: diastolic murmur, gallop, rubs, systolic murmur - GI/Abdominal GI/Abdominal exam: Present: normal bowel sounds, soft, no peritoneal signs. Absent: distended, tenderness - Extremities Exam Extremities exam: Present: warm, radial pulses palpable and symmetrical. Absent : calf tenderness, cyanotic, pedal edema Additional comments: right lateral hip in clean and dry dressing - Neurological Exam Neurological exam: Present: CN II-XII intact, oriented X3, no focal deficits. Absent: pronater drift, facial droop, speech deficit Internal Medicine: Result - Labs CBC & Chem 7: 06/23/18 00:38 06/23/18 00:38 Labs: Short CBC 06/23/18 Range/Units 00:38 WBC 10.2 (4.3-11.1) K/mcL Hgb 10.6 L (12.9-16.9) g/dL Hct 32.6 L (37.5-50.1) % Plt Count 406 H (140-400) K/mcL Neutrophils # 7.8 (1.6-8.9) K/mcL BMP 06/23/18 00:38 Sodium 138 Potassium 3.6 Chloride 114 H Carbon Dioxide 18 L BUN 21 Creatinine 0.83 Glucose 43 L Calcium 7.7 L - ABG Interpretation ABG results: PT/INR, D-dimer PT 37.1 Seconds (9.4-12.1) H 06/23/18 00:38 Consult Discharge Plan - Plan Additional Instructions: CORRECTION DISCHARGE INSTRUCTIONS Dr. Raya PROCEDURE PERFORMED Reduction and fixation of right hip. Incision care -Daily dressing changes to the right hip with dry gauze and either paper tape or medipore tape. -Avoid soaking wound in water (no hot tubs, bathtubs, swimming pools). -May shower after 2 weeks from surgery date. Carefully wash incision with soap and water. Gently pat it dry. Don't rub the incision, or apply creams or lotions. Sit on a shower stool when showering to keep from falling. Weight bearing status -Weightbearing as tolerated to the bilateral lower extremities. Medications -Pain medication per the discharging medical doctor Other -Knee high PAMELA hose 23 hours per day -Consult physical and occupational therapy for mobilization. -Up to chair with assistance at least twice per day. -Follow up with your primary care physician to discuss testing for bone mineral density. Follow-up with Dr. Raya at the office 2 weeks from the surgery date for a post operative evaluation. Call the office at [phone] to schedule appointment. Referrals: Avery Woods DO [Primary Care Provider] -
[2018-06-23] MEDS ORDERED: Warfarin perPT PO PRN (18:00)
[2018-06-23] MEDS: Acetaminophen 325 MG TABLET PO PRN (20:21)
[2018-06-24] MEDS: Aztreonam 1,000 MG in Water for inj. (sterile) 20 ML 10 ML IVP SCH ×3 (00:10→18:10)
[2018-06-24] MEDS: MetroNIDAZOLE 500 MG/100 ML 500 MG/100 ML BAG IVPB SCH ×3 (00:11→18:11)
[2018-06-24] MEDS: 0.9 % Sodium Chloride 1,000 ML IVC SCH ×2 (00:12→13:06)
[2018-06-24] MEDS: *HR* OxyCODONE/APAP 10/325 TABLET PO PRN ×5 (00:57→21:22)
[2018-06-24 01:59] LABS: INR 5.2; Prothrombin Time 58.7 Seconds (9.4-12.1)
[2018-06-24] MEDS: traMADol 50 MG TABLET PO PRN ×3 (04:24→19:49)
[2018-06-24] MEDS: Aspirin Enteric Coated 81 MG Tablet PO SCH (07:55)
[2018-06-24] MEDS: Megestrol Acetate 400 MG/10 ML UDC PO SCH ×2 (07:55→19:49)
[2018-06-24] MEDS: Lubiprostone [Amitiza] 24 MCG PO SCH ×2 (08:06→21:27)
[2018-06-24] MEDS: Tiotropium 18 MCG inhalation IH SCH (08:08)
[2018-06-24] MEDS: Budesonide/Formoterol 80/4.5 MDI IH SCH ×2 (08:08→19:41)
[2018-06-24] MEDS: Silver Sulfadiazine 50 GM TUBE TP SCH (14:46)
[2018-06-24] MEDS: Acetaminophen 325 MG TABLET PO PRN ×2 (15:40→22:27)
--- NOTE | 2018-06-24 18:35 | Internal Med Progress Note ---
Date of Encounter: 06/24/18 Time of Encounter: 14:50 - Assessment and plan (1) Sepsis Current Visit: Yes Status: Ruled-out Qualifiers: Sepsis type: sepsis due to unspecified organism Qualified Code(s): A41.9 - Sepsis, unspecified organism (2) COPD (chronic obstructive pulmonary disease) Current Visit: Yes Status: Chronic Assessment and plan: Not in acute exacerbation. Continue when necessary breathing treatments and supplemental oxygen as needed. Qualifiers: COPD type: unspecified COPD Qualified Code(s): J44.9 - Chronic obstructive pulmonary disease, unspecified (3) CAD (coronary artery disease) of artery bypass graft Current Visit: Yes Status: Chronic Qualifiers: [place] vs. transplanted heart: [place] heart Associated angina: without angina Qualified Code(s): I25.810 - Atherosclerosis of coronary artery bypass graft(s) without angina pectoris (4) Acute kidney injury Current Visit: Yes Status: Resolved (5) Aspiration pneumonia Current Visit: Yes Status: Acute Assessment and plan: CT chest showed bibasilar infiltrates and airway secretions, likely aspiration. states patient has h/o- thyroid and laryngeal cancer s/p radiation; he has a hole at the site where meds and food get stuck if he's not careful; he does tolerates regular diet at home. continue empiric IV Aztreonam and Flagyl; blood cultures negative. Supplemental O2 and supportive care. Qualifiers: Aspiration pneumonia type: unspecified Laterality: right Lung location: lower lobe of lung Qualified Code(s): J69.0 - Pneumonitis due to inhalation of food and vomit (6) Fracture of femoral neck, right Current Visit: Yes Status: Acute Assessment and plan: CT hip shows Acute nondisplaced mildly impacted right femoral neck fracture. Orthopedics consulted, underwent Percutaneous screw fixation of the right femoral neck on 06/19/18. continue pain control with PRN Oxycodone and Tylenol; increased pain meds dose as he takes them at home and has high tolerance; DVT prophylaxis with Coumadin. INR supratherapeutic; dosing per PT; PT/OT recommends ECF placement. criminal justice social worker on board. Qualifiers: Encounter type: initial encounter Fracture type: closed Qualified Code(s) : S72.001A - Fracture of unspecified part of neck of right femur, initial encounter for closed fracture (7) Rib fracture Current Visit: Yes Status: Acute Qualifiers: Encounter type: subsequent encounter Rib fracture type: single rib Fracture type: closed Laterality: right Fracture healing: with routine healing Qualified Code(s): S22.31XD - Fracture of one rib, right side, subsequent encounter for fracture with routine healing (8) Diabetes mellitus Current Visit: Yes Status: Chronic Assessment and plan: Blood sugars strictly controlled; continue Accucheck monitoring with SSI, diabetic diet. 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 Diabetes mellitus complication status: with hypoglycemia Diabetes mellitus complication detail: without coma Qualified Code(s): E11.649 - Type 2 diabetes mellitus with hypoglycemia without coma; Z79.4 - snf (current) use of insulin (9) Atrial fibrillation Current Visit: Yes Status: Chronic Qualifiers: Atrial fibrillation type: chronic Qualified Code(s): I48.2 - Chronic atrial fibrillation (10) Lung cancer Current Visit: Yes Status: Chronic Qualifiers: Laterality: unspecified laterality Lung location: unspecified part of lung Qualified Code(s): C34.90 - Malignant neoplasm of unspecified part of unspecified bronchus or lung (11) Hypotension Current Visit: Yes Status: Resolved Qualifiers: Hypotension type: unspecified hypotension type Qualified Code(s): I95.9 - Hypotension, unspecified (12) Hyponatremia Current Visit: Yes Status: Acute (13) Open wound, lower leg Current Visit: Yes Status: Chronic Assessment and plan: B/L dry skin with a few open sores, with yellowish exudative base; wound culture so far grows Pseudomonas; continue IV antibiotics as above and f/up final cultures. Local wound care. Qualifiers: Encounter type: subsequent encounter Laterality: unspecified laterality Qualified Code(s): S81.809D - Unspecified open wound, unspecified lower leg, subsequent encounter (14) Protein-calorie malnutrition, moderate Current Visit: Yes Status: Chronic Assessment and plan: due to anorexia, underlying malignancy; increase Megace; Nutrition consulted; - Time Spent With Patient Total time spent is greater than 50% in coordination of care (as documented) at patient's floor/unit and/or counseling patient: - Subjective Interval history: continues to report right-sided chest and hip pain; able to work with PT; tolerates oral diet; no dyspnea; has poor baseline functional status; - Constitutional Vitals: Temp Pulse Resp BP Pulse Ox 98.2 F 93 18 106/72 93 06/24/18 11:56 06/24/18 11:56 06/24/18 11:56 06/24/18 11:56 06/24/18 11:56 General appearance: Present: cachectic, A&O X 3, answers questions appropriately - Respiratory Respiratory exam: Present: CTAB (coarse breath sounds B/L). Absent: accessory muscle use, rales, rhonchi, wheezes - Cardiovascular Cardiovascular exam: Present: irregular rhythm, +S1, +S2. Absent: diastolic murmur, gallop, rubs, systolic murmur - Extremities Exam Extremities exam: Present: pedal edema, warm, radial pulses palpable and symmetrical. Absent: calf tenderness, cyanotic Additional comments: B/L antetrior legs with dry flaky skin and chronic open sores, with yellowish drainage; in dressing; Internal Medicine: Result - Labs CBC & Chem 7: 06/26/18 08:54 06/26/18 08:54 - ABG Interpretation ABG results: PT/INR, D-dimer PT 58.7 Seconds (9.4-12.1) H* D 06/24/18 01:31 Consult Discharge Plan - Plan Additional Instructions: FDC DISCHARGE INSTRUCTIONS Dr. Raya PROCEDURE PERFORMED Reduction and fixation of right hip. Incision care -Daily dressing changes to the right hip with dry gauze and either paper tape or medipore tape. -Avoid soaking wound in water (no hot tubs, bathtubs, swimming pools). -May shower after 2 weeks from surgery date. Carefully wash incision with soap and water. Gently pat it dry. Don't rub the incision, or apply creams or lotions. Sit on a shower stool when showering to keep from falling. Weight bearing status -Weightbearing as tolerated to the bilateral lower extremities. Medications -Pain medication per the discharging medical doctor Other -Knee high PAMELA hose 23 hours per day -Consult physical and occupational therapy for mobilization. -Up to chair with assistance at least twice per day. -Follow up with your primary care physician to discuss testing for bone mineral density. Follow-up with Dr. Raya at the office 2 weeks from the surgery date for a post operative evaluation. Call the office at [phone] to schedule appointment. Referrals: Avery Woods, [Primary Care Provider] -
[2018-06-25] MEDS: *HR* OxyCODONE/APAP 10/325 TABLET PO PRN ×4 (01:16→20:58)
[2018-06-25] MEDS: Aztreonam 1,000 MG in Water for inj. (sterile) 20 ML 10 ML IVP SCH ×3 (01:18→15:17)
[2018-06-25] MEDS: MetroNIDAZOLE 500 MG/100 ML 500 MG/100 ML BAG IVPB SCH ×3 (01:22→15:18)
[2018-06-25 01:56] LABS: Basophils % 0.3 %; Eosinophils # 0.1 K/mcL (0.0-0.6); Eosinophils % 1.1 %; Hemoglobin 9.5 g/dL (12.9-16.9); Lymphocytes # 0.9 K/mcL (0.6-4.6); Lymphocytes % 8.8 %; Mean Corpuscular HGB Conc 31.7 g/dL (31.6-35.5); Mean Corpuscular Volume 94.6 fL (83.0-100.0); Mean Platelet Volume 8.8 fL (9.4-12.4); Monocytes # 0.8 K/mcL (0.0-1.3); Monocytes % 8.1 %; Neutrophils # 8.1 K/mcL (1.6-8.9); Platelet Count 379 K/mcL (140-400); Red Blood Count 3.17 M/mcL (4.19-5.50); Red Cell Distribution Width 18.6 % (11.5-14.5); Segmented Neutrophils % 80.7 %
[2018-06-25 02:08] LABS: INR 4.6; Prothrombin Time 51.8 Seconds (9.4-12.1)
[2018-06-25 02:21] LABS: BUN/Creatinine Ratio 18 (6-26); Blood Urea Nitrogen 17 mg/dL (8-23); Calcium 7.7 mg/dL (8.6-10.3); Carbon Dioxide 18 mEq/L (23-29); Chloride 113 mEq/L (98-107); Glucose 74 mg/dL (70-105); Osmolality,Calculated 286 (280-300); Potassium 3.7 mEq/L (3.5-5.1); Sodium 138 mEq/L (136-145); eGFR For Non-African Americans > 60 (> 60)
[2018-06-25] MEDS: 0.9 % Sodium Chloride 1,000 ML IVC SCH ×5 (05:25→18:41)
[2018-06-25] MEDS: Budesonide/Formoterol 80/4.5 MDI IH SCH ×2 (07:27→20:34)
[2018-06-25] MEDS: Tiotropium 18 MCG inhalation IH SCH (07:27)
[2018-06-25] MEDS: Megestrol Acetate 400 MG/10 ML UDC PO SCH ×2 (08:23→20:58)
[2018-06-25] MEDS: traMADol 50 MG TABLET PO PRN ×2 (08:23→16:35)
[2018-06-25] MEDS: Lubiprostone [Amitiza] 24 MCG PO SCH (08:25)
[2018-06-25] MEDS: Aspirin Enteric Coated 81 MG Tablet PO SCH (08:25)
--- NOTE | 2018-06-25 15:01 | Infectious Disease Consult ---
Date of Encounter: 06/25/18 Time of Encounter: 14:58 Assessment and Plan (1) Severe sepsis Status: Acute Assessment and plan: On admission patient had 2 SIRS criteria plus acute kidney injury Likely secondary to aspiration pneumonia Resolved (2) Open wound, lower leg Status: Chronic Assessment and plan: Causative organism: Stenotrophomonas maltophilia that is susceptible to Bactrim and levofloxacin VRE that is ampicillin sensitive Pseudomonas aeruginosa pansensitive Patient might benefit from aggressive wound care and podiatry consult. DC aztreonam, DC Flagyl. Start the patient on Zosyn and Bactrim. We will dose adjust antibiotics based on creatinine clearance. Duration of treatment depends on the clinical picture but likely 2 weeks. Qualifiers: Encounter type: subsequent encounter Laterality: unspecified laterality Qualified Code(s): S81.809D - Unspecified open wound, unspecified lower leg, subsequent encounter (3) Aspiration pneumonia Status: Suspected Assessment and plan: Patient denies choking when he eats. He tells me he just has no appetite. Consider swallow evaluation. Patient currently on aztreonam and Flagyl since 06/19/18 Qualifiers: Aspiration pneumonia type: unspecified Laterality: right Lung location: lower lobe of lung Qualified Code(s): J69.0 - Pneumonitis due to inhalation of food and vomit (4) Acute kidney injury Status: Resolved Assessment and plan: Likely multifactorial. Resolved We will need to dose adjust antibiotics based on the creatinine clearance. (5) Allergy to multiple antibiotics Status: Acute Assessment and plan: Mentions allergies to cephalexin, levofloxacin and clindamycin. Has been discharged on Augmentin on previous admission in May of this year and appears to have tolerated it well. (6) Fracture of head of right femur Status: Acute Assessment and plan: Status post fall on 06/18/2018 Patient was taken to surgery by orthopedics on 06/21/18 where he had ercutaneous screw fixation of the right femoral neck Qualifiers: Encounter type: initial encounter Fracture type: closed Qualified Code(s) : S72.051A - Unspecified fracture of head of right femur, initial encounter for closed fracture (7) Fracture of ribs, seven Status: Acute Qualifiers: Encounter type: initial encounter Fracture type: closed Laterality: right Qualified Code(s): S22.41XA - Multiple fractures of ribs, right side, initial encounter for closed fracture (8) Peripheral vascular disease Status: Acute (9) Thyroid carcinoma Status: Chronic (10) Diabetic foot ulcer Status: Chronic Assessment and plan: Bilateral. Wound culture positive for ampicillin sensitive VRE, pansensitive pseudomonas aeruginosa and Stenotrophomonas maltophilia that is susceptible to both Bactrim and levofloxacin DC aztreonam DC Flagyl Start Zosyn 3.375 g IV every 8 hours Started Bactrim dose adjust based on creatinine clearance we will ask pharmacy to help Qualifiers: Diabetic foot ulcer location: unspecified part of foot Diabetes mellitus type: type 2 Non-pressure ulcer stage: unspecified non-pressure ulcer stage Qualified Code(s): E11.621 - Type 2 diabetes mellitus with foot ulcer; L97.509 - Non-pressure chronic ulcer of other part of unspecified foot with unspecified severity (11) Abdominal aortic aneurysm Status: Chronic Qualifiers: Presence of rupture: without rupture Qualified Code(s): I71.4 - Abdominal aortic aneurysm, without rupture (12) Supratherapeutic INR Status: Acute Infectious Disease HPI - Data of Consult Patient: new to practice Consult date: 06/25/18 Requesting Physician: Clau Cortez MD Primary Care Provider: Avery Woods - Consult Narrative Reason for consult: bilateral feet infection History of present illness: Mr. Nicholson is a 78 year old male Patient is a 78-year-old gentleman who presented to [place] on 06/18/2018 status post fall and was admitted for sepsis, aspiration pneumonia and acute kidney injury. We are consulted on 06/25/2018 for chronic bilateral foot wound with cultures growing multidrug resistant organism. Patient is a 78-year-old gentleman with extensive past medical history including history of throat cancer on hospice, atrial fibrillation, COPD, diabetes mellitus type 2 apparently had a fall in his living room. Patient was on the ground for about 6 hours. Patient was found by his daughter and EMS was called and was brought into the hospital. In the ED, patient was noted to be afebrile, he was tachycardic, and hemodynamically stable. Presenting labs were WBC of 14.9 thousand with 88% neutrophils no bands. Patients INR was supratherapeutic at 3.3 and patient was in acute kidney injury with creatinine of 1.7. Imaging in the ED revealed nondisplaced acute right seventh rib fracture. And nondisplaced/impacted fracture of the right femoral neck. CT of the chest reveals chronic recurrent aspiration, including extensive tracheobronchial secretions with airway inflammation, basilar predominant small or were mucoid impaction and scattered basilar tree-in-bud nodularity. Interval increase in size of the right lower lobe subpleural nodule. Patient was taken to surgery on 06/19/18 where he underwent percutaneous screw fixation of the right femoral neck. In the meantime apparently patient had bilateral foot wounds. Cultures were obtained on the bilateral foot wounds and they grew VRE that is ampicillin sensitive, Stenotrophomonas maltophilia that is susceptible to Bactrim and levofloxacin, and pansensitive pseudomonas aeruginosa. During the hospital stay, patient continued to be afebrile, his WBC normalized and at 7.9 today with normal differential, creatinine has improved, patient was started on aztreonam on 06/19/18 and Flagyl on 06/19/18. We were asked to evaluate the patient and make further recommendations. CC: Clau Cortez MD Past Med Surg Social Fam HX - Past Medical History Medical history: atrial fibrillation, cancer, COPD, coronary artery disease, diabetes, malignancy, thyroid disease, other Additional medical history: lung cancer Psychiatric history: anxiety, depression - Past Surgical History Surgical History: cancer surgery, coronary bypass (CABG) Additional surgical history: Sternal revision, exploratory laparotomy and herniorrhaphy, thyroidectomy - Social History Smoking Status: Current every day smoker Smokeless Tobacco Status: No Alcohol use: none Drug use: none - Family History Mother Living Status: Hx Family Cardiac Disorders: Yes Infectious Disease-CN:Meds Omeprazole [PriLOSEC] 20 mg PO DAILY 07/07/15 [History] Potassium Chloride 10 meq PO BID 07/07/15 [History] Metoprolol [Lopressor] 25 mg PO BID 07/10/15 [History] Citalopram [CeleXA] 20 mg PO DAILY #30 tablet 12/13/15 [Rx] Lubiprostone [Amitiza] 24 mcg PO BID #60 capsule 12/13/15 [Rx] Insulin Glargine,Hum.rec.anlog [Lantus Solostar] 10 unit SQ QPM 12/06/16 [ History] Megestrol Acetate [Megace] 200 mg PO BID 04/08/17 [History] Albuterol Sulfate [Ventolin Hfa] 2 puff IH Q6H PRN 04/01/18 [History] Furosemide [Lasix] 40 mg PO DAILY 04/28/18 [History] Levothyroxine [Synthroid] 150 mcg PO DAILY 04/28/18 [History] Tiotropium [Spiriva] 1 puff IH DAILY 04/28/18 [History] Aspirin Enteric Coated [Aspirin EC] 81 mg PO DAILY tablet. 05/01/18 [Rx] Oxycodone HCl/Acetaminophen [Percocet 10-325 mg Tablet] 1 - 2 each PO Q4H PRN 2 Days #28 tablet 05/01/18 [Rx] Silver Sulfadiazine [Silvadene] 1 appl TP DAILY #1 tub 05/11/18 [Rx] Fluticasone/Salmeterol [Advair 250-50 Diskus] 1 puff IH BID 05/27/18 [History] Warfarin [Coumadin] 4 mg PO DAILY 06/18/18 [History] 3 Allergy/AdvReac Type Severity Reaction Status Date / Time cephalexin [From Keflex] Allergy Mild unknown Verified 05/27/18 21:38 levofloxacin [From Levaquin] AdvReac Mild unknown Verified 05/27/18 21:38 clindamycin [From Cleocin] AdvReac See Verified 05/27/18 21:38 Comments Review of systems: 10 point review of systems done, negative other for what mentioned in the history of present illness. Exam - Constitutional Vitals: Temp Pulse Resp BP Pulse Ox 98.4 F 106 18 102/64 90 06/25/18 12:47 06/25/18 12:47 06/25/18 12:47 06/25/18 12:47 06/25/18 12:47 General appearance: disheveled, no acute distress, no febrile - Head Head exam: Present: atraumatic, normocephalic - Eye Eye exam: Present: EOMI, PERRL - ENT ENT exam: Present: mucous membranes dry Additional comments: Not wearing his dentures - Neck Neck exam: Present: full ROM. Absent: meningismus - Respiratory Additional comments: Decreased breath sounds universally I did not appreciate any wheezing. Poor inspiratory effort. - Cardiovascular Cardiovascular exam: Present: RRR, +S1, +S2 - GI/Abdominal GI/Abdominal exam: Present: normal bowel sounds, soft. Absent: tenderness - Extremities Exam Additional comments: Right hip surgical wound intact. Multiple ulcerations bilateral lower feet and right ankle. There is no surrounding erythema or fluctuance. There is some purulence and foul-smelling. - Neurological Exam Neurological exam: Present: alert, oriented X3 Infectious Disease CN: Results - Labs CBC & Chem 7: 06/25/18 01:36 06/25/18 01:36 Cultures: Cultures 06/21/18 23:34 Wound Culture - Final Left Foot Pseudomonas aeruginosa Vanc. Resistant Enterococcus Stenotrophomonas maltophilia 06/21/18 23:34 Wound Culture - Final Right Foot Pseudomonas aeruginosa Vanc. Resistant Enterococcus Stenotrophomonas maltophilia 06/21/18 23:34 Wound Culture - Final Other-Specify in Comments Pseudomonas aeruginosa Vanc. Resistant Enterococcus Stenotrophomonas maltophilia Serology: Serology 06/22/18 06/20/18 Range/Units 16:53 04:00 Urine Color Yellow (Yellow) Urine Clarity Clear (Clear) Urine pH 5.5 (5.0-8.0) pH Units Ur Specific [place] 1.028 H (1.010-1.025) Urine Protein Trace (Neg-Trace) mg/dL Urine Glucose (UA) Normal (Normal) mg/dL Urine Ketones 15 H (Negative) mg/dL Urine Blood Trace H (Negative) Urine Nitrite Negative (Negative) Urine Bilirubin Small H (Negative) Urine Urobilinogen Normal (Normal) mg/dL Ur Leukocyte Esterase Small H (Negative) Urine Microscopic RBC 5-15 H (0-3) per hpf Urine Microscopic WBC 5-15 H (0-3) per hpf Ur Squamous Epith Cells Moderate H (None-Few) per lpf Urine Bacteria None Seen (None-Few) per hpf Hyaline Casts Few (None-Few) per lpf Urine Yeast Few H (None Seen) per hpf Urine Sodium 22.4 mEq/L - VTE Documentation of Mechanical Device: Intermittent pneumatic compression device Consult Discharge Plan - Plan Additional Instructions: JAIL DISCHARGE INSTRUCTIONS Dr. Dorota STEVEN PERFORMED Reduction and fixation of right hip. Incision care -Daily dressing changes to the right hip with dry gauze and either paper tape or medipore tape. -Avoid soaking wound in water (no hot tubs, bathtubs, swimming pools). -May shower after 2 weeks from surgery date. Carefully wash incision with soap and water. Gently pat it dry. Don't rub the incision, or apply creams or lotions. Sit on a shower stool when showering to keep from falling. Weight bearing status -Weightbearing as tolerated to the bilateral lower extremities. Medications -Pain medication per the discharging medical doctor Other -Knee high PAMELA hose 23 hours per day -Consult physical and occupational therapy for mobilization. -Up to chair with assistance at least twice per day. -Follow up with your primary care physician to discuss testing for bone mineral density. Follow-up with Dr. Raya at the office 2 weeks from the surgery date for a post operative evaluation. Call the office at [phone] to schedule appointment. Referrals: Avery Woods DO [Primary Care Provider] -
[2018-06-25] MEDS: Silver Sulfadiazine 50 GM TUBE TP SCH (15:17)
--- NOTE | 2018-06-25 18:02 | Internal Med Progress Note ---
Date of Encounter: 06/25/18 Time of Encounter: 18:02 - Assessment and plan (1) Sepsis Current Visit: Yes Status: Ruled-out Qualifiers: Sepsis type: sepsis due to unspecified organism Qualified Code(s): A41.9 - Sepsis, unspecified organism (2) COPD (chronic obstructive pulmonary disease) Current Visit: Yes Status: Chronic Qualifiers: COPD type: unspecified COPD Qualified Code(s): J44.9 - Chronic obstructive pulmonary disease, unspecified (3) CAD (coronary artery disease) of artery bypass graft Current Visit: Yes Status: Chronic Qualifiers: [place] vs. transplanted heart: three affiliated heart Associated angina: without angina Qualified Code(s): I25.810 - Atherosclerosis of coronary artery bypass graft(s) without angina pectoris (4) Acute kidney injury Current Visit: Yes Status: Resolved (5) Aspiration pneumonia Current Visit: Yes Status: Acute Assessment and plan: CT chest showed bibasilar infiltrates and airway secretions, likely aspiration. states patient has h/o- thyroid and laryngeal cancer s/p radiation; he has a hole at the site where meds and food get stuck if he's not careful; he does tolerates regular diet at home. on IV Aztreonam and Flagyl; blood cultures negative. Supplemental O2 and supportive care. Qualifiers: Aspiration pneumonia type: unspecified Laterality: right Lung location: lower lobe of lung Qualified Code(s): J69.0 - Pneumonitis due to inhalation of food and vomit (6) Fracture of femoral neck, right Current Visit: Yes Status: Acute Assessment and plan: CT hip shows Acute nondisplaced mildly impacted right femoral neck fracture. Orthopedics consulted, underwent Percutaneous screw fixation of the right femoral neck on 06/19/18. continue pain control with PRN Oxycodone and Tylenol; DVT prophylaxis with Coumadin. INR supratherapeutic, likely due to antibiotic use; dosing per PT; PT/OT recommends ECF placement. psychiatric social worker supervisor on board. Qualifiers: Encounter type: initial encounter Fracture type: closed Qualified Code(s) : S72.001A - Fracture of unspecified part of neck of right femur, initial encounter for closed fracture (7) Rib fracture Current Visit: Yes Status: Acute Qualifiers: Encounter type: subsequent encounter Rib fracture type: single rib Fracture type: closed Laterality: right Fracture healing: with routine healing Qualified Code(s): S22.31XD - Fracture of one rib, right side, subsequent encounter for fracture with routine healing (8) Diabetes mellitus Current Visit: Yes Status: Chronic Qualifiers: Diabetes mellitus type: type 2 Diabetes mellitus retirement insulin use: with retirement use Diabetes mellitus complication status: with hypoglycemia Diabetes mellitus complication detail: without coma Qualified Code(s): E11.649 - Type 2 diabetes mellitus with hypoglycemia without coma; 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 (9) Atrial fibrillation Current Visit: Yes Status: Chronic Qualifiers: Atrial fibrillation type: chronic Qualified Code(s): I48.2 - Chronic atrial fibrillation (10) Lung cancer Current Visit: Yes Status: Chronic Qualifiers: Laterality: unspecified laterality Lung location: unspecified part of lung Qualified Code(s): C34.90 - Malignant neoplasm of unspecified part of unspecified bronchus or lung (11) Hypotension Current Visit: Yes Status: Resolved Qualifiers: Hypotension type: unspecified hypotension type Qualified Code(s): I95.9 - Hypotension, unspecified (12) Hyponatremia Current Visit: Yes Status: Acute (13) Open wound, lower leg Current Visit: Yes Status: Chronic Assessment and plan: B/L dry skin with a few open sores, with yellowish exudative base; wound culture from B/L legs grows Pseudomonas, VRE, Stenotrophomonas; patient has multiple antibiotic allergies, will consult ID for further recommendations; Local wound care. Qualifiers: Encounter type: subsequent encounter Laterality: unspecified laterality Qualified Code(s): S81.809D - Unspecified open wound, unspecified lower leg, subsequent encounter - Time Spent With Patient Total time spent is greater than 50% in coordination of care (as documented) at patient's floor/unit and/or counseling patient: - Subjective Interval history: continues to have right chest and hip pain, improving with pain meds; no dyspnea , palpitations, fever/chills; sitting up at the edge of his bed, eating dinner; - Constitutional Vitals: Temp Pulse Resp BP Pulse Ox 98.4 F 104 16 98/64 92 06/25/18 15:41 06/25/18 15:41 06/25/18 15:41 06/25/18 15:41 06/25/18 15:41 General appearance: Present: A&O X 3 (weak), answers questions appropriately - Respiratory Respiratory exam: Present: CTAB (coarse breath sounds B/L). Absent: accessory muscle use, rales, rhonchi, wheezes - Cardiovascular Cardiovascular exam: Present: irregular rhythm, +S1, +S2. Absent: diastolic murmur, gallop, rubs, systolic murmur - GI/Abdominal GI/Abdominal exam: Present: normal bowel sounds, soft, no peritoneal signs. Absent: distended, tenderness - Extremities Exam Extremities exam: Present: pedal edema, warm, radial pulses palpable and symmetrical. Absent: calf tenderness, cyanotic Additional comments: B/L legs with dry flaky skin and open skin sores, in dressing Internal Medicine: Result - Labs CBC & Chem 7: 06/26/18 08:54 06/26/18 08:54 Labs: Short CBC 06/25/18 Range/Units 01:36 WBC 10.1 (4.3-11.1) K/mcL Hgb 9.5 L (12.9-16.9) g/dL Hct 30.0 L (37.5-50.1) % Plt Count 379 (140-400) K/mcL Neutrophils # 8.1 (1.6-8.9) K/mcL BMP 06/25/18 01:36 Sodium 138 Potassium 3.7 Chloride 113 H Carbon Dioxide 18 L BUN 17 Creatinine 0.97 Glucose 74 Calcium 7.7 L - ABG Interpretation ABG results: PT/INR, D-dimer PT 51.8 Seconds (9.4-12.1) H* 06/25/18 01:36 - VTE Documentation of Mechanical Device: Intermittent pneumatic compression device Consult Discharge Plan - Plan Additional Instructions: DETENTION DISCHARGE INSTRUCTIONS Dr. Raya PROCEDURE PERFORMED Reduction and fixation of right hip. Incision care -Daily dressing changes to the right hip with dry gauze and either paper tape or medipore tape. -Avoid soaking wound in water (no hot tubs, bathtubs, swimming pools). -May shower after 2 weeks from surgery date. Carefully wash incision with soap and water. Gently pat it dry. Don't rub the incision, or apply creams or lotions. Sit on a shower stool when showering to keep from falling. Weight bearing status -Weightbearing as tolerated to the bilateral lower extremities. Medications -Pain medication per the discharging medical doctor Other -Knee high PAMELA hose 23 hours per day -Consult physical and occupational therapy for mobilization. -Up to chair with assistance at least twice per day. -Follow up with your primary care physician to discuss testing for bone mineral density. Follow-up with Dr. Raya at the office 2 weeks from the surgery date for a post operative evaluation. Call the office at [phone] to schedule appointment. Referrals: Avery Woods DO [Primary Care Provider] -
[2018-06-26] MEDS: traMADol 50 MG TABLET PO PRN ×3 (00:04→17:56)
[2018-06-26] MEDS: Aztreonam 1,000 MG in Water for inj. (sterile) 20 ML 10 ML IVP SCH ×2 (00:04→08:46)
[2018-06-26] MEDS: MetroNIDAZOLE 500 MG/100 ML 500 MG/100 ML BAG IVPB SCH ×2 (00:05→08:47)
[2018-06-26 02:02] LABS: INR 5.7; Prothrombin Time 64.7 Seconds (9.4-12.1)
[2018-06-26] MEDS: *HR* OxyCODONE/APAP 10/325 TABLET PO PRN ×4 (03:59→19:42)
[2018-06-26] MEDS: Lubiprostone [Amitiza] 24 MCG PO SCH ×3 (05:28→19:50)
[2018-06-26] MEDS: Budesonide/Formoterol 80/4.5 MDI IH SCH ×2 (07:59→21:16)
[2018-06-26] MEDS: Tiotropium 18 MCG inhalation IH SCH (08:02)
[2018-06-26] MEDS: Megestrol Acetate 400 MG/10 ML UDC PO SCH ×2 (08:43→19:42)
[2018-06-26 10:00] LABS: Basophils % 0.2 %; Eosinophils # 0.2 K/mcL (0.0-0.6); Eosinophils % 1.6 %; Hematocrit 30.9 % (37.5-50.1); Hemoglobin 9.9 g/dL (12.9-16.9); Immature Granulocytes % 0.7 % (0-4); Lymphocytes # 0.8 K/mcL (0.6-4.6); Lymphocytes % 6.4 %; Mean Corpuscular Hemoglobin 30.8 pg (28.0-33.3); Mean Corpuscular Volume 96.3 fL (83.0-100.0); Mean Platelet Volume 9.1 fL (9.4-12.4); Monocytes # 1.1 K/mcL (0.0-1.3); Monocytes % 8.2 %; Neutrophils # 10.7 K/mcL (1.6-8.9); Platelet Count 395 K/mcL (140-400); Red Blood Count 3.21 M/mcL (4.19-5.50); Red Cell Distribution Width 18.9 % (11.5-14.5); Segmented Neutrophils % 82.9 %
[2018-06-26 10:20] LABS: Blood Urea Nitrogen 19 mg/dL (8-23); Carbon Dioxide 17 mEq/L (23-29); Chloride 113 mEq/L (98-107); Glucose 80 mg/dL (70-105); Osmolality,Calculated 287 (280-300); Potassium 3.5 mEq/L (3.5-5.1); Sodium 138 mEq/L (136-145)
--- NOTE | 2018-06-26 10:30 | Infectious Disease Progress No ---
Date of Encounter: 06/26/18 Time of Encounter: 10:28 - Assessment and Plan (1) Severe sepsis Current Visit: Yes Status: Acute The patient had to search criteria plus acute kidney injury on admission. Likely secondary to aspiration pneumonia and bilateral lower extremity wound infections. Improved. Blood culture drawn June 16 is negative 1 set. (2) Open wound, lower leg Current Visit: Yes Status: Chronic Location: Left lee. Etiology unclear, but sounds like venous stasis ulcers. Wound culture is positive for stenotrophomonas maltophilia, VRE, and Pseudomonas. No imaging of the lower part of the legs have been done. Not sure if the patient needs vascular testing as well because he will not allow me to remove the dressings to adequately assess his pulses in the distal extremities. I recommended that the patient be evaluated by podiatry for wound care recommendations and possible referral to the wound care clinic. He adamantly declines having podiatry evaluate him at this time. Consider wound care at least to evaluate make dressing recommendations. Get CT of the BLE to evaluate. Discontinue aztreonam and Flagyl. Start Zosyn 3.375 g IV Q8H. Start Bactrim IV. Will ask pharmacy to assist with dosing. Duration of treatment depends on the clinical picture. Monitor renal function and dose-adjust antibiotics. Qualifiers: Encounter type: subsequent encounter Laterality: unspecified laterality Qualified Code(s): S81.809D - Unspecified open wound, unspecified lower leg, subsequent encounter (3) Aspiration pneumonia Current Visit: Yes Status: Suspected CT of the chest showed features of chronic recurrent aspiration, including extensive tracheal bronchial secretions with airway inflammation, basilar predominant small airway mucoid impaction, and scattered basilar tree-in-bud nodularity. Patient denies choking when he eats, but he does have a moist cough. Recommend speech therapy to evaluate. The patient did have a formal swallow evaluation back in 2017 and showed aspiration with thin liquids. Has received aztreonam and Flagyl for the last 7 days. Antibiotics as above. Qualifiers: Aspiration pneumonia type: unspecified Laterality: right Lung location: lower lobe of lung Qualified Code(s): J69.0 - Pneumonitis due to inhalation of food and vomit (4) Diabetic foot ulcer Current Visit: No Status: Chronic Location: Bilateral feet. Likely secondary to venous stasis ulcers, nonhealing due to poor diabetes control and lack of aggressive wound care. Wound cultures of the bilateral feet are positive for pseudomonas, VRE, and stenotrophomonas maltophilia. The patient refuses podiatry wound care consult. Antibiotic recommendations as above. Recommend aggressive glucose monitoring and control. Qualifiers: Diabetic foot ulcer location: unspecified part of foot Diabetes mellitus type: type 2 Non-pressure ulcer stage: unspecified non-pressure ulcer stage Qualified Code(s): E11.621 - Type 2 diabetes mellitus with foot ulcer; L97.509 - Non-pressure chronic ulcer of other part of unspecified foot with unspecified severity (5) Acute kidney injury Current Visit: Yes Status: Resolved Likely secondary to sepsis. Resolved. Continue to trend. Distress antibiotics based on creatinine clearance. Discussed with pharmacy. Creatinine clearance about 48 today. (6) Fracture of head of right femur Current Visit: Yes Status: Acute Secondary to fall at home prior to admission. Status post percutaneous screw fixation of the right femoral neck on 06/21/18. Qualifiers: Encounter type: initial encounter Fracture type: closed Qualified Code(s) : S72.051A - Unspecified fracture of head of right femur, initial encounter for closed fracture (7) Fracture of ribs, seven Current Visit: Yes Status: Acute Secondary to fall. Pain management per the primary team. Qualifiers: Encounter type: initial encounter Fracture type: closed Laterality: right Qualified Code(s): S22.41XA - Multiple fractures of ribs, right side, initial encounter for closed fracture (8) Supratherapeutic INR Current Visit: No Status: Acute Etiology unclear. Management per the primary team. (9) Allergy to multiple antibiotics Current Visit: Yes Status: Acute The patient reports allergies to Keflex, Levaquin, and clindamycin. He was discharged on Augmentin on a previous admission in May of this year. Set tolerated it without a problem. (10) Thyroid carcinoma Current Visit: No Status: Chronic (11) Abdominal aortic aneurysm Current Visit: No Status: Chronic Qualifiers: Presence of rupture: without rupture Qualified Code(s): I71.4 - Abdominal aortic aneurysm, without rupture (12) Peripheral vascular disease Current Visit: Yes Status: Acute - Subjective Interval history: Patient seen and examined. No acute events noted overnight. Patient setting up on the side of the bed eating breakfast during my exam. States he has pain "all over." Reports some shortness of breath with a moist cough. Denies nausea , vomiting, diarrhea, or constipation. Reports last bowel movement was yesterday. Denies urinary complaints. Denies oral thrush or new skin lesions. Per his , the patient's ulcerations to his legs have been there for about 3 months and she has been attempting to manage them on her own. She states he has been to wound care couple of times in the past for similar issues, but has not been there for this particular issue. Infect Dis PN-Objective Data - Labs CBC & Chem 7: 06/26/18 08:54 06/26/18 08:54 Labs: Laboratory Results - last 24 hr 06/25/18 06/25/18 06/26/18 12:34 17:25 01:09 WBC RBC Hgb Hct MCV MCH MCHC RDW Plt Count MPV Immature Gran % Seg Neutrophils % Lymphocytes % Monocytes % Eosinophils % Basophils % Neutrophils # Lymphocytes # Monocytes # Eosinophils # Basophils # PT 64.7 H* INR 5.7 H* Sodium Potassium Chloride Carbon Dioxide BUN Glucose POC Glucose 74 116 H Calculated Osmolality Calcium 06/26/18 06/26/18 08:54 08:54 WBC 12.9 H RBC 3.21 L Hgb 9.9 L Hct 30.9 L MCV 96.3 MCH 30.8 MCHC 32.0 RDW 18.9 H Plt Count 395 MPV 9.1 L Immature Gran % 0.7 Seg Neutrophils % 82.9 Lymphocytes % 6.4 Monocytes % 8.2 Eosinophils % 1.6 Basophils % 0.2 Neutrophils # 10.7 H Lymphocytes # 0.8 Monocytes # 1.1 Eosinophils # 0.2 Basophils # 0.0 PT INR Sodium 138 Potassium 3.5 Chloride 113 H Carbon Dioxide 17 L BUN 19 Glucose 80 POC Glucose Calculated Osmolality 287 Calcium 8.0 L Cultures: Cultures 06/21/18 23:34 Wound Culture - Final Left Foot Pseudomonas aeruginosa Vanc. Resistant Enterococcus Stenotrophomonas maltophilia 06/21/18 23:34 Wound Culture - Final Right Foot Pseudomonas aeruginosa Vanc. Resistant Enterococcus Stenotrophomonas maltophilia 06/21/18 23:34 Wound Culture - Final Other-Specify in Comments Pseudomonas aeruginosa Vanc. Resistant Enterococcus Stenotrophomonas maltophilia Serology 06/22/18 06/20/18 Range/Units 16:53 04:00 Urine Color Yellow (Yellow) Urine Clarity Clear (Clear) Urine pH 5.5 (5.0-8.0) pH Units Ur Specific [place] 1.028 H (1.010-1.025) Urine Protein Trace (Neg-Trace) mg/dL Urine Glucose (UA) Normal (Normal) mg/dL Urine Ketones 15 H (Negative) mg/dL Urine Blood Trace H (Negative) Urine Nitrite Negative (Negative) Urine Bilirubin Small H (Negative) Urine Urobilinogen Normal (Normal) mg/dL Ur Leukocyte Esterase Small H (Negative) Urine Microscopic RBC 5-15 H (0-3) per hpf Urine Microscopic WBC 5-15 H (0-3) per hpf Ur Squamous Epith Cells Moderate H (None-Few) per lpf Urine Bacteria None Seen (None-Few) per hpf Hyaline Casts Few (None-Few) per lpf Urine Yeast Few H (None Seen) per hpf Urine Sodium 22.4 mEq/L Exam - Constitutional Vitals: Temp Pulse Resp BP Pulse Ox 97.7 F 72 18 102/66 93 06/26/18 07:12 06/26/18 07:12 06/26/18 08:02 06/26/18 07:12 06/26/18 09:11 General appearance: average body habitus, cooperative, no acute distress - Head Head exam: Present: atraumatic, normal inspection, normocephalic - Eye Eye exam: Present: EOMI, normal appearance, PERRL Pupils: Present: normal accommodation - ENT ENT exam: Present: mucous membranes moist - Neck Neck exam: Present: normal inspection - Respiratory Respiratory exam: Present: CTAB. Absent: rales, respiratory distress, rhonchi, wheezes - Cardiovascular Cardiovascular exam: Present: irregular rhythm. Absent: tachycardia - GI/Abdominal GI/Abdominal exam: Present: normal bowel sounds, soft, tenderness (Generalized) . Absent: distended - Extremities Exam Additional comments: Bilateral lower extremity dressings are clean, dry, and intact. Patient declines me removing the dressings to evaluate his ulcers. - Neurological Exam Neurological exam: Present: alert, oriented X3, no focal deficits - Psychiatric Psychiatric exam: Present: normal affect, normal mood - Skin Skin exam: Present: dry, intact, pallor, warm - VTE Documentation of Mechanical Device: Intermittent pneumatic compression device Consult Discharge Plan - Plan Additional Instructions: GROUP HOME DISCHARGE INSTRUCTIONS Dr. Raya PROCEDURE PERFORMED Reduction and fixation of right hip. Incision care -Daily dressing changes to the right hip with dry gauze and either paper tape or medipore tape. -Avoid soaking wound in water (no hot tubs, bathtubs, swimming pools). -May shower after 2 weeks from surgery date. Carefully wash incision with soap and water. Gently pat it dry. Don't rub the incision, or apply creams or lotions. Sit on a shower stool when showering to keep from falling. Weight bearing status -Weightbearing as tolerated to the bilateral lower extremities. Medications -Pain medication per the discharging medical doctor Other -Knee high PAMELA hose 23 hours per day -Consult physical and occupational therapy for mobilization. -Up to chair with assistance at least twice per day. -Follow up with your primary care physician to discuss testing for bone mineral density. Follow-up with Dr. Raya at the office 2 weeks from the surgery date for a post operative evaluation. Call the office at [phone] to schedule appointment. Referrals: Avery Woods DO [Primary Care Provider] - - Attending Attestation I examined this patient and my medical decision-making was reviewed with the Resident Physician. I agree with the documented findings, disposition and treatment plan as described except to the extent set forth below.
[2018-06-26 10:57] LABS: BUN/Creatinine Ratio 19 (6-26); eGFR For Non-African Americans > 60 (> 60)
[2018-06-26] MEDS: Silver Sulfadiazine 50 GM TUBE TP SCH (11:56)
[2018-06-26] MEDS: Piperacillin/Tazobactam 3.375 GM in 0.9 % Sodium Chloride Mini Bag 100 ML IVPB SCH ×2 (12:45→17:41)
[2018-06-26] MEDS: TRIMETH IVPB SCH ×2 (17:41→23:27)
[2018-06-26] MEDS: WATER IVPB SCH ×2 (17:41→23:27)
[2018-06-26] MEDS: D5 IVPB SCH ×2 (17:41→23:27)
[2018-06-26] MEDS: SULFAMETHOXAZOLE IVPB SCH ×2 (17:41→23:27)
--- NOTE | 2018-06-26 17:50 | Internal Med Progress Note ---
Date of Encounter: 06/26/18 Time of Encounter: 13:50 - Assessment and plan (1) Fracture of femoral neck, right Current Visit: Yes Status: Acute Assessment and plan: CT hip shows Acute nondisplaced mildly impacted right femoral neck fracture. Orthopedics consulted, underwent Percutaneous screw fixation of the right femoral neck on 06/19/18. continue pain control with PRN Oxycodone and Tylenol; DVT prophylaxis with Coumadin. INR supratherapeutic, likely due to antibiotic use; dosing per PT; PT/OT recommends ECF placement. social work msw on board. Qualifiers: Encounter type: initial encounter Fracture type: closed Qualified Code(s) : S72.001A - Fracture of unspecified part of neck of right femur, initial encounter for closed fracture (2) Aspiration pneumonia Current Visit: Yes Status: Acute Assessment and plan: CT chest showed bibasilar infiltrates and airway secretions, likely aspiration. states patient has h/o- thyroid and laryngeal cancer s/p radiation; he has a hole at the site where meds and food get stuck if he's not careful; he does tolerates regular diet at home. blood cultures negative. Supplemental O2 and supportive care. ID consult appreciated- antibiotics changed to IV Zosyn and Bactrim PO; Qualifiers: Aspiration pneumonia type: unspecified Laterality: right Lung location: lower lobe of lung Qualified Code(s): J69.0 - Pneumonitis due to inhalation of food and vomit (3) Sepsis Current Visit: Yes Status: Ruled-out Qualifiers: Sepsis type: sepsis due to unspecified organism Qualified Code(s): A41.9 - Sepsis, unspecified organism (4) COPD (chronic obstructive pulmonary disease) Current Visit: Yes Status: Chronic Qualifiers: COPD type: unspecified COPD Qualified Code(s): J44.9 - Chronic obstructive pulmonary disease, unspecified (5) CAD (coronary artery disease) of artery bypass graft Current Visit: Yes Status: Chronic Qualifiers: [place] vs. transplanted heart: [place] heart Associated angina: without angina Qualified Code(s): I25.810 - Atherosclerosis of coronary artery bypass graft(s) without angina pectoris (6) Acute kidney injury Current Visit: Yes Status: Resolved (7) Rib fracture Current Visit: Yes Status: Acute Qualifiers: Encounter type: subsequent encounter Rib fracture type: single rib Fracture type: closed Laterality: right Fracture healing: with routine healing Qualified Code(s): S22.31XD - Fracture of one rib, right side, subsequent encounter for fracture with routine healing (8) Diabetes mellitus Current Visit: Yes Status: Chronic Assessment and plan: Blood sugars strictly controlled; continue Accucheck monitoring with SSI, diabetic diet. Qualifiers: Diabetes mellitus type: type 2 Diabetes mellitus usp insulin use: with termite helper use Diabetes mellitus complication status: with hypoglycemia Diabetes mellitus complication detail: without coma Qualified Code(s): E11.649 - Type 2 diabetes mellitus with hypoglycemia without coma; Z79.4 - custodial (current) use of insulin (9) Atrial fibrillation Current Visit: Yes Status: Chronic Qualifiers: Atrial fibrillation type: chronic Qualified Code(s): I48.2 - Chronic atrial fibrillation (10) Lung cancer Current Visit: Yes Status: Chronic Qualifiers: Laterality: unspecified laterality Lung location: unspecified part of lung Qualified Code(s): C34.90 - Malignant neoplasm of unspecified part of unspecified bronchus or lung (11) Hypotension Current Visit: Yes Status: Resolved Qualifiers: Hypotension type: unspecified hypotension type Qualified Code(s): I95.9 - Hypotension, unspecified (12) Hyponatremia Current Visit: Yes Status: Acute (13) Open wound, lower leg Current Visit: Yes Status: Chronic Assessment and plan: B/L dry skin with a few open sores, with yellowish exudative base; wound culture from B/L legs grows Pseudomonas, VRE, Stenotrophomonas; patient has multiple antibiotic allergies, ID consult appreciated- to discontinue Aztreonam and Flagyl, and start IV Zosyn and PO Bactrim, monitor renal function; recommend Podiatry consult and wound clinic f/up; continue Local wound care with Silvadene cream per WC RN; ordered CT B/L legs per ID; Qualifiers: Encounter type: subsequent encounter Laterality: unspecified laterality Qualified Code(s): S81.809D - Unspecified open wound, unspecified lower leg, subsequent encounter - Time Spent With Patient Total time spent is greater than 50% in coordination of care (as documented) at patient's floor/unit and/or counseling patient: - Subjective Interval history: reports right-sided chest pain and right hip pain, but mostly says "pain is all over" and he is on 3 different pain pills at home but cannot remember why; no dyspnea, palpitations, fever/chills, vomiting or diarrhea; - Constitutional Vitals: Temp Pulse Resp BP Pulse Ox 98 F 94 18 114/70 91 06/26/18 16:50 06/26/18 10:56 06/26/18 10:56 06/26/18 16:50 06/26/18 10:56 General appearance: Present: A&O X 3 (weak), answers questions appropriately - Respiratory Respiratory exam: Present: CTAB (coarse breath sounds B/L). Absent: accessory muscle use, rales, rhonchi, wheezes - Cardiovascular Cardiovascular exam: Present: RRR, +S1, +S2. Absent: diastolic murmur, gallop, rubs, systolic murmur - GI/Abdominal GI/Abdominal exam: Present: normal bowel sounds, soft, no peritoneal signs. Absent: distended, tenderness - Extremities Exam Extremities exam: Present: pedal edema (B/L peripheral edema), warm, radial pulses palpable and symmetrical. Absent: calf tenderness, cyanotic Additional comments: B/L legs and dorsal feet with dry flaky skin and skin sores, in dressing; left anterior mid-leg with big bulla Internal Medicine: Result - Labs CBC & Chem 7: 06/27/18 00:26 06/27/18 05:56 Labs: Short CBC 06/26/18 Range/Units 08:54 WBC 12.9 H (4.3-11.1) K/mcL Hgb 9.9 L (12.9-16.9) g/dL Hct 30.9 L (37.5-50.1) % Plt Count 395 (140-400) K/mcL Neutrophils # 10.7 H (1.6-8.9) K/mcL BMP 06/26/18 08:54 Sodium 138 Potassium 3.5 Chloride 113 H Carbon Dioxide 17 L BUN 19 Creatinine 1.02 Glucose 80 Calcium 8.0 L - ABG Interpretation ABG results: PT/INR, D-dimer PT 64.7 Seconds (9.4-12.1) H* 06/26/18 01:09 - Impressions Impressions Lower Extremity CT 06/26/18 14:08 IMPRESSION: 1. Diffuse bilateral lower extremity subcutaneous fat stranding compatible with bland edema versus cellulitis. No drainable fluid collection no soft tissue gas, or evidence of fasciitis. 2. No acute osseous abnormality 3. Status post ORIF of a chronic healed comminuted depressed left lateral tibial plateau fracture. 4. Chronic healed nondisplaced transverse fracture of the mid left tibial shaft. 5. Chronic healed left fibular shaft fracture. 6. 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 D/ / Mateo Andrade MD / Mateo Andrade MD Interpreting Provider: Mateo Andrade MD Lower Extremity CT 06/26/18 14:08 IMPRESSION: 1. Diffuse bilateral lower extremity subcutaneous fat stranding compatible with bland edema versus cellulitis. No drainable fluid collection no soft tissue gas, or evidence of fasciitis. 2. No acute osseous abnormality 3. Status post ORIF of a chronic healed comminuted depressed left lateral tibial plateau fracture. 4. Chronic healed nondisplaced transverse fracture of the mid left tibial shaft. 5. Chronic healed left fibular shaft fracture. 6. 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 D/ / Mateo Andrade MD / Mateo Andrade MD Interpreting Provider: Mateo Andrade MD - VTE Documentation of Mechanical Device: Intermittent pneumatic compression device Consult Discharge Plan - Plan Additional Instructions: NURSING HOME DISCHARGE INSTRUCTIONS Dr. Raya PROCEDURE PERFORMED Reduction and fixation of right hip. Incision care -Daily dressing changes to the right hip with dry gauze and either paper tape or medipore tape. -Avoid soaking wound in water (no hot tubs, bathtubs, swimming pools). -May shower after 2 weeks from surgery date. Carefully wash incision with soap and water. Gently pat it dry. Don't rub the incision, or apply creams or lotions. Sit on a shower stool when showering to keep from falling. Weight bearing status -Weightbearing as tolerated to the bilateral lower extremities. Medications -Pain medication per the discharging medical doctor Other -Knee high PAMELA hose 23 hours per day -Consult physical and occupational therapy for mobilization. -Up to chair with assistance at least twice per day. -Follow up with your primary care physician to discuss testing for bone mineral density. Follow-up with Dr. Raya at the office 2 weeks from the surgery date for a post operative evaluation. Call the office at [phone] to schedule appointment. Referrals: Avery Woods DO [Primary Care Provider] -
[2018-06-26] MEDS: Nystatin POWDER 30 GM BOTTLE TP SCH (19:42)
--- NOTE | 2018-06-26 22:16 | Orthopedics Progress Note ---
Date of Encounter: 06/26/18 Time of Encounter: 16:00 - Assessment and Plan (1) Fracture of femoral neck, right Current Visit: Yes Status: Acute Qualifiers: Qualified Code(s): S72.001A - Fracture of unspecified part of neck of right femur, initial encounter for closed fracture Subjective Principal diagnosis: Status post percutaneous pinning of hip Interval history: S: Sitting up in bed. Pain controlled with the right hip. Patient refusing podiatry care regarding lower extremities. O: Afebrile on the vital signs are stable Right hip wounds are clean, dry, and intact The patient is neurovascularly intact distally Bilateral lower extremities in dressings. A: Post percutaneous screw fixation of the right hip P: Therapy for mobilization Weightbearing as tolerated on the right lower extremity Supportive care per the primary team Orthopedically stable for discharge Objective Vital signs: Vital Signs Temp Pulse Resp BP Pulse Ox 06/26/18 19:08 99.1 F 98 16 103/68 91 06/26/18 16:50 98 F 114/70 06/26/18 10:56 98.7 F 94 18 111/71 91 06/26/18 09:11 93 06/26/18 08:02 18 95 06/26/18 07:12 97.7 F 72 18 102/66 93 06/26/18 05:17 98.3 F 99 16 110/68 94 06/26/18 00:33 98.7 F 96 16 108/76 94 Intake and Output 06/26/18 06/26/18 06/26/18 07:59 15:59 23:59 Intake Total 110 / 110 240 / 240 200 / 200 Output Total 0 / 0 Balance 110 / 110 240 / 240 200 / 200 Intake: IV Fluids 110 / 110 100 / 100 Azactam 1,000 MG In Water for inj. (sterile) 10 ML @ 300 mls/ hr IVP Q8HR ERIC Rx#:[id number] Flagyl Premix 500 MG/100 ML 500 100 / 100 mg In 100 ml @ 100 mls/hr IVPB Q8HR ERIC Rx#:[id number] Zosyn 3.375 GM In 0.9 % Sodium 100 / 100 Chloride (Mini-Bag +) 100 ML @ 25 mls/hr IVPB Q8H ERIC Rx#: [id number] Oral 240 / 240 100 / 100 Output: Urine 0 / 0 Other: Meal Breakfast Percent of Meal Consumed 30% Weight 77.3 kg Blood Glucose* 69 114 119 Patient Weight 06/26/18 23:59 Weight 77.3 kg - Labs CBC & BMP: 06/26/18 08:54 06/26/18 08:54 Labs: Abnormal lab results WBC 12.9 K/mcL (4.3-11.1) H 06/26/18 08:54 RBC 3.21 M/mcL (4.19-5.50) L 06/26/18 08:54 Hgb 9.9 g/dL (12.9-16.9) L 06/26/18 08:54 Hct 30.9 % (37.5-50.1) L 06/26/18 08:54 RDW 18.9 % (11.5-14.5) H 06/26/18 08:54 MPV 9.1 fL (9.4-12.4) L 06/26/18 08:54 Neutrophils # 10.7 K/mcL (1.6-8.9) H 06/26/18 08:54 PT 64.7 Seconds (9.4-12.1) H* 06/26/18 01:09 INR 5.7 H* 06/26/18 01:09 APTT 40.9 Seconds (26.0-36.0) H 06/18/18 14:37 Chloride 113 mEq/L (98-107) H 06/26/18 08:54 Carbon Dioxide 17 mEq/L (23-29) L 06/26/18 08:54 POC Glucose 119 mg/dL (70-99) H 06/26/18 19:26 Calcium 8.0 mg/dL (8.6-10.3) L 06/26/18 08:54 AST 10 Units/L (13-39) L 06/20/18 01:21 Serum Total Protein 5.6 g/dL (6.4-8.9) L 06/20/18 01:21 Albumin 2.6 g/dL (3.5-5.7) L 06/20/18 01:21 Albumin/Globulin Ratio 0.9 (1.1-2.2) L 06/20/18 01:21 Ur Specific [place] 1.028 (1.010-1.025) H 06/20/18 04:00 Urine Ketones 15 mg/dL (Negative) H 06/20/18 04:00 Urine Blood Trace (Negative) H 06/20/18 04:00 Urine Bilirubin Small (Negative) H 06/20/18 04:00 Ur Leukocyte Esterase Small (Negative) H 06/20/18 04:00 Urine Microscopic RBC 5-15 per hpf (0-3) H 06/20/18 04:00 Urine Microscopic WBC 5-15 per hpf (0-3) H 06/20/18 04:00 Ur Squamous Epith Cells Moderate per lpf (None-Few) H 06/20/18 04:00 Urine Yeast Few per hpf (None Seen) H 06/20/18 04:00 - VTE Documentation of Mechanical Device: Intermittent pneumatic compression device Consult Discharge Plan - Plan Additional Instructions: [facility] DISCHARGE INSTRUCTIONS Dr. Raya PROCEDURE PERFORMED Reduction and fixation of right hip. Incision care -Daily dressing changes to the right hip with dry gauze and either paper tape or medipore tape. -Avoid soaking wound in water (no hot tubs, bathtubs, swimming pools). -May shower after 2 weeks from surgery date. Carefully wash incision with soap and water. Gently pat it dry. Don't rub the incision, or apply creams or lotions. Sit on a shower stool when showering to keep from falling. Weight bearing status -Weightbearing as tolerated to the bilateral lower extremities. Medications -Pain medication per the discharging medical doctor Other -Knee high PAMELA hose 23 hours per day -Consult physical and occupational therapy for mobilization. -Up to chair with assistance at least twice per day. -Follow up with your primary care physician to discuss testing for bone mineral density. Follow-up with Dr. Raya at the office 2 weeks from the surgery date for a post operative evaluation. Call the office at [phone] to schedule appointment. Referrals: Avery Woods DO [Primary Care Provider] -
[2018-06-27 01:40] LABS: Basophils % 0.2 %; Eosinophils # 0.2 K/mcL (0.0-0.6); Eosinophils % 2.4 %; Hematocrit 26.1 % (37.5-50.1); Hemoglobin 8.4 g/dL (12.9-16.9); Immature Granulocytes % 0.6 % (0-4); Lymphocytes # 0.7 K/mcL (0.6-4.6); Lymphocytes % 7.5 %; Mean Corpuscular HGB Conc 32.2 g/dL (31.6-35.5); Mean Corpuscular Hemoglobin 30.8 pg (28.0-33.3); Mean Corpuscular Volume 95.6 fL (83.0-100.0); Monocytes # 0.8 K/mcL (0.0-1.3); Monocytes % 9.5 %; Neutrophils # 6.9 K/mcL (1.6-8.9); Platelet Count 356 K/mcL (140-400); Red Blood Count 2.73 M/mcL (4.19-5.50); Red Cell Distribution Width 18.8 % (11.5-14.5); Segmented Neutrophils % 79.8 %
[2018-06-27 02:04] LABS: INR 5.7; Prothrombin Time 64.7 Seconds (9.4-12.1)
[2018-06-27] MEDS ORDERED: Furosemide 20 MG/2 ML VIAL IVP STA (02:47)
[2018-06-27] MEDS: Piperacillin/Tazobactam 3.375 GM in 0.9 % Sodium Chloride Mini Bag 100 ML IVPB SCH ×3 (03:14→18:24)
[2018-06-27] MEDS: *HR* OxyCODONE/APAP 10/325 TABLET PO PRN ×3 (05:31→20:27)
[2018-06-27 07:10] LABS: BUN/Creatinine Ratio 16 (6-26); Blood Urea Nitrogen 17 mg/dL (8-23); Carbon Dioxide 20 mEq/L (23-29); Chloride 111 mEq/L (98-107); Glucose 77 mg/dL (70-105); Osmolality,Calculated 288 (280-300); Potassium 3.5 mEq/L (3.5-5.1); Sodium 139 mEq/L (136-145); eGFR For Non-African Americans > 60 (> 60)
[2018-06-27] MEDS: Budesonide/Formoterol 80/4.5 MDI IH SCH ×2 (07:48→20:11)
[2018-06-27] MEDS: Tiotropium 18 MCG inhalation IH SCH (07:48)
[2018-06-27] MEDS: SULFAMETHOXAZOLE IVPB SCH ×2 (08:14→18:08)
[2018-06-27] MEDS: TRIMETH IVPB SCH ×2 (08:14→18:08)
[2018-06-27] MEDS: WATER IVPB SCH ×2 (08:14→18:08)
[2018-06-27] MEDS: D5 IVPB SCH ×2 (08:14→18:08)
[2018-06-27] MEDS: Megestrol Acetate 400 MG/10 ML UDC PO SCH ×2 (08:14→20:27)
[2018-06-27] MEDS: Nystatin POWDER 30 GM BOTTLE TP SCH ×2 (08:15→20:41)
[2018-06-27] MEDS: Lubiprostone [Amitiza] 24 MCG PO SCH ×2 (08:15→20:41)
[2018-06-27] MEDS: traMADol 50 MG TABLET PO PRN (08:21)
[2018-06-27] MEDS: Silver Sulfadiazine 50 GM TUBE TP SCH (13:36)
--- NOTE | 2018-06-27 17:38 | Internal Med Progress Note ---
Date of Encounter: 06/27/18 Time of Encounter: 17:38 - Assessment and plan (1) Acute encephalopathy Current Visit: Yes Status: Acute Assessment and plan: delirium secondary to hospitalization, recent ortho surgery, pain meds with underlying malignancy; continue to monitor; check chest XRay for volume overload; PRN IV Lasix; IV hydration held since yesterday; Telemetry monitoring; palliative care consulted; supportive care; (2) Fracture of femoral neck, right Current Visit: Yes Status: Acute Assessment and plan: CT hip shows Acute nondisplaced mildly impacted right femoral neck fracture. Orthopedics consulted, underwent Percutaneous screw fixation of the right femoral neck on 06/19/18. continue pain control with PRN Oxycodone and Tylenol; DVT prophylaxis with Coumadin. INR supratherapeutic, likely due to antibiotic use; dosing per PT; PT/OT recommends ECF placement. social work case manager on board. awaiting insurance precert; Qualifiers: Encounter type: initial encounter Fracture type: closed Qualified Code(s) : S72.001A - Fracture of unspecified part of neck of right femur, initial encounter for closed fracture (3) Aspiration pneumonia Current Visit: Yes Status: Acute Assessment and plan: CT chest showed bibasilar infiltrates and airway secretions, likely aspiration. states patient has h/o- thyroid and laryngeal cancer s/p radiation; he has a hole at the site where meds and food get stuck if he's not careful; he does tolerates regular diet at home. Will get INFORMATION CLERK CASHIER consult for swallow evaluation; blood cultures negative. Supplemental O2 and supportive care. ID consult appreciated- antibiotics changed to IV Zosyn and Bactrim; Qualifiers: Aspiration pneumonia type: unspecified Laterality: right Lung location: lower lobe of lung Qualified Code(s): J69.0 - Pneumonitis due to inhalation of food and vomit (4) Sepsis Current Visit: Yes Status: Ruled-out Qualifiers: Sepsis type: sepsis due to unspecified organism Qualified Code(s): A41.9 - Sepsis, unspecified organism (5) COPD (chronic obstructive pulmonary disease) Current Visit: Yes Status: Chronic Assessment and plan: Not in acute exacerbation. Continue when necessary breathing treatments and supplemental oxygen as needed. Qualifiers: COPD type: unspecified COPD Qualified Code(s): J44.9 - Chronic obstructive pulmonary disease, unspecified (6) CAD (coronary artery disease) of artery bypass graft Current Visit: Yes Status: Chronic Qualifiers: [place] vs. transplanted heart: [place] heart Associated angina: without angina Qualified Code(s): I25.810 - Atherosclerosis of coronary artery bypass graft(s) without angina pectoris (7) Acute kidney injury Current Visit: Yes Status: Resolved (8) Rib fracture Current Visit: Yes Status: Acute Qualifiers: Encounter type: subsequent encounter Rib fracture type: single rib Fracture type: closed Laterality: right Fracture healing: with routine healing Qualified Code(s): S22.31XD - Fracture of one rib, right side, subsequent encounter for fracture with routine healing (9) Diabetes mellitus Current Visit: Yes Status: Chronic Assessment and plan: Blood sugars strictly controlled; continue Accucheck monitoring with SSI, diabetic diet. Qualifiers: Diabetes mellitus type: type 2 Diabetes mellitus long goods drier insulin use: with long goods drier use Diabetes mellitus complication status: with hypoglycemia Diabetes mellitus complication detail: without coma Qualified Code(s): E11.649 - Type 2 diabetes mellitus with hypoglycemia without coma; Z79.4 - residential (current) use of insulin (10) Atrial fibrillation Current Visit: Yes Status: Chronic Qualifiers: Atrial fibrillation type: chronic Qualified Code(s): I48.2 - Chronic atrial fibrillation (11) Lung cancer Current Visit: Yes Status: Chronic Assessment and plan: Recently diagnosed lung cancer, follows up outpatient. In process of looking into palliative care/hospice. have not officially signed. Will consult Palliative care as patient is getting more confused, continues to have poor appetite, increased Megace today; doubtful how much PT he can participate in; Qualifiers: Laterality: unspecified laterality Lung location: unspecified part of lung Qualified Code(s): C34.90 - Malignant neoplasm of unspecified part of unspecified bronchus or lung (12) Hypotension Current Visit: Yes Status: Resolved Qualifiers: Hypotension type: unspecified hypotension type Qualified Code(s): I95.9 - Hypotension, unspecified (13) Hyponatremia Current Visit: Yes Status: Resolved (14) Open wound, lower leg Current Visit: Yes Status: Chronic Assessment and plan: B/L dry skin with a few open sores, with yellowish exudative base; wound culture from B/L legs grows Pseudomonas, VRE, Stenotrophomonas; patient has multiple antibiotic allergies, ID consult appreciated-discontinued Aztreonam and Flagyl, started IV Zosyn and Bactrim, monitor renal function; recommend Podiatry consult and wound clinic f/up- however patient has done this in the past and is no longer willing to continue, per ; continue Local wound care with Silvadene cream per WC RN; ordered CT B/L legs per ID- no abscesses, 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, likely chronic; Qualifiers: Encounter type: subsequent encounter Laterality: unspecified laterality Qualified Code(s): S81.809D - Unspecified open wound, unspecified lower leg, subsequent encounter - Time Spent With Patient Total time spent is greater than 50% in coordination of care (as documented) at patient's floor/unit and/or counseling patient: - Subjective Interval history: Patient is confused today; not at bedside; able to tell me his name and that he is in the hospital, but asks me about "some bills and shipping payments "; has been quite drowsy since morning, poor appetite; right chest and hip pain controlled; - Constitutional Vitals: Temp Pulse Resp BP Pulse Ox 98.5 F 105 17 121/87 93 06/27/18 15:40 06/27/18 15:40 06/27/18 15:40 06/27/18 15:40 06/27/18 15:40 General appearance: Present: A&O X 2 (confused and disoriented). Absent: answers questions appropriately - Respiratory Respiratory exam: Present: CTAB, rales (audible upper airway wheezing and basal crackles), wheezes. Absent: accessory muscle use, rhonchi - Cardiovascular Cardiovascular exam: Present: RRR, +S1, +S2. Absent: diastolic murmur, gallop, rubs, systolic murmur - GI/Abdominal GI/Abdominal exam: Present: normal bowel sounds, soft, no peritoneal signs. Absent: distended, tenderness - Extremities Exam Extremities exam: Present: pedal edema, warm, radial pulses palpable and symmetrical. Absent: calf tenderness, cyanotic Internal Medicine: Result - Labs CBC & Chem 7: 06/28/18 05:35 06/28/18 05:35 Labs: Short CBC 06/27/18 Range/Units 00:26 WBC 8.6 (4.3-11.1) K/mcL Hgb 8.4 L D (12.9-16.9) g/dL Hct 26.1 L (37.5-50.1) % Plt Count 356 (140-400) K/mcL Neutrophils # 6.9 (1.6-8.9) K/mcL BMP 06/27/18 05:56 Sodium 139 Potassium 3.5 Chloride 111 H Carbon Dioxide 20 L BUN 17 Creatinine 1.08 Glucose 77 Calcium 8.0 L - ABG Interpretation ABG results: PT/INR, D-dimer PT 64.7 Seconds (9.4-12.1) H* 06/27/18 00:26 - VTE Documentation of Mechanical Device: Intermittent pneumatic compression device Consult Discharge Plan - Plan Additional Instructions: [facility] DISCHARGE INSTRUCTIONS Dr. Raya PROCEDURE PERFORMED Reduction and fixation of right hip. Incision care -Daily dressing changes to the right hip with dry gauze and either paper tape or medipore tape. -Avoid soaking wound in water (no hot tubs, bathtubs, swimming pools). -May shower after 2 weeks from surgery date. Carefully wash incision with soap and water. Gently pat it dry. Don't rub the incision, or apply creams or lotions. Sit on a shower stool when showering to keep from falling. Weight bearing status -Weightbearing as tolerated to the bilateral lower extremities. Medications -Pain medication per the discharging medical doctor Other -Knee high PAMELA hose 23 hours per day -Consult physical and occupational therapy for mobilization. -Up to chair with assistance at least twice per day. -Follow up with your primary care physician to discuss testing for bone mineral density. Follow-up with Dr. Raya at the office 2 weeks from the surgery date for a post operative evaluation. Call the office at [phone] to schedule appointment. Referrals: Avery Woods DO [Primary Care Provider] -
[2018-06-27] MEDS ORDERED: Furosemide 40 MG/4 ML VIAL IVP ONE (17:56)
[2018-06-28] MEDS: TRIMETH IVPB SCH ×3 (00:27→18:40)
[2018-06-28] MEDS: SULFAMETHOXAZOLE IVPB SCH ×3 (00:27→18:40)
[2018-06-28] MEDS: WATER IVPB SCH ×3 (00:27→18:40)
[2018-06-28] MEDS: D5 IVPB SCH ×3 (00:27→18:40)
[2018-06-28] MEDS: Piperacillin/Tazobactam 3.375 GM in 0.9 % Sodium Chloride Mini Bag 100 ML IVPB SCH ×3 (02:55→19:37)
[2018-06-28] MEDS: *HR* OxyCODONE/APAP 10/325 TABLET PO PRN ×3 (04:13→17:59)
[2018-06-28 05:51] LABS: Basophils % 0.2 %; Eosinophils # 0.1 K/mcL (0.0-0.6); Eosinophils % 0.7 %; Hematocrit 26.4 % (37.5-50.1); Hemoglobin 8.3 g/dL (12.9-16.9); Immature Granulocytes % 0.9 % (0-4); Lymphocytes # 0.7 K/mcL (0.6-4.6); Lymphocytes % 7.2 %; Mean Corpuscular HGB Conc 31.4 g/dL (31.6-35.5); Mean Corpuscular Hemoglobin 29.9 pg (28.0-33.3); Mean Platelet Volume 8.8 fL (9.4-12.4); Monocytes % 9.9 %; Neutrophils # 8.2 K/mcL (1.6-8.9); Platelet Count 407 K/mcL (140-400); Red Blood Count 2.78 M/mcL (4.19-5.50); Red Cell Distribution Width 19.2 % (11.5-14.5); Segmented Neutrophils % 81.1 %
[2018-06-28 06:03] LABS: INR 6.5; Prothrombin Time 73.6 Seconds (9.4-12.1)
[2018-06-28 06:08] LABS: BUN/Creatinine Ratio 15 (6-26); Blood Urea Nitrogen 19 mg/dL (8-23); Calcium 7.9 mg/dL (8.6-10.3); Carbon Dioxide 18 mEq/L (23-29); Chloride 110 mEq/L (98-107); Glucose 75 mg/dL (70-105); Osmolality,Calculated 283 (280-300); Potassium 3.5 mEq/L (3.5-5.1); Sodium 136 mEq/L (136-145); eGFR For Non-African Americans 53 (> 60)
[2018-06-28] MEDS: Megestrol Acetate 400 MG/10 ML UDC PO SCH ×2 (07:36→20:25)
[2018-06-28] MEDS: traMADol 50 MG TABLET PO PRN ×2 (07:36→20:13)
[2018-06-28] MEDS: Nystatin POWDER 30 GM BOTTLE TP SCH ×2 (07:37→20:25)
[2018-06-28] MEDS: Lubiprostone [Amitiza] 24 MCG PO SCH ×2 (07:38→20:07)
[2018-06-28] MEDS: Budesonide/Formoterol 80/4.5 MDI IH SCH ×2 (08:07→21:52)
[2018-06-28] MEDS: Tiotropium 18 MCG inhalation IH SCH (08:08)
[2018-06-28] MEDS: Silver Sulfadiazine 50 GM TUBE TP SCH (14:12)
--- NOTE | 2018-06-28 14:23 | Internal Med Progress Note ---
Date of Encounter: 06/28/18 Time of Encounter: 11:30 - Assessment and plan (1) Acute encephalopathy Current Visit: Yes Status: Acute Assessment and plan: delirium secondary to hospitalization, recent ortho surgery, pain meds with underlying malignancy; continue to monitor; chest XRay shows atelectasis; Telemetry monitoring; palliative care consulted; supportive care; (2) Fracture of femoral neck, right Current Visit: Yes Status: Acute Assessment and plan: CT hip shows Acute nondisplaced mildly impacted right femoral neck fracture. Orthopedics consulted, underwent Percutaneous screw fixation of the right femoral neck on 06/19/18. continue pain control with PRN Oxycodone and Tylenol; DVT prophylaxis with Coumadin. INR supratherapeutic, likely due to antibiotic use; dosing per PT; PT/OT recommends ECF placement. social studies department chair on board. awaiting insurance precert; Qualifiers: Encounter type: initial encounter Fracture type: closed Qualified Code(s) : S72.001A - Fracture of unspecified part of neck of right femur, initial encounter for closed fracture (3) Aspiration pneumonia Current Visit: Yes Status: Acute Assessment and plan: CT chest showed bibasilar infiltrates and airway secretions, likely aspiration. states patient has h/o- thyroid and laryngeal cancer s/p radiation; he has a hole at the site where meds and food get stuck if he's not careful; he does tolerates regular diet at home. Pending ORE ROASTER consult for swallow evaluation; blood cultures negative. Supplemental O2 and supportive care. ID consult appreciated- antibiotics changed to IV Zosyn and Bactrim; Qualifiers: Aspiration pneumonia type: unspecified Laterality: right Lung location: lower lobe of lung Qualified Code(s): J69.0 - Pneumonitis due to inhalation of food and vomit (4) Sepsis Current Visit: Yes Status: Ruled-out Qualifiers: Sepsis type: sepsis due to unspecified organism Qualified Code(s): A41.9 - Sepsis, unspecified organism (5) COPD (chronic obstructive pulmonary disease) Current Visit: Yes Status: Chronic Qualifiers: COPD type: unspecified COPD Qualified Code(s): J44.9 - Chronic obstructive pulmonary disease, unspecified (6) CAD (coronary artery disease) of artery bypass graft Current Visit: Yes Status: Chronic Qualifiers: [place] vs. transplanted heart: [place] heart Associated angina: without angina Qualified Code(s): I25.810 - Atherosclerosis of coronary artery bypass graft(s) without angina pectoris (7) Acute kidney injury Current Visit: Yes Status: Acute Assessment and plan: due to use of IV Lasix and Bactrim; continue to monitor closely, antibiotics to be dose-adjusted per GFR; hold IV hydration for now due to recent volume overload; (8) Rib fracture Current Visit: Yes Status: Acute Qualifiers: Encounter type: subsequent encounter Rib fracture type: single rib Fracture type: closed Laterality: right Fracture healing: with routine healing Qualified Code(s): S22.31XD - Fracture of one rib, right side, subsequent encounter for fracture with routine healing (9) Diabetes mellitus Current Visit: Yes Status: Chronic Qualifiers: Diabetes mellitus type: type 2 Diabetes mellitus continuous churn buttermaker insulin use: with half-way use Diabetes mellitus complication status: with hypoglycemia Diabetes mellitus complication detail: without coma Qualified Code(s): E11.649 - Type 2 diabetes mellitus with hypoglycemia without coma; Z79.4 - long term care phlebotomist (current) use of insulin (10) Atrial fibrillation Current Visit: Yes Status: Chronic Qualifiers: Atrial fibrillation type: chronic Qualified Code(s): I48.2 - Chronic atrial fibrillation (11) Lung cancer Current Visit: Yes Status: Chronic Qualifiers: Laterality: unspecified laterality Lung location: unspecified part of lung Qualified Code(s): C34.90 - Malignant neoplasm of unspecified part of unspecified bronchus or lung (12) Hypotension Current Visit: Yes Status: Resolved Qualifiers: Hypotension type: unspecified hypotension type Qualified Code(s): I95.9 - Hypotension, unspecified (13) Hyponatremia Current Visit: Yes Status: Resolved (14) Open wound, lower leg Current Visit: Yes Status: Chronic Assessment and plan: B/L dry skin with a few open sores, with yellowish exudative base; wound culture from B/L legs grows Pseudomonas, VRE, Stenotrophomonas; patient has multiple antibiotic allergies, ID consult appreciated-discontinued Aztreonam and Flagyl, started IV Zosyn and Bactrim, monitor renal function; recommend Podiatry consult and wound clinic f/up- however patient has done this in the past and is no longer willing to continue, per ; continue Local wound care with Silvadene cream per WC RN; ordered CT B/L legs per ID- no abscesses, 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, likely chronic; Qualifiers: Encounter type: subsequent encounter Laterality: unspecified laterality Qualified Code(s): S81.809D - Unspecified open wound, unspecified lower leg, subsequent encounter - Time Spent With Patient Total time spent is greater than 50% in coordination of care (as documented) at patient's floor/unit and/or counseling patient: - Subjective Interval history: more alert today, but per at bedside, delirious and confused; poor appetite ; improved right hip pain; no fever/chills, shortness of breath; - Constitutional Vitals: Temp Pulse Resp BP Pulse Ox 99.2 F 97 19 93/56 100 06/28/18 12:17 06/28/18 12:17 06/28/18 12:17 06/28/18 12:17 06/28/18 12:17 General appearance: Present: A&O X 2 (slightly confused). Absent: answers questions appropriately - Respiratory Respiratory exam: Present: CTAB (anterolaterally). Absent: accessory muscle use , rales, rhonchi, wheezes - Cardiovascular Cardiovascular exam: Present: irregular rhythm, +S1, +S2. Absent: diastolic murmur, gallop, rubs, systolic murmur Internal Medicine: Result - Labs CBC & Chem 7: 06/28/18 05:35 06/28/18 05:35 Labs: Short CBC 06/28/18 Range/Units 05:35 WBC 10.1 (4.3-11.1) K/mcL Hgb 8.3 L (12.9-16.9) g/dL Hct 26.4 L (37.5-50.1) % Plt Count 407 H (140-400) K/mcL Neutrophils # 8.2 (1.6-8.9) K/mcL BMP 06/28/18 05:35 Sodium 136 Potassium 3.5 Chloride 110 H Carbon Dioxide 18 L BUN 19 Creatinine 1.31 H Glucose 75 Calcium 7.9 L - ABG Interpretation ABG results: PT/INR, D-dimer PT 73.6 Seconds (9.4-12.1) H* 06/28/18 05:35 - Impressions Impressions Chest X-Ray 06/27/18 15:55 IMPRESSION: No definite focal consolidation representing pneumonia is identified. Please correlate the appearance of the right lower lung with auscultation. D/ / Albert Nguyen / Albert Nguyen Interpreting Provider: Albert Nguyen - VTE Documentation of Mechanical Device: Intermittent pneumatic compression device Consult Discharge Plan - Plan Additional Instructions: HALF-WAY DISCHARGE INSTRUCTIONS Dr. Raya PROCEDURE PERFORMED Reduction and fixation of right hip. Incision care -Daily dressing changes to the right hip with dry gauze and either paper tape or medipore tape. -Avoid soaking wound in water (no hot tubs, bathtubs, swimming pools). -May shower after 2 weeks from surgery date. Carefully wash incision with soap and water. Gently pat it dry. Don't rub the incision, or apply creams or lotions. Sit on a shower stool when showering to keep from falling. Weight bearing status -Weightbearing as tolerated to the bilateral lower extremities. Medications -Pain medication per the discharging medical doctor Other -Knee high PAMELA hose 23 hours per day -Consult physical and occupational therapy for mobilization. -Up to chair with assistance at least twice per day. -Follow up with your primary care physician to discuss testing for bone mineral density. Follow-up with Dr. Raya at the office 2 weeks from the surgery date for a post operative evaluation. Call the office at [phone] to schedule appointment. Referrals: Avery Woods DO [Primary Care Provider] -
[2018-06-29] MEDS: D5 IVPB SCH ×3 (00:21→22:13)
[2018-06-29] MEDS: WATER IVPB SCH ×3 (00:21→22:13)
[2018-06-29] MEDS: SULFAMETHOXAZOLE IVPB SCH ×3 (00:21→22:13)
[2018-06-29] MEDS: TRIMETH IVPB SCH ×3 (00:21→22:13)
[2018-06-29 01:11] LABS: INR 9.2; Prothrombin Time 104.4 Seconds (9.4-12.1)
[2018-06-29 01:18] LABS: BUN/Creatinine Ratio 16 (6-26); Blood Urea Nitrogen 21 mg/dL (8-23); Calcium 7.6 mg/dL (8.6-10.3); Carbon Dioxide 19 mEq/L (23-29); Chloride 110 mEq/L (98-107); Glucose 79 mg/dL (70-105); Osmolality,Calculated 282 (280-300); Potassium 3.3 mEq/L (3.5-5.1); Sodium 135 mEq/L (136-145); eGFR For Non-African Americans 53 (> 60)
[2018-06-29] MEDS: *HR* OxyCODONE/APAP 10/325 TABLET PO PRN ×3 (03:00→19:43)
[2018-06-29] MEDS: Piperacillin/Tazobactam 3.375 GM in 0.9 % Sodium Chloride Mini Bag 100 ML IVPB SCH ×3 (03:01→19:43)
[2018-06-29] MEDS: Budesonide/Formoterol 80/4.5 MDI IH SCH ×3 (07:47→23:14)
[2018-06-29] MEDS: Tiotropium 18 MCG inhalation IH SCH (07:47)
[2018-06-29] MEDS: Megestrol Acetate 400 MG/10 ML UDC PO SCH ×3 (08:55→19:45)
[2018-06-29] MEDS: Lubiprostone [Amitiza] 24 MCG PO SCH ×2 (08:55→19:54)
--- NOTE | 2018-06-29 11:36 | Internal Med Progress Note ---
Hospitalist Progress Note - Encounter Date of Encounter: 06/29/18 Time of Encounter: 10:30 - Subjective Interval History: Continues to be delirious and confused. Unable to comprehend speech well. - Exam Vitals: Temp Pulse Resp BP Pulse Ox 98.9 F 69 18 94/52 100 06/29/18 10:50 06/29/18 10:50 06/29/18 10:50 06/29/18 10:50 06/29/18 10:50 Exam: General appearance: Present: Alert but confused, unable to comprehend his answers to my questions - Respiratory Respiratory exam: Present: CTAB (anterolaterally). Absent: accessory muscle use , rales, rhonchi, wheezes - Cardiovascular Cardiovascular exam: Present: irregular rhythm, +S1, +S2. Absent: diastolic murmur, gallop, rubs, systolic murmur Lower extremities dressing intact - Assessment and Plan (1) Acute encephalopathy Current Visit: Yes Status: Acute Assessment and Plan: delirium secondary to hospitalization, recent ortho surgery, pain meds with underlying malignancy, and possible aspiration PNA and infection of leg wound No significant change overnight Tx infection as below and continue to monitor palliative care consulted over the weekend, will follow up with their evaluation and plan today discharge planning depending on the discussion with palliative (2) Fracture of femoral neck, right Current Visit: Yes Status: Acute Assessment and Plan: CT hip shows Acute nondisplaced mildly impacted right femoral neck fracture. s/p Percutaneous screw fixation of the right femoral neck, POD10 continue pain control with PRN Oxycodone and Tylenol; DVT prophylaxis with Coumadin, complicated by supratherapeutic INR, likely due to concurrent antibiotic use INR 9.2 today without any evidence of bleeding, give 5mg of Vit K today PT/OT recommends ECF placement. hospital social worker on board. awaiting insurance authorization (3) Acute kidney injury Current Visit: Yes Status: Acute Assessment and Plan: Likely due to use of IV Lasix and Bactrim (which was started on 06/26); continue to monitor closely antibiotics to be dose-adjusted per GFR monitor without IVF nor lasix (4) Open wound, lower leg Current Visit: Yes Status: Chronic Assessment and Plan: B/L dry skin with a few open sores, with yellowish exudative base; wound culture from B/L legs grows Pseudomonas, VRE, Stenotrophomonas; patient has multiple antibiotic allergies ID consult appreciated-discontinued Aztreonam and Flagyl, started IV Zosyn and Bactrim Day 4 today, monitor renal function recommend Podiatry consult and wound clinic f/u but patient has done this in the past and is no longer willing to continue, per ; ordered CT B/L legs per ID- no abscesses, 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 states patient has h/o- thyroid and laryngeal cancer s/p radiation; he has a hole at the site where meds and food get stuck if he's not careful; he does tolerates regular diet at home. For MBS per speech blood cultures negative. Supplemental O2 and supportive care. abx as above (6) COPD (chronic obstructive pulmonary disease) Current Visit: Yes Status: Chronic Assessment and Plan: Not in acute exacerbation. Continue when necessary breathing treatments and supplemental oxygen as needed. (7) Sepsis Current Visit: Yes Status: Ruled-out (8) CAD (coronary artery disease) of artery bypass graft Current Visit: Yes Status: Chronic (9) Atrial fibrillation Current Visit: Yes Status: Chronic Assessment and Plan: Supratherapeutic INR, Vit K given today (10) Rib fracture Current Visit: Yes Status: Acute Assessment and Plan: Nonsurgical (11) Lung cancer Current Visit: Yes Status: Chronic Assessment and Plan: In process of looking into palliative care/hospice. have not officially signed. Will get Palliative care input today (12) Hypokalemia Current Visit: Yes Status: Acute Assessment and Plan: Repleted DVT Prophylaxis: Supratherapeutic INR - Time Spent with Patient Total time spent is greater than 50% in coordination of care (as documented) at patient's floor/unit and/or counseling patient: Plan of Care Discussed with: nurse Internal Medicine: Result - Labs CBC & Chem 7: 06/28/18 05:35 06/29/18 00:47 Labs: BMP 06/29/18 00:47 Sodium 135 L Potassium 3.3 L Chloride 110 H Carbon Dioxide 19 L BUN 21 Creatinine 1.31 H Glucose 79 Calcium 7.6 L - ABG Interpretation ABG results: PT/INR, D-dimer PT 104.4 Seconds (9.4-12.1) H* 06/29/18 00:47 - VTE Documentation of Mechanical Device: Intermittent pneumatic compression device Consult Discharge Plan - Plan Additional Instructions: [facility]RECTION DISCHARGE INSTRUCTIONS Dr. Raya PROCEDURE PERFORMED Reduction and fixation of right hip. Incision care -Daily dressing changes to the right hip with dry gauze and either paper tape or medipore tape. -Avoid soaking wound in water (no hot tubs, bathtubs, swimming pools). -May shower after 2 weeks from surgery date. Carefully wash incision with soap and water. Gently pat it dry. Don't rub the incision, or apply creams or lotions. Sit on a shower stool when showering to keep from falling. Weight bearing status -Weightbearing as tolerated to the bilateral lower extremities. Medications -Pain medication per the discharging medical doctor Other -Knee high PAMELA hose 23 hours per day -Consult physical and occupational therapy for mobilization. -Up to chair with assistance at least twice per day. -Follow up with your primary care physician to discuss testing for bone mineral density. Follow-up with Dr. Raya at the office 2 weeks from the surgery date for a post operative evaluation. Call the office at [phone] to schedule appointment. Referrals: Avery Woods DO [Primary Care Provider] - (2) Fracture of femoral neck, right Qualifiers: Encounter type: initial encounter Fracture type: closed Qualified Code(s): S72.001A - Fracture of unspecified part of neck of right femur, initial encounter for closed fracture (4) Open wound, lower leg Qualifiers: Encounter type: subsequent encounter Laterality: unspecified laterality Qualified Code(s): S81.809D - Unspecified open wound, unspecified lower leg, subsequent encounter (5) Aspiration pneumonia Qualifiers: Aspiration pneumonia type: unspecified Laterality: right Lung location: lower lobe of lung Qualified Code(s): J69.0 - Pneumonitis due to inhalation of food and vomit (6) COPD (chronic obstructive pulmonary disease) Qualifiers: COPD type: unspecified COPD Qualified Code(s): J44.9 - Chronic obstructive pulmonary disease, unspecified (7) Sepsis Qualifiers: Sepsis type: sepsis due to unspecified organism Qualified Code(s): A41.9 - Sepsis, unspecified organism (8) CAD (coronary artery disease) of artery bypass graft Qualifiers: [place] vs. transplanted heart: [place] heart Associated angina: without angina Qualified Code(s): I25.810 - Atherosclerosis of coronary artery bypass graft(s) without angina pectoris (9) Atrial fibrillation Qualifiers: Atrial fibrillation type: chronic Qualified Code(s): I48.2 - Chronic atrial fibrillation (10) Rib fracture Qualifiers: Encounter type: subsequent encounter Rib fracture type: single rib Fracture type: closed Laterality: right Fracture healing: with routine healing Qualified Code(s): S22.31XD - Fracture of one rib, right side, subsequent encounter for fracture with routine healing (11) Lung cancer Qualifiers: Laterality: unspecified laterality Lung location: unspecified part of lung Qualified Code(s): C34.90 - Malignant neoplasm of unspecified part of unspecified bronchus or lung
[2018-06-29] MEDS: traMADol 50 MG TABLET PO PRN (13:24)
[2018-06-29] MEDS ORDERED: Potassium Chloride 40 MEQ, Lidocaine 1% 2 ML in D5% in Water 500 ML IVPB ONE (13:39)
--- NOTE | 2018-06-29 15:19 | Infectious Disease Progress No ---
Date of Encounter: 06/29/18 Time of Encounter: 15:16 - Assessment and Plan (1) Severe sepsis Current Visit: Yes Status: Acute The patient had two SIRS criteria plus acute kidney injury on admission. Likely secondary to aspiration pneumonia and bilateral lower extremity wound infections. Improved. Blood culture drawn June 16 is negative 1 set. (2) Open wound, lower leg Current Visit: Yes Status: Chronic Location: Left lee. Etiology unclear, but sounds like venous stasis ulcers. Wound culture is positive for stenotrophomonas maltophilia, VRE, and Pseudomonas. No imaging of the lower part of the legs have been done. Not sure if the patient needs vascular testing as well because he will not allow me to remove the dressings to adequately assess his pulses in the distal extremities. Wound care nurse has been consulted. CT of the BLE shows findings consistent with bland edema vs. cellulitis. He does have hardware in the LLE. Discontinue aztreonam and Flagyl. Continue Zosyn 3.375 g IV Q8H. Continue Bactrim IV. Will ask pharmacy to assist with dosing. Duration of treatment depends on the clinical picture. Monitor renal function and dose-adjust antibiotics. Qualifiers: Encounter type: subsequent encounter Laterality: unspecified laterality Qualified Code(s): S81.809D - Unspecified open wound, unspecified lower leg, subsequent encounter (3) Aspiration pneumonia Current Visit: Yes Status: Acute CT of the chest showed features of chronic recurrent aspiration, including extensive tracheal bronchial secretions with airway inflammation, basilar predominant small airway mucoid impaction, and scattered basilar tree-in-bud nodularity. Patient denies choking when he eats, but he does have a moist cough. Recommend speech therapy to evaluate. The patient did have a formal swallow evaluation back in 2017 and showed aspiration with thin liquids. Received aztreonam and Flagyl 7 days. Antibiotics as above. Qualifiers: Aspiration pneumonia type: unspecified Laterality: right Lung location: lower lobe of lung Qualified Code(s): J69.0 - Pneumonitis due to inhalation of food and vomit (4) Diabetic foot ulcer Current Visit: No Status: Chronic Location: Bilateral feet. Likely secondary to venous stasis ulcers, nonhealing due to poor diabetes control and lack of aggressive wound care. Wound cultures of the bilateral feet are positive for pseudomonas, VRE, and stenotrophomonas maltophilia. Wound care nurse consulted. Antibiotic recommendations as above. Recommend aggressive glucose monitoring and control. Qualifiers: Diabetic foot ulcer location: unspecified part of foot Diabetes mellitus type: type 2 Non-pressure ulcer stage: unspecified non-pressure ulcer stage Qualified Code(s): E11.621 - Type 2 diabetes mellitus with foot ulcer; L97.509 - Non-pressure chronic ulcer of other part of unspecified foot with unspecified severity (5) Acute kidney injury Current Visit: Yes Status: Acute Likely secondary to sepsis. Serum creatinine up to 1.31 today. Continue to trend. Dose-adjust antibiotics based on creatinine clearance. Discussed with pharmacy. Creatinine clearance about 48. (6) Fracture of head of right femur Current Visit: Yes Status: Acute Secondary to fall at home prior to admission. Status post percutaneous screw fixation of the right femoral neck on 06/21/18. Qualifiers: Encounter type: initial encounter Fracture type: closed Qualified Code(s) : S72.051A - Unspecified fracture of head of right femur, initial encounter for closed fracture (7) Fracture of ribs, seven Current Visit: Yes Status: Acute Secondary to fall. Pain management per the primary team. Qualifiers: Encounter type: initial encounter Fracture type: closed Laterality: right Qualified Code(s): S22.41XA - Multiple fractures of ribs, right side, initial encounter for closed fracture (8) Supratherapeutic INR Current Visit: No Status: Resolved Etiology unclear. INR 9.2 this morning. Management per the primary team. (9) Allergy to multiple antibiotics Current Visit: Yes Status: Acute The patient reports allergies to Keflex, Levaquin, and clindamycin. He was discharged on Augmentin on a previous admission in May of this year. He tolerated it without a problem. (10) Thyroid carcinoma Current Visit: No Status: Chronic (11) Abdominal aortic aneurysm Current Visit: No Status: Chronic Qualifiers: Presence of rupture: without rupture Qualified Code(s): I71.4 - Abdominal aortic aneurysm, without rupture (12) Peripheral vascular disease Current Visit: Yes Status: Acute - Subjective Interval history: Patient seen and examined. No acute events noted overnight. Patient setting up in the chair. States he has pain "all over." Reports some shortness of breath with a moist cough. Denies nausea, vomiting, diarrhea, or constipation. Reports last bowel movement was 2 days ago. Denies urinary complaints. Denies oral thrush or new skin lesions. Infect Dis PN-Objective Data - Labs CBC & Chem 7: 07/01/18 00:33 07/01/18 00:33 Labs: Laboratory Results - last 24 hr 06/28/18 06/28/18 06/29/18 16:37 20:49 00:47 PT 104.4 H* INR 9.2 H* Sodium Potassium Chloride Carbon Dioxide BUN Creatinine Est GFR ( Amer) Est GFR (Non-Af Amer) BUN/Creatinine Ratio Glucose POC Glucose 84 91 Calculated Osmolality Calcium 06/29/18 00:47 PT INR Sodium 135 L Potassium 3.3 L Chloride 110 H Carbon Dioxide 19 L BUN 21 Creatinine 1.31 H Est GFR ( Amer) > 60 Est GFR (Non-Af Amer) 53 L BUN/Creatinine Ratio 16 Glucose 79 POC Glucose Calculated Osmolality 282 Calcium 7.6 L Cultures: Cultures 06/21/18 23:34 Wound Culture - Final Left Foot Pseudomonas aeruginosa Vanc. Resistant Enterococcus Stenotrophomonas maltophilia 06/21/18 23:34 Wound Culture - Final Right Foot Pseudomonas aeruginosa Vanc. Resistant Enterococcus Stenotrophomonas maltophilia 06/21/18 23:34 Wound Culture - Final Other-Specify in Comments Pseudomonas aeruginosa Vanc. Resistant Enterococcus Stenotrophomonas maltophilia Serology 06/22/18 06/20/18 Range/Units 16:53 04:00 Urine Color Yellow (Yellow) Urine Clarity Clear (Clear) Urine pH 5.5 (5.0-8.0) pH Units Ur Specific [place] 1.028 H (1.010-1.025) Urine Protein Trace (Neg-Trace) mg/dL Urine Glucose (UA) Normal (Normal) mg/dL Urine Ketones 15 H (Negative) mg/dL Urine Blood Trace H (Negative) Urine Nitrite Negative (Negative) Urine Bilirubin Small H (Negative) Urine Urobilinogen Normal (Normal) mg/dL Ur Leukocyte Esterase Small H (Negative) Urine Microscopic RBC 5-15 H (0-3) per hpf Urine Microscopic WBC 5-15 H (0-3) per hpf Ur Squamous Epith Cells Moderate H (None-Few) per lpf Urine Bacteria None Seen (None-Few) per hpf Hyaline Casts Few (None-Few) per lpf Urine Yeast Few H (None Seen) per hpf Urine Sodium 22.4 mEq/L - Impressions Impressions Videofluoroscopic Swallow 06/29/18 08:25 IMPRESSION: Laryngeal penetration with nectar and applesauce. No evidence of tracheal aspiration. Please see separate speech pathology report for full discussion of findings and recommendations. D/ / Alexandr Smart MD / Aelxandr Smart MD Interpreting Provider: Alexandr Smart MD Exam - Constitutional Vitals: Temp Pulse Resp BP Pulse Ox 98.8 F 117 18 94/50 93 06/29/18 14:43 06/29/18 14:43 06/29/18 14:43 06/29/18 14:43 06/29/18 14:43 General appearance: average body habitus, cooperative, no acute distress - Head Head exam: Present: atraumatic, normal inspection, normocephalic - Eye Eye exam: Present: EOMI, normal appearance, PERRL Pupils: Present: normal accommodation - ENT ENT exam: Present: mucous membranes moist - Neck Neck exam: Present: normal inspection - Respiratory Respiratory exam: Present: CTAB. Absent: rales, respiratory distress, rhonchi, wheezes - Cardiovascular Cardiovascular exam: Present: RRR, +S1, +S2 - GI/Abdominal GI/Abdominal exam: Present: soft. Absent: distended, normal bowel sounds, tenderness - Extremities Exam Additional comments: BLE dressings C/D/I. - Neurological Exam Neurological exam: Present: alert, oriented X3, no focal deficits - Psychiatric Psychiatric exam: Present: normal affect, normal mood - Skin Skin exam: Present: dry, intact, pallor, warm - VTE Documentation of Mechanical Device: Intermittent pneumatic compression device Consult Discharge Plan - Plan Additional Instructions: INTERMEDIATE DISCHARGE INSTRUCTIONS Dr. Raya PROCEDURE PERFORMED Reduction and fixation of right hip. Incision care -Daily dressing changes to the right hip with dry gauze and either paper tape or medipore tape. -Avoid soaking wound in water (no hot tubs, bathtubs, swimming pools). -May shower after 2 weeks from surgery date. Carefully wash incision with soap and water. Gently pat it dry. Don't rub the incision, or apply creams or lotions. Sit on a shower stool when showering to keep from falling. Weight bearing status -Weightbearing as tolerated to the bilateral lower extremities. Medications -Pain medication per the discharging medical doctor Other -Knee high PAMELA hose 23 hours per day -Consult physical and occupational therapy for mobilization. -Up to chair with assistance at least twice per day. -Follow up with your primary care physician to discuss testing for bone mineral density. Follow-up with Dr. Raya at the office 2 weeks from the surgery date for a post operative evaluation. Call the office at [phone] to schedule appointment. Referrals: Avery Woods DO [Primary Care Provider] - - Attending Attestation I examined this patient and my medical decision-making was reviewed with the Resident Physician. I agree with the documented findings, disposition and treatment plan as described except to the extent set forth below.
[2018-06-29] MEDS: Nystatin POWDER 30 GM BOTTLE TP SCH ×2 (15:33→20:26)
[2018-06-29] MEDS: Silver Sulfadiazine 50 GM TUBE TP SCH (15:33)
--- NOTE | 2018-06-29 15:40 | Palliative - Consult Note ---
Date of Encounter: 06/29/18 Time of Encounter: 12:30 - Assessment and Plan (1) Cough Current Visit: Yes Status: Acute Assessment and plan: Patient reports problem being able to cough sputum from lungs. Lungs sound coarse, rhonchi, and wheezing. Ordered Duonebs. (2) Nausea Current Visit: Yes Status: Acute Assessment and plan: Patient reports nausea without vomiting. Ordered Phenergan PRN. (3) Pain Current Visit: Yes Status: Acute Assessment and plan: Patient rates pain 9/10 on right side. Has Percocet and Tramadol ordered; reports helps when he takes it. Requested Primary RN bring pain medication at this time. (4) Acute respiratory failure with hypoxia Current Visit: Yes Status: Acute Assessment and plan: Oxygen saturation 93% on 3L. Continue Oxygen therapy. (5) Atrial fibrillation Current Visit: Yes Status: Acute Assessment and plan: Irregular heartbeat. Asymptomatic. Heart rate varies between 60s-120s. Qualifiers: Atrial fibrillation type: unspecified Qualified Code(s): I48.91 - Unspecified atrial fibrillation (6) Fracture of femoral neck, right Current Visit: Yes Status: Acute Assessment and plan: Surgically repaired. Orthopedic consulted. Qualifiers: Encounter type: initial encounter Fracture type: closed Qualified Code(s) : S72.001A - Fracture of unspecified part of neck of right femur, initial encounter for closed fracture (7) Lung cancer Current Visit: Yes Status: Chronic Assessment and plan: Patient has lung cancer. Had opted to transition to [facility] prior to admission. Qualifiers: Laterality: unspecified laterality Lung location: unspecified part of lung Qualified Code(s): C34.90 - Malignant neoplasm of unspecified part of unspecified bronchus or lung (8) Open wound, lower leg Current Visit: Yes Status: Chronic Qualifiers: Encounter type: subsequent encounter Laterality: unspecified laterality Qualified Code(s): S81.809D - Unspecified open wound, unspecified lower leg, subsequent encounter (9) Protein-calorie malnutrition, moderate Current Visit: Yes Status: Chronic Assessment and plan: Patient has Megace ordered. Continues to have poor intake. Speech therapy cleared for diet. (10) Goals of care, counseling/discussion Current Visit: No Status: Acute Assessment and plan: Spoke with patient regarding goals of care. Patient expressed desire for rehab then return home for hospice care if he is ever able to return home. Presented concern over ability to complete rehab with elevated INR; patient verbalized desire to try. CODE STATUS previously established as DNR CCA/DNI. Attempted to reach via telephone with no answer; left voicemail. Palliative care will continue to follow. (11) Constipation due to opioid therapy Current Visit: Yes Status: Acute Assessment and plan: Patient reports having bowel movement every few days as his "new normal." Bowel regimen ordered. Palliative-CN HPI - Data of Consult Patient: new to practice Consult date: 06/27/18 Requesting Physician: Ankit Lundberg MD Primary Care Provider: Avery Woods - Consult Narrative Palliative Care/Comfort Measures: Palliative care Reason for consult: Lung cancer, poor baseline functional status, chronic pain, right hip fx. History of present illness: Mr. Nicholson is a 78 year old male Arrived to [facility] on June 18, 2018 via EMS post fall at home; patient found by daughter sitting on his floor, alert, and confused, which is his baseline. During assessment, patient found to have low Oxygen saturation (85%) at which time Oxygen was applied and his oxygen saturation increased to 98%. PMH: Atrial fibrillation, newly diagnosed Lung Cancer, COPD, CAD, DM, Thyroid disease , anxiety, and depression. CT of cervical spine without contrast showed: No acute abnormality of the cervical spine and moderate multilevel degenerate changes. Chest x-ray showing: Nondisplaced acute right 7th rib fracture with Emphysema with COPD. X-ray to right elbow showing: Bony demineralization with no definite acute fracture or subluxation. CT of the head without contrast showing: No acute intracranial abnormality. X-ray of the right hip showing: Findings highly suspicious for nondisplaced/impacted fracture of the right femoral neck and correlate for point tenderness and consider MRI for further evaluation. 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 Wrist X-ray showing: Diffuse bony demineralization and No definite evidence of acute fracture or subluxation. CT of the Chest without contrast showing: Acute nondisplaced right 7th rib fracture; no underlying pleural effusion or pneumothorax; Interval increase in size of right lower lobe subpleural nodule; Features of chronic recurrent aspiration, including extensive tracheobronchial secretions with airway inflammation, basilar predominant small airway mucoid impaction and scattered basilar tree-in- bud nodularity; Basilar tree-in-bud nodularity has decreased; Advanced emphysema ; and Stable mild dilatation of the ascending thoracic aorta. CT of abdomen/ pelvis without contrast showing: No acute traumatic abnormality is identified; 4.1 cm AAA; Reticulonodular opacities at the right lung base; and Re- demonstration of a 2.2 cm exophytic mildly complex right renal cyst. EKG showing : SVT with nonspecific ST & T wave abnormality. Xray of right shoulder showing: No acute osseous abnormality involving the right shoulder. Patient admitted and medically managed for SCOTT, Aspiration pneumonia, Sepsis, and Fracture of Right femoral neck. CT of the right hip without contrast showing: Acute nondisplaced mildly impacted right femoral neck fracture and Partially visualized abdominal aortic aneurysm. Orthopedic consult recommend surgical intervention for repair of right femoral fracture. Patient medically managed for Acute Respiratory Failure with Hypoxia, Aspiration pneumonia, Sepsis, Fracture of right femoral neck, Rib fracture, Acute Kidney injury, and DM. Orthopedic repair completed; recommend significant PT/OT prior to return home. On 06/22/18, significantly hypotensive; patients opted to change CODE STATUS to DNR CCA/DNI and request to keep patient comfortable. On 06/25/18, Infectious disease consulted for management of Severe Sepsis, Open wound to Lower leg, Aspiration pneumonia, SCOTT, multiple antibiotic allergies, Fracture of right head of femur, rib fractures, PVD, Diabetic foot ulcer, AAA, and Supratherapeutic INR. 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 Chest x-ray showing: No definite focal consolidation representing pneumonia is identified. New onset acute encephalopathy secondary to hospitalization, recent ortho surgery, pain meds with underlying malignancy. Patients INR supratherapeutic and has been unable to perform PT/OT due to risks; warfarin on hold, Vitamin K given. Palliative care consulted for goals of care; Lung cancer, poor baseline functional status, chronic pain, right hip fracture s/p pinning. Patient resting in bed with eyes open looking around room upon arrival at bedside; no family present. Patient is alert and oriented times 3; able to follow commands. Complaints of right sided 9/10 sharp, shooting pain; reports pain is making it difficult to move, pain medication helps when I get it. Patient reports nausea, but denies vomiting. Patient reports difficulty coughing anything up. Patient has received Oxycodone and Ultram PRN for pain. Patient has no PRN medication for nausea or expectorant. CC: Ankit Lundberg MD Past Med Surg Social Fam HX - Past Medical History Medical history: atrial fibrillation, cancer, COPD, coronary artery disease, diabetes, malignancy, thyroid disease, other Additional medical history: lung cancer Psychiatric history: anxiety, depression - Past Surgical History Surgical History: cancer surgery, coronary bypass (CABG) Additional surgical history: Sternal revision, exploratory laparotomy and herniorrhaphy, thyroidectomy - Social History Smoking Status: Current every day smoker Smokeless Tobacco Status: No Alcohol use: none Drug use: none - Family History Mother Living Status: Hx Family Cardiac Disorders: Yes Medications and Allergies Omeprazole [PriLOSEC] 20 mg PO DAILY 07/07/15 [History] Potassium Chloride 10 meq PO BID 07/07/15 [History] Metoprolol [Lopressor] 25 mg PO BID 07/10/15 [History] Citalopram [CeleXA] 20 mg PO DAILY #30 tablet 12/13/15 [Rx] Lubiprostone [Amitiza] 24 mcg PO BID #60 capsule 12/13/15 [Rx] Insulin Glargine,Hum.rec.anlog [Lantus Solostar] 10 unit SQ QPM 12/06/16 [ History] Megestrol Acetate [Megace] 200 mg PO BID 04/08/17 [History] Albuterol Sulfate [Ventolin Hfa] 2 puff IH Q6H PRN 04/01/18 [History] Silver Sulfadiazine [Silvadene] 1 appl TP DAILY #1 tub 05/11/18 [Rx] Warfarin [Coumadin] 4 mg PO DAILY 06/18/18 [History] 3 Allergy/AdvReac Type Severity Reaction Status Date / Time cephalexin [From Keflex] Allergy Mild unknown Verified 05/27/18 21:38 levofloxacin [From Levaquin] AdvReac Mild unknown Verified 05/27/18 21:38 clindamycin [From Cleocin] AdvReac See Verified 05/27/18 21:38 Comments - Constitutional Constitutional ROS PAL: decreased appetite, frequent falls - Cardiovascular Cardiovascular ROS: no chest pain, no irregular heart rhythm - Respiratory Respiratory: cough, dyspnea, chest congestion - Gastrointestinal Gastrointestinal: abdominal pain, constipation, nausea, no change in bowel habits, no change in stool character - Genitourinary Genitourinary ROS male: no difficulty urinating - Musculoskeletal Musculoskeletal ROS IM: joint swelling (BLE) - Integumentary ROS Integumentary: wounds - Neurological Neurological ROS: confusion - Psychiatric Psychiatric general PM: change in appetite, confusion Palliative Care-Exam - Constitutional Vitals: Temp Pulse Resp BP Pulse Ox 98.8 F 117 18 94/50 93 06/29/18 14:43 06/29/18 14:43 06/29/18 14:43 06/29/18 14:43 06/29/18 14:43 General appearance: Present: average body habitus, cooperative, no acute distress - Head Head Exam: Present: atraumatic, normal inspection - Expanded Head Exam Head exam expanded IM: Absent: general tenderness, hematoma, raccoon eyes - Eye Eye exam: Present: EOMI, normal appearance, conjuntiva pink. Absent: periorbital swelling, periorbital tenderness Pupils: Present: normal accommodation, PERRL - ENT ENT exam: Present: mucous membranes dry, normal external ear exam - Expanded ENT Exam Mouth Exam: Absent: drooling - Neck Neck exam: Present: full ROM, normal inspection - Respiratory Respiratory exam: Present: rhonchi, wheezes. Absent: accessory muscle use, respiratory distress - Expanded Respiratory Exam Location: rhonchi: Left, Right, Lower - Cardiovascular Cardiovascular exam: Present: irregular rhythm, +S1, +S2 - Expanded Cardiovascular Exam Peripheral pulses: 1+: Radial (L), Radial (R) - GI/Abdominal Exam GI/Abdominal exam: Present: distended, firm, normal bowel sounds, tenderness - Rectal Rectal Exam: Present: deferred - Catheter Type: Urethral (Sanchez) - Extremities Exam Extremities exam: Present: calf tenderness, pedal edema. Absent: normal inspection (Multiple wounds to BLE.) - Neurological Exam Neurological exam: Present: alert, oriented X3, strengths equal and symetr throughout - Expanded Neurological Exam Coma Scale Eye Opening: Spontaneous Coma Scale Motor Response: Obeys Commands Coma Scale Verbal Response: Oriented Coma Scale Total: 15 - Psychiatric Psychiatric exam: Present: agitated, flat affect - Skin Skin exam: Present: dry, warm. Absent: intact Internal Medicine - CN: Reslt - Labs CBC & Chem 7: 06/28/18 05:35 06/29/18 00:47 Labs: BMP 06/29/18 00:47 Sodium 135 L Potassium 3.3 L Chloride 110 H Carbon Dioxide 19 L BUN 21 Creatinine 1.31 H Glucose 79 Calcium 7.6 L - ABG Interpretation ABG results: PT/INR, D-dimer PT 104.4 Seconds (9.4-12.1) H* 06/29/18 00:47 - Impressions Impressions Videofluoroscopic Swallow 06/29/18 08:25 IMPRESSION: Laryngeal penetration with nectar and applesauce. No evidence of tracheal aspiration. Please see separate speech pathology report for full discussion of findings and recommendations. D/ / Alexandr Smart MD / Alexandr Smart MD Interpreting Provider: Alexandr Smart MD Consult Discharge Plan - Plan Additional Instructions: CUSTODIAL DISCHARGE INSTRUCTIONS Dr. Raya PROCEDURE PERFORMED Reduction and fixation of right hip. Incision care -Daily dressing changes to the right hip with dry gauze and either paper tape or medipore tape. -Avoid soaking wound in water (no hot tubs, bathtubs, swimming pools). -May shower after 2 weeks from surgery date. Carefully wash incision with soap and water. Gently pat it dry. Don't rub the incision, or apply creams or lotions. Sit on a shower stool when showering to keep from falling. Weight bearing status -Weightbearing as tolerated to the bilateral lower extremities. Medications -Pain medication per the discharging medical doctor Other -Knee high PAMELA hose 23 hours per day -Consult physical and occupational therapy for mobilization. -Up to chair with assistance at least twice per day. -Follow up with your primary care physician to discuss testing for bone mineral density. Follow-up with Dr. Raya at the office 2 weeks from the surgery date for a post operative evaluation. Call the office at [phone] to schedule appointment. Referrals: Avery Woods DO [Primary Care Provider] - Palliative Quality Palliative Quality: Screen for Code Status: Yes, Screen for Goals of Care: Yes, Screen for Pain: Yes, If Pain Regimen Started, Initiate Bowel Regimen: Yes, Screen for Nausea/Vomitting: Yes Code Status: 06/22/18 12:03 Resuscitation Status: Active [RES] Routine Comment: Resuscitation Status: [id number]
[2018-06-29] MEDS ORDERED: *HR* Promethazine 25 MG/ML VIAL IVP PRN (15:58)
[2018-06-29] MEDS: Ipratropium/Albuterol Neb 3 ML IH SCH ×3 (16:05→23:14)
[2018-06-29] MEDS: Sennosides/Docusate Sodium TABLET PO SCH (19:44)
[2018-06-30 01:46] LABS: Basophils % 0.1 %; Eosinophils % 0.4 %; Hematocrit 20.2 % (37.5-50.1); Immature Granulocytes % 0.6 % (0-4); Lymphocytes # 0.5 K/mcL (0.6-4.6); Lymphocytes % 5.8 %; Mean Corpuscular HGB Conc 33.2 g/dL (31.6-35.5); Mean Corpuscular Volume 93.5 fL (83.0-100.0); Mean Platelet Volume 8.7 fL (9.4-12.4); Monocytes # 0.8 K/mcL (0.0-1.3); Monocytes % 10.5 %; Neutrophils # 6.5 K/mcL (1.6-8.9); Platelet Count 326 K/mcL (140-400); Red Blood Count 2.16 M/mcL (4.19-5.50); Red Cell Distribution Width 19.4 % (11.5-14.5); Segmented Neutrophils % 82.6 %
[2018-06-30 01:50] LABS: Hemoglobin 6.7 g/dL (12.9-16.9)
[2018-06-30 01:56] LABS: INR 4.4
[2018-06-30 02:04] LABS: BUN/Creatinine Ratio 17 (6-26); Blood Urea Nitrogen 23 mg/dL (8-23); Calcium 7.6 mg/dL (8.6-10.3); Carbon Dioxide 17 mEq/L (23-29); Chloride 112 mEq/L (98-107); Glucose 93 mg/dL (70-105); Osmolality,Calculated 273 (280-300); Potassium 3.5 mEq/L (3.5-5.1); Sodium 130 mEq/L (136-145); eGFR For Non-African Americans 51 (> 60)
[2018-06-30] MEDS: Piperacillin/Tazobactam 3.375 GM in 0.9 % Sodium Chloride Mini Bag 100 ML IVPB SCH ×3 (04:04→18:35)
[2018-06-30] MEDS: Ipratropium/Albuterol Neb 3 ML IH SCH ×4 (04:19→22:16)
[2018-06-30] MEDS: D5 IVPB SCH ×3 (05:41→23:04)
[2018-06-30] MEDS: TRIMETH IVPB SCH ×3 (05:41→23:04)
[2018-06-30] MEDS: *HR* OxyCODONE/APAP 10/325 TABLET PO PRN ×2 (05:41→09:56)
[2018-06-30] MEDS: WATER IVPB SCH ×3 (05:41→23:04)
[2018-06-30] MEDS: SULFAMETHOXAZOLE IVPB SCH ×3 (05:41→23:04)
[2018-06-30] MEDS: Megestrol Acetate 400 MG/10 ML UDC PO SCH ×2 (09:55→23:04)
[2018-06-30] MEDS: Nystatin POWDER 30 GM BOTTLE TP SCH ×2 (09:55→23:06)
[2018-06-30] MEDS: Lubiprostone [Amitiza] 24 MCG PO SCH ×2 (09:57→19:43)
[2018-06-30] MEDS: Tiotropium 18 MCG inhalation IH SCH (10:46)
[2018-06-30] MEDS: Budesonide/Formoterol 80/4.5 MDI IH SCH ×2 (10:46→22:16)
--- NOTE | 2018-06-30 11:45 | Palliative Progress Note ---
Date of Encounter: 06/30/18 Time of Encounter: 09:45 - Assessment and plan (1) Cough Current Visit: Yes Status: Acute Assessment and plan: Patient reports cough has improved. Continue Duonebs. (2) Nausea Current Visit: Yes Status: Acute Assessment and plan: Patient reports Nausea has resolved. 0 doses of Phenergan in the last 24 hours. Continue Phenergan PRN. (3) Pain Current Visit: Yes Status: Acute Assessment and plan: Patient reports pain 7/10; improved from yesterday. Pain is described as sharp. Patient has received Tramadol and Percocet PRN. Continue Percocet and Tramadol at this time PRN. (4) Acute respiratory failure with hypoxia Current Visit: Yes Status: Acute Assessment and plan: Oxygen 94% on 4L. Continue Oxygen therapy and duonebs. (5) Atrial fibrillation Current Visit: Yes Status: Acute Qualifiers: Atrial fibrillation type: unspecified Qualified Code(s): I48.91 - Unspecified atrial fibrillation (6) Fracture of femoral neck, right Current Visit: Yes Status: Acute Assessment and plan: Surgical repair completed. Qualifiers: Encounter type: initial encounter Fracture type: closed Qualified Code(s) : S72.001A - Fracture of unspecified part of neck of right femur, initial encounter for closed fracture (7) Lung cancer Current Visit: Yes Status: Chronic Assessment and plan: Patient was previously ready to be enrolled in hospice; reports no further treatment available per cancer center. Qualifiers: Laterality: unspecified laterality Lung location: unspecified part of lung Qualified Code(s): C34.90 - Malignant neoplasm of unspecified part of unspecified bronchus or lung (8) Open wound, lower leg Current Visit: Yes Status: Chronic Assessment and plan: Continue wound care. Qualifiers: Encounter type: subsequent encounter Laterality: unspecified laterality Qualified Code(s): S81.809D - Unspecified open wound, unspecified lower leg, subsequent encounter (9) Protein-calorie malnutrition, moderate Current Visit: Yes Status: Chronic Assessment and plan: Patient receiving Megace at this time. Continues to have poor oral intake. Patient newly receiving higher dose of Megace. Continue at current rate at this time. (10) Goals of care, counseling/discussion Current Visit: No Status: Acute Assessment and plan: Spoke with regarding goals of care. Patient and agree that patient plans to discharge to [facility] in [facility] for PT/OT at discharge. Patient's is prepared to apply for Medicaid. Cannot provide level of care he needs at home. Goal to transition to [facility] for PT/OT as a skilled patient and then transition to Hospice once medicaid is in place. Allen FORD notified. (11) Constipation due to opioid therapy Current Visit: Yes Status: Acute Assessment and plan: Patient has had no bowel movement documented with hypoactive bowel sounds. Will add Miralax to bowel regimen. - Time Spent With Patient Total time spent is greater than 50% in coordination of care (as documented) at patient's floor/unit and/or counseling patient: - Subjective Interval history: Patient sitting up with Primary RN and present at bedside. Patient is alert and oriented times 3 upon arrival for assessment. Patient reports pain rated a 7/10 current; reports has improved from yesterday. Patient has received 3 doses PRN percocet and 1 dose PRN in the last 24 hours. Patient reports cough has improved, duonebs appear to be helping as reduced cough and improved lung sounds. Patient denies nausea during assessment; 0 doses of Phenergan in the last 24 hours. Patient has been unable to work with PT/OT due to elevated INR, which has improved today; however, hemoglobin decreased today. - Constitutional Vitals: Abnormal lab results RBC 2.16 M/mcL (4.19-5.50) L 06/30/18 00:49 Hgb 6.7 g/dL (12.9-16.9) L D 06/30/18 00:49 Hct 20.2 % (37.5-50.1) L 06/30/18 00:49 RDW 19.4 % (11.5-14.5) H 06/30/18 00:49 MPV 8.7 fL (9.4-12.4) L 06/30/18 00:49 Lymphocytes # 0.5 K/mcL (0.6-4.6) L 06/30/18 00:49 PT 50.0 Seconds (9.4-12.1) H* D 06/30/18 00:49 INR 4.4 H* D 06/30/18 00:49 APTT 40.9 Seconds (26.0-36.0) H 06/18/18 14:37 Sodium 130 mEq/L (136-145) L 06/30/18 00:49 Chloride 112 mEq/L (98-107) H 06/30/18 00:49 Carbon Dioxide 17 mEq/L (23-29) L 06/30/18 00:49 Creatinine 1.35 mg/dL (0.70-1.30) H 06/30/18 00:49 Est GFR (Non-Af Amer) 51 (> 60) L 06/30/18 00:49 Calculated Osmolality 273 (280-300) L 06/30/18 00:49 Calcium 7.6 mg/dL (8.6-10.3) L 06/30/18 00:49 AST 10 Units/L (13-39) L 06/20/18 01:21 Serum Total Protein 5.6 g/dL (6.4-8.9) L 06/20/18 01:21 Albumin 2.6 g/dL (3.5-5.7) L 06/20/18 01:21 Albumin/Globulin Ratio 0.9 (1.1-2.2) L 06/20/18 01:21 Ur Specific [place] 1.028 (1.010-1.025) H 06/20/18 04:00 Urine Ketones 15 mg/dL (Negative) H 06/20/18 04:00 Urine Blood Trace (Negative) H 06/20/18 04:00 Urine Bilirubin Small (Negative) H 06/20/18 04:00 Ur Leukocyte Esterase Small (Negative) H 06/20/18 04:00 Urine Microscopic RBC 5-15 per hpf (0-3) H 06/20/18 04:00 Urine Microscopic WBC 5-15 per hpf (0-3) H 06/20/18 04:00 Ur Squamous Epith Cells Moderate per lpf (None-Few) H 06/20/18 04:00 Urine Yeast Few per hpf (None Seen) H 06/20/18 04:00 General appearance: Present: cooperative, no acute distress - Head Head exam: Present: atraumatic, normal inspection - Eye Eye exam: Present: normal appearance, PERRL, conjuntiva pink. Absent: periorbital swelling, periorbital tenderness Pupils: Present: normal accommodation, PERRL. Absent: unequal - ENT ENT exam: Present: mucous membranes dry, normal external ear exam - Neck Neck exam: Present: full ROM, normal inspection - Respiratory Respiratory exam: Present: rhonchi, wheezes - Cardiovascular Cardiovascular exam: Present: irregular rhythm, +S1, +S2 - GI/Abdominal GI/Abdominal exam: Present: diminished bowel sounds, tenderness - Rectal Rectal exam: Present: deferred - exam: Present: normal inspection - Extremities Exam Extremities exam: Present: full ROM, pedal edema - Neurological Exam Neurological exam: Present: alert, oriented X3, strengths equal and symetr throughout - Psychiatric Psychiatric exam: Present: normal affect, normal mood - Skin Skin exam: Present: dry, warm. Absent: intact Palliative Quality Palliative Quality: Screen for Code Status: Yes, Screen for Goals of Care: Yes, Screen for Pain: Yes, If Pain Regimen Started, Initiate Bowel Regimen: Yes, Screen for Nausea/Vomitting: Yes Code Status: 06/22/18 12:03 Resuscitation Status: Active [RES] Routine Comment: Resuscitation Status: [id number] - Labs CBC & Chem 7: 06/30/18 00:49 06/30/18 00:49 Labs: Laboratory Results - last 24 hr 06/27/18 06/29/18 06/29/18 21:50 07:29 10:53 WBC RBC Hgb Hct MCV MCH MCHC RDW Plt Count MPV Immature Gran % Seg Neutrophils % Lymphocytes % Monocytes % Eosinophils % Basophils % Neutrophils # Lymphocytes # Monocytes # Eosinophils # Basophils # PT INR Sodium Potassium Chloride Carbon Dioxide BUN Creatinine Est GFR ( Amer) Est GFR (Non-Af Amer) BUN/Creatinine Ratio Glucose POC Glucose 86 83 69 L Calculated Osmolality Calcium 06/29/18 06/29/18 06/30/18 17:01 20:29 00:49 WBC 7.9 RBC 2.16 L Hgb 6.7 L D Hct 20.2 L MCV 93.5 MCH 31.0 MCHC 33.2 RDW 19.4 H Plt Count 326 MPV 8.7 L Immature Gran % 0.6 Seg Neutrophils % 82.6 Lymphocytes % 5.8 Monocytes % 10.5 Eosinophils % 0.4 Basophils % 0.1 Neutrophils # 6.5 Lymphocytes # 0.5 L Monocytes # 0.8 Eosinophils # 0.0 Basophils # 0.0 PT INR Sodium Potassium Chloride Carbon Dioxide BUN Creatinine Est GFR ( Amer) Est GFR (Non-Af Amer) BUN/Creatinine Ratio Glucose POC Glucose 91 91 Calculated Osmolality Calcium 06/30/18 06/30/18 06/30/18 00:49 00:49 08:16 WBC RBC Hgb Hct MCV MCH MCHC RDW Plt Count MPV Immature Gran % Seg Neutrophils % Lymphocytes % Monocytes % Eosinophils % Basophils % Neutrophils # Lymphocytes # Monocytes # Eosinophils # Basophils # PT 50.0 H* D INR 4.4 H* D Sodium 130 L Potassium 3.5 Chloride 112 H Carbon Dioxide 17 L BUN 23 Creatinine 1.35 H Est GFR ( Amer) > 60 Est GFR (Non-Af Amer) 51 L BUN/Creatinine Ratio 17 Glucose 93 POC Glucose 87 Calculated Osmolality 273 L Calcium 7.6 L - Impressions Impressions Videofluoroscopic Swallow 06/29/18 08:25 IMPRESSION: Laryngeal penetration with nectar and applesauce. No evidence of tracheal aspiration. Please see separate speech pathology report for full discussion of findings and recommendations. D/ / Alexandr Smart MD / Alexandr Smart MD Interpreting Provider: Alexandr Smart MD - ABG Interpretation ABG results: PT/INR, D-dimer PT 50.0 Seconds (9.4-12.1) H* D 06/30/18 00:49 Consult Discharge Plan - Plan Additional Instructions: LONGTERM DISCHARGE INSTRUCTIONS Dr. Raya PROCEDURE PERFORMED Reduction and fixation of right hip. Incision care -Daily dressing changes to the right hip with dry gauze and either paper tape or medipore tape. -Avoid soaking wound in water (no hot tubs, bathtubs, swimming pools). -May shower after 2 weeks from surgery date. Carefully wash incision with soap and water. Gently pat it dry. Don't rub the incision, or apply creams or lotions. Sit on a shower stool when showering to keep from falling. Weight bearing status -Weightbearing as tolerated to the bilateral lower extremities. Medications -Pain medication per the discharging medical doctor Other -Knee high PAMELA hose 23 hours per day -Consult physical and occupational therapy for mobilization. -Up to chair with assistance at least twice per day. -Follow up with your primary care physician to discuss testing for bone mineral density. Follow-up with Dr. Wiltfong at the office 2 weeks from the surgery date for a post operative evaluation. Call the office at [phone] to schedule appointment. Referrals: Avery Woods DO [Primary Care Provider] -
[2018-06-30] MEDS ORDERED: Furosemide 20 MG/2 ML VIAL IVP ONE (12:11)
[2018-06-30] MEDS: Sennosides/Docusate Sodium TABLET PO SCH ×2 (12:30→23:06)
--- NOTE | 2018-06-30 13:34 | Infectious Disease Progress No ---
Date of Encounter: 06/30/18 Time of Encounter: 12:30 - Assessment and Plan (1) Severe sepsis Current Visit: Yes Status: Acute The patient had two SIRS criteria plus acute kidney injury on admission. Likely secondary to aspiration pneumonia and bilateral lower extremity wound infections. Improved. WBC normal. He has some intermittent tachycardia. He has been afebrile. Blood culture drawn June 16 is negative 1 set. (2) Aspiration pneumonia Current Visit: Yes Status: Acute CT of the chest showed features of chronic recurrent aspiration, including extensive tracheal bronchial secretions with airway inflammation, basilar predominant small airway mucoid impaction, and scattered basilar tree-in-bud nodularity. Patient denies choking when he eats, but he does have a moist cough. Recommend speech therapy to evaluate. The patient did have a formal swallow evaluation back in 2017 and showed aspiration with thin liquids. Barium swallow study showed laryngeal penetration of nectar thick liquids and applesauce. SPT recommends honey-thick liquids and mechanically altered textures. Received aztreonam and Flagyl 7 days, followed by Zosyn for the past 5 days. Repeat CXR shows no definitive PNA. Antibiotics as above. Qualifiers: Aspiration pneumonia type: unspecified Laterality: right Lung location: lower lobe of lung Qualified Code(s): J69.0 - Pneumonitis due to inhalation of food and vomit (3) Open wound, lower leg Current Visit: Yes Status: Chronic Location: Left lee. Etiology unclear, but sounds like venous stasis ulcers. Wound culture is positive for stenotrophomonas maltophilia, VRE, and Pseudomonas. Not sure if the patient needs vascular testing as well because he will not allow me to remove the dressings to adequately assess his pulses in the distal extremities. Wound care nurse has been consulted. Recommend Podiatry to evaluate as well. CT of the BLE shows findings consistent with bland edema vs. cellulitis. He does have hardware in the LLE. Continue Zosyn 3.375 g IV Q8H. (day 5). Continue Bactrim IV. Will ask pharmacy to assist with dosing. (day 5). Duration of treatment depends on the clinical picture. Monitor renal function and dose-adjust antibiotics. Qualifiers: Encounter type: subsequent encounter Laterality: unspecified laterality Qualified Code(s): S81.809D - Unspecified open wound, unspecified lower leg, subsequent encounter (4) Diabetic foot ulcer Current Visit: No Status: Chronic Location: Bilateral feet. Likely secondary to venous stasis ulcers, nonhealing due to poor diabetes control and lack of aggressive wound care. Wound cultures of the bilateral feet are positive for pseudomonas, VRE, and stenotrophomonas maltophilia. Wound care nurse consulted. Recommend Podiatry to evaluate. Patient refused in the past, but is okay to consult. Antibiotic recommendations as above. Recommend aggressive glucose monitoring and control. Qualifiers: Diabetic foot ulcer location: unspecified part of foot Diabetes mellitus type: type 2 Non-pressure ulcer stage: unspecified non-pressure ulcer stage Qualified Code(s): E11.621 - Type 2 diabetes mellitus with foot ulcer; L97.509 - Non-pressure chronic ulcer of other part of unspecified foot with unspecified severity (5) Acute kidney injury Current Visit: Yes Status: Acute Likely secondary to sepsis. Serum creatinine up to 1.35 today. Continue to trend. Bactrim may falsely elevate serum creatinine. Need strict I's and O's. Dose-adjust antibiotics based on creatinine clearance. Discussed with pharmacy. Creatinine clearance about 48. (6) Fracture of head of right femur Current Visit: Yes Status: Acute Secondary to fall at home prior to admission. Status post percutaneous screw fixation of the right femoral neck on 06/21/18. Qualifiers: Encounter type: initial encounter Fracture type: closed Qualified Code(s) : S72.051A - Unspecified fracture of head of right femur, initial encounter for closed fracture (7) Fracture of ribs, seven Current Visit: Yes Status: Acute Secondary to fall. Pain management per the primary team. Qualifiers: Encounter type: initial encounter Fracture type: closed Laterality: right Qualified Code(s): S22.41XA - Multiple fractures of ribs, right side, initial encounter for closed fracture (8) Supratherapeutic INR Current Visit: No Status: Acute Etiology unclear. INR 4.4 this morning. Management per the primary team. (9) Allergy to multiple antibiotics Current Visit: Yes Status: Acute The patient reports allergies to Keflex, Levaquin, and clindamycin. He was discharged on Augmentin on a previous admission in May of this year. He tolerated it without a problem. (10) Thyroid carcinoma Current Visit: No Status: Chronic (11) Abdominal aortic aneurysm Current Visit: No Status: Chronic Qualifiers: Presence of rupture: without rupture Qualified Code(s): I71.4 - Abdominal aortic aneurysm, without rupture (12) Peripheral vascular disease Current Visit: Yes Status: Acute - Subjective Interval history: Patient seen and examined. No acute events noted overnight. Patient lying in bed, appears ill. Per his , patient more confused today. Complains of pain in his left chest. Reports some shortness of breath with a moist cough. Denies nausea, vomiting, diarrhea, or constipation. Reports last bowel movement was 3 days ago. Denies urinary complaints. Denies oral thrush or new skin lesions. Infect Dis PN-Objective Data - Labs CBC & Chem 7: 06/30/18 00:49 06/30/18 00:49 Labs: Laboratory Results - last 24 hr 06/27/18 06/29/18 06/29/18 21:50 07:29 10:53 WBC RBC Hgb Hct MCV MCH MCHC RDW Plt Count MPV Immature Gran % Seg Neutrophils % Lymphocytes % Monocytes % Eosinophils % Basophils % Neutrophils # Lymphocytes # Monocytes # Eosinophils # Basophils # PT INR Sodium Potassium Chloride Carbon Dioxide BUN Creatinine Est GFR ( Amer) Est GFR (Non-Af Amer) BUN/Creatinine Ratio Glucose POC Glucose 86 83 69 L Calculated Osmolality Calcium 06/29/18 06/29/18 06/30/18 17:01 20:29 00:49 WBC 7.9 RBC 2.16 L Hgb 6.7 L D Hct 20.2 L MCV 93.5 MCH 31.0 MCHC 33.2 RDW 19.4 H Plt Count 326 MPV 8.7 L Immature Gran % 0.6 Seg Neutrophils % 82.6 Lymphocytes % 5.8 Monocytes % 10.5 Eosinophils % 0.4 Basophils % 0.1 Neutrophils # 6.5 Lymphocytes # 0.5 L Monocytes # 0.8 Eosinophils # 0.0 Basophils # 0.0 PT INR Sodium Potassium Chloride Carbon Dioxide BUN Creatinine Est GFR ( Amer) Est GFR (Non-Af Amer) BUN/Creatinine Ratio Glucose POC Glucose 91 91 Calculated Osmolality Calcium 06/30/18 06/30/18 06/30/18 00:49 00:49 08:16 WBC RBC Hgb Hct MCV MCH MCHC RDW Plt Count MPV Immature Gran % Seg Neutrophils % Lymphocytes % Monocytes % Eosinophils % Basophils % Neutrophils # Lymphocytes # Monocytes # Eosinophils # Basophils # PT 50.0 H* D INR 4.4 H* D Sodium 130 L Potassium 3.5 Chloride 112 H Carbon Dioxide 17 L BUN 23 Creatinine 1.35 H Est GFR ( Amer) > 60 Est GFR (Non-Af Amer) 51 L BUN/Creatinine Ratio 17 Glucose 93 POC Glucose 87 Calculated Osmolality 273 L Calcium 7.6 L Cultures: Cultures 06/21/18 23:34 Wound Culture - Final Left Foot Pseudomonas aeruginosa Vanc. Resistant Enterococcus Stenotrophomonas maltophilia 06/21/18 23:34 Wound Culture - Final Right Foot Pseudomonas aeruginosa Vanc. Resistant Enterococcus Stenotrophomonas maltophilia 06/21/18 23:34 Wound Culture - Final Other-Specify in Comments Pseudomonas aeruginosa Vanc. Resistant Enterococcus Stenotrophomonas maltophilia Serology 06/22/18 06/20/18 Range/Units 16:53 04:00 Urine Color Yellow (Yellow) Urine Clarity Clear (Clear) Urine pH 5.5 (5.0-8.0) pH Units Ur Specific [place] 1.028 H (1.010-1.025) Urine Protein Trace (Neg-Trace) mg/dL Urine Glucose (UA) Normal (Normal) mg/dL Urine Ketones 15 H (Negative) mg/dL Urine Blood Trace H (Negative) Urine Nitrite Negative (Negative) Urine Bilirubin Small H (Negative) Urine Urobilinogen Normal (Normal) mg/dL Ur Leukocyte Esterase Small H (Negative) Urine Microscopic RBC 5-15 H (0-3) per hpf Urine Microscopic WBC 5-15 H (0-3) per hpf Ur Squamous Epith Cells Moderate H (None-Few) per lpf Urine Bacteria None Seen (None-Few) per hpf Hyaline Casts Few (None-Few) per lpf Urine Yeast Few H (None Seen) per hpf Urine Sodium 22.4 mEq/L Exam - Constitutional Vitals: Temp Pulse Resp BP Pulse Ox 99.1 F 97 18 95/63 94 06/30/18 12:10 06/30/18 12:10 06/30/18 12:10 06/30/18 12:10 06/30/18 12:10 General appearance: average body habitus, cooperative, no acute distress - Head Head exam: Present: atraumatic, normal inspection, normocephalic - Eye Eye exam: Present: EOMI, normal appearance, PERRL Pupils: Present: normal accommodation - ENT ENT exam: Present: mucous membranes moist - Neck Neck exam: Present: normal inspection - Respiratory Respiratory exam: Present: rhonchi (Scattered throughout). Absent: rales, respiratory distress, wheezes - Cardiovascular Cardiovascular exam: Present: RRR, +S1, +S2 - GI/Abdominal GI/Abdominal exam: Present: normal bowel sounds, soft, tenderness (Hernia). Absent: distended Additional comments: Lower abdominal hernia protruding and tender on palpation. - Extremities Exam Extremities exam: Present: tenderness (BLE) Additional comments: Right hip dressing C/D/I/ BLE dressings C/D/I. Toenails to the bilateral feet are overgrown and thickened. - Neurological Exam Neurological exam: Present: altered (Drowsy, difficult to maintain wakeful state.). Absent: oriented X3 (Oriented to time and person.) - Psychiatric Psychiatric exam: Present: normal affect, normal mood - Skin Skin exam: Present: dry, intact, pallor, warm - VTE Documentation of Mechanical Device: Intermittent pneumatic compression device Consult Discharge Plan - Plan Additional Instructions: CARE HOME DISCHARGE INSTRUCTIONS Dr. Raya PROCEDURE PERFORMED Reduction and fixation of right hip. Incision care -Daily dressing changes to the right hip with dry gauze and either paper tape or medipore tape. -Avoid soaking wound in water (no hot tubs, bathtubs, swimming pools). -May shower after 2 weeks from surgery date. Carefully wash incision with soap and water. Gently pat it dry. Don't rub the incision, or apply creams or lotions. Sit on a shower stool when showering to keep from falling. Weight bearing status -Weightbearing as tolerated to the bilateral lower extremities. Medications -Pain medication per the discharging medical doctor Other -Knee high PAMELA hose 23 hours per day -Consult physical and occupational therapy for mobilization. -Up to chair with assistance at least twice per day. -Follow up with your primary care physician to discuss testing for bone mineral density. Follow-up with Dr. Raya at the office 2 weeks from the surgery date for a post operative evaluation. Call the office at [phone] to schedule appointment. Referrals: Avery Woods DO [Primary Care Provider] -
[2018-06-30] MEDS: OXYCODONE Oral CONC 10 MG/0.5 ML ORAL.SYG SL PRN ×3 (14:15→23:08)
[2018-06-30] MEDS ORDERED: 0.9 % Sodium Chloride 250 ML ONE (15:27)
--- NOTE | 2018-06-30 15:37 | Internal Med Progress Note ---
Hospitalist Progress Note - Encounter Date of Encounter: 06/30/18 Time of Encounter: 09:00 - Subjective Interval History: Patient is still weak, lethargic, sleepy. Patient has productive cough. Hemoglobin drop is noticed. Per patient's , he has history of bleeding ulcer previously. - Exam Vitals: Temp Pulse Resp BP Pulse Ox 99.1 F 97 18 95/63 94 06/30/18 12:10 06/30/18 12:10 06/30/18 12:10 06/30/18 12:10 06/30/18 12:10 Exam: Patient is lethargic. HEENT: NC/AT, PERRL Neck: Supple, no LAD Lung: In mild respiratory distress, breath sounds coarse bilaterally. Heart: S1S2, RRR Abd: Soft, nontender Ext: ROM wnl, no pedal edema, chronic wound on lower extremity bilaterally Neuro: Sleepy, no focal deficit. - Assessment and Plan (1) Sepsis Current Visit: Yes Status: Ruled-out Assessment and Plan: Suspected sepsis 2/2 to pneumonia or wound infection. Has been afebrile. Has multiple antibiotic allergies. ID is on case, patient is on IV Bactrim and Zosyn per ID consult. Improved leukocytosis. (2) COPD (chronic obstructive pulmonary disease) Current Visit: Yes Status: Chronic Assessment and Plan: Not in acute exacerbation. Continue when necessary breathing treatments and supplemental oxygen as needed. (3) CAD (coronary artery disease) of artery bypass graft Current Visit: Yes Status: Chronic Assessment and Plan: CAD s/p CABG in 2008. c/w home medications (4) Acute kidney injury Current Visit: Yes Status: Acute Assessment and Plan: Mild elevated creatinine level from baseline. Will closely monitor renal function, avoid nephrotoxic medications, dose medication per renal function. - monitor without IVF nor lasix (5) Aspiration pneumonia Current Visit: Yes Status: Acute Assessment and Plan: CT chest showed bibasilar infiltrates and airway secretions, likely chronic aspiration. states patient has h/o- thyroid and laryngeal cancer s/p radiation; he has a hole at the site where meds and food get stuck if he's not careful; he does tolerates regular diet at home. For MBS per speech blood cultures negative. Supplemental O2 and supportive care. abx as above (6) Fracture of femoral neck, right Current Visit: Yes Status: Acute Assessment and Plan: CT hip shows Acute nondisplaced mildly impacted right femoral neck fracture. s/p Percutaneous screw fixation of the right femoral neck, POD10 continue pain control with PRN Oxycodone and Tylenol; DVT prophylaxis with Coumadin, complicated by supratherapeutic INR, likely due to concurrent antibiotic use INR improved but still high, cont to hold coumadin. PT/OT recommends ECF placement. social sciences department chair on board. awaiting insurance authorization (7) Rib fracture Current Visit: Yes Status: Acute Assessment and Plan: Nonsurgical (8) Atrial fibrillation Current Visit: Yes Status: Chronic Assessment and Plan: Supratherapeutic INR, hold the Coumadin. (9) Lung cancer Current Visit: Yes Status: Chronic Assessment and Plan: In process of looking into palliative care/hospice. have not officially signed. 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 (12) Anemia Current Visit: No Status: Acute Assessment and Plan: Acute decrease of hemoglobin. Super therapeutic INR earlier. History of bleeding ulcer. Probably GI bleed. Patient and family denies coffee ground emesis or melena (no BM in last two days). - We will give PRBC transfusion as hemoglobin 6.8, check FOBT if pt has BM. - Consult GI in a.m. , however, highly suspect if patient can tolerate any further exam. - IV PPI. - Continue hold Coumadin and aspirin. DVT Prophylaxis: On coumadin - Summary of Assessment and Plan Summary of Assessment and Plan: Patient was admitted for hip fracture. Patient has history of thyroid cancer and lung cancer. He has chronic bilateral leg wound, A. fib on Coumadin, aspiration pneumonia, possible GI bleed. His prognosis is guarded. Patient and family has plan to pursue hospice. - Time Spent with Patient Total time spent is greater than 50% in coordination of care (as documented) at patient's floor/unit and/or counseling patient: 40 minutes Greater than 35 minutes Plan of Care Discussed with: family Internal Medicine: Result - Labs CBC & Chem 7: 06/30/18 00:49 06/30/18 00:49 Labs: Short CBC 06/30/18 Range/Units 00:49 WBC 7.9 (4.3-11.1) K/mcL Hgb 6.7 L D (12.9-16.9) g/dL Hct 20.2 L (37.5-50.1) % Plt Count 326 (140-400) K/mcL Neutrophils # 6.5 (1.6-8.9) K/mcL BMP 06/30/18 00:49 Sodium 130 L Potassium 3.5 Chloride 112 H Carbon Dioxide 17 L BUN 23 Creatinine 1.35 H Glucose 93 Calcium 7.6 L - ABG Interpretation ABG results: PT/INR, D-dimer PT 50.0 Seconds (9.4-12.1) H* D 06/30/18 00:49 - VTE Documentation of Mechanical Device: Intermittent pneumatic compression device Consult Discharge Plan - Plan Additional Instructions: CUSTODIAL DISCHARGE INSTRUCTIONS Dr. Raya PROCEDURE PERFORMED Reduction and fixation of right hip. Incision care -Daily dressing changes to the right hip with dry gauze and either paper tape or medipore tape. -Avoid soaking wound in water (no hot tubs, bathtubs, swimming pools). -May shower after 2 weeks from surgery date. Carefully wash incision with soap and water. Gently pat it dry. Don't rub the incision, or apply creams or lotions. Sit on a shower stool when showering to keep from falling. Weight bearing status -Weightbearing as tolerated to the bilateral lower extremities. Medications -Pain medication per the discharging medical doctor Other -Knee high PAMELA hose 23 hours per day -Consult physical and occupational therapy for mobilization. -Up to chair with assistance at least twice per day. -Follow up with your primary care physician to discuss testing for bone mineral density. Follow-up with Dr. Raya at the office 2 weeks from the surgery date for a post operative evaluation. Call the office at [phone] to schedule appointment. Referrals: Avery Woods DO [Primary Care Provider] - (1) Sepsis Qualifiers: Sepsis type: sepsis due to unspecified organism Qualified Code(s): A41.9 - Sepsis, unspecified organism (2) COPD (chronic obstructive pulmonary disease) Qualifiers: COPD type: unspecified COPD Qualified Code(s): J44.9 - Chronic obstructive pulmonary disease, unspecified (3) CAD (coronary artery disease) of artery bypass graft Qualifiers: [place] vs. transplanted heart: [place] heart Associated angina: without angina Qualified Code(s): I25.810 - Atherosclerosis of coronary artery bypass graft(s) without angina pectoris (5) Aspiration pneumonia Qualifiers: Aspiration pneumonia type: unspecified Laterality: right Lung location: lower lobe of lung Qualified Code(s): J69.0 - Pneumonitis due to inhalation of food and vomit (6) Fracture of femoral neck, right Qualifiers: Encounter type: initial encounter Fracture type: closed Qualified Code(s): S72.001A - Fracture of unspecified part of neck of right femur, initial encounter for closed fracture (7) Rib fracture Qualifiers: Encounter type: subsequent encounter Rib fracture type: single rib Fracture type: closed Laterality: right Fracture healing: with routine healing Qualified Code(s): S22.31XD - Fracture of one rib, right side, subsequent encounter for fracture with routine healing (8) Atrial fibrillation Qualifiers: Atrial fibrillation type: chronic Qualified Code(s): I48.2 - Chronic atrial fibrillation (9) Lung cancer Qualifiers: Laterality: unspecified laterality Lung location: unspecified part of lung Qualified Code(s): C34.90 - Malignant neoplasm of unspecified part of unspecified bronchus or lung (10) Open wound, lower leg Qualifiers: Encounter type: subsequent encounter Laterality: unspecified laterality Qualified Code(s): S81.809D - Unspecified open wound, unspecified lower leg, subsequent encounter (12) Anemia Qualifiers: Iron deficiency anemia type: chronic blood loss Qualified Code(s): D50.0 - Iron deficiency anemia secondary to blood loss (chronic)
[2018-06-30] MEDS: Pantoprazole 40 MG VIAL IVP SCH (18:27)
[2018-06-30] MEDS ORDERED: *HR* Phytonadione 10 MG/ML AMPUL SQ ONE (19:02)
[2018-07-01 01:22] LABS: Basophils % 0.1 %; Eosinophils # 0.1 K/mcL (0.0-0.6); Hematocrit 22.5 % (37.5-50.1); Hemoglobin 7.3 g/dL (12.9-16.9); Immature Granulocytes % 0.5 % (0-4); Lymphocytes # 0.6 K/mcL (0.6-4.6); Lymphocytes % 7.8 %; Mean Corpuscular HGB Conc 32.4 g/dL (31.6-35.5); Mean Corpuscular Hemoglobin 29.6 pg (28.0-33.3); Mean Corpuscular Volume 91.1 fL (83.0-100.0); Mean Platelet Volume 8.6 fL (9.4-12.4); Monocytes # 0.6 K/mcL (0.0-1.3); Monocytes % 8.5 %; Platelet Count 309 K/mcL (140-400); Red Blood Count 2.47 M/mcL (4.19-5.50); Red Cell Distribution Width 20.2 % (11.5-14.5); Segmented Neutrophils % 82.1 %
[2018-07-01 01:37] LABS: BUN/Creatinine Ratio 19 (6-26); Blood Urea Nitrogen 22 mg/dL (8-23); Calcium 7.8 mg/dL (8.6-10.3); Carbon Dioxide 19 mEq/L (23-29); Chloride 107 mEq/L (98-107); Glucose 86 mg/dL (70-105); Osmolality,Calculated 279 (280-300); Potassium 3.5 mEq/L (3.5-5.1); Sodium 133 mEq/L (136-145); eGFR For Non-African Americans > 60 (> 60)
[2018-07-01 01:42] LABS: INR 2.2; Prothrombin Time 24.4 Seconds (9.4-12.1)
[2018-07-01] MEDS: OXYCODONE Oral CONC 10 MG/0.5 ML ORAL.SYG SL PRN ×4 (02:44→23:26)
[2018-07-01] MEDS: Piperacillin/Tazobactam 3.375 GM in 0.9 % Sodium Chloride Mini Bag 100 ML IVPB SCH ×3 (02:44→18:07)
[2018-07-01] MEDS: Ipratropium/Albuterol Neb 3 ML IH SCH ×4 (04:32→22:43)
[2018-07-01] MEDS: SULFAMETHOXAZOLE IVPB SCH ×3 (06:16→21:15)
[2018-07-01] MEDS: WATER IVPB SCH ×3 (06:16→21:15)
[2018-07-01] MEDS: TRIMETH IVPB SCH ×3 (06:16→21:15)
[2018-07-01] MEDS: D5 IVPB SCH ×3 (06:16→21:15)
[2018-07-01] MEDS: Pantoprazole 40 MG VIAL IVP SCH ×2 (06:17→18:07)
[2018-07-01] MEDS: Tiotropium 18 MCG inhalation IH SCH (09:50)
[2018-07-01] MEDS: Budesonide/Formoterol 80/4.5 MDI IH SCH ×2 (09:51→22:43)
[2018-07-01] MEDS ORDERED: *HR* FentaNYL PATCH 25 MCG PATCH TD SCH (10:00)
--- NOTE | 2018-07-01 10:29 | Palliative Progress Note ---
Date of Encounter: 07/01/18 Time of Encounter: 09:15 - Assessment and plan (1) Cough Current Visit: Yes Status: Acute Assessment and plan: Patient denies cough during assessment. (2) Nausea Current Visit: Yes Status: Acute Assessment and plan: Denies nausea during assessment. Patient has received 0 doses of Phenergan in the last 24 hours. (3) Pain Current Visit: Yes Status: Acute Assessment and plan: Patient reports pain 9/10; described as a sharp, throbbing type pain. Worsens with movement. patient reports SL Oxycodone helping with pain; however, continues to have pain. Patient has received 4 doses in the last 24 of the SL Oxycodone. Patient has not received any pain medication since between 2-3 am during time of assessment, educated on availability to PRN medication every 3 hours as needed. Patient continues to have difficulty swallowing medication. Ordered Fentanyl Patch 25 mcg, will re-evaluate tomorrow. Based on current dose conversion would be 62.5 mcg/hr Fentanyl with 25% reduction; however, after discussing with patient and his patient will need to be alert enough to participate in rehab so have opted to start with low dose of 25 mcg/hr and re -evaluate tomorrow. Continue Oxycodone PRN. (4) Acute respiratory failure with hypoxia Current Visit: Yes Status: Acute Assessment and plan: Oxygen 97% on 4L. Continue Oxygen therapy and duonebs. (5) Atrial fibrillation Current Visit: Yes Status: Acute Qualifiers: Atrial fibrillation type: unspecified Qualified Code(s): I48.91 - Unspecified atrial fibrillation (6) Fracture of femoral neck, right Current Visit: Yes Status: Acute Assessment and plan: Surgical repair completed. Qualifiers: Encounter type: initial encounter Fracture type: closed Qualified Code(s) : S72.001A - Fracture of unspecified part of neck of right femur, initial encounter for closed fracture (7) Lung cancer Current Visit: Yes Status: Chronic Assessment and plan: Patient plans to enter ECF for PT/OT then transition to hospice. Qualifiers: Laterality: unspecified laterality Lung location: unspecified part of lung Qualified Code(s): C34.90 - Malignant neoplasm of unspecified part of unspecified bronchus or lung (8) Open wound, lower leg Current Visit: Yes Status: Chronic Assessment and plan: Continue wound care as ordered with Silvadene. Qualifiers: Encounter type: subsequent encounter Laterality: unspecified laterality Qualified Code(s): S81.809D - Unspecified open wound, unspecified lower leg, subsequent encounter (9) Protein-calorie malnutrition, moderate Current Visit: Yes Status: Chronic Assessment and plan: Patient receiving Megace at this time. Continues to have poor oral intake. Patient newly receiving higher dose of Megace. Continue Megace at current dose. (10) Goals of care, counseling/discussion Current Visit: No Status: Acute Assessment and plan: Spoke with regarding goals of care. Continue to plan for [facility] for PT/OT at discharge. Patient's is going to set get packet to apply for Medicaid this morning. Dr. Brooks updated on goals of care. (11) Constipation due to opioid therapy Current Visit: Yes Status: Acute Assessment and plan: Patient has had no bowel movement documented with hypoactive bowel sounds. GI consult today. - Time Spent With Patient Total time spent is greater than 50% in coordination of care (as documented) at patient's floor/unit and/or counseling patient: - Subjective Interval history: Patient resting in bed with eyes closed upon arrival for assessment. Patient's and Dr. Brooks present at bedside upon arrival, discussing continuation of care for pneumonia then plan to discharge to ECF as skilled patient. Discussed alterations in Hgb and INR values; informed was due to antibiotics. Patient easily awakens when spoke to. Alert and oriented times 3 upon evaluation. reports continued difficulty with patient refusing meals, requests patient to attempt skilled days at ECF while completing the "legal side"/Medicaid paperwork for approval. Reports change in pain medication to sublingual dosing has helped, but would appreciate something more long acting as patient continues to have pain throughout night. Patient has received 4 doses of PRN Oxycodone in the last 24 hours. Patient denies cough, anxiety, nausea during assessment. Patient was unable to work with PT/OT yesterday due to low hemoglobin; has improved. - Constitutional Vitals: Abnormal lab results RBC 2.47 M/mcL (4.19-5.50) L 07/01/18 00:33 Hgb 7.3 g/dL (12.9-16.9) L 07/01/18 00:33 Hct 22.5 % (37.5-50.1) L 07/01/18 00:33 RDW 20.2 % (11.5-14.5) H 07/01/18 00:33 MPV 8.6 fL (9.4-12.4) L 07/01/18 00:33 PT 24.4 Seconds (9.4-12.1) H D 07/01/18 00:33 APTT 40.9 Seconds (26.0-36.0) H 06/18/18 14:37 Sodium 133 mEq/L (136-145) L 07/01/18 00:33 Carbon Dioxide 19 mEq/L (23-29) L 07/01/18 00:33 Calculated Osmolality 279 (280-300) L 07/01/18 00:33 Calcium 7.8 mg/dL (8.6-10.3) L 07/01/18 00:33 AST 10 Units/L (13-39) L 06/20/18 01:21 Serum Total Protein 5.6 g/dL (6.4-8.9) L 06/20/18 01:21 Albumin 2.6 g/dL (3.5-5.7) L 06/20/18 01:21 Albumin/Globulin Ratio 0.9 (1.1-2.2) L 06/20/18 01:21 Ur Specific [place] 1.028 (1.010-1.025) H 06/20/18 04:00 Urine Ketones 15 mg/dL (Negative) H 06/20/18 04:00 Urine Blood Trace (Negative) H 06/20/18 04:00 Urine Bilirubin Small (Negative) H 06/20/18 04:00 Ur Leukocyte Esterase Small (Negative) H 06/20/18 04:00 Urine Microscopic RBC 5-15 per hpf (0-3) H 06/20/18 04:00 Urine Microscopic WBC 5-15 per hpf (0-3) H 06/20/18 04:00 Ur Squamous Epith Cells Moderate per lpf (None-Few) H 06/20/18 04:00 Urine Yeast Few per hpf (None Seen) H 06/20/18 04:00 General appearance: Present: cooperative, no acute distress - Head Head exam: Present: atraumatic, normal inspection - Eye Eye exam: Present: EOMI, PERRL, conjuntiva pink. Absent: periorbital swelling, periorbital tenderness Pupils: Present: normal accommodation - ENT ENT exam: Present: mucous membranes dry, normal external ear exam - Neck Neck exam: Present: full ROM, normal inspection - Respiratory Respiratory exam: Present: rhonchi, wheezes. Absent: accessory muscle use, respiratory distress - Cardiovascular Cardiovascular exam: Present: irregular rhythm - GI/Abdominal GI/Abdominal exam: Present: distended, hypoactive bowel sounds, tenderness. Absent: guarding - Rectal Rectal exam: Present: deferred - Extremities Exam Extremities exam: Present: full ROM. Absent: normal inspection (wounds to BLE) - Neurological Exam Neurological exam: Present: alert, oriented X3, strengths equal and symetr throughout. Absent: altered, facial droop, speech deficit - Psychiatric Psychiatric exam: Present: flat affect - Skin Skin exam: Present: dry, warm. Absent: intact (Patient has many wounds with dressings clean dry and intact.) - Expanded Skin Exam Type of lesion: Present: rash Distribution of rash: Present: back Description of rash: Present: erythematous Palliative Quality Palliative Quality: Screen for Code Status: Yes, Screen for Goals of Care: Yes, Screen for Pain: Yes, If Pain Regimen Started, Initiate Bowel Regimen: Yes, Screen for Nausea/Vomitting: Yes Code Status: 06/22/18 12:03 Resuscitation Status: Active [RES] Routine Comment: Resuscitation Status: [id number] - Labs CBC & Chem 7: 07/01/18 00:33 07/01/18 00:33 Labs: Laboratory Results - last 24 hr 06/30/18 06/30/18 06/30/18 12:18 12:18 17:04 WBC RBC Hgb Hct MCV MCH MCHC RDW Plt Count MPV Immature Gran % Seg Neutrophils % Lymphocytes % Monocytes % Eosinophils % Basophils % Neutrophils # Lymphocytes # Monocytes # Eosinophils # Basophils # PT INR Sodium Potassium Chloride Carbon Dioxide BUN Creatinine Est GFR ( Amer) Est GFR (Non-Af Amer) BUN/Creatinine Ratio Glucose POC Glucose 89 92 Calculated Osmolality Calcium Blood Type O NEGATIVE Antibody Screen NEGATIVE Crossmatch See Detail 06/30/18 07/01/18 07/01/18 19:09 00:33 00:33 WBC 7.3 RBC 2.47 L Hgb 7.3 L Hct 22.5 L MCV 91.1 MCH 29.6 MCHC 32.4 RDW 20.2 H Plt Count 309 MPV 8.6 L Immature Gran % 0.5 Seg Neutrophils % 82.1 Lymphocytes % 7.8 Monocytes % 8.5 Eosinophils % 1.0 Basophils % 0.1 Neutrophils # 6.0 Lymphocytes # 0.6 Monocytes # 0.6 Eosinophils # 0.1 Basophils # 0.0 PT 24.4 H D INR 2.2 Sodium Potassium Chloride Carbon Dioxide BUN Creatinine Est GFR ( Amer) Est GFR (Non-Af Amer) BUN/Creatinine Ratio Glucose POC Glucose 86 Calculated Osmolality Calcium Blood Type Antibody Screen Crossmatch 07/01/18 00:33 WBC RBC Hgb Hct MCV MCH MCHC RDW Plt Count MPV Immature Gran % Seg Neutrophils % Lymphocytes % Monocytes % Eosinophils % Basophils % Neutrophils # Lymphocytes # Monocytes # Eosinophils # Basophils # PT INR Sodium 133 L Potassium 3.5 Chloride 107 Carbon Dioxide 19 L BUN 22 Creatinine 1.14 Est GFR ( Amer) > 60 Est GFR (Non-Af Amer) > 60 BUN/Creatinine Ratio 19 Glucose 86 POC Glucose Calculated Osmolality 279 L Calcium 7.8 L Blood Type Antibody Screen Crossmatch - ABG Interpretation ABG results: PT/INR, D-dimer PT 24.4 Seconds (9.4-12.1) H D 07/01/18 00:33 Consult Discharge Plan - Plan Additional Instructions: HALFWAY DISCHARGE INSTRUCTIONS Dr. Raya PROCEDURE PERFORMED Reduction and fixation of right hip. Incision care -Daily dressing changes to the right hip with dry gauze and either paper tape or medipore tape. -Avoid soaking wound in water (no hot tubs, bathtubs, swimming pools). -May shower after 2 weeks from surgery date. Carefully wash incision with soap and water. Gently pat it dry. Don't rub the incision, or apply creams or lotions. Sit on a shower stool when showering to keep from falling. Weight bearing status -Weightbearing as tolerated to the bilateral lower extremities. Medications -Pain medication per the discharging medical doctor Other -Knee high PAMELA hose 23 hours per day -Consult physical and occupational therapy for mobilization. -Up to chair with assistance at least twice per day. -Follow up with your primary care physician to discuss testing for bone mineral density. Follow-up with Dr. Raya at the office 2 weeks from the surgery date for a post operative evaluation. Call the office at [phone] to schedule appointment. Referrals: Avery Woods, [Primary Care Provider] -
[2018-07-01] MEDS: Nystatin POWDER 30 GM BOTTLE TP SCH ×2 (10:34→21:15)
[2018-07-01] MEDS: Megestrol Acetate 400 MG/10 ML UDC PO SCH ×2 (10:36→21:15)
[2018-07-01] MEDS: Lubiprostone [Amitiza] 24 MCG PO SCH ×2 (10:43→21:15)
[2018-07-01] MEDS: Sennosides/Docusate Sodium TABLET PO SCH ×2 (10:43→21:15)
[2018-07-01] MEDS: Silver Sulfadiazine 50 GM TUBE TP SCH ×2 (12:28→13:23)
--- NOTE | 2018-07-01 12:36 | Infectious Disease Progress No ---
Date of Encounter: 07/01/18 Time of Encounter: 12:33 - Assessment and Plan (1) Severe sepsis Current Visit: Yes Status: Acute The patient had two SIRS criteria plus acute kidney injury on admission. Likely secondary to aspiration pneumonia and bilateral lower extremity wound infections. Improved. WBC normal. He has some intermittent tachycardia. He has been afebrile. Blood culture drawn June 16 is negative 1 set. (2) Aspiration pneumonia Current Visit: Yes Status: Acute CT of the chest showed features of chronic recurrent aspiration, including extensive tracheal bronchial secretions with airway inflammation, basilar predominant small airway mucoid impaction, and scattered basilar tree-in-bud nodularity. Patient denies choking when he eats, but he does have a moist cough. SPT evaluation noted. The patient did have a formal swallow evaluation back in 2017 and showed aspiration with thin liquids. Barium swallow study showed laryngeal penetration of nectar thick liquids and applesauce. SPT recommends honey-thick liquids and mechanically altered textures. Received aztreonam and Flagyl 7 days, followed by Zosyn for the past 6 days. Repeat CXR shows no definitive PNA. Antibiotics as above. Qualifiers: Aspiration pneumonia type: unspecified Laterality: right Lung location: lower lobe of lung Qualified Code(s): J69.0 - Pneumonitis due to inhalation of food and vomit (3) Open wound, lower leg Current Visit: Yes Status: Chronic Location: Left lee. Etiology unclear, but sounds like venous stasis ulcers. Wound culture is positive for stenotrophomonas maltophilia, VRE, and Pseudomonas. Not sure if the patient needs vascular testing as well because he will not allow me to remove the dressings to adequately assess his pulses in the distal extremities. Wound care nurse has been consulted. Recommend Podiatry to evaluate as well. Podiatry will see the patient later today. CT of the BLE shows findings consistent with bland edema vs. cellulitis. He does have hardware in the LLE. Continue Zosyn 3.375 g IV Q8H. (day 6). Continue Bactrim IV. Will ask pharmacy to assist with dosing. (day 6). Duration of treatment depends on the clinical picture, but likely a total of 14 days. Recommend treating through 07/09/18, then discontinue. Monitor renal function and dose-adjust antibiotics. No further recommendations from the ID team. Will sign off. Please re-consult if needed. Qualifiers: Encounter type: subsequent encounter Laterality: unspecified laterality Qualified Code(s): S81.809D - Unspecified open wound, unspecified lower leg, subsequent encounter (4) Diabetic foot ulcer Current Visit: No Status: Chronic Location: Bilateral feet. Likely secondary to venous stasis ulcers, nonhealing due to poor diabetes control and lack of aggressive wound care. Wound cultures of the bilateral feet are positive for pseudomonas, VRE, and stenotrophomonas maltophilia. Wound care nurse consulted. Recommend Podiatry to evaluate. Patient refused in the past, but is okay to consult. Antibiotic recommendations as above. Recommend aggressive glucose monitoring and control. Qualifiers: Diabetic foot ulcer location: unspecified part of foot Diabetes mellitus type: type 2 Non-pressure ulcer stage: unspecified non-pressure ulcer stage Qualified Code(s): E11.621 - Type 2 diabetes mellitus with foot ulcer; L97.509 - Non-pressure chronic ulcer of other part of unspecified foot with unspecified severity (5) Acute kidney injury Current Visit: Yes Status: Acute Likely secondary to sepsis. Serum creatinine down to 1.14 today. Continue to trend. Bactrim may falsely elevate serum creatinine. Need strict I's and O's. Dose-adjust antibiotics based on creatinine clearance. Discussed with pharmacy. Creatinine clearance about 59. (6) Fracture of head of right femur Current Visit: Yes Status: Acute Secondary to fall at home prior to admission. Status post percutaneous screw fixation of the right femoral neck on 06/21/18. Qualifiers: Encounter type: initial encounter Fracture type: closed Qualified Code(s) : S72.051A - Unspecified fracture of head of right femur, initial encounter for closed fracture (7) Fracture of ribs, seven Current Visit: Yes Status: Acute Secondary to fall. Pain management per the primary team. Qualifiers: Encounter type: initial encounter Fracture type: closed Laterality: right Qualified Code(s): S22.41XA - Multiple fractures of ribs, right side, initial encounter for closed fracture (8) Supratherapeutic INR Current Visit: No Status: Resolved Etiology unclear. INR 2.2 this morning. Management per the primary team. (9) Allergy to multiple antibiotics Current Visit: Yes Status: Acute The patient reports allergies to Keflex, Levaquin, and clindamycin. He was discharged on Augmentin on a previous admission in May of this year. He tolerated it without a problem. (10) Thyroid carcinoma Current Visit: No Status: Chronic (11) Abdominal aortic aneurysm Current Visit: No Status: Chronic Qualifiers: Presence of rupture: without rupture Qualified Code(s): I71.4 - Abdominal aortic aneurysm, without rupture (12) Peripheral vascular disease Current Visit: Yes Status: Acute - Subjective Interval history: Patient seen and examined. No acute events noted overnight. Patient lying in bed, complains that he is uncomfortable and "hurts all over." Specifically, the patient mentions pain in his chest. Reports some shortness of breath with a moist cough. Denies nausea, vomiting, diarrhea, or constipation. Reports last bowel movement was no more than 3 days ago, but no BM documented since 06/27/18. Denies urinary complaints. Denies oral thrush or new skin lesions. Infect Dis PN-Objective Data - Labs CBC & Chem 7: 07/02/18 00:48 07/02/18 00:48 Labs: Laboratory Results - last 24 hr 06/30/18 06/30/18 06/30/18 12:18 12:18 17:04 WBC RBC Hgb Hct MCV MCH MCHC RDW Plt Count MPV Immature Gran % Seg Neutrophils % Lymphocytes % Monocytes % Eosinophils % Basophils % Neutrophils # Lymphocytes # Monocytes # Eosinophils # Basophils # PT INR Sodium Potassium Chloride Carbon Dioxide BUN Creatinine Est GFR ( Amer) Est GFR (Non-Af Amer) BUN/Creatinine Ratio Glucose POC Glucose 89 92 Calculated Osmolality Calcium Blood Type O NEGATIVE Antibody Screen NEGATIVE Crossmatch See Detail 06/30/18 07/01/18 07/01/18 19:09 00:33 00:33 WBC 7.3 RBC 2.47 L Hgb 7.3 L Hct 22.5 L MCV 91.1 MCH 29.6 MCHC 32.4 RDW 20.2 H Plt Count 309 MPV 8.6 L Immature Gran % 0.5 Seg Neutrophils % 82.1 Lymphocytes % 7.8 Monocytes % 8.5 Eosinophils % 1.0 Basophils % 0.1 Neutrophils # 6.0 Lymphocytes # 0.6 Monocytes # 0.6 Eosinophils # 0.1 Basophils # 0.0 PT 24.4 H D INR 2.2 Sodium Potassium Chloride Carbon Dioxide BUN Creatinine Est GFR ( Amer) Est GFR (Non-Af Amer) BUN/Creatinine Ratio Glucose POC Glucose 86 Calculated Osmolality Calcium Blood Type Antibody Screen Crossmatch 07/01/18 00:33 WBC RBC Hgb Hct MCV MCH MCHC RDW Plt Count MPV Immature Gran % Seg Neutrophils % Lymphocytes % Monocytes % Eosinophils % Basophils % Neutrophils # Lymphocytes # Monocytes # Eosinophils # Basophils # PT INR Sodium 133 L Potassium 3.5 Chloride 107 Carbon Dioxide 19 L BUN 22 Creatinine 1.14 Est GFR ( Amer) > 60 Est GFR (Non-Af Amer) > 60 BUN/Creatinine Ratio 19 Glucose 86 POC Glucose Calculated Osmolality 279 L Calcium 7.8 L Blood Type Antibody Screen Crossmatch Cultures: Cultures 06/21/18 23:34 Wound Culture - Final Left Foot Pseudomonas aeruginosa Vanc. Resistant Enterococcus Stenotrophomonas maltophilia 06/21/18 23:34 Wound Culture - Final Right Foot Pseudomonas aeruginosa Vanc. Resistant Enterococcus Stenotrophomonas maltophilia 06/21/18 23:34 Wound Culture - Final Other-Specify in Comments Pseudomonas aeruginosa Vanc. Resistant Enterococcus Stenotrophomonas maltophilia Serology 06/22/18 06/20/18 Range/Units 16:53 04:00 Urine Color Yellow (Yellow) Urine Clarity Clear (Clear) Urine pH 5.5 (5.0-8.0) pH Units Ur Specific Vance 1.028 H (1.010-1.025) Urine Protein Trace (Neg-Trace) mg/dL Urine Glucose (UA) Normal (Normal) mg/dL Urine Ketones 15 H (Negative) mg/dL Urine Blood Trace H (Negative) Urine Nitrite Negative (Negative) Urine Bilirubin Small H (Negative) Urine Urobilinogen Normal (Normal) mg/dL Ur Leukocyte Esterase Small H (Negative) Urine Microscopic RBC 5-15 H (0-3) per hpf Urine Microscopic WBC 5-15 H (0-3) per hpf Ur Squamous Epith Cells Moderate H (None-Few) per lpf Urine Bacteria None Seen (None-Few) per hpf Hyaline Casts Few (None-Few) per lpf Urine Yeast Few H (None Seen) per hpf Urine Sodium 22.4 mEq/L Exam - Constitutional Vitals: Temp Pulse Resp BP Pulse Ox 98.1 F 104 17 105/56 97 07/01/18 07:00 07/01/18 07:00 07/01/18 09:54 07/01/18 07:00 07/01/18 09:54 General appearance: average body habitus, cooperative, no acute distress - Head Head exam: Present: atraumatic, normal inspection, normocephalic - Eye Eye exam: Present: EOMI, normal appearance, PERRL Pupils: Present: normal accommodation - ENT ENT exam: Present: mucous membranes moist - Neck Neck exam: Present: normal inspection - Respiratory Respiratory exam: Present: rhonchi (throughout). Absent: rales, wheezes - Cardiovascular Cardiovascular exam: Present: +S1, +S2, tachycardia. Absent: irregular rhythm - GI/Abdominal GI/Abdominal exam: Present: normal bowel sounds, soft. Absent: distended, tenderness Additional comments: Abdominal hernia noted to the lower abdomen, soft and non-tender. Easily reducible today. - Extremities Exam Extremities exam: Present: tenderness (Bilateral lower extremities) Additional comments: Right hip dressing C/D/I. Bilateral lower leg dressings C/D/I. Toenails to the bilateral feet thick and overgrown. - Neurological Exam Neurological exam: Present: alert, no focal deficits. Absent: oriented X3 ( Oriented to person only.) - Psychiatric Psychiatric exam: Present: anxious, normal affect - Skin Skin exam: Present: dry, intact, normal color, warm Additional comments: Erythema noted to the left lateral abdomen and flank. - VTE Documentation of Mechanical Device: Intermittent pneumatic compression device Consult Discharge Plan - Plan Additional Instructions: USP DISCHARGE INSTRUCTIONS Dr. Raya PROCEDURE PERFORMED Reduction and fixation of right hip. Incision care -Daily dressing changes to the right hip with dry gauze and either paper tape or medipore tape. -Avoid soaking wound in water (no hot tubs, bathtubs, swimming pools). -May shower after 2 weeks from surgery date. Carefully wash incision with soap and water. Gently pat it dry. Don't rub the incision, or apply creams or lotions. Sit on a shower stool when showering to keep from falling. Weight bearing status -Weightbearing as tolerated to the bilateral lower extremities. Medications -Pain medication per the discharging medical doctor Other -Knee high PAMELA hose 23 hours per day -Consult physical and occupational therapy for mobilization. -Up to chair with assistance at least twice per day. -Follow up with your primary care physician to discuss testing for bone mineral density. Follow-up with Dr. Raya at the office 2 weeks from the surgery date for a post operative evaluation. Call the office at [phone] to schedule appointment. Referrals: Avery Woods DO [Primary Care Provider] - - Attending Attestation I examined this patient and my medical decision-making was reviewed with the Resident Physician. I agree with the documented findings, disposition and treatment plan as described except to the extent set forth below. was at bedside. She tells me that when he takes high-dose pain medication he does get confused like this. This is typical for him. They were discussing hospice.
--- NOTE | 2018-07-01 15:52 | Internal Med Progress Note ---
Hospitalist Progress Note - Encounter Date of Encounter: 07/01/18 Time of Encounter: 09:00 - Subjective Interval History: Patient is still weak, lethargic, sleepy, SOB. Patient has productive cough. Hemoglobin increased to 7.3 after 1 unit of PRBC. Pt's condition makes him not tolerate further test, will cont closely monitor H/H. INR is get down to 2.2. - Exam Vitals: Temp Pulse Resp BP Pulse Ox 98.4 F 110 16 117/59 95 07/01/18 10:07/01/18 10:07/01/18 10:07/01/18 10:07/01/18 10:00 Exam: Pt is lethargic, mild respiratory distress HEENT: NC/AT, PERRL Neck: Supple, no LAD Lungs: Coarse breath sound B/L, scattered rhonchi Heart: S1S2, RRR Abd: Soft, No tenderness, normal BS Ext: Chronic wound on b/l LE Neuro: Sleepy, no focal deficit noticed. - Assessment and Plan (1) Sepsis Current Visit: Yes Status: Ruled-out Assessment and Plan: Suspected sepsis 2/2 to pneumonia or wound infection. Has been afebrile. Has multiple antibiotic allergies. ID is on case, patient is on IV Bactrim and Zosyn per ID consult. Improved leukocytosis. (2) COPD (chronic obstructive pulmonary disease) Current Visit: Yes Status: Chronic Assessment and Plan: Not in acute exacerbation. Continue when necessary breathing treatments and supplemental oxygen as needed. (3) CAD (coronary artery disease) of artery bypass graft Current Visit: Yes Status: Chronic Assessment and Plan: CAD s/p CABG in 2008. c/w home medications (4) Acute kidney injury Current Visit: Yes Status: Acute Assessment and Plan: Mild elevated creatinine level from baseline. Will closely monitor renal function, avoid nephrotoxic medications, dose medication per renal function. - Slightly improved today. (5) Aspiration pneumonia Current Visit: Yes Status: Acute Assessment and Plan: CT chest showed bibasilar infiltrates and airway secretions, likely chronic aspiration. states patient has h/o- thyroid and laryngeal cancer s/p radiation; he has a hole at the site where meds and food get stuck if he's not careful; he does tolerates regular diet at home. For MBS per speech blood cultures negative. Supplemental O2 and supportive care. abx as above (6) Fracture of femoral neck, right Current Visit: Yes Status: Acute Assessment and Plan: CT hip shows Acute nondisplaced mildly impacted right femoral neck fracture. s/p Percutaneous screw fixation of the right femoral neck, POD10 continue pain control with PRN Oxycodone and Tylenol; DVT prophylaxis with Coumadin, complicated by supratherapeutic INR, likely due to concurrent antibiotic use INR improved but still high, cont to hold coumadin. PT/OT recommends ECF placement. social science instructor on board. awaiting insurance authorization (7) Rib fracture Current Visit: Yes Status: Acute Assessment and Plan: Nonsurgical (8) Atrial fibrillation Current Visit: Yes Status: Chronic Assessment and Plan: Supratherapeutic INR, hold the Coumadin. Considering pt's general condition and prognosis and the low H/H and needs for transfusion, especially family would like to pursue hospice care, will discontinue coumadin and keep aspirin only for AC in the future. B/R/A discussed with pt's , she agrees with the plan. (9) Lung cancer Current Visit: Yes Status: Chronic Assessment and Plan: In process of looking into palliative care/hospice. have not officially signed. 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 (12) Anemia Current Visit: No Status: Acute Assessment and Plan: Acute decrease of hemoglobin. Super therapeutic INR earlier. History of bleeding ulcer. Probably GI bleed. Patient and family denies coffee ground emesis or melena. - Improved after transfusion. - INR level get down to 2.2, cont hold coumadin and ASA. - IV PPI. - Pt cannot tolerate further test/procedure, will cont to monitor H/H (13) Diabetes Current Visit: No Status: Chronic Assessment and Plan: Pt was on low dose insulin at home. He was placed on SSI but sugur level is never higher than 100. Will cont closely follow morning lab Glu level. - Summary of Assessment and Plan Summary of Assessment and Plan: Pt is still sick. No improve even on multiple and music artist Abx. Prognosis may be poor. Will consider hospice referral as it is approved. - Time Spent with Patient Total time spent is greater than 50% in coordination of care (as documented) at patient's floor/unit and/or counseling patient: 40 min Greater than 35 minutes Plan of Care Discussed with: family Internal Medicine: Result - Labs CBC & Chem 7: 07/01/18 00:33 07/01/18 00:33 Labs: Short CBC 07/01/18 Range/Units 00:33 WBC 7.3 (4.3-11.1) K/mcL Hgb 7.3 L (12.9-16.9) g/dL Hct 22.5 L (37.5-50.1) % Plt Count 309 (140-400) K/mcL Neutrophils # 6.0 (1.6-8.9) K/mcL BMP 07/01/18 00:33 Sodium 133 L Potassium 3.5 Chloride 107 Carbon Dioxide 19 L BUN 22 Creatinine 1.14 Glucose 86 Calcium 7.8 L - ABG Interpretation ABG results: PT/INR, D-dimer PT 24.4 Seconds (9.4-12.1) H D 07/01/18 00:33 - VTE Documentation of Mechanical Device: Intermittent pneumatic compression device Consult Discharge Plan - Plan Additional Instructions: CARE HOME DISCHARGE INSTRUCTIONS Dr. Raya PROCEDURE PERFORMED Reduction and fixation of right hip. Incision care -Daily dressing changes to the right hip with dry gauze and either paper tape or medipore tape. -Avoid soaking wound in water (no hot tubs, bathtubs, swimming pools). -May shower after 2 weeks from surgery date. Carefully wash incision with soap and water. Gently pat it dry. Don't rub the incision, or apply creams or lotions. Sit on a shower stool when showering to keep from falling. Weight bearing status -Weightbearing as tolerated to the bilateral lower extremities. Medications -Pain medication per the discharging medical doctor Other -Knee high PAMELA hose 23 hours per day -Consult physical and occupational therapy for mobilization. -Up to chair with assistance at least twice per day. -Follow up with your primary care physician to discuss testing for bone mineral density. Follow-up with Dr. Raya at the office 2 weeks from the surgery date for a post operative evaluation. Call the office at [phone] to schedule appointment. Referrals: Avery Woods DO [Primary Care Provider] - (1) Sepsis Qualifiers: Sepsis type: sepsis due to unspecified organism Qualified Code(s): A41.9 - Sepsis, unspecified organism (2) COPD (chronic obstructive pulmonary disease) Qualifiers: COPD type: unspecified COPD Qualified Code(s): J44.9 - Chronic obstructive pulmonary disease, unspecified (3) CAD (coronary artery disease) of artery bypass graft Qualifiers: [place] vs. transplanted heart: enterprise heart Associated angina: without angina Qualified Code(s): I25.810 - Atherosclerosis of coronary artery bypass graft(s) without angina pectoris (5) Aspiration pneumonia Qualifiers: Aspiration pneumonia type: unspecified Laterality: right Lung location: lower lobe of lung Qualified Code(s): J69.0 - Pneumonitis due to inhalation of food and vomit (6) Fracture of femoral neck, right Qualifiers: Encounter type: initial encounter Fracture type: closed Qualified Code(s): S72.001A - Fracture of unspecified part of neck of right femur, initial encounter for closed fracture (7) Rib fracture Qualifiers: Encounter type: subsequent encounter Rib fracture type: single rib Fracture type: closed Laterality: right Fracture healing: with routine healing Qualified Code(s): S22.31XD - Fracture of one rib, right side, subsequent encounter for fracture with routine healing (8) Atrial fibrillation Qualifiers: Atrial fibrillation type: chronic Qualified Code(s): I48.2 - Chronic atrial fibrillation (9) Lung cancer Qualifiers: Laterality: unspecified laterality Lung location: unspecified part of lung Qualified Code(s): C34.90 - Malignant neoplasm of unspecified part of unspecified bronchus or lung (10) Open wound, lower leg Qualifiers: Encounter type: subsequent encounter Laterality: unspecified laterality Qualified Code(s): S81.809D - Unspecified open wound, unspecified lower leg, subsequent encounter (12) Anemia Qualifiers: Iron deficiency anemia type: chronic blood loss Qualified Code(s): D50.0 - Iron deficiency anemia secondary to blood loss (chronic) (13) Diabetes Qualifiers: Diabetes mellitus type: type 2 Diabetes mellitus fci insulin use: with fci use Diabetes mellitus complication status: with skin complications Diabetes mellitus complication detail: with other skin ulcer Qualified Code(s) : E11.622 - Type 2 diabetes mellitus with other skin ulcer; 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
--- NOTE | 2018-07-01 16:16 | Podiatry Consult Note ---
Date of Encounter: 07/01/18 Time of Encounter: 12:00 Assessment and Plan (1) Peripheral vascular disease Current visit: Yes Status: Acute Patient may benefit from venous reflux testing however given patients condition I am not sure how aggressive the family will be with treatment. Conservative treatment is likely all that is necessary. Patient is in palliative care. (2) Open wound, lower leg Current visit: Yes Status: Chronic Findings to BLE consistent with venous stasis ulcerations with superimposed bacterial infection as evidenced by growth from obtained cultures Pressure ulcerations noted to bilateral heels PLAN: Assessed at bedside Cleansed wounds with saline Nurse to reapply dressings Orders written to place betadine to wounds of legs, cover with adaptic and dry dressing Adaptic to wounds of heels change both BID Will apply heel medix boots to elevate heels and relieve pressure to heels ID to continue to follow and treat with IV antibiotics Will continue to follow closely Will need to be followed in wound care center with or 1 week after discharge. Qualifiers: Encounter type: subsequent encounter Laterality: unspecified laterality Qualified Code(s): S81.809D - Unspecified open wound, unspecified lower leg, subsequent encounter History of Present Illness HPI: Mr. Nicholson is a 78 year old male who we have been consulted on regarding wounds of BLE. On arrival patient is awake, slight disorientation noted. Calm. States has all over body pain 8/10 and wants a tylenol. Nursing staff at bedside. Patient is a poor historian. Nurse states told staff that wounds have been ongoing since before admission. States she was applying silvadine daily. Patient was admitted on 06/18. At that time BLE edema and blisters were noted. A venous duplex has ruled out DVT. 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 Patient had a CT complete which was negative for osteomyelitis or abscess formation. Current WBC 7.3. Multiorganism growth noted to wounds and being managed per ID. Patient has dressings on to BLE. No saturation noted. Past Med Surg Social Fam HX - Past Medical History Medical history: atrial fibrillation, cancer, COPD, coronary artery disease, diabetes, malignancy, thyroid disease, other Additional medical history: lung cancer Psychiatric history: anxiety, depression - Past Surgical History Surgical History: cancer surgery, coronary bypass (CABG) Additional surgical history: Sternal revision, exploratory laparotomy and herniorrhaphy, thyroidectomy - Social History Smoking Status: Current every day smoker Smokeless Tobacco Status: No Alcohol use: none Drug use: none - Family History Mother Living Status: Hx Family Cardiac Disorders: Yes Medications and Allergies Omeprazole [PriLOSEC] 20 mg PO DAILY 07/07/15 [History] Potassium Chloride 10 meq PO BID 07/07/15 [History] Metoprolol [Lopressor] 25 mg PO BID 07/10/15 [History] Citalopram [CeleXA] 20 mg PO DAILY #30 tablet 12/13/15 [Rx] Lubiprostone [Amitiza] 24 mcg PO BID #60 capsule 12/13/15 [Rx] Insulin Glargine,Hum.rec.anlog [Lantus Solostar] 10 unit SQ QPM 12/06/16 [ History] Megestrol Acetate [Megace] 200 mg PO BID 04/08/17 [History] Albuterol Sulfate [Ventolin Hfa] 2 puff IH Q6H PRN 04/01/18 [History] Furosemide [Lasix] 40 mg PO DAILY 04/28/18 [History] Levothyroxine [Synthroid] 150 mcg PO DAILY 04/28/18 [History] Tiotropium [Spiriva] 1 puff IH DAILY 04/28/18 [History] Aspirin Enteric Coated [Aspirin EC] 81 mg PO DAILY tablet. 05/01/18 [Rx] Oxycodone HCl/Acetaminophen [Percocet 10-325 mg Tablet] 1 - 2 each PO Q4H PRN 2 Days #28 tablet 05/01/18 [Rx] Silver Sulfadiazine [Silvadene] 1 appl TP DAILY #1 tub 05/11/18 [Rx] Fluticasone/Salmeterol [Advair 250-50 Diskus] 1 puff IH BID 05/27/18 [History] Warfarin [Coumadin] 4 mg PO DAILY 06/18/18 [History] 3 Allergy/AdvReac Type Severity Reaction Status Date / Time cephalexin [From Keflex] Allergy Mild unknown Verified 05/27/18 21:38 levofloxacin [From Levaquin] AdvReac Mild unknown Verified 05/27/18 21:38 clindamycin [From Cleocin] AdvReac See Verified 05/27/18 21:38 Comments All Systems Reviewed: as per HPI - Constitutional Constitutional: as per HPI Physical Exam - Constitutional Vitals: Temp Pulse Resp BP Pulse Ox 98.4 F 110 16 117/59 95 07/01/18 10:00 07/01/18 10:00 07/01/18 15:55 07/01/18 10:00 07/01/18 15:55 General appearance: average body habitus, cooperative, no acute distress Exam: General Examination: CONSTITUTIONAL: Alert, non toxic, confusion noted EXTREMITIES: CFT 3 seconds all toes. Edema +1 and pedal pulses palpable DP and PT SKIN: Skin with decreased turgor, decreased subcutaneous tissue, skin thin and shiny with trophic changes associated with comorbidities as described in history.. Skin changes consistent with PVD noted. Several ulcerations noted, appear venous in nature. Wound #1 lateral aspect of left lee measuring [id number] completely covered in yellow fibrous tissue. Scant serous drainage noted. No odor noted. No purulent drainage. No healthy granulation tissue visible Wound #2 Proximal to wound #1 left lee- [id number] fluid filled bullous lesion, small puncture wound noted to roof of lesion and clear fluid drained. No purulent drainage noted Wound #3 small scattered fibrous lesions noted along lateral aspect of leg extending to ankle. Non infectious in appearance. Some dry and scabbed. Small. No appearance of bacterial infection , no drainage noted Wound #4 Dorsal aspect of right foot, 1.5cmx1.5cm fibrous ulceration- venous in appearance- no healthy granulation tissue noted, 100% yellow fibrous tissue. No odor- no purulent drainage noted wound #5 dorsal aspect of left foot 2 small [id number] fibrous lesions 100% yellow fibrous tissue, no healthy granulation tissue noted Wound 6 Left heel pressure ulceration, partial thickness, 70% healthy granulation tissue 30% white fibrous slough- boggy to touch, [id number] minimal depth noted. Not full thickness. Minimal surrounding edema or erythema. No odor. No drainage Wound #7 right heel- Large pressure ulceration to the right heel [id number] 80% fibrous yellow/black tissue 20% healthy granulation tissue. Boggy to muriel area. No drainage. Minimal surrounding edema and warmth noted. No appearance of active infection NEUROLOGIC: Minimal sensation to light or moderate touch Nails: Grossly mycotic nails #1 through #10 bilateraly. Results - Labs Result Diagrams: 07/01/18 00:33 07/01/18 00:33 Labs: Abnormal lab results RBC 2.47 M/mcL (4.19-5.50) L 07/01/18 00:33 Hgb 7.3 g/dL (12.9-16.9) L 07/01/18 00:33 Hct 22.5 % (37.5-50.1) L 07/01/18 00:33 RDW 20.2 % (11.5-14.5) H 07/01/18 00:33 MPV 8.6 fL (9.4-12.4) L 07/01/18 00:33 PT 24.4 Seconds (9.4-12.1) H D 07/01/18 00:33 APTT 40.9 Seconds (26.0-36.0) H 06/18/18 14:37 Sodium 133 mEq/L (136-145) L 07/01/18 00:33 Carbon Dioxide 19 mEq/L (23-29) L 07/01/18 00:33 Calculated Osmolality 279 (280-300) L 07/01/18 00:33 Calcium 7.8 mg/dL (8.6-10.3) L 07/01/18 00:33 AST 10 Units/L (13-39) L 06/20/18 01:21 Serum Total Protein 5.6 g/dL (6.4-8.9) L 06/20/18 01:21 Albumin 2.6 g/dL (3.5-5.7) L 06/20/18 01:21 Albumin/Globulin Ratio 0.9 (1.1-2.2) L 06/20/18 01:21 Ur Specific [place] 1.028 (1.010-1.025) H 06/20/18 04:00 Urine Ketones 15 mg/dL (Negative) H 06/20/18 04:00 Urine Blood Trace (Negative) H 06/20/18 04:00 Urine Bilirubin Small (Negative) H 06/20/18 04:00 Ur Leukocyte Esterase Small (Negative) H 06/20/18 04:00 Urine Microscopic RBC 5-15 per hpf (0-3) H 06/20/18 04:00 Urine Microscopic WBC 5-15 per hpf (0-3) H 06/20/18 04:00 Ur Squamous Epith Cells Moderate per lpf (None-Few) H 06/20/18 04:00 Urine Yeast Few per hpf (None Seen) H 06/20/18 04:00 H & H 07/01/18 Range/Units 00:33 Hgb 7.3 L (12.9-16.9) g/dL Hct 22.5 L (37.5-50.1) % All other labs normal. Consult Discharge Plan - Plan Additional Instructions: [facility] DIS[facility]GE INSTRU[facility] Dr. Raya PROCEDURE PERFORMED Reduction and fixation of right hip. Incision care -Daily dressing changes to the right hip with dry gauze and either paper tape or medipore tape. -Avoid soaking wound in water (no hot tubs, bathtubs, swimming pools). -May shower after 2 weeks from surgery date. Carefully wash incision with soap and water. Gently pat it dry. Don't rub the incision, or apply creams or lotions. Sit on a shower stool when showering to keep from falling. Weight bearing status -Weightbearing as tolerated to the bilateral lower extremities. Medications -Pain medication per the discharging medical doctor Other -Knee high PAMELA hose 23 hours per day -Consult physical and occupational therapy for mobilization. -Up to chair with assistance at least twice per day. -Follow up with your primary care physician to discuss testing for bone mineral density. Follow-up with Dr. Raya at the office 2 weeks from the surgery date for a post operative evaluation. Call the office at [phone] to schedule appointment. Referrals: Avery Woods DO [Primary Care Provider] -
[2018-07-01] MEDS: traMADol 50 MG TABLET PO PRN (18:07)
[2018-07-02 01:17] LABS: Basophils % 0.1 %; Eosinophils # 0.1 K/mcL (0.0-0.6); Eosinophils % 1.3 %; Hematocrit 22.3 % (37.5-50.1); Hemoglobin 7.6 g/dL (12.9-16.9); Immature Granulocytes % 0.5 % (0-4); Lymphocytes # 0.5 K/mcL (0.6-4.6); Lymphocytes % 5.6 %; Mean Corpuscular HGB Conc 34.1 g/dL (31.6-35.5); Mean Corpuscular Hemoglobin 31.7 pg (28.0-33.3); Mean Corpuscular Volume 92.9 fL (83.0-100.0); Mean Platelet Volume 8.4 fL (9.4-12.4); Monocytes # 0.6 K/mcL (0.0-1.3); Monocytes % 6.8 %; Neutrophils # 7.1 K/mcL (1.6-8.9); Platelet Count 254 K/mcL (140-400); Red Cell Distribution Width 20.9 % (11.5-14.5); Segmented Neutrophils % 85.7 %
[2018-07-02 01:21] LABS: INR 1.6; Prothrombin Time 17.8 Seconds (9.4-12.1)
[2018-07-02 01:35] LABS: BUN/Creatinine Ratio 21 (6-26); Blood Urea Nitrogen 21 mg/dL (8-23); Calcium 7.8 mg/dL (8.6-10.3); Carbon Dioxide 20 mEq/L (23-29); Chloride 106 mEq/L (98-107); Glucose 74 mg/dL (70-105); Osmolality,Calculated 276 (280-300); Potassium 3.7 mEq/L (3.5-5.1); Sodium 132 mEq/L (136-145); eGFR For Non-African Americans > 60 (> 60)
[2018-07-02] MEDS: Piperacillin/Tazobactam 3.375 GM in 0.9 % Sodium Chloride Mini Bag 100 ML IVPB SCH ×2 (03:11→11:00)
[2018-07-02] MEDS: OXYCODONE Oral CONC 10 MG/0.5 ML ORAL.SYG SL PRN ×6 (03:22→23:41)
[2018-07-02] MEDS: Ipratropium/Albuterol Neb 3 ML IH SCH ×3 (03:46→16:38)
[2018-07-02] MEDS: WATER IVPB SCH ×2 (06:59→13:49)
[2018-07-02] MEDS: TRIMETH IVPB SCH ×2 (06:59→13:49)
[2018-07-02] MEDS: D5 IVPB SCH ×2 (06:59→13:49)
[2018-07-02] MEDS: SULFAMETHOXAZOLE IVPB SCH ×2 (06:59→13:49)
[2018-07-02] MEDS: Pantoprazole 40 MG VIAL IVP SCH (07:01)
[2018-07-02] MEDS: Sennosides/Docusate Sodium TABLET PO SCH ×2 (09:00→20:39)
[2018-07-02] MEDS: Megestrol Acetate 400 MG/10 ML UDC PO SCH ×2 (09:02→20:38)
[2018-07-02] MEDS: Aspirin Enteric Coated 81 MG Tablet PO SCH (09:12)
[2018-07-02] MEDS: Nystatin POWDER 30 GM BOTTLE TP SCH ×2 (09:27→20:46)
[2018-07-02] MEDS: Lubiprostone [Amitiza] 24 MCG PO SCH ×2 (09:29→20:39)
[2018-07-02] MEDS: Budesonide/Formoterol 80/4.5 MDI IH SCH ×2 (10:55→22:22)
[2018-07-02] MEDS: Tiotropium 18 MCG inhalation IH SCH (10:56)
--- NOTE | 2018-07-02 10:57 | Palliative Progress Note ---
Date of Encounter: 07/02/18 Time of Encounter: 10:00 - Assessment and plan (1) Pain Current Visit: Yes Status: Acute Assessment and plan: Continue Fentanyl patch with Oxycodone for breakthrough pain. Patch was started yesterday, this may need increased tomorrow. Discussed with . He has utilized Oxycodone 15mg for breakthrough x 6. feels that this is effective for him. Leave as is today. (2) Advance care planning Current Visit: Yes Status: Acute Assessment and plan: at bedside, pt unable to participate in conversation at this time. She maintains plan to go to [facility] in [facility], and she has started the Medicaid process. Once that is in place, he will transition to hospice care. states he was able to participate a little with PT in bed today. He appears in very poor condition, may not survive long. More delirous, not taking oral nutrition. is aware that he will ultimately pass soon, stated she did call his children and let them know of his condition. Provided emotional support. (3) Severe sepsis Current Visit: Yes Status: Acute (4) Lung cancer Current Visit: Yes Status: Chronic Qualifiers: Laterality: unspecified laterality Lung location: unspecified part of lung Qualified Code(s): C34.90 - Malignant neoplasm of unspecified part of unspecified bronchus or lung (5) Protein-calorie malnutrition, moderate Current Visit: Yes Status: Chronic (6) COPD (chronic obstructive pulmonary disease) Current Visit: Yes Status: Chronic Qualifiers: COPD type: unspecified COPD Qualified Code(s): J44.9 - Chronic obstructive pulmonary disease, unspecified - Time Spent With Patient Total time spent is greater than 50% in coordination of care (as documented) at patient's floor/unit and/or counseling patient: 25 - 35 minutes - Subjective Interval history: Patient awake but restless - at bedside. He is hallucinating some. INR down to 1.6 today, Hgb 7.6. Recently medicated for pain. - Constitutional Vitals: Abnormal lab results RBC 2.40 M/mcL (4.19-5.50) L 07/02/18 00:48 Hgb 7.6 g/dL (12.9-16.9) L 07/02/18 00:48 Hct 22.3 % (37.5-50.1) L 07/02/18 00:48 RDW 20.9 % (11.5-14.5) H 07/02/18 00:48 MPV 8.4 fL (9.4-12.4) L 07/02/18 00:48 Lymphocytes # 0.5 K/mcL (0.6-4.6) L 07/02/18 00:48 PT 17.8 Seconds (9.4-12.1) H 07/02/18 00:48 APTT 40.9 Seconds (26.0-36.0) H 06/18/18 14:37 Sodium 132 mEq/L (136-145) L 07/02/18 00:48 Carbon Dioxide 20 mEq/L (23-29) L 07/02/18 00:48 POC Glucose 107 mg/dL (70-99) H 07/01/18 13:58 Calculated Osmolality 276 (280-300) L 07/02/18 00:48 Calcium 7.8 mg/dL (8.6-10.3) L 07/02/18 00:48 AST 10 Units/L (13-39) L 06/20/18 01:21 Serum Total Protein 5.6 g/dL (6.4-8.9) L 06/20/18 01:21 Albumin 2.6 g/dL (3.5-5.7) L 06/20/18 01:21 Albumin/Globulin Ratio 0.9 (1.1-2.2) L 06/20/18 01:21 Ur Specific [place] 1.028 (1.010-1.025) H 06/20/18 04:00 Urine Ketones 15 mg/dL (Negative) H 06/20/18 04:00 Urine Blood Trace (Negative) H 06/20/18 04:00 Urine Bilirubin Small (Negative) H 06/20/18 04:00 Ur Leukocyte Esterase Small (Negative) H 06/20/18 04:00 Urine Microscopic RBC 5-15 per hpf (0-3) H 06/20/18 04:00 Urine Microscopic WBC 5-15 per hpf (0-3) H 06/20/18 04:00 Ur Squamous Epith Cells Moderate per lpf (None-Few) H 06/20/18 04:00 Urine Yeast Few per hpf (None Seen) H 06/20/18 04:00 General appearance: Present: no acute distress - Respiratory Additional comments: Upper airway secretions noted. Few scattered rhonchi. - Cardiovascular Cardiovascular exam: Present: +S1, +S2 - GI/Abdominal GI/Abdominal exam: Present: distended, soft Additional comments: umbilical hernia noted - Additional comments: Voiding per urinal - Extremities Exam Additional comments: Bilateral lower legs wrapped with bree wraps - heel protectors on. - Neurological Exam Neurological exam: Present: alert Additional comments: Oriented to name only at present. - Skin Skin exam: Present: dry, pallor, warm Palliative Quality Palliative Quality: Screen for Code Status: Yes, Screen for Goals of Care: Yes, Screen for Pain: Yes, If Pain Regimen Started, Initiate Bowel Regimen: Yes, Screen for Nausea/Vomitting: Yes Code Status: 06/22/18 12:03 Resuscitation Status: Active [RES] Routine Comment: Resuscitation Status: [id number] - Labs CBC & Chem 7: 07/02/18 00:48 07/02/18 00:48 Labs: Laboratory Results - last 24 hr 07/01/18 07/01/18 07/02/18 08:15 13:58 00:48 WBC RBC Hgb Hct MCV MCH MCHC RDW Plt Count MPV Immature Gran % Seg Neutrophils % Lymphocytes % Monocytes % Eosinophils % Basophils % Neutrophils # Lymphocytes # Monocytes # Eosinophils # Basophils # PT 17.8 H INR 1.6 Sodium Potassium Chloride Carbon Dioxide BUN Creatinine Est GFR ( Amer) Est GFR (Non-Af Amer) BUN/Creatinine Ratio Glucose POC Glucose 97 107 H Calculated Osmolality Calcium 07/02/18 07/02/18 00:48 00:48 WBC 8.2 RBC 2.40 L Hgb 7.6 L Hct 22.3 L MCV 92.9 MCH 31.7 MCHC 34.1 RDW 20.9 H Plt Count 254 MPV 8.4 L Immature Gran % 0.5 Seg Neutrophils % 85.7 Lymphocytes % 5.6 Monocytes % 6.8 Eosinophils % 1.3 Basophils % 0.1 Neutrophils # 7.1 Lymphocytes # 0.5 L Monocytes # 0.6 Eosinophils # 0.1 Basophils # 0.0 PT INR Sodium 132 L Potassium 3.7 Chloride 106 Carbon Dioxide 20 L BUN 21 Creatinine 1.01 Est GFR ( Amer) > 60 Est GFR (Non-Af Amer) > 60 BUN/Creatinine Ratio 21 Glucose 74 POC Glucose Calculated Osmolality 276 L Calcium 7.8 L - ABG Interpretation ABG results: PT/INR, D-dimer PT 17.8 Seconds (9.4-12.1) H 07/02/18 00:48 Consult Discharge Plan - Plan Additional Instructions: [facility] DISCHARGE INSTRUCTIONS Dr. Raya PROCEDURE PERFORMED Reduction and fixation of right hip. Incision care -Daily dressing changes to the right hip with dry gauze and either paper tape or medipore tape. -Avoid soaking wound in water (no hot tubs, bathtubs, swimming pools). -May shower after 2 weeks from surgery date. Carefully wash incision with soap and water. Gently pat it dry. Don't rub the incision, or apply creams or lotions. Sit on a shower stool when showering to keep from falling. Weight bearing status -Weightbearing as tolerated to the bilateral lower extremities. Medications -Pain medication per the discharging medical doctor Other -Knee high PAMELA hose 23 hours per day -Consult physical and occupational therapy for mobilization. -Up to chair with assistance at least twice per day. -Follow up with your primary care physician to discuss testing for bone mineral density. Follow-up with Dr. Raya at the office 2 weeks from the surgery date for a post operative evaluation. Call the office at [phone] to schedule appointment. Referrals: Avery Woods DO [Primary Care Provider] -
--- NOTE | 2018-07-02 15:02 | Internal Med Progress Note ---
Hospitalist Progress Note - Encounter Date of Encounter: 07/02/18 Time of Encounter: 09:00 - Subjective Interval History: Patient is still weak, lethargic, sleepy, SOB. Cannot communicate. Pt has poor intake. D/W with , she states she understand pt's condition and prognosis, she appreciates we stop coumadin and decrease figure stick. Palliative care is working on medicaid process and plan is hospice discharge. - Exam Vitals: Temp Pulse Resp BP Pulse Ox 99.3 F 94 21 104/58 90 07/02/18 11:20 07/02/18 11:20 07/02/18 11:20 07/02/18 11:20 07/02/18 11:20 Exam: Patient is lerthagic, non verbal HEENT: NC/AT, PERRL Neck: Supple, no LAD Lungs: Rhonchi b/l Heart: S1S2, RRR Abd: Soft, NT Ext: Chronic wound b/l Neuro: Altered - Assessment and Plan (1) Sepsis Current Visit: Yes Status: Ruled-out Assessment and Plan: Suspected sepsis 2/2 to pneumonia or wound infection. Has been afebrile. Has multiple antibiotic allergies. ID is on case, patient is on IV Bactrim and Zosyn per ID consult. Improved leukocytosis. (2) COPD (chronic obstructive pulmonary disease) Current Visit: Yes Status: Chronic Assessment and Plan: Not in acute exacerbation. Continue when necessary breathing treatments and supplemental oxygen as needed. (3) CAD (coronary artery disease) of artery bypass graft Current Visit: Yes Status: Chronic Assessment and Plan: CAD s/p CABG in 2008. c/w home medications (4) Acute kidney injury Current Visit: Yes Status: Acute Assessment and Plan: Mild elevated creatinine level from baseline. Will closely monitor renal function, avoid nephrotoxic medications, dose medication per renal function. - Slightly improved today. (5) Aspiration pneumonia Current Visit: Yes Status: Acute Assessment and Plan: CT chest showed bibasilar infiltrates and airway secretions, likely chronic aspiration. states patient has h/o- thyroid and laryngeal cancer s/p radiation; he has a hole at the site where meds and food get stuck if he's not careful; he does tolerates regular diet at home. For MBS per speech blood cultures negative. Supplemental O2 and supportive care. abx as above (6) Fracture of femoral neck, right Current Visit: Yes Status: Acute Assessment and Plan: CT hip shows Acute nondisplaced mildly impacted right femoral neck fracture. s/p Percutaneous screw fixation of the right femoral neck, POD10 continue pain control with PRN Oxycodone and Tylenol; DVT prophylaxis with Coumadin, complicated by supratherapeutic INR, likely due to concurrent antibiotic use INR improved but still high, cont to hold coumadin. PT/OT recommends ECF placement. social studies teacher on board. awaiting insurance authorization (7) Rib fracture Current Visit: Yes Status: Acute Assessment and Plan: Nonsurgical (8) Atrial fibrillation Current Visit: Yes Status: Chronic Assessment and Plan: HR is not high. Considering pt's general condition and prognosis and the low H/ H and needs for transfusion, especially family would like to pursue hospice care , will discontinue coumadin and keep aspirin only for AC in the future. B/R/A discussed with pt's , she agrees with and appreciates the plan. (9) Lung cancer Current Visit: Yes Status: Chronic Assessment and Plan: In process of looking into palliative care/hospice. have not officially signed. 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 (12) Anemia Current Visit: No Status: Acute Assessment and Plan: Acute decrease of hemoglobin. Super therapeutic INR earlier. History of bleeding ulcer. Probably GI bleed. Patient and family denies coffee ground emesis or melena. - Improved after transfusion. - INR level get down. Coumadin is stopped for good. - IV PPI. - Pt cannot tolerate further test/procedure, will cont to monitor H/H (13) Diabetes Current Visit: No Status: Chronic Assessment and Plan: Pt was on low dose insulin at home. He was placed on SSI but sugur level is never higher than 100. Will cont closely follow morning lab Glu level. (14) Hypoalbuminemia due to protein-calorie malnutrition Current Visit: Yes Status: Acute Assessment and Plan: Pt has poor intake due to generalized weakness and AMS. Family would like to pursue hospice. Cont supportive treatment. - Time Spent with Patient Total time spent is greater than 50% in coordination of care (as documented) at patient's floor/unit and/or counseling patient: 40 min Greater than 35 minutes Internal Medicine: Result - Labs CBC & Chem 7: 07/02/18 00:48 07/02/18 00:48 Labs: Short CBC 07/02/18 Range/Units 00:48 WBC 8.2 (4.3-11.1) K/mcL Hgb 7.6 L (12.9-16.9) g/dL Hct 22.3 L (37.5-50.1) % Plt Count 254 (140-400) K/mcL Neutrophils # 7.1 (1.6-8.9) K/mcL BMP 07/02/18 00:48 Sodium 132 L Potassium 3.7 Chloride 106 Carbon Dioxide 20 L BUN 21 Creatinine 1.01 Glucose 74 Calcium 7.8 L - ABG Interpretation ABG results: PT/INR, D-dimer PT 17.8 Seconds (9.4-12.1) H 07/02/18 00:48 - VTE Documentation of Mechanical Device: Intermittent pneumatic compression device Consult Discharge Plan - Plan Additional Instructions: LONGTERM DISCHARGE INSTRUCTIONS Dr. Dorota STEVEN PERFORMED Reduction and fixation of right hip. Incision care -Daily dressing changes to the right hip with dry gauze and either paper tape or medipore tape. -Avoid soaking wound in water (no hot tubs, bathtubs, swimming pools). -May shower after 2 weeks from surgery date. Carefully wash incision with soap and water. Gently pat it dry. Don't rub the incision, or apply creams or lotions. Sit on a shower stool when showering to keep from falling. Weight bearing status -Weightbearing as tolerated to the bilateral lower extremities. Medications -Pain medication per the discharging medical doctor Other -Knee high PAMELA hose 23 hours per day -Consult physical and occupational therapy for mobilization. -Up to chair with assistance at least twice per day. -Follow up with your primary care physician to discuss testing for bone mineral density. Follow-up with Dr. Raya at the office 2 weeks from the surgery date for a post operative evaluation. Call the office at [phone] to schedule appointment. Referrals: Avery Woods, [Primary Care Provider] - (1) Sepsis Qualifiers: Sepsis type: sepsis due to unspecified organism Qualified Code(s): A41.9 - Sepsis, unspecified organism (2) COPD (chronic obstructive pulmonary disease) Qualifiers: COPD type: unspecified COPD Qualified Code(s): J44.9 - Chronic obstructive pulmonary disease, unspecified (3) CAD (coronary artery disease) of artery bypass graft Qualifiers: [place] vs. transplanted heart: [place] heart Associated angina: without angina Qualified Code(s): I25.810 - Atherosclerosis of coronary artery bypass graft(s) without angina pectoris (5) Aspiration pneumonia Qualifiers: Aspiration pneumonia type: unspecified Laterality: right Lung location: lower lobe of lung Qualified Code(s): J69.0 - Pneumonitis due to inhalation of food and vomit (6) Fracture of femoral neck, right Qualifiers: Encounter type: initial encounter Fracture type: closed Qualified Code(s): S72.001A - Fracture of unspecified part of neck of right femur, initial encounter for closed fracture (7) Rib fracture Qualifiers: Encounter type: subsequent encounter Rib fracture type: single rib Fracture type: closed Laterality: right Fracture healing: with routine healing Qualified Code(s): S22.31XD - Fracture of one rib, right side, subsequent encounter for fracture with routine healing (8) Atrial fibrillation Qualifiers: Atrial fibrillation type: chronic Qualified Code(s): I48.2 - Chronic atrial fibrillation (9) Lung cancer Qualifiers: Laterality: unspecified laterality Lung location: unspecified part of lung Qualified Code(s): C34.90 - Malignant neoplasm of unspecified part of unspecified bronchus or lung (10) Open wound, lower leg Qualifiers: Encounter type: subsequent encounter Laterality: unspecified laterality Qualified Code(s): S81.809D - Unspecified open wound, unspecified lower leg, subsequent encounter (12) Anemia Qualifiers: Iron deficiency anemia type: chronic blood loss Qualified Code(s): D50.0 - Iron deficiency anemia secondary to blood loss (chronic) (13) Diabetes Qualifiers: Diabetes mellitus type: type 2 Diabetes mellitus custodial insulin use: with custodial use Diabetes mellitus complication status: with skin complications Diabetes mellitus complication detail: with other skin ulcer Qualified Code(s) : E11.622 - Type 2 diabetes mellitus with other skin ulcer; Z79.4 - assisted ( current) use of insulin
--- NOTE | 2018-07-02 16:16 | Event Note ---
Date of Encounter: 07/02/18 Time of Encounter: 16:00 Pt's condition is getting worse with whole body edema and AMS, cannot communicate. I discussed pt's condition again with pt's , she understand and told me pt's PCP's opinion is also to keep comfort care only. I discussed code option with her and she would like to change code status to DNRCC. Code status has been changed to DNRCC. IV medication was then discontinued. Keep PRN pain and nausea meds.
[2018-07-02] MEDS: Silver Sulfadiazine 50 GM TUBE TP SCH (16:45)
[2018-07-02] MEDS ORDERED: Ipratropium/Albuterol Neb 3 ML IH PRN (16:57)
[2018-07-03] MEDS: OXYCODONE Oral CONC 10 MG/0.5 ML ORAL.SYG SL PRN ×5 (04:45→22:51)
[2018-07-03] MEDS: Budesonide/Formoterol 80/4.5 MDI IH SCH ×2 (08:06→22:48)
[2018-07-03] MEDS: Tiotropium 18 MCG inhalation IH SCH (08:09)
[2018-07-03] MEDS: Aspirin Enteric Coated 81 MG Tablet PO SCH (09:43)
[2018-07-03] MEDS: Sennosides/Docusate Sodium TABLET PO SCH ×2 (09:43→22:53)
--- NOTE | 2018-07-03 09:45 | Palliative Progress Note ---
Date of Encounter: 07/03/18 Time of Encounter: 09:10 - Assessment and plan (1) Cough Current Visit: Yes Status: Acute Assessment and plan: Patient denies cough during assessment. Continue Duonebs. (2) Nausea Current Visit: Yes Status: Acute Assessment and plan: Denies nausea during assessment. Patient has received 0 doses of Phenergan in the last 24 hours. Continue PRN. (3) Pain Current Visit: Yes Status: Acute Assessment and plan: Patient reports pain 9/10; described as a sharp, generalized pain. Worsens with movement. Patient's reports that SL Oxycodone and Patch working to control pain. Increased Fentanyl patch to 50 mcg. Continue Oxyocodone PRN. (4) Acute respiratory failure with hypoxia Current Visit: Yes Status: Acute (5) Atrial fibrillation Current Visit: Yes Status: Acute Qualifiers: Atrial fibrillation type: unspecified Qualified Code(s): I48.91 - Unspecified atrial fibrillation (6) Fracture of femoral neck, right Current Visit: Yes Status: Acute Qualifiers: Encounter type: initial encounter Fracture type: closed Qualified Code(s) : S72.001A - Fracture of unspecified part of neck of right femur, initial encounter for closed fracture (7) Lung cancer Current Visit: Yes Status: Chronic Assessment and plan: Patient plans to enter ECF for PT/OT then transition to hospice once Medicaid in place. Patient's reports to have no further cancer treatment. Qualifiers: Laterality: unspecified laterality Lung location: unspecified part of lung Qualified Code(s): C34.90 - Malignant neoplasm of unspecified part of unspecified bronchus or lung (8) Open wound, lower leg Current Visit: Yes Status: Chronic Qualifiers: Encounter type: subsequent encounter Laterality: unspecified laterality Qualified Code(s): S81.809D - Unspecified open wound, unspecified lower leg, subsequent encounter (9) Protein-calorie malnutrition, moderate Current Visit: Yes Status: Chronic Assessment and plan: Patient's reports overall intake remains poor. Patient refusing Megace. Patient's refusing TPN and Peg Tube. (10) Goals of care, counseling/discussion Current Visit: No Status: Acute Assessment and plan: Spoke with regarding goals of care. Continue to plan for [facility] for PT/OT at discharge as need intermediate placement. Medicaid packet turned in and Medicaid office informed could take 30 days for approval. Educated that patient may not be able to participate in Rehab and overall poor prognosis for this admission; reports she is a woman of reason and knows how sick he is. Current plan for patient to remain on unit and Primary team perform symptom management over the weekend. Depending on patient' s clinical picture and need for further symptom management consider transition to GIP versus ECF skilled on Friday. Palliative has no weekend coverage; follow up on Friday. Dr. Brooks updated on plan of care. (11) Constipation due to opioid therapy Current Visit: Yes Status: Acute Assessment and plan: Patient has had no bowel movement times 6 days per chart. Change Bowel regimen to Dulcolax suppository. (12) Agitation Current Visit: Yes Status: Acute Assessment and plan: Patient having increased agitation over the last 24 hours. Added Ativan SL PRN. (13) Excessive oral secretions Current Visit: Yes Status: Acute Assessment and plan: Patient's reports increased "gurgling sound" breathing, noted wheezes to lungs bilaterally. Patient having difficulty managing increased oral secretions , no drooling noted. Ordered Scopalamine and Atropine. - Time Spent With Patient Total time spent is greater than 50% in coordination of care (as documented) at patient's floor/unit and/or counseling patient: 25 - 35 minutes (Goals of care. Symptom management.) - Subjective Interval history: Patient resting in bed with eyes open upon arrival for assessment. Patient's present at bedside. Patient is alert and oriented to place and name; slightly disoriented to time. Reviewed lab work with patient's , hgb increased to 7.6, Hct increased to 22.3, INR decreased to 1.6 and PT 17.8. Patient reports current pain at 9/10, described as a sharp pain; reports pain is generalized all over pain. Patient denies nausea, vomiting, and dyspnea during assessment. Patient's reports increased anxiety over the last 24 hours. Patient has received 5 doses of PRN Oxycodone in the last 24 hours in addition to Fentanyl 25 mcg patch; agreed to increase Fentanyl to 50 mcg patch. Patient's has not eat more than 30% of a meal in the last 9 days; reports also liquid intake remains poor. Patient has megace ordered, but has refused to take. Patient had worked with PT/OT yesterday; however, concern presented over patient's ability to continue rehab without appropriate nutrition and increase in pain. needs patient to go to ECF as skilled patient until Medicaid in place. Spoke with regarding goals of care, patient's presented wants to keep him comfortable as "he has already been in pain his entire life." Spoke with Dr. Brooks whom mentioned transitioning patient to 2A and discussion of GIP as patient having many symptoms with medication adjustments; palliative care with no weekend coverage, will re-evaluate Friday. Patient's has refused to move from patient's room in 3NE as patient is comfortable in room and does not want him agitated by moving to a new room. Plan to remain in current room at this time; updated Shani RN with plan of care at this time. - Constitutional Vitals: Abnormal lab results RBC 2.40 M/mcL (4.19-5.50) L 07/02/18 00:48 Hgb 7.6 g/dL (12.9-16.9) L 07/02/18 00:48 Hct 22.3 % (37.5-50.1) L 07/02/18 00:48 RDW 20.9 % (11.5-14.5) H 07/02/18 00:48 MPV 8.4 fL (9.4-12.4) L 07/02/18 00:48 Lymphocytes # 0.5 K/mcL (0.6-4.6) L 07/02/18 00:48 PT 17.8 Seconds (9.4-12.1) H 07/02/18 00:48 APTT 40.9 Seconds (26.0-36.0) H 06/18/18 14:37 Sodium 132 mEq/L (136-145) L 07/02/18 00:48 Carbon Dioxide 20 mEq/L (23-29) L 07/02/18 00:48 POC Glucose 107 mg/dL (70-99) H 07/01/18 13:58 Calculated Osmolality 276 (280-300) L 07/02/18 00:48 Calcium 7.8 mg/dL (8.6-10.3) L 07/02/18 00:48 AST 10 Units/L (13-39) L 06/20/18 01:21 Serum Total Protein 5.6 g/dL (6.4-8.9) L 06/20/18 01:21 Albumin 2.6 g/dL (3.5-5.7) L 06/20/18 01:21 Albumin/Globulin Ratio 0.9 (1.1-2.2) L 06/20/18 01:21 Ur Specific [place] 1.028 (1.010-1.025) H 06/20/18 04:00 Urine Ketones 15 mg/dL (Negative) H 06/20/18 04:00 Urine Blood Trace (Negative) H 06/20/18 04:00 Urine Bilirubin Small (Negative) H 06/20/18 04:00 Ur Leukocyte Esterase Small (Negative) H 06/20/18 04:00 Urine Microscopic RBC 5-15 per hpf (0-3) H 06/20/18 04:00 Urine Microscopic WBC 5-15 per hpf (0-3) H 06/20/18 04:00 Ur Squamous Epith Cells Moderate per lpf (None-Few) H 06/20/18 04:00 Urine Yeast Few per hpf (None Seen) H 06/20/18 04:00 General appearance: Present: cooperative, mild distress - Head Head exam: Present: atraumatic, normal inspection - Eye Eye exam: Present: normal appearance, PERRL. Absent: periorbital swelling, periorbital tenderness Pupils: Present: normal accommodation, PERRL - ENT ENT exam: Present: mucous membranes dry, normal external ear exam - Neck Neck exam: Present: full ROM, normal inspection - Respiratory Respiratory exam: Present: wheezes. Absent: accessory muscle use, respiratory distress Additional comments: Patient having increased oral secretions intermittently per report and "sounding wet." Patient's lungs wheezes to auscultation. - Cardiovascular Cardiovascular exam: Present: +S1, +S2 - GI/Abdominal GI/Abdominal exam: Present: distended, hernia, soft. Absent: tenderness - Rectal Rectal exam: Present: deferred - Extremities Exam Extremities exam: Present: calf tenderness (Dressings to BLE, tender when moving legs.). Absent: normal inspection - Neurological Exam Neurological exam: Present: alert, altered, strengths equal and symetr throughout. Absent: oriented X3, facial droop, speech deficit - Psychiatric Psychiatric exam: Present: anxious Palliative Quality Palliative Quality: Screen for Code Status: Yes, Screen for Goals of Care: Yes, Screen for Pain: Yes, If Pain Regimen Started, Initiate Bowel Regimen: Yes, Screen for Nausea/Vomitting: Yes Code Status: 06/22/18 12:03 Resuscitation Status: Active [RES] Routine Comment: Resuscitation Status: [id number] 07/02/18 16:08 CODE [Resuscitation Status: Active] [RES] Routine Comment: Resuscitation Status: DNR-Comfort Care - Labs CBC & Chem 7: 07/02/18 00:48 07/02/18 00:48 - ABG Interpretation ABG results: PT/INR, D-dimer PT 17.8 Seconds (9.4-12.1) H 07/02/18 00:48 Consult Discharge Plan - Plan Additional Instructions: HALF-WAY DISCHARGE INSTRUCTIONS Dr. Raya PROCEDURE PERFORMED Reduction and fixation of right hip. Incision care -Daily dressing changes to the right hip with dry gauze and either paper tape or medipore tape. -Avoid soaking wound in water (no hot tubs, bathtubs, swimming pools). -May shower after 2 weeks from surgery date. Carefully wash incision with soap and water. Gently pat it dry. Don't rub the incision, or apply creams or lotions. Sit on a shower stool when showering to keep from falling. Weight bearing status -Weightbearing as tolerated to the bilateral lower extremities. Medications -Pain medication per the discharging medical doctor Other -Knee high PAMELA hose 23 hours per day -Consult physical and occupational therapy for mobilization. -Up to chair with assistance at least twice per day. -Follow up with your primary care physician to discuss testing for bone mineral density. Follow-up with Dr. Raya at the office 2 weeks from the surgery date for a post operative evaluation. Call the office at [phone] to schedule appointment. Referrals: Avery Woods DO [Primary Care Provider] -
[2018-07-03] MEDS: Lubiprostone [Amitiza] 24 MCG PO SCH ×2 (10:35→22:52)
[2018-07-03] MEDS: Megestrol Acetate 400 MG/10 ML UDC PO SCH ×2 (10:58→22:52)
[2018-07-03] MEDS: *HR* FentaNYL PATCH 50 MCG PATCH TD SCH (11:19)
[2018-07-03] MEDS: Scopolamine Patch 1.5 MG PATCH.TD72 TD SCH (11:19)
[2018-07-03] MEDS: Atropine Sulfate 1% 40 DROP/2 ML BOTTLE SL PRN ×3 (11:20→22:57)
[2018-07-03] MEDS: Nystatin POWDER 30 GM BOTTLE TP SCH ×2 (11:20→23:48)
[2018-07-03] MEDS: Bisacodyl 10 MG RECTAL SUPPOSITORY RC SCH (11:31)
--- NOTE | 2018-07-03 13:56 | Internal Med Progress Note ---
Hospitalist Progress Note - Encounter Date of Encounter: 07/03/18 Time of Encounter: 09:00 - Subjective Interval History: Patient is on comfort care. Looks comfortable, in NAD. Cont current care. - Exam Vitals: Temp Pulse Resp BP Pulse Ox 98.4 F 80 24 91/57 87 07/03/18 06:22 07/03/18 06:22 07/03/18 08:11 07/03/18 06:22 07/03/18 08:11 Exam: Patient is lerthagic, weak, in no acute distress. HEENT: NC/AT, PERRL Neck: Supple, no LAD Lungs: Rhonchi b/l Heart: S1S2, irregular Abd: Soft, NT Ext: Swelling, wound of b/l LE Neuro: Lerthagic, altered, answer simple questions, no focal deficit identified. - Assessment and Plan (1) Sepsis Current Visit: Yes Status: Ruled-out Assessment and Plan: Suspected sepsis 2/2 to pneumonia or wound infection. Hold abx now as CODE status changes. (2) COPD (chronic obstructive pulmonary disease) Current Visit: Yes Status: Chronic Assessment and Plan: Not in acute exacerbation. Continue when necessary breathing treatments and supplemental oxygen as needed. (3) CAD (coronary artery disease) of artery bypass graft Current Visit: Yes Status: Chronic Assessment and Plan: CAD s/p CABG in 2008. c/w home medications (4) Acute kidney injury Current Visit: Yes Status: Acute Assessment and Plan: Mild elevated creatinine level from baseline. Will closely monitor renal function, avoid nephrotoxic medications, dose medication per renal function. (5) Aspiration pneumonia Current Visit: Yes Status: Acute Assessment and Plan: CT chest showed bibasilar infiltrates and airway secretions, likely chronic aspiration. states patient has h/o- thyroid and laryngeal cancer s/p radiation; he has a hole at the site where meds and food get stuck if he's not careful; he does tolerates regular diet at home. For MBS per speech blood cultures negative. Supplemental O2 and supportive care. High risk for re-aspiration. Cont comfort care (6) Fracture of femoral neck, right Current Visit: Yes Status: Acute Assessment and Plan: CT hip shows Acute nondisplaced mildly impacted right femoral neck fracture. s/p Percutaneous screw fixation of the right femoral neck, POD10 continue pain control with PRN Oxycodone and Tylenol; Cont comfort care (7) Rib fracture Current Visit: Yes Status: Acute Assessment and Plan: Nonsurgical (8) Atrial fibrillation Current Visit: Yes Status: Chronic Assessment and Plan: HR is not high. Considering pt's general condition and prognosis and the low H/ H and needs for transfusion, especially family would like to pursue hospice care , will discontinue coumadin and keep aspirin only for AC in the future. B/R/A discussed with pt's , she agrees with and appreciates the plan. (9) Lung cancer Current Visit: Yes Status: Chronic Assessment and Plan: In process of looking into palliative care/hospice. have not officially signed. Palliative care input appreciated. Cont symptom control. (10) Open wound, lower leg Current Visit: Yes Status: Chronic Assessment and Plan: B/L dry skin with a few open sores, with yellowish exudative base; wound culture from B/L legs grows Pseudomonas, VRE, Stenotrophomonas; patient has multiple antibiotic allergies After d/w family, place pt on comfort care only, Abx is on hold. (11) Acute encephalopathy Current Visit: Yes Status: Acute Assessment and Plan: delirium secondary to hospitalization, recent ortho surgery, pain meds with underlying malignancy, and possible aspiration PNA and infection of leg wound No significant change overnight Tx infection as above and continue to monitor palliative care consulted, will follow up with their evaluation and plan. (12) Anemia Current Visit: No Status: Acute Assessment and Plan: No signs of new bleeding. On comfort care. Will hold blood draw now. (13) Diabetes Current Visit: No Status: Chronic Assessment and Plan: Pt was on low dose insulin at home. He was placed on SSI but sugur level is never higher than 100. Will cont closely follow morning lab Glu level. (14) Hypoalbuminemia due to protein-calorie malnutrition Current Visit: Yes Status: Acute Assessment and Plan: Pt has poor intake due to generalized weakness and AMS. Family would like to pursue hospice. Cont supportive treatment. - Summary of Assessment and Plan Summary of Assessment and Plan: Pt is still sick. No improve even on multiple and half-way Abx. Prognosis may be poor. Will consider hospice. On comfort care only. - Time Spent with Patient Total time spent is greater than 50% in coordination of care (as documented) at patient's floor/unit and/or counseling patient: 40 min Greater than 35 minutes Plan of Care Discussed with: family Internal Medicine: Result - Labs CBC & Chem 7: 07/02/18 00:48 07/02/18 00:48 - ABG Interpretation ABG results: PT/INR, D-dimer PT 17.8 Seconds (9.4-12.1) H 07/02/18 00:48 - VTE Documentation of Mechanical Device: Intermittent pneumatic compression device Consult Discharge Plan - Plan Additional Instructions: HALFWAY DISCHARGE INSTRUCTIONS Dr. Raya PROCEDURE PERFORMED Reduction and fixation of right hip. Incision care -Daily dressing changes to the right hip with dry gauze and either paper tape or medipore tape. -Avoid soaking wound in water (no hot tubs, bathtubs, swimming pools). -May shower after 2 weeks from surgery date. Carefully wash incision with soap and water. Gently pat it dry. Don't rub the incision, or apply creams or lotions. Sit on a shower stool when showering to keep from falling. Weight bearing status -Weightbearing as tolerated to the bilateral lower extremities. Medications -Pain medication per the discharging medical doctor Other -Knee high PAMELA hose 23 hours per day -Consult physical and occupational therapy for mobilization. -Up to chair with assistance at least twice per day. -Follow up with your primary care physician to discuss testing for bone mineral density. Follow-up with Dr. Raya at the office 2 weeks from the surgery date for a post operative evaluation. Call the office at [phone] to schedule appointment. Referrals: Avery Woods DO [Primary Care Provider] - (1) Sepsis Qualifiers: Sepsis type: sepsis due to unspecified organism Qualified Code(s): A41.9 - Sepsis, unspecified organism (2) COPD (chronic obstructive pulmonary disease) Qualifiers: COPD type: unspecified COPD Qualified Code(s): J44.9 - Chronic obstructive pulmonary disease, unspecified (3) CAD (coronary artery disease) of artery bypass graft Qualifiers: [place] vs. transplanted heart: [place] heart Associated angina: without angina Qualified Code(s): I25.810 - Atherosclerosis of coronary artery bypass graft(s) without angina pectoris (5) Aspiration pneumonia Qualifiers: Aspiration pneumonia type: unspecified Laterality: right Lung location: lower lobe of lung Qualified Code(s): J69.0 - Pneumonitis due to inhalation of food and vomit (6) Fracture of femoral neck, right Qualifiers: Encounter type: initial encounter Fracture type: closed Qualified Code(s): S72.001A - Fracture of unspecified part of neck of right femur, initial encounter for closed fracture (7) Rib fracture Qualifiers: Encounter type: subsequent encounter Rib fracture type: single rib Fracture type: closed Laterality: right Fracture healing: with routine healing Qualified Code(s): S22.31XD - Fracture of one rib, right side, subsequent encounter for fracture with routine healing (8) Atrial fibrillation Qualifiers: Atrial fibrillation type: chronic Qualified Code(s): I48.2 - Chronic atrial fibrillation (9) Lung cancer Qualifiers: Laterality: unspecified laterality Lung location: unspecified part of lung Qualified Code(s): C34.90 - Malignant neoplasm of unspecified part of unspecified bronchus or lung (10) Open wound, lower leg Qualifiers: Encounter type: subsequent encounter Laterality: unspecified laterality Qualified Code(s): S81.809D - Unspecified open wound, unspecified lower leg, subsequent encounter (12) Anemia Qualifiers: Iron deficiency anemia type: chronic blood loss Qualified Code(s): D50.0 - Iron deficiency anemia secondary to blood loss (chronic) (13) Diabetes Qualifiers: Diabetes mellitus type: type 2 Diabetes mellitus half-way insulin use: with superintendent container terminal use Diabetes mellitus complication status: with skin complications Diabetes mellitus complication detail: with other skin ulcer Qualified Code(s) : E11.622 - Type 2 diabetes mellitus with other skin ulcer; Z79.4 - [facility] ( current) use of insulin
--- NOTE | 2018-07-03 18:13 | Orthopedics Progress Note ---
Date of Encounter: 07/03/18 Time of Encounter: 18:12 - Assessment and Plan (1) Fracture of femoral neck, right Current Visit: Yes Status: Acute Qualifiers: Qualified Code(s): S72.001D - Fracture of unspecified part of neck of right femur, subsequent encounter for closed fracture with routine healing Subjective Principal diagnosis: Status post percutaneous pinning of hip Interval history: S: Laying in bed; somnolent and not answering questions. O: Afebrile on the vital signs are stable Right hip wounds with mild serous drainage Bilateral lower extremities in dressings. A: Post percutaneous screw fixation of the right hip P: Therapy for mobilization when able Weightbearing as tolerated on the right lower extremity Supportive care per the primary team Margaret removed. Objective Vital signs: Vital Signs Temp Pulse Resp BP Pulse Ox 07/03/18 08:11 24 87 07/03/18 06:22 98.4 F 80 20 91/57 95 07/02/18 22:22 18 90 07/02/18 19:17 100 16 93/61 91 - Labs CBC & BMP: 07/02/18 00:48 07/02/18 00:48 Labs: Abnormal lab results RBC 2.40 M/mcL (4.19-5.50) L 07/02/18 00:48 Hgb 7.6 g/dL (12.9-16.9) L 07/02/18 00:48 Hct 22.3 % (37.5-50.1) L 07/02/18 00:48 RDW 20.9 % (11.5-14.5) H 07/02/18 00:48 MPV 8.4 fL (9.4-12.4) L 07/02/18 00:48 Lymphocytes # 0.5 K/mcL (0.6-4.6) L 07/02/18 00:48 PT 17.8 Seconds (9.4-12.1) H 07/02/18 00:48 APTT 40.9 Seconds (26.0-36.0) H 06/18/18 14:37 Sodium 132 mEq/L (136-145) L 07/02/18 00:48 Carbon Dioxide 20 mEq/L (23-29) L 07/02/18 00:48 POC Glucose 107 mg/dL (70-99) H 07/01/18 13:58 Calculated Osmolality 276 (280-300) L 07/02/18 00:48 Calcium 7.8 mg/dL (8.6-10.3) L 07/02/18 00:48 AST 10 Units/L (13-39) L 06/20/18 01:21 Serum Total Protein 5.6 g/dL (6.4-8.9) L 06/20/18 01:21 Albumin 2.6 g/dL (3.5-5.7) L 06/20/18 01:21 Albumin/Globulin Ratio 0.9 (1.1-2.2) L 06/20/18 01:21 Ur Specific [place] 1.028 (1.010-1.025) H 06/20/18 04:00 Urine Ketones 15 mg/dL (Negative) H 06/20/18 04:00 Urine Blood Trace (Negative) H 06/20/18 04:00 Urine Bilirubin Small (Negative) H 06/20/18 04:00 Ur Leukocyte Esterase Small (Negative) H 06/20/18 04:00 Urine Microscopic RBC 5-15 per hpf (0-3) H 06/20/18 04:00 Urine Microscopic WBC 5-15 per hpf (0-3) H 06/20/18 04:00 Ur Squamous Epith Cells Moderate per lpf (None-Few) H 06/20/18 04:00 Urine Yeast Few per hpf (None Seen) H 06/20/18 04:00 - VTE Documentation of Mechanical Device: Intermittent pneumatic compression device Consult Discharge Plan - Plan Additional Instructions: [facility] DISCHARGE INSTRUCTIONS Dr. Raya PROCEDURE PERFORMED Reduction and fixation of right hip. Incision care -Daily dressing changes to the right hip with dry gauze and either paper tape or medipore tape. -Avoid soaking wound in water (no hot tubs, bathtubs, swimming pools). -May shower after 2 weeks from surgery date. Carefully wash incision with soap and water. Gently pat it dry. Don't rub the incision, or apply creams or lotions. Sit on a shower stool when showering to keep from falling. Weight bearing status -Weightbearing as tolerated to the bilateral lower extremities. Medications -Pain medication per the discharging medical doctor Other -Knee high PAMELA hose 23 hours per day -Consult physical and occupational therapy for mobilization. -Up to chair with assistance at least twice per day. -Follow up with your primary care physician to discuss testing for bone mineral density. Follow-up with Dr. Raya at the office 2 weeks from the surgery date for a post operative evaluation. Call the office at [phone] to schedule appointment. Referrals: Avery Woods DO [Primary Care Provider] -
[2018-07-03] MEDS: Silver Sulfadiazine 50 GM TUBE TP SCH (18:50)
[2018-07-04] MEDS: Budesonide/Formoterol 80/4.5 MDI IH SCH ×2 (08:04→20:23)
[2018-07-04] MEDS: Tiotropium 18 MCG inhalation IH SCH (08:09)
[2018-07-04] MEDS: Bisacodyl 10 MG RECTAL SUPPOSITORY RC SCH (09:07)
[2018-07-04] MEDS: OXYCODONE Oral CONC 10 MG/0.5 ML ORAL.SYG SL PRN ×4 (09:07→19:30)
[2018-07-04] MEDS: Nystatin POWDER 30 GM BOTTLE TP SCH ×2 (09:41→20:11)
[2018-07-04] MEDS: Sennosides/Docusate Sodium TABLET PO SCH ×2 (09:42→20:11)
[2018-07-04] MEDS: Aspirin Enteric Coated 81 MG Tablet PO SCH (09:42)
[2018-07-04] MEDS: Megestrol Acetate 400 MG/10 ML UDC PO SCH ×2 (09:42→20:10)
[2018-07-04] MEDS: Lubiprostone [Amitiza] 24 MCG PO SCH ×2 (09:42→20:11)
[2018-07-04] MEDS: Silver Sulfadiazine 50 GM TUBE TP SCH (09:43)
--- NOTE | 2018-07-04 13:06 | Internal Med Progress Note ---
Hospitalist Progress Note - Encounter Date of Encounter: 07/04/18 Time of Encounter: 09:00 - Subjective Interval History: Patient is on comfort care. Looks comfortable, in NAD. Cont current care. - Exam Vitals: Temp Pulse Resp BP Pulse Ox 98.5 F 92 19 102/56 96 07/04/18 06:39 07/04/18 06:39 07/04/18 08:09 07/04/18 06:39 07/04/18 08:09 - Assessment and Plan (1) Sepsis Current Visit: Yes Status: Ruled-out Assessment and Plan: Suspected sepsis 2/2 to pneumonia or wound infection. Hold abx now as CODE status changes. (2) COPD (chronic obstructive pulmonary disease) Current Visit: Yes Status: Chronic Assessment and Plan: Not in acute exacerbation. Continue when necessary breathing treatments and supplemental oxygen as needed. (3) CAD (coronary artery disease) of artery bypass graft Current Visit: Yes Status: Chronic Assessment and Plan: CAD s/p CABG in 2008. c/w home medications (4) Acute kidney injury Current Visit: Yes Status: Acute Assessment and Plan: Mild elevated creatinine level from baseline. Cont avoid nephrotoxic medications. (5) Aspiration pneumonia Current Visit: Yes Status: Acute Assessment and Plan: CT chest showed bibasilar infiltrates and airway secretions, likely chronic aspiration. states patient has h/o- thyroid and laryngeal cancer s/p radiation; he has a hole at the site where meds and food get stuck if he's not careful; he does tolerates regular diet at home. For MBS per speech blood cultures negative. Supplemental O2 and supportive care. High risk for re-aspiration. Cont comfort care (6) Fracture of femoral neck, right Current Visit: Yes Status: Acute Assessment and Plan: CT hip shows Acute nondisplaced mildly impacted right femoral neck fracture. s/p Percutaneous screw fixation of the right femoral neck, POD10 continue pain control with PRN Oxycodone and Tylenol; Cont comfort care (7) Rib fracture Current Visit: Yes Status: Acute Assessment and Plan: Nonsurgical. Cont pain med (8) Atrial fibrillation Current Visit: Yes Status: Chronic Assessment and Plan: HR is not high. Considering pt's general condition and prognosis and the low H/ H and needs for transfusion, especially family would like to pursue hospice care , will discontinue coumadin and keep aspirin only for AC in the future. B/R/A discussed with pt's , she agrees with and appreciates the plan. (9) Lung cancer Current Visit: Yes Status: Chronic Assessment and Plan: In process of looking into palliative care/hospice. Palliative care input appreciated. Cont symptom control. (10) Open wound, lower leg Current Visit: Yes Status: Chronic Assessment and Plan: B/L dry skin with a few open sores, with yellowish exudative base; wound culture from B/L legs grows Pseudomonas, VRE, Stenotrophomonas; patient has multiple antibiotic allergies After d/w family, place pt on comfort care only, Abx is on hold. (11) Acute encephalopathy Current Visit: Yes Status: Acute Assessment and Plan: delirium secondary to hospitalization, recent ortho surgery, pain meds with underlying malignancy, and possible aspiration PNA and infection of leg wound No significant change overnight Tx infection as above and continue to monitor palliative care consulted, will follow up with their evaluation and plan. (12) Anemia Current Visit: No Status: Acute Assessment and Plan: No signs of new bleeding. On comfort care. Will hold blood draw now. (13) Diabetes Current Visit: No Status: Chronic Assessment and Plan: Pt was on low dose insulin at home. He was placed on SSI but sugur level is never higher than 100. Will cont closely follow morning lab Glu level. (14) Hypoalbuminemia due to protein-calorie malnutrition Current Visit: Yes Status: Acute Assessment and Plan: Pt has poor intake due to generalized weakness and AMS. Family would like to pursue hospice and not consider TPN or tube feeding. Cont supportive/ symptomatic treatment. - Summary of Assessment and Plan Summary of Assessment and Plan: Pt is still sick. No improve even on multiple and assisted Abx. Prognosis may be poor. Will consider hospice. On comfort care only. - Time Spent with Patient Total time spent is greater than 50% in coordination of care (as documented) at patient's floor/unit and/or counseling patient: 30 min 25 - 35 minutes Plan of Care Discussed with: family Internal Medicine: Result - Labs CBC & Chem 7: 07/02/18 00:48 07/02/18 00:48 - ABG Interpretation ABG results: PT/INR, D-dimer PT 17.8 Seconds (9.4-12.1) H 07/02/18 00:48 - VTE Documentation of Mechanical Device: Intermittent pneumatic compression device Consult Discharge Plan - Plan Additional Instructions: [facility] DISCHARGE INSTRUCTIONS Dr. Raya PROCEDURE PERFORMED Reduction and fixation of right hip. Incision care -Daily dressing changes to the right hip with dry gauze and either paper tape or medipore tape. -Avoid soaking wound in water (no hot tubs, bathtubs, swimming pools). -May shower after 2 weeks from surgery date. Carefully wash incision with soap and water. Gently pat it dry. Don't rub the incision, or apply creams or lotions. Sit on a shower stool when showering to keep from falling. Weight bearing status -Weightbearing as tolerated to the bilateral lower extremities. Medications -Pain medication per the discharging medical doctor Other -Knee high PAMELA hose 23 hours per day -Consult physical and occupational therapy for mobilization. -Up to chair with assistance at least twice per day. -Follow up with your primary care physician to discuss testing for bone mineral density. Follow-up with Dr. Raya at the office 2 weeks from the surgery date for a post operative evaluation. Call the office at [phone] to schedule appointment. Referrals: Avery Woods DO [Primary Care Provider] - (1) Sepsis Qualifiers: Sepsis type: sepsis due to unspecified organism Qualified Code(s): A41.9 - Sepsis, unspecified organism (2) COPD (chronic obstructive pulmonary disease) Qualifiers: COPD type: unspecified COPD Qualified Code(s): J44.9 - Chronic obstructive pulmonary disease, unspecified (3) CAD (coronary artery disease) of artery bypass graft Qualifiers: [place] vs. transplanted heart: [place] heart Associated angina: without angina Qualified Code(s): I25.810 - Atherosclerosis of coronary artery bypass graft(s) without angina pectoris (5) Aspiration pneumonia Qualifiers: Aspiration pneumonia type: unspecified Laterality: right Lung location: lower lobe of lung Qualified Code(s): J69.0 - Pneumonitis due to inhalation of food and vomit (6) Fracture of femoral neck, right Qualifiers: Encounter type: initial encounter Fracture type: closed Qualified Code(s): S72.001A - Fracture of unspecified part of neck of right femur, initial encounter for closed fracture (7) Rib fracture Qualifiers: Encounter type: subsequent encounter Rib fracture type: single rib Fracture type: closed Laterality: right Fracture healing: with routine healing Qualified Code(s): S22.31XD - Fracture of one rib, right side, subsequent encounter for fracture with routine healing (8) Atrial fibrillation Qualifiers: Atrial fibrillation type: chronic Qualified Code(s): I48.2 - Chronic atrial fibrillation (9) Lung cancer Qualifiers: Laterality: unspecified laterality Lung location: unspecified part of lung Qualified Code(s): C34.90 - Malignant neoplasm of unspecified part of unspecified bronchus or lung (10) Open wound, lower leg Qualifiers: Encounter type: subsequent encounter Laterality: unspecified laterality Qualified Code(s): S81.809D - Unspecified open wound, unspecified lower leg, subsequent encounter (12) Anemia Qualifiers: Iron deficiency anemia type: chronic blood loss Qualified Code(s): D50.0 - Iron deficiency anemia secondary to blood loss (chronic) (13) Diabetes Qualifiers: Diabetes mellitus type: type 2 Diabetes mellitus assisted insulin use: with assisted use Diabetes mellitus complication status: with skin complications Diabetes mellitus complication detail: with other skin ulcer Qualified Code(s) : E11.622 - Type 2 diabetes mellitus with other skin ulcer; Z79.4 - [facility] ( current[facility] use of insulin
[2018-07-04] MEDS: *HR* LORazepam Oral Conc 2 MG/ML SL PRN ×2 (13:10→18:19)
[2018-07-05] MEDS: OXYCODONE Oral CONC 10 MG/0.5 ML ORAL.SYG SL PRN ×5 (08:10→21:08)
[2018-07-05] MEDS: Atropine Sulfate 1% 40 DROP/2 ML BOTTLE SL PRN (08:16)
[2018-07-05] MEDS: Nystatin POWDER 30 GM BOTTLE TP SCH ×2 (08:16→20:06)
[2018-07-05] MEDS: Aspirin Enteric Coated 81 MG Tablet PO SCH (08:17)
[2018-07-05] MEDS: Megestrol Acetate 400 MG/10 ML UDC PO SCH (08:17)
[2018-07-05] MEDS: Sennosides/Docusate Sodium TABLET PO SCH (08:18)
[2018-07-05] MEDS: Lubiprostone [Amitiza] 24 MCG PO SCH (08:18)
[2018-07-05] MEDS: Silver Sulfadiazine 50 GM TUBE TP SCH (08:18)
[2018-07-05] MEDS: Tiotropium 18 MCG inhalation IH SCH (08:18)
[2018-07-05] MEDS: Budesonide/Formoterol 80/4.5 MDI IH SCH (08:18)
[2018-07-05] MEDS: Bisacodyl 10 MG RECTAL SUPPOSITORY RC SCH (08:23)
--- NOTE | 2018-07-05 12:03 | Internal Med Progress Note ---
Hospitalist Progress Note - Encounter Date of Encounter: 07/05/18 Time of Encounter: 09:00 - Subjective Interval History: Patient is on comfort care. Looks comfortable, in NAD. Remains poor intake. Family is at bedside, state pt is calm on PRN pain meds and doesn't need to increase medications. Cont current care. - Exam Vitals: Temp Pulse Resp BP Pulse Ox 99.3 F 102 12 101/68 97 07/04/18 20:06 07/04/18 20:06 07/04/18 20:06 07/04/18 20:06 07/04/18 20:06 Exam: Pt is confused, in NAD HEENT: AC/NT, PERRL Neck: Supple, no LAD Lungs: Rhonchi b/l Heart: S1S2, RRR Abd: Soft, NT, normal BS Ext: ROM wnl, b/l pedal edema. B/L LE chronic wound Neuro: Confused. - Assessment and Plan (1) Sepsis Current Visit: Yes Status: Ruled-out (2) COPD (chronic obstructive pulmonary disease) Current Visit: Yes Status: Chronic (3) CAD (coronary artery disease) of artery bypass graft Current Visit: Yes Status: Chronic (4) Acute kidney injury Current Visit: Yes Status: Acute (5) Aspiration pneumonia Current Visit: Yes Status: Acute (6) Fracture of femoral neck, right Current Visit: Yes Status: Acute (7) Rib fracture Current Visit: Yes Status: Acute (8) Atrial fibrillation Current Visit: Yes Status: Chronic (9) Lung cancer Current Visit: Yes Status: Chronic (10) Open wound, lower leg Current Visit: Yes Status: Chronic (11) Acute encephalopathy Current Visit: Yes Status: Acute (12) Anemia Current Visit: No Status: Acute (13) Diabetes Current Visit: No Status: Chronic (14) Hypoalbuminemia due to protein-calorie malnutrition Current Visit: Yes Status: Acute Assessment and Plan: Pt has poor intake due to generalized weakness and AMS. Family would like to pursue hospice and not consider TPN or tube feeding. Cont supportive/ symptomatic treatment. - Summary of Assessment and Plan Summary of Assessment and Plan: Pt is still sick. On comfort care only. - Time Spent with Patient Total time spent is greater than 50% in coordination of care (as documented) at patient's floor/unit and/or counseling patient: 30 min 25 - 35 minutes Plan of Care Discussed with: family Internal Medicine: Result - Labs CBC & Chem 7: 07/02/18 00:48 07/02/18 00:48 - ABG Interpretation ABG results: PT/INR, D-dimer PT 17.8 Seconds (9.4-12.1) H 07/02/18 00:48 - VTE Documentation of Mechanical Device: Intermittent pneumatic compression device Consult Discharge Plan - Plan Additional Instructions: GROUP HOME DISCHARGE INSTRUCTIONS Dr. Raya PROCEDURE PERFORMED Reduction and fixation of right hip. Incision care -Daily dressing changes to the right hip with dry gauze and either paper tape or medipore tape. -Avoid soaking wound in water (no hot tubs, bathtubs, swimming pools). -May shower after 2 weeks from surgery date. Carefully wash incision with soap and water. Gently pat it dry. Don't rub the incision, or apply creams or lotions. Sit on a shower stool when showering to keep from falling. Weight bearing status -Weightbearing as tolerated to the bilateral lower extremities. Medications -Pain medication per the discharging medical doctor Other -Knee high PAMELA hose 23 hours per day -Consult physical and occupational therapy for mobilization. -Up to chair with assistance at least twice per day. -Follow up with your primary care physician to discuss testing for bone mineral density. Follow-up with Dr. Raya at the office 2 weeks from the surgery date for a post operative evaluation. Call the office at [phone] to schedule appointment. Referrals: Avery Woods DO [Primary Care Provider] - (1) Sepsis Qualifiers: Sepsis type: sepsis due to unspecified organism Qualified Code(s): A41.9 - Sepsis, unspecified organism (2) COPD (chronic obstructive pulmonary disease) Qualifiers: COPD type: unspecified COPD Qualified Code(s): J44.9 - Chronic obstructive pulmonary disease, unspecified (3) CAD (coronary artery disease) of artery bypass graft Qualifiers: [place] vs. transplanted heart: [place] heart Associated angina: without angina Qualified Code(s): I25.810 - Atherosclerosis of coronary artery bypass graft(s) without angina pectoris (5) Aspiration pneumonia Qualifiers: Aspiration pneumonia type: unspecified Laterality: right Lung location: lower lobe of lung Qualified Code(s): J69.0 - Pneumonitis due to inhalation of food and vomit (6) Fracture of femoral neck, right Qualifiers: Encounter type: initial encounter Fracture type: closed Qualified Code(s): S72.001A - Fracture of unspecified part of neck of right femur, initial encounter for closed fracture (7) Rib fracture Qualifiers: Encounter type: subsequent encounter Rib fracture type: single rib Fracture type: closed Laterality: right Fracture healing: with routine healing Qualified Code(s): S22.31XD - Fracture of one rib, right side, subsequent encounter for fracture with routine healing (8) Atrial fibrillation Qualifiers: Atrial fibrillation type: chronic Qualified Code(s): I48.2 - Chronic atrial fibrillation (9) Lung cancer Qualifiers: Laterality: unspecified laterality Lung location: unspecified part of lung Qualified Code(s): C34.90 - Malignant neoplasm of unspecified part of unspecified bronchus or lung (10) Open wound, lower leg Qualifiers: Encounter type: subsequent encounter Laterality: unspecified laterality Qualified Code(s): S81.809D - Unspecified open wound, unspecified lower leg, subsequent encounter (12) Anemia Qualifiers: Iron deficiency anemia type: chronic blood loss Qualified Code(s): D50.0 - Iron deficiency anemia secondary to blood loss (chronic) (13) Diabetes Qualifiers: Diabetes mellitus type: type 2 Diabetes mellitus termination clerk insulin use: with termination clerk use Diabetes mellitus complication status: with skin complications Diabetes mellitus complication detail: with other skin ulcer Qualified Code(s) : E11.622 - Type 2 diabetes mellitus with other skin ulcer; Z79.4 - shelter ( current) use of insulin
[2018-07-05] MEDS: *HR* LORazepam Oral Conc 2 MG/ML SL PRN ×3 (13:20→20:03)
[2018-07-06] MEDS: OXYCODONE Oral CONC 10 MG/0.5 ML ORAL.SYG SL PRN ×2 (01:00→04:22)
[2018-07-06] MEDS: *HR* LORazepam Oral Conc 2 MG/ML SL PRN (04:23)
[2018-07-06] MEDS: Atropine Sulfate 1% 40 DROP/2 ML BOTTLE SL PRN ×2 (04:24→10:15)
[2018-07-06 07:52] VITALS: BP 94/61
[2018-07-06] MEDS: Scopolamine Patch 1.5 MG PATCH.TD72 TD SCH (09:26)
[2018-07-06] MEDS: Nystatin POWDER 30 GM BOTTLE TP SCH (09:26)
[2018-07-06] MEDS: *HR* FentaNYL PATCH 50 MCG PATCH TD SCH (09:26)
[2018-07-06] MEDS: Bisacodyl 10 MG RECTAL SUPPOSITORY RC SCH (09:26)
--- NOTE | 2018-07-06 12:37 | Event Note ---
Date of Encounter: 07/06/18 Time of Encounter: 09:40 Went to patient's bed side for assessment. Deterioration noted. No family present at bedside. Patient having increased dyspnea, agitation, oral secretions. No nutrition times 6 days. Oxygen saturation 90% on 3L. Spoke with Maame Newton at [facility] ([id number]), and . Transition patient to [facility] status.
--- NOTE | 2018-07-06 12:53 | Discharge Summary ---
Date of Encounter: 07/06/18 Time of Encounter: 09:00 - Discharge Diagnosis (1) Sepsis Priority: Primary Status: Ruled-out Qualifiers: Qualified Code(s): A41.9 - Sepsis, unspecified organism (2) COPD (chronic obstructive pulmonary disease) Priority: Secondary Status: Chronic Qualifiers: Qualified Code(s): J44.9 - Chronic obstructive pulmonary disease, unspecified (3) CAD (coronary artery disease) of artery bypass graft Priority: Secondary Status: Chronic Qualifiers: Qualified Code(s): I25.810 - Atherosclerosis of coronary artery bypass graft( s) without angina pectoris (4) Acute kidney injury Priority: Secondary Status: Acute (5) Aspiration pneumonia Priority: Primary Status: Acute Qualifiers: Qualified Code(s): J69.0 - Pneumonitis due to inhalation of food and vomit (6) Fracture of femoral neck, right Priority: Primary Status: Acute Qualifiers: Qualified Code(s): S72.001A - Fracture of unspecified part of neck of right femur, initial encounter for closed fracture (7) Rib fracture Priority: Secondary Status: Acute Qualifiers: Qualified Code(s): S22.31XD - Fracture of one rib, right side, subsequent encounter for fracture with routine healing (8) Atrial fibrillation Priority: Secondary Status: Chronic Qualifiers: Qualified Code(s): I48.2 - Chronic atrial fibrillation (9) Lung cancer Priority: Secondary Status: Chronic Qualifiers: Qualified Code(s): C34.90 - Malignant neoplasm of unspecified part of unspecified bronchus or lung (10) Open wound, lower leg Priority: Primary Status: Chronic Qualifiers: Qualified Code(s): S81.809D - Unspecified open wound, unspecified lower leg, subsequent encounter (11) Acute encephalopathy Priority: Primary Status: Acute (12) Anemia Priority: Secondary Status: Acute Qualifiers: Qualified Code(s): D50.0 - Iron deficiency anemia secondary to blood loss ( chronic) (13) Diabetes Priority: Secondary Status: Chronic Qualifiers: Qualified Code(s): E11.622 - Type 2 diabetes mellitus with other skin ulcer; Z79.4 - terminal manager (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 Nicholson is a 78 year old male admitted for pneumonia, hip fracture, altered mental status. History of lung cancer and thyroid cancer after radiation therapy with dysphagia, chronic bilateral leg wound. Patient was treated with antibiotic for pneumonia, wound care consult and ID consult for wound. Orthopedic consult for hip fracture. Patient has high risk of aspiration because of radiation therapy on thyroid cancer. After about treatment, his condition does not improve. Patient has a very poor intake. Family would like to pursue hospice. Palliative care consult was called. Paperwork has been prepared for ECF discharged with hospice. However, patient' s condition is getting worse. After discussing with family, CODE STATUS has been changed to to DNR CC. Patient will be discharged to our inpatient hospice today for further management. I saw and examined this patient today. He is sleepy, lethargic, somnolent. Patient did not have intake for several days. Patient need pain medication to control the pain. He looks in no acute distress for pain at this point. Will DC him to hospice care service. Discharge discussed with: quality compliance consultant, other (Palliative care team) - Time Spent with Patient Total time spent providing and/or coordinating discharge services: Less than 30 minutes - Discharge Medications Prescriptions: OXYCODONE Oral CONC [Oxycodone Oral Conc] 15 mg SL Q2H PRN 2 Days #10 oral.syg PRN Reason: Pain Home Medications: FentaNYL PATCH [Duragesic] 50 mcg TD Q72H 1 Days #0 patch.td72 07/06/18 [Rx] Ipratropium/Albuterol Neb [Duoneb] 3 ml IH [id number] PRN inhsol 07/06/18 [Rx] LORazepam Oral Conc [Ativan Oral Conc] 1 mg SL Q3H PRN 2 Days #10 mls 07/06/18 [ Rx] Nystatin POWDER [Nystop] 1 appl TP BID bottle 07/06/18 [Rx] OXYCODONE Oral CONC [Oxycodone Oral Conc] 15 mg SL Q2H PRN 2 Days #10 oral.syg 07/06/18 [Rx] Promethazine [Phenergan] 12.5 mg IVP Q6HR PRN vial 07/06/18 [Rx] Scopolamine Patch [Transderm-Scop] 1.5 mg TD Q72H patch.td72 07/06/18 [Rx] Allergies/Adverse Reactions: 3 Allergy/AdvReac Type Severity Reaction Status Date / Time cephalexin [From Keflex] Allergy Mild unknown Verified 05/27/18 21:38 levofloxacin [From Levaquin] AdvReac Mild unknown Verified 05/27/18 21:38 clindamycin [From Cleocin] AdvReac See Verified 05/27/18 21:38 Comments Date of admission: 06/18/18 17:24 Primary care physician: Avery Woods Consults: 06/19/18 20:36 Consult to Occupational Therapy [CONS] Routine Comment: Evaluate, develop and implement POC Reason for Consult: post hip surgery Does patient have active BEDREST order?: No Is patient medically & hemodynamically stable?: Yes Consult to Orthopedic Navigator [CONS] [CONS] Routine Consult to Physical Therapy [CONS] Routine Comment: Evaluate, develop and implement POC Reason for Consult: post hip surgery Does patient have active BEDREST order?: No Is patient medically & hemodynamically stable?: Yes Consult to Electric Shovel Operator [CONS] Routine Reason for SW Consult: post -op hip fracture RT Post Op Consult [CONS] Routine 06/21/18 21:21 Consult to Wound Care [CONS] Stat Reason for Consult: Patient has several open and oozing wounds to his bilateral lee (left) and feet. Caregiver states that these are worse than when she has been taking care of them at home. Please make recommendations for daily wound care. Call Completed: No 06/25/18 13:41 Consult to Infectious Diseases [CONS] Routine Consulting Provider: [facility] [place] Reason for Consult: Chronic B/L foot wounds, wound cultures growing multiple drug resistant organisms Call Completed: No 06/27/18 15:55 Consult to Palliative Care [CONS] Routine Comment: Consulting Provider: Palliative Care [facility] Reason for Consult: Lung cancer, poor baseline functional status, chronic pain, right hip fracture s/p pinning Call Completed: No 06/30/18 13:51 Consult to Podiatry [CONS] Routine Consulting Provider: [facility] Reason for Consult: Bilateral leg wounds, overgrown/thickened toenails Time Notified: 13:51 Call Completed: Yes Discharging clinician: Reese Brooks Anticipated date of discharge: 07/06/18 - Constitutional Vitals: Temp Pulse Resp BP Pulse Ox 98.2 F 92 15 94/61 90 07/06/18 07:51 07/06/18 07:51 07/06/18 07:51 07/06/18 07:51 07/06/18 09:45 General appearance: Present: A&O X 0. Absent: answers questions appropriately - Head Head exam: Present: atraumatic, normocephalic - Eye Eye exam: Present: PERRL, conjuntiva pink, sclera anicteric Pupils: Present: PERRL - Neck Neck exam general surgery: Present: supple, trachea midline. Absent: lymphadenopathy - Respiratory Respiratory exam: Present: CTAB, rhonchi (Bilateral rhonchi). Absent: accessory muscle use, rales, wheezes - Cardiovascular Cardiovascular exam: Present: irregular rhythm, +S1, +S2. Absent: diastolic murmur, gallop, rubs, systolic murmur - GI/Abdominal GI/Abdominal exam: Present: normal bowel sounds, soft, no peritoneal signs. Absent: distended, tenderness - Extremities Exam Extremities exam: Present: pedal edema (Moderate bilaterally), warm, radial pulses palpable and symmetrical. Absent: calf tenderness, cyanotic Additional comments: Bilateral lower extremity wound - Neurological Exam Neurological exam: Present: CN II-XII intact, no focal deficits. Absent: pronater drift, facial droop, speech deficit - Skin Skin exam: Present: dry - Patient Status Disposition: Hospice - Medical Facility Condition: Critical Functional capacity at discharge: bed bound Overall status at discharge: patient is not back to baseline - Discharge Instructions Follow Up With: Avery Woods DO [Primary Care Provider] - Additional Instructions: RESIDENTIAL DISCHARGE INSTRUCTIONS Dr. Raya PROCEDURE PERFORMED Reduction and fixation of right hip. Incision care -Daily dressing changes to the right hip with dry gauze and either paper tape or medipore tape. -Avoid soaking wound in water (no hot tubs, bathtubs, swimming pools). -May shower after 2 weeks from surgery date. Carefully wash incision with soap and water. Gently pat it dry. Don't rub the incision, or apply creams or lotions. Sit on a shower stool when showering to keep from falling. Weight bearing status -Weightbearing as tolerated to the bilateral lower extremities. Medications -Pain medication per the discharging medical doctor Other -Knee high PAMELA hose 23 hours per day -Consult physical and occupational therapy for mobilization. -Up to chair with assistance at least twice per day. -Follow up with your primary care physician to discuss testing for bone mineral density. Follow-up with Dr. Raya at the office 2 weeks from the surgery date for a post operative evaluation. Call the office at [phone] to schedule appointment. - Diet and Activity Activity: other Diet: other - VTE Documentation of Mechanical Device: Intermittent pneumatic compression device
--- NOTE | 2018-07-06 13:04 | Physician Discharge Referral ---
Home Health/Hosp Referral Info Transfer to: Hospice Provider in Charge Post Discharge: Data Warehouse Analyst - Diagnosis (1) Sepsis Status: Ruled-out (2) COPD (chronic obstructive pulmonary disease) Status: Chronic (3) CAD (coronary artery disease) of artery bypass graft Status: Chronic (4) Acute kidney injury Status: Acute (5) Aspiration pneumonia Status: Acute (6) Fracture of femoral neck, right Status: Acute (7) Rib fracture Status: Acute (8) Atrial fibrillation Status: Chronic (9) Lung cancer Status: Chronic (10) Open wound, lower leg Status: Chronic (11) Acute encephalopathy Status: Acute (12) Anemia Status: Acute (13) Diabetes Status: Chronic (14) Hypoalbuminemia due to protein-calorie malnutrition Status: Acute - Respiratory Orders Smoking Cessation: Smoking cessation has been advised. For more information, call the [place] Tobacco Quit Line at 0-133-NYIQ-NOW. - Transfer Medications Prescriptions: OXYCODONE Oral CONC [Oxycodone Oral Conc] 15 mg SL Q2H PRN 2 Days #10 oral.syg PRN Reason: Pain Home Medications: FentaNYL PATCH [Duragesic] 50 mcg TD Q72H 1 Days #0 patch.td72 07/06/18 [Rx] Ipratropium/Albuterol Neb [Duoneb] 3 ml IH [id number] PRN inhsol 07/06/18 [Rx] LORazepam Oral Conc [Ativan Oral Conc] 1 mg SL Q3H PRN 2 Days #10 mls 07/06/18 [ Rx] Nystatin POWDER [Nystop] 1 appl TP BID bottle 07/06/18 [Rx] OXYCODONE Oral CONC [Oxycodone Oral Conc] 15 mg SL Q2H PRN 2 Days #10 oral.syg 07/06/18 [Rx] Promethazine [Phenergan] 12.5 mg IVP Q6HR PRN vial 07/06/18 [Rx] Scopolamine Patch [Transderm-Scop] 1.5 mg TD Q72H patch.td72 07/06/18 [Rx] Allergies/Adverse Reactions: 3 Allergy/AdvReac Type Severity Reaction Status Date / Time cephalexin [From Keflex] Allergy Mild unknown Verified 05/27/18 21:38 levofloxacin [From Levaquin] AdvReac Mild unknown Verified 05/27/18 21:38 clindamycin [From Cleocin] AdvReac See Verified 05/27/18 21:38 Comments Certification: Further, I certify that my clinical findings support that this patient is homebound (i.e. absences from home require considerable and taxing effort and are for medical reasons or jew services or infrequently or short duration when for other reasons) because: Homebound Reason: Altered mental status requiring supervision when leaving home Attestation: My signature below is to certify that this patient is under my care and that I, or nurse practitioner, or a physician's assistant counsel working with me, has a face-to -face encounter with this patient.
== END 2018-07-06 13:28 | disposition hospice, inpatient (51) | DRG 480 ==
LOC: EMEROO 14:18 → 3NENU 17:24 → SUATTDRO 17:24 → 3NENU 17:50 → 2ANU 07-05 17:14
PROVIDERS: ADMIT Student in an Organized Health Care Education/Training Program; ATTEND Internal Medicine

== ENCOUNTER 2018-07-06 12:16 | Inpatient (IN) ==
[2018-07-06] MEDS ORDERED: Ipratropium/Albuterol Neb 3 ML IH PRN (12:19)
[2018-07-06] MEDS ORDERED: Bisacodyl 10 MG RECTAL SUPPOSITORY RC PRN (12:19)
[2018-07-06] MEDS ORDERED: *HR* Promethazine 25 MG/ML VIAL IVP PRN (12:29)
--- NOTE | 2018-07-06 12:30 | Pallative History & Physical ---
Date of Encounter: 07/06/18 Time of Encounter: 10:00 Internal Medicine - H&P: HPI Chief complaint: Increasing agitation, secretions, delirium, and dyspnea. History of present illness: Mr. Nicholson is a 78 year old male admitted through the emergency department on after a fall at home. He sustained a nondisplaced fracture of the right seventh rib and a fracture of the right femoral neck. He was admitted and operative fixation of his right hip fracture was carried out. He is known to have multiple severe life limiting comorbidities, including diabetes, COPD, ischemic heart disease with previous CABG and pacemaker insertion, multiple open wounds of his lower legs, and a recently diagnosed lesion in the right lung thought to be carcinoma. Previous evaluation of this had been carried out and it was felt that this lesion was not amenable to treatment and symptomatic treatment had been advised. After operative fixation of his hip fracture was carried out he has done poorly, with continued deterioration in his general condition, intermittent agitation/delirium, increasing dyspnea, and difficulty with oral secretions. He has also had essentially no urine output over the last 24-36 hours. His agitation has not responded well to the use of Ativan. He is being placed on GIP status to adequately control his symptoms of delirium , increasing secretions and dyspnea as well as manage more effectively his pain. He is presently on DNR CC DNI status. For further details please see palliative care COMMERCIAL DEVELOPMENT MANAGER note. Past Med Surg Social Fam HX - Past Medical History Medical history: atrial fibrillation, cancer, COPD, coronary artery disease, diabetes, malignancy, thyroid disease, other Additional medical history: lung cancer Psychiatric history: anxiety, depression - Past Surgical History Surgical History: cancer surgery, coronary bypass (CABG) Additional surgical history: Sternal revision, exploratory laparotomy and herniorrhaphy, thyroidectomy - Social History Smoking Status: Current every day smoker Smokeless Tobacco Status: No Alcohol use: none Drug use: none - Family History Mother Living Status: Hx Family Cardiac Disorders: Yes Internal Medicine - H&P: Meds FentaNYL PATCH [Duragesic] 50 mcg TD Q72H 1 Days #0 patch.td72 07/06/18 [Rx] Ipratropium/Albuterol Neb [Duoneb] 3 ml IH [id number] PRN inhsol 07/06/18 [Rx] LORazepam Oral Conc [Ativan Oral Conc] 1 mg SL Q3H PRN 2 Days #10 mls 07/06/18 [ Rx] Nystatin POWDER [Nystop] 1 appl TP BID bottle 07/06/18 [Rx] OXYCODONE Oral CONC [Oxycodone Oral Conc] 15 mg SL Q2H PRN 2 Days #10 oral.syg 07/06/18 [Rx] Promethazine [Phenergan] 12.5 mg IVP Q6HR PRN vial 07/06/18 [Rx] Scopolamine Patch [Transderm-Scop] 1.5 mg TD Q72H patch.td72 07/06/18 [Rx] 3 Allergy/AdvReac Type Severity Reaction Status Date / Time cephalexin [From Keflex] Allergy Mild unknown Verified 05/27/18 21:38 levofloxacin [From Levaquin] AdvReac Mild unknown Verified 05/27/18 21:38 clindamycin [From Cleocin] AdvReac See Verified 05/27/18 21:38 Comments All systems: reviewed and no additional remarkable complaints except as stated ( Patient was unable to communicate due to impaired mental status.) Palliative Care-Exam - Constitutional Exam: He is somnolent, opens his eyes at times in response to his name. Intermittent moaning but no coherent verbal communication. - Expanded ENT Exam Mouth Exam: Present: drooling, moist Teeth exam: Present: edentulous - Respiratory Additional comments: Lungs are fairly clear at this time with scattered rhonchi noted. - Cardiovascular Additional comments: Heart sounds are slightly distant, irregular/irregular consistent with atrial fib. No murmur is noted. - GI/Abdominal Exam additional comments: Abdomen soft without obvious tenderness. Prominent midline irreducible abdominal wall hernia noted. - Extremities Exam Additional comments: Lower extremities non-edematous. Heel/lower leg protectors in place. - Skin Additional comments: Multiple ecchymoses noted over both upper extremities. Palliative Quality Palliative Quality: Screen for Code Status: Yes, Screen for Goals of Care: Yes, Screen for Pain: Yes, If Pain Regimen Started, Initiate Bowel Regimen: Yes, Screen for Nausea/Vomitting: Yes Code Status: 07/06/18 12:19 Resuscitation Status: Active [RES] Routine Comment: Resuscitation Status: DNR-Comfort Care
--- NOTE | 2018-07-06 12:48 | Palliative - Consult Note ---
Date of Encounter: 07/06/18 Time of Encounter: 12:30 - Assessment and Plan (1) Agitation Status: Acute Assessment and plan: Patient noted to be agitated during assessment. Ordered Haldol PRN and scheduled. Continue Ativan PRN. (2) Constipation due to opioid therapy Status: Acute Assessment and plan: Patient had small bowel movement this morning. Continue Bowel regimen as needed. (3) Fracture of femoral neck, right Status: Acute Assessment and plan: Surgically repaired. Qualifiers: Encounter type: initial encounter Fracture type: closed Qualified Code(s) : S72.001A - Fracture of unspecified part of neck of right femur, initial encounter for closed fracture (4) COPD (chronic obstructive pulmonary disease) Status: Chronic Assessment and plan: Oxygen saturation 90% on 3L. Patient increased dyspnea. Continue Oxycodone, duonebs, and oxygen therapy. Qualifiers: COPD type: unspecified COPD Qualified Code(s): J44.9 - Chronic obstructive pulmonary disease, unspecified (5) Lung cancer Status: Chronic Assessment and plan: Patient transitioning to hospice as GIP. Qualifiers: Laterality: unspecified laterality Lung location: unspecified part of lung Qualified Code(s): C34.90 - Malignant neoplasm of unspecified part of unspecified bronchus or lung (6) Protein-calorie malnutrition, moderate Status: Chronic Assessment and plan: Patient has not eaten greater than 10% in more than 8 days, nothing PO in last 6 days. (7) Dyspnea Status: Acute Assessment and plan: Patient having increased shortness of breath. Continue Oxycodone. Qualifiers: Dyspnea type: shortness of breath Qualified Code(s): R06.02 - Shortness of breath; R06.00 - Dyspnea, unspecified; R06.01 - Orthopnea (8) Goals of care, counseling/discussion Status: Acute Assessment and plan: Plan to transition patient to GIP. Notified Maame at [facility]. (9) Stage II pressure ulcer of left heel Status: Chronic Assessment and plan: Continue wound care to BLE. (10) Copious oral secretions Status: Acute Assessment and plan: Patient having increased oral secretions, with scopalamine and atropine in use. Add Robinul for comfort. Palliative-CN HPI - Data of Consult Patient: known to practice within the last 3 years Consult date: 07/06/18 Requesting Physician: Dao Andrade MD - Consult Narrative Palliative Care/Comfort Measures: Hospice care Reason for consult: GIP management History of present illness: Mr. Nicholson is a 78 year old male Arrived to [facility] on June 18, 2018 via EMS post fall at home; patient found by daughter sitting on his floor, alert, and confused, which is his baseline. Diagnosed with nondisplaced/impacted fracture of the right femoral neck. PMH: Atrial fibrillation, newly diagnosed Lung Cancer , COPD, CAD, DM, Thyroid disease, anxiety, and depression. CT of the Chest without contrast showing: Acute nondisplaced right 7th rib fracture; no underlying pleural effusion or pneumothorax; Interval increase in size of right lower lobe subpleural nodule; Features of chronic recurrent aspiration, including extensive tracheobronchial secretions with airway inflammation, basilar predominant small airway mucoid impaction and scattered basilar tree-in- bud nodularity; Basilar tree-in-bud nodularity has decreased; Advanced emphysema ; and Stable mild dilatation of the ascending thoracic aorta. CT of abdomen/ pelvis without contrast showing: No acute traumatic abnormality is identified; 4.1 cm AAA; Reticulonodular opacities at the right lung base; and Re- demonstration of a 2.2 cm exophytic mildly complex right renal cyst. EKG showing : SVT with nonspecific ST & T wave abnormality. Patient admitted and medically managed for SCOTT, Aspiration pneumonia, Sepsis, and Fracture of Right femoral neck. Orthopedic consult recommend surgical intervention for repair of right femoral fracture. Orthopedic repair completed; recommend significant PT/OT prior to return home. On 06/22/18, significantly hypotensive; patients opted to change CODE STATUS to DNR CCA/DNI and request to keep patient comfortable. On 06/25/18, Infectious disease consulted for management of Severe Sepsis, Open wound to Lower leg, Aspiration pneumonia, SCOTT, multiple antibiotic allergies, Fracture of right head of femur, rib fractures, PVD, Diabetic foot ulcer, AAA, and Supratherapeutic INR. 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 Chest x-ray showing: No definite focal consolidation representing pneumonia is identified. New onset acute encephalopathy secondary to hospitalization, recent ortho surgery, pain meds with underlying malignancy. Patients INR supratherapeutic and has been unable to perform PT/OT due to risks ; warfarin on hold, Vitamin K given. On 06/29/18, Palliative care consulted for goals of care; Lung cancer, poor baseline functional status, chronic pain, right hip fracture s/p pinning. Upon initial evaluation, patient complained of pain; however, plan of care to go to ECF for PT/OT. Palliative care continued to follow patient to assist with discharge planning and pain management; Fentanyl patch ordered as patient having poor PO intake and difficulty swallowing pills. On the evening of 07/02/18, patient's spoke with Dr. Brooks and given overall poor prognosis decided to transition patient to comfort care status; resuscitation order changed to DNRCC. Over the weekend of 07/03/18-07/05/18 , patient continued to decline medically and was transitioned to 2A Nursing unit. On 07/06/18, decision was made to transition patient to GIP status as having worsening confusion, dyspnea, and increased oral secretions. Patient in bed with increased cyanosis and dyspnea noted. Wearing oxygen. Increased agitation noted. Patient unable to answer questions. No family present at bedside. Patient has received PRN Ativan times 3 doses, Fentanyl patch [address], Oxycodone times 4 doses. Audible oral secretion of upper airway noted. CC: Dao Andrade MD Past Med Surg Social Fam HX - Past Medical History Medical history: atrial fibrillation, cancer, COPD, coronary artery disease, diabetes, malignancy, thyroid disease, other Additional medical history: lung cancer Psychiatric history: anxiety, depression - Past Surgical History Surgical History: cancer surgery, coronary bypass (CABG) Additional surgical history: Sternal revision, exploratory laparotomy and herniorrhaphy, thyroidectomy - Social History Smoking Status: Current every day smoker Smokeless Tobacco Status: No Alcohol use: none Drug use: none - Family History Mother Living Status: Hx Family Cardiac Disorders: Yes Medications and Allergies FentaNYL PATCH [Duragesic] 50 mcg TD Q72H 1 Days #0 patch.td72 07/06/18 [Rx] Ipratropium/Albuterol Neb [Duoneb] 3 ml IH [id number] PRN inhsol 07/06/18 [Rx] LORazepam Oral Conc [Ativan Oral Conc] 1 mg SL Q3H PRN 2 Days #10 mls 07/06/18 [ Rx] Nystatin POWDER [Nystop] 1 appl TP BID bottle 07/06/18 [Rx] OXYCODONE Oral CONC [Oxycodone Oral Conc] 15 mg SL Q2H PRN 2 Days #10 oral.syg 07/06/18 [Rx] Promethazine [Phenergan] 12.5 mg IVP Q6HR PRN vial 07/06/18 [Rx] Scopolamine Patch [Transderm-Scop] 1.5 mg TD Q72H patch.td72 07/06/18 [Rx] 3 Allergy/AdvReac Type Severity Reaction Status Date / Time cephalexin [From Keflex] Allergy Mild unknown Verified 05/27/18 21:38 levofloxacin [From Levaquin] AdvReac Mild unknown Verified 05/27/18 21:38 clindamycin [From Cleocin] AdvReac See Verified 05/27/18 21:38 Comments ROS unobtainable: due to mental status Palliative Care-Exam - Constitutional General appearance: Present: mild distress. Absent: cooperative - Head Head Exam: Present: atraumatic, normal inspection - Expanded Head Exam Head exam expanded IM: Absent: raccoon eyes - Eye Eye exam: Present: normal appearance, conjuntiva pink - ENT ENT exam: Present: mucous membranes dry, normal external ear exam - Expanded ENT Exam Mouth Exam: Present: dry mucosa. Absent: drooling - Neck Neck exam: Present: full ROM, normal inspection - Respiratory Respiratory exam: Present: accessory muscle use, respiratory distress, rhonchi. Absent: chest wall tenderness, stridor - Cardiovascular Cardiovascular exam: Present: +S1, +S2 - Expanded Cardiovascular Exam Peripheral pulses: 1+: Radial (L), Radial (R), Posterior Tibialis (L), Posterior Tibialis (R), Dorsalis Pedis (L) PM, Dorsalis Pedis (R) PM - GI/Abdominal Exam GI/Abdominal exam: Present: diminished bowel sounds, firm. Absent: guarding, tenderness - Rectal Rectal Exam: Present: normal inspection - exam: Present: normal inspection - Extremities Exam Extremities exam: Absent: calf tenderness, pedal edema - Back Exam Back exam: Present: normal inspection - Neurological Exam Neurological exam: Present: altered, strengths equal and symetr throughout. Absent: oriented X3, facial droop, speech deficit - Expanded Neurological Exam Neurological exam expanded: Present: inattentive Coma Scale Eye Opening: To Voice Coma Scale Motor Response: Withdraws to Pain Coma Scale Verbal Response: Confused Coma Scale Total: 11 - Psychiatric Psychiatric exam: Present: anxious - Skin Skin exam: Present: cyanosis (to lips.), dry, mottled (to BLE), pallor ( Bruising noted to hip.) Palliative Quality Palliative Quality: Screen for Code Status: Yes, Screen for Goals of Care: Yes, Screen for Pain: NA, If Pain Regimen Started, Initiate Bowel Regimen: NA, Screen for Nausea/Vomitting: NA Code Status: 07/06/18 12:19 Resuscitation Status: Active [RES] Routine Comment: Resuscitation Status: DNR-Comfort Care
[2018-07-06] MEDS: Haloperidol Oral Conc 10 MG/5 ML UDC PO SCH ×3 (13:54→20:09)
[2018-07-06] MEDS: Atropine Sulfate 1% 40 DROP/2 ML BOTTLE SL PRN ×3 (13:54→23:55)
[2018-07-06] MEDS: Glycopyrrolate 0.2 MG/ML VIAL IVP PRN (13:55)
[2018-07-06] MEDS: *HR* FentaNYL PATCH 12 MCG PATCH TD SCH (13:55)
[2018-07-06] MEDS: Scopolamine Patch 1.5 MG PATCH.TD72 TD SCH (13:55)
[2018-07-06] MEDS: OXYCODONE Oral CONC 10 MG/0.5 ML ORAL.SYG SL PRN ×3 (13:58→23:52)
[2018-07-06] MEDS ORDERED: Haloperidol Lactate 5 MG/ML VIAL IVP SCH (15:00)
[2018-07-06] MEDS: Nystatin POWDER 30 GM BOTTLE TP SCH (20:14)
[2018-07-06] MEDS: *HR* LORazepam Oral Conc 2 MG/ML PO PRN (23:51)
[2018-07-07] MEDS: Atropine Sulfate 1% 40 DROP/2 ML BOTTLE SL PRN ×3 (04:33→21:42)
[2018-07-07] MEDS: OXYCODONE Oral CONC 10 MG/0.5 ML ORAL.SYG SL PRN ×5 (04:33→21:39)
[2018-07-07] MEDS: Haloperidol Oral Conc 10 MG/5 ML UDC PO PRN (06:27)
[2018-07-07] MEDS ORDERED: Acetaminophen 650 MG RECTAL SUPP RC PRN (08:08)
[2018-07-07] MEDS: Haloperidol Oral Conc 10 MG/5 ML UDC PO SCH ×4 (08:55→20:14)
--- NOTE | 2018-07-07 09:42 | Palliative Progress Note ---
Date of Encounter: 07/07/18 Time of Encounter: 09:00 - Assessment and plan (1) Agitation Current Visit: No Status: Acute Assessment and plan: Patient's family reports agitation has improved. Patient has received scheduled Haldol and 2 additional doses of Haldol PRN. (2) Constipation due to opioid therapy Current Visit: No Status: Acute Assessment and plan: Patient has had no bowel movement. Patient has PRN Dulcolax suppository as needed. (3) Fracture of femoral neck, right Current Visit: No Status: Acute Qualifiers: Encounter type: initial encounter Fracture type: closed Qualified Code(s) : S72.001A - Fracture of unspecified part of neck of right femur, initial encounter for closed fracture (4) COPD (chronic obstructive pulmonary disease) Current Visit: No Status: Chronic Assessment and plan: Oxygen saturation 91%. Patient having agonal breathing. Lips more cyanotic. Continue Oxygen therapy and duonebs as needed. Continue Oxycodone for dyspnea. Qualifiers: COPD type: unspecified COPD Qualified Code(s): J44.9 - Chronic obstructive pulmonary disease, unspecified (5) Lung cancer Current Visit: No Status: Chronic Assessment and plan: [facility] patient. Qualifiers: Laterality: unspecified laterality Lung location: unspecified part of lung Qualified Code(s): C34.90 - Malignant neoplasm of unspecified part of unspecified bronchus or lung (6) Protein-calorie malnutrition, moderate Current Visit: No Status: Chronic (7) Dyspnea Current Visit: No Status: Acute Assessment and plan: Patient has required 4 doses of Oxycodone for pain/dyspnea in the last 24 hours. Continue PRN. Qualifiers: Dyspnea type: shortness of breath Qualified Code(s): R06.02 - Shortness of breath; R06.00 - Dyspnea, unspecified; R06.01 - Orthopnea (8) Goals of care, counseling/discussion Current Visit: No Status: Acute Assessment and plan: Family educated on symptoms of pending ; verbalized understanding. Current plan to remain [facility] until symptoms stabilize or time of passing. (9) Stage II pressure ulcer of left heel Current Visit: No Status: Chronic (10) Copious oral secretions Current Visit: No Status: Acute Assessment and plan: Patient continuing to have increased oral secretions. Patient has required 4 doses of Atropine, Scopalamine, and Robinul times 1 dose for comfort. (11) Body temperature above normal Current Visit: Yes Status: Acute Assessment and plan: Patient's body temperature increased to 100F. Tylenol Ordered. - Time Spent With Patient Total time spent is greater than 50% in coordination of care (as documented) at patient's floor/unit and/or counseling patient: - Subjective Interval history: Patient lying on right side, unable to arouse during assessment. Patient had several family members at bedside. Family reports patient has had increased episodes of long pauses in respirations. Increased body temperature noted. Heart rate has increased. Patient noted to have increased agonal breathing; family reports that patient had just received PRN Pain medication. Patient having increased audible upper airway lung sounds. Patient has required 4 doses of Atropine, scheduled haldol plus two doses PRN, Ativan X1 dose, Robinul X1 dose for comfort. Noted to have an increase in body temperature to 100F. Family reports patient is known to be stubborn; however, they are pleased nursing is keeping him as comfortable as possible. - Constitutional General appearance: Present: no acute distress - Head Head exam: Present: atraumatic, normal inspection - Eye Eye exam: Present: normal appearance. Absent: periorbital swelling, periorbital tenderness Pupils: Present: fixed - ENT ENT exam: Present: mucous membranes dry, normal external ear exam - Neck Neck exam: Present: normal inspection. Absent: tenderness - Respiratory Respiratory exam: Present: accessory muscle use, respiratory distress, rhonchi, wheezes - Cardiovascular Cardiovascular exam: Present: irregular rhythm, +S1, +S2 - GI/Abdominal GI/Abdominal exam: Present: distended, hernia, hypoactive bowel sounds. Absent : tenderness - Rectal Rectal exam: Present: deferred - Extremities Exam Extremities exam: Present: normal inspection. Absent: normal capillary refill - Neurological Exam Neurological exam: Present: altered. Absent: oriented X3, facial droop, speech deficit - Psychiatric Psychiatric exam: Present: flat affect - Skin Skin exam: Present: dry, intact, mottled, warm Palliative Quality Palliative Quality: Screen for Code Status: Yes, Screen for Goals of Care: Yes, Screen for Pain: NA, If Pain Regimen Started, Initiate Bowel Regimen: NA, Screen for Nausea/Vomitting: NA Code Status: 07/06/18 12:19 Resuscitation Status: Active [RES] Routine Comment: Resuscitation Status: DNR-Comfort Care Consult Discharge Plan - Plan Referrals: Avery Woods DO [Primary Care Provider] -
[2018-07-07] MEDS: Nystatin POWDER 30 GM BOTTLE TP SCH ×2 (16:54→22:41)
[2018-07-08] MEDS: Haloperidol Oral Conc 10 MG/5 ML UDC PO PRN (02:41)
[2018-07-08] MEDS: Atropine Sulfate 1% 40 DROP/2 ML BOTTLE SL PRN ×4 (02:41→20:20)
[2018-07-08] MEDS: OXYCODONE Oral CONC 10 MG/0.5 ML ORAL.SYG SL PRN ×3 (03:59→20:16)
[2018-07-08] MEDS: *HR* LORazepam Oral Conc 2 MG/ML PO PRN ×3 (05:10→21:14)
[2018-07-08] MEDS: Haloperidol Oral Conc 10 MG/5 ML UDC PO SCH ×5 (08:40→21:15)
--- NOTE | 2018-07-08 09:51 | Palliative Progress Note ---
Date of Encounter: 07/08/18 Time of Encounter: 09:00 - Assessment and plan (1) Agitation Current Visit: No Status: Acute Assessment and plan: Patient had increased anxiety/agitation overnight. Increased Haldol to scheduled every 4 hours. (2) Constipation due to opioid therapy Current Visit: No Status: Acute (3) Fracture of femoral neck, right Current Visit: No Status: Acute Qualifiers: Encounter type: initial encounter Fracture type: closed Qualified Code(s) : S72.001A - Fracture of unspecified part of neck of right femur, initial encounter for closed fracture (4) COPD (chronic obstructive pulmonary disease) Current Visit: No Status: Chronic Assessment and plan: Patient's oxygen saturation 90% 3L. Increased agonal breathing. Diminished lung sounds. Continue oxygen therapy as needed. Qualifiers: COPD type: unspecified COPD Qualified Code(s): J44.9 - Chronic obstructive pulmonary disease, unspecified (5) Lung cancer Current Visit: No Status: Chronic Assessment and plan: Patient GIP with [facility]. Qualifiers: Laterality: unspecified laterality Lung location: unspecified part of lung Qualified Code(s): C34.90 - Malignant neoplasm of unspecified part of unspecified bronchus or lung (6) Protein-calorie malnutrition, moderate Current Visit: No Status: Chronic Assessment and plan: NPO. (7) Dyspnea Current Visit: No Status: Acute Assessment and plan: Patient has required 5 doses of Oxycodone for pain/dyspnea in the last 24 hours. Continue PRN. Qualifiers: Dyspnea type: shortness of breath Qualified Code(s): R06.02 - Shortness of breath; R06.00 - Dyspnea, unspecified; R06.01 - Orthopnea (8) Goals of care, counseling/discussion Current Visit: No Status: Acute Assessment and plan: Family educated on symptoms of pending ; verbalized understanding. Family reported period of lucidity last night. Informed family that [facility] SW may come out to discuss discharge planning if patient's symptoms stabilize. Family verbalized understanding. Notified [facility] (Venus Pereira awaiting return call) of need should patient's symptoms stabilize. Currently unsure if need discharge plan in place as patient's symptoms progressing. [facility] SW to come out at their convenience to discuss with family. (9) Stage II pressure ulcer of left heel Current Visit: No Status: Chronic (10) Copious oral secretions Current Visit: No Status: Acute Assessment and plan: Patient continuing to have increased oral secretions. Patient has required 4 doses of Atropine, Scopalamine, and Robinul times 1 dose for comfort. Requested Pastora RN bring Robinul. Increased Atropine to q1h PRN. (11) Body temperature above normal Current Visit: Yes Status: Acute Assessment and plan: Patient's body temperature stable 99-100F. Tylenol PRN. - Time Spent With Patient Total time spent is greater than 50% in coordination of care (as documented) at patient's floor/unit and/or counseling patient: 25 - 35 minutes - Subjective Interval history: Patient lying in bed toward right side, unarousable during assessment. Patient had 3 family members present at bedside. Family reports patient had period of lucidity, awoke and told them all he loved them prior to returning to sleep. Patient's heart beat is irregular with periods of pauses. Lung sounds to right diminished with lung sounds to left coarse and rhonchi. Family reports medications have been able to help keep patient calm; however, does get more agitated overnight with long space between scheduled Haldol. Patient has required 1 dose Haldol and 1 dose Ativan for agitation overnight. Patient has received 5 doses of Oxycodone PRN for dyspnea/discomfort overnight. Increased upper airway secretions noted. Patient has received 1 dose of Robinul and 4 doses Atropine PRN, also has Scopalamine patch in place. Spoke with nurse regarding patient's clinical status upon completion of assessment. Patient's nurse Pastora reports overnight additional PRN Haldol/Ativan used for comfort and reports rally overnight. Pastora GARIBAY also reports increased oral secretions with worsening lung sounds. - Constitutional General appearance: Present: no acute distress - Head Head exam: Present: normal inspection - Eye Eye exam: Present: normal appearance. Absent: periorbital swelling, periorbital tenderness Pupils: Present: fixed. Absent: normal accommodation, PERRL - ENT ENT exam: Present: mucous membranes dry, normal external ear exam - Neck Neck exam: Present: normal inspection - Respiratory Respiratory exam: Present: accessory muscle use, rhonchi, stridor. Absent: respiratory distress Additional comments: with pauses. - Cardiovascular Cardiovascular exam: Present: irregular rhythm, +S1, +S2 - GI/Abdominal GI/Abdominal exam: Present: diminished bowel sounds, distended, hernia. Absent : tenderness - Rectal Rectal exam: Present: deferred - Extremities Exam Extremities exam: Present: normal inspection. Absent: calf tenderness, normal capillary refill - Neurological Exam Neurological exam: Present: altered. Absent: alert, oriented X3, facial droop, speech deficit (No speech attempt.) - Psychiatric Psychiatric exam: Present: flat affect - Skin Skin exam: Present: mottled, pallor Palliative Quality Palliative Quality: Screen for Code Status: Yes, Screen for Goals of Care: Yes, Screen for Pain: NA, If Pain Regimen Started, Initiate Bowel Regimen: NA, Screen for Nausea/Vomitting: NA Code Status: 07/06/18 12:19 Resuscitation Status: Active [RES] Routine Comment: Resuscitation Status: DNR-Comfort Care Consult Discharge Plan - Plan Referrals: Avery Woods DO [Primary Care Provider] -
[2018-07-08] MEDS: Glycopyrrolate 0.2 MG/ML VIAL IVP PRN ×2 (11:03→16:50)
[2018-07-08] MEDS: Nystatin POWDER 30 GM BOTTLE TP SCH ×2 (13:39→19:51)
[2018-07-09] MEDS: OXYCODONE Oral CONC 10 MG/0.5 ML ORAL.SYG SL PRN ×3 (01:24→10:46)
[2018-07-09] MEDS: Haloperidol Oral Conc 10 MG/5 ML UDC PO SCH ×6 (01:24→23:08)
[2018-07-09] MEDS: Atropine Sulfate 1% 40 DROP/2 ML BOTTLE SL PRN (01:25)
[2018-07-09] MEDS: Glycopyrrolate 0.2 MG/ML VIAL IVP PRN ×2 (02:03→20:07)
[2018-07-09] MEDS: Nystatin POWDER 30 GM BOTTLE TP SCH ×2 (11:34→20:17)
[2018-07-09] MEDS: *HR* LORazepam Oral Conc 2 MG/ML PO PRN ×2 (11:47→23:09)
[2018-07-09] MEDS ORDERED: *HR* FentaNYL PATCH 50 MCG PATCH TD SCH (12:15)
[2018-07-09] MEDS: Scopolamine Patch 1.5 MG PATCH.TD72 TD SCH (12:21)
[2018-07-09] MEDS: *HR* FentaNYL PATCH 12 MCG PATCH TD SCH (12:21)
--- NOTE | 2018-07-09 13:00 | Palliative Progress Note ---
Date of Encounter: 07/09/18 Time of Encounter: 09:00 - Assessment and plan (1) Pain Current Visit: No Status: Acute Assessment and plan: Patient appears comfortable. Utilizing Oxycodone about every 4 hrs PRN. Fentanyl patch at 50 mcg. (2) Copious oral secretions Current Visit: Yes Status: Acute Assessment and plan: Patient with loose secretions. Atropine gtts and scopolomine patch on. Position for comfort, lightly suction PRN. (3) Anxiety Current Visit: No Status: Acute Assessment and plan: PRN ativan and haldol. (4) Goals of care, counseling/discussion Current Visit: Yes Status: Acute Assessment and plan: Patient is GIP. DNRCC - Comfort Care. Educated family on assessment findings and educated on end-of-life symptoms. - Time Spent With Patient Total time spent is greater than 50% in coordination of care (as documented) at patient's floor/unit and/or counseling patient: Family support and education on dying process. 25 - 35 minutes - Subjective Interval history: Patient sleeping with slight secretions to back of throat. Family at bedside. Reports patient had an overall quiet night. Utilizing SL Oxycodone about every 4 hours, Haldol and Ativan PRN. - Constitutional Vitals: stable General appearance: Present: no acute distress - Head Head exam: Present: atraumatic, normal inspection - Eye Eye exam: Present: PERRL - ENT ENT exam: Present: mucous membranes moist - Respiratory Respiratory exam: Present: decreased breath sounds, prolonged expiratory phase - Expanded Respiratory Exam Location: decreased breath sounds: Left, Right, Lower - Cardiovascular Cardiovascular exam: Present: +S1, +S2, tachycardia - Expanded Cardiovascular Exam Peripheral pulses: 1+: Femoral (L) PM, Femoral (R) PM, Posterior Tibialis (L), Posterior Tibialis (R), 2+: Carotid (L) PM, Carotid (R) PM, Radial (L), Radial ( R), Dorsalis Pedis (L) PM, Dorsalis Pedis (R) PM - Rectal Rectal exam: Present: deferred - Extremities Exam Extremities exam: Present: tenderness - Neurological Exam Neurological exam: Present: altered (patient end of life. sedated with haldol) - Psychiatric Psychiatric exam: Present: flat affect - Skin Skin exam: Present: pallor, warm (multiple dressing to arms, chest and bilateral lower legs.) Palliative Quality Palliative Quality: Screen for Code Status: Yes, Screen for Goals of Care: Yes, Screen for Pain: NA, If Pain Regimen Started, Initiate Bowel Regimen: NA, Screen for Nausea/Vomitting: NA Code Status: 07/06/18 12:19 Resuscitation Status: Active [RES] Routine Comment: Resuscitation Status: DNR-Comfort Care Consult Discharge Plan - Plan Referrals: Avery Woods DO [Primary Care Provider] -
[2018-07-10] MEDS: Haloperidol Oral Conc 10 MG/5 ML UDC PO SCH ×4 (02:32→13:59)
[2018-07-10] MEDS: Atropine Sulfate 1% 40 DROP/2 ML BOTTLE SL PRN ×3 (02:34→14:00)
[2018-07-10] MEDS: Glycopyrrolate 0.2 MG/ML VIAL IVP PRN ×2 (09:43→13:58)
[2018-07-10] MEDS: Nystatin POWDER 30 GM BOTTLE TP SCH (09:44)
--- NOTE | 2018-07-10 11:02 | Palliative Progress Note ---
Date of Encounter: 07/10/18 Time of Encounter: 10:30 - Assessment and plan (1) Pain Current Visit: No Status: Acute Assessment and plan: Patient appears comfortable. Utilizing Oxycodone about every 4 hrs PRN. Fentanyl patch at 50 mcg. (2) Copious oral secretions Current Visit: Yes Status: Acute Assessment and plan: Patient with loose secretions. Atropine gtts and scopolomine patch on. Position for comfort, lightly suction PRN. (3) Anxiety Current Visit: No Status: Acute Assessment and plan: PRN ativan and haldol. (4) Goals of care, counseling/discussion Current Visit: Yes Status: Acute Assessment and plan: Patient is GIP. DNRCC - Comfort Care. Educated family on assessment findings and educated on end-of-life symptoms. - Time Spent With Patient Total time spent is greater than 50% in coordination of care (as documented) at patient's floor/unit and/or counseling patient: less than 15 minutes - Subjective Interval history: Patient sleeping with secretions to back of throat. Jostin sleeping at bedside. No issues overnight. - Constitutional General appearance: Present: no acute distress - Head Head exam: Present: atraumatic, normal inspection, normocephalic - Eye Eye exam: Present: PERRL - ENT ENT exam: Present: mucous membranes dry - Neck Neck exam: Present: full ROM - Respiratory Respiratory exam: Present: CTAB - Cardiovascular Cardiovascular exam: Present: RRR, +S1, +S2, tachycardia - Expanded Cardiovascular Exam Peripheral pulses: 1+: Femoral (L) PM, Femoral (R) PM, Posterior Tibialis (L), Posterior Tibialis (R), 2+: Carotid (L) PM, Carotid (R) PM, Radial (L), Radial ( R), Dorsalis Pedis (L) PM, Dorsalis Pedis (R) PM - GI/Abdominal GI/Abdominal exam: Present: diminished bowel sounds, normal bowel sounds, soft - Extremities Exam Extremities exam: Present: tenderness Additional comments: Bilateral leg dressings CDI. - Neurological Exam Neurological exam: Present: altered - Psychiatric Psychiatric exam: Present: flat affect - Skin Skin exam: Present: pallor, warm Palliative Quality Palliative Quality: Screen for Code Status: Yes, Screen for Goals of Care: Yes, Screen for Pain: NA, If Pain Regimen Started, Initiate Bowel Regimen: NA, Screen for Nausea/Vomitting: NA Code Status: 07/06/18 12:19 Resuscitation Status: Active [RES] Routine Comment: Resuscitation Status: DNR-Comfort Care Consult Discharge Plan - Plan Referrals: Avery Woods DO [Primary Care Provider] -
[2018-07-10] MEDS: OXYCODONE Oral CONC 10 MG/0.5 ML ORAL.SYG SL PRN (11:19)
[2018-07-10 14:09] VITALS: BP 42/35
--- NOTE | 2018-07-10 15:30 | Event Note ---
Date of Encounter: 07/10/18 Time of Encounter: 15:10 Patient at 1500. Family at bedside and support provided. Nurse to call LOOP and complete forms. note completed.
--- NOTE | 2018-07-10 15:32 | Death Note ---
Discharge Sum: Summary - Date and Time Date of admission: 07/06/18 13:31 Date of : 07/10/18 Time of : 15:00 - Summary Details: Patient admitted to inpatient hospice for end stage COPD and Lung Cancer. Patient was comfort care (DNRCC - Comfort Care). Patient received symptomatic care for end-of-life symptoms PRN. Patient quietly with family at bedside. - Additional Data Confirmation of as documented by pronouncing clinician: no pulse, no respirations Family: at bedside Attending/PCP notified?: Yes Attending physician: Dao Andrade MD Was code activated?: No Autopsy requested?: No worker's compensation claims examiner notified?: No Organ bank notified?: Yes Hospice patient?: Yes Discharge Sum: Diag - PCOD Probable Cause of : Respiratory arrest (hx lung cancer, COPD) Discharge Sum: Prov - Provider Primary care physician: Avery Woods Admitting clinician: Dao Andrade Consults: 07/06/18 12:19 Consult to Palliative Care [CONS] Routine Comment: Consulting Provider: Palliative Care Nathalie Reason for Consult: GIP Call Completed: No
== END 2018-07-10 15:00 | disposition expired | DRG 951 ==
LOC: 2ANU 13:31
PROVIDERS: ADMIT Internal Medicine; ATTEND Internal Medicine